=== PATIENT | male | born 1940 | race Caucasian/White ===

== ENCOUNTER 2022-11-12 12:44 | Outpatient (OUT) | payer MEDICARE, OTHER, SELFPAY ==
[2022-11-12 13:37] LABS: Bilirubin Urine NEGATIVE (NEGATIVE); Blood Urine NEGATIVE (NEGATIVE); Clarity Urine CLEAR (CLEAR); Color Urine LT. YELLOW (YELLOW); Glucose Urine UA NEGATIVE (NEGATIVE); Ketones Urine NEGATIVE (NEGATIVE); Leukocyte Esterase Urine NEGATIVE (NEGATIVE); Nitrite Urine NEGATIVE (NEGATIVE); Protein Urine NEGATIVE (NEG/TRACE); Urobilinogen Urine 0.2 EU/dL (0.2-1.0)
[2022-11-12 13:51] LABS: Bacteria Urine NONE SEEN #/HPF (NONE SEEN); Cast Seen? NONE SEEN #/LPF (NONE SEEN); Crystals Seen? None Seen #/HPF (None Seen); Mucus Urine NONE SEEN (NONE SEEN); RBC Urine NONE SEEN #/HPF (0-2); Squamous Epithelial Cell Urine RARE #/LPF (NONE/RARE); WBC Urine NONE SEEN #/HPF (NONE SEEN)
== END 2022-11-12 12:45 ==
LOC: LAB 12:51
PROVIDERS: PCP Nurse Practitioner Family; Visit Provider Nurse Practitioner Family
DX: N39.0 Urinary tract infection, site not specified (principal)
CPT/HCPCS: 81001; 87086; 87150; 87186

== ENCOUNTER 2022-11-12 12:53 | Outpatient (OUT) | payer MEDICARE, SELFPAY ==
[2022-11-13 04:08] LABS: PSA, Free 1.23 ng/mL; Prostate Specific Ag 4.9 ng/mL (0.0-4.0)
== END 2022-11-12 12:54 ==
PROVIDERS: PCP Nurse Practitioner Family; Visit Provider Urology
DX: R97.20 Elevated prostate specific antigen [PSA] (principal); N39.0 Urinary tract infection, site not specified
CPT/HCPCS: 36415; 81001; 84153; 84154; 87086; 87150; 87186

== ENCOUNTER 2022-12-05 09:26 | Outpatient (OUT) | payer MEDICARE, SELFPAY ==
[2022-12-05 12:10] LABS: Bilirubin Urine NEGATIVE (NEGATIVE); Blood Urine NEGATIVE (NEGATIVE); Clarity Urine CLEAR (CLEAR); Color Urine LT. YELLOW (YELLOW); Glucose Urine UA NEGATIVE (NEGATIVE); Ketones Urine NEGATIVE (NEGATIVE); Leukocyte Esterase Urine NEGATIVE (NEGATIVE); Nitrite Urine NEGATIVE (NEGATIVE); Protein Urine NEGATIVE (NEG/TRACE); Specific Gravity Urine 1.015 (1.005-1.025); Urobilinogen Urine 0.2 EU/dL (0.2-1.0)
== END 2022-12-05 09:27 | disposition home or self-care (01) ==
LOC: LAB 09:27
PROVIDERS: PCP Nurse Practitioner Family; Visit Provider Nurse Practitioner Family
DX: N39.0 Urinary tract infection, site not specified (principal)
CPT/HCPCS: 81003; 87086

== ENCOUNTER 2023-01-31 09:54 | Outpatient (OUT) | payer MEDICARE, SELFPAY ==
[2023-01-31 12:20] LABS: Alanine Aminotransferase 19 U/L (16-63); Aspartate Amino Transferase 20 U/L (15-37); Chol HDL Ratio 3.2; Cholesterol 116 mg/dL (<=200); HDL Cholesterol 36 mg/dL (40-60); Triglycerides 123 mg/dL (<=150); VLDL CHOLESTEROL 24.6 mg/dL
== END 2023-01-31 09:55 | disposition home or self-care (01) ==
PROVIDERS: PCP Nurse Practitioner Family; Visit Provider Internal Medicine Cardiovascular Disease
DX: E78.5 Hyperlipidemia, unspecified (principal)
CPT/HCPCS: 36415; 80061; 84450; 84460

== ENCOUNTER 2024-05-08 11:14 | Outpatient (OUT) | payer MEDICARE, SELFPAY ==
[2024-05-08 11:50] LABS: Basophils Percent Auto 0.8 % (0.2-2.0); Eosinophils Absolute Auto 0.1 10^3/uL (0.0-0.7); Eosinophils Percent Auto 3.6 % (0.9-7.0); Hematocrit 42.3 % (42.0-54.0); Hemoglobin 14.1 g/dL (14.0-18.0); Immature Granulocytes Abs Auto 0.03 10^3/uL (0.00-0.03); Immature Granulocytes Pct Auto 0.8 % (0.0-0.5); Lymphocytes Absolute Auto 1.3 10^3/uL (1.2-3.8); Lymphocytes Percent Auto 32.4 % (20.5-60.0); Mean Corpuscular HGB Conc 33.3 g/dL (29.9-35.2); Mean Corpuscular Hemoglobin 31.8 pg (25.9-34.0); Mean Corpuscular Volume 95.3 fL (80.0-94.0); Mean Platelet Volume 9.6 fL (9.5-13.5); Monocytes Absolute Auto 0.4 10^3/uL (0.3-0.8); Monocytes Percent Auto 10.6 % (1.7-12.0); Neutrophils Percent Auto 51.8 % (43.0-75.0); Platelet Count 125 10^3/uL (150-450); Red Blood Count 4.44 10^6/uL (4.70-6.10); White Blood Count 3.9 10^3/uL (4.0-11.0)
[2024-05-08 11:56] LABS: INR 0.98; Prothrombin Time 10.4 sec (9.0-11.6)
[2024-05-08 12:10] LABS: Anion Gap 10.7; BUN Creatinine Ratio 8.3; Carbon Dioxide 27.7 mmol/L (21.0-32.0); Chloride 109 mmol/L (98-107); Estimated GFR (African America 52 (>=60 mL/min/1.73m^2); Estimated GFR (Non-African Ame 43 (>=60 mL/min/1.73m^2); Glucose 97 mg/dL (74-106); Potassium 4.4 mmol/L (3.5-5.1); Sodium 143 mmol/L (136-145)
== END 2024-05-08 11:15 | disposition home or self-care (01) ==
LOC: LAB 11:18
PROVIDERS: PCP Nurse Practitioner Family
DX: I35.0 Nonrheumatic aortic (valve) stenosis (principal)
CPT/HCPCS: 36415; 80048; 85025; 85610

== ENCOUNTER 2024-08-22 09:51 | Emergency (ER) | payer MEDICARE, SELFPAY ==
[2024-08-22] VITALS (8 sets, daily range): BP systolic 137–162; BP diastolic 57–84; PULSE 60–82; TEMP 36.3; O2SAT 95–100; BMI 23.4
--- NOTE | 2024-08-22 09:58 | ECG_ITS ---
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 Measurements Intervals [place] Rate: 60 P: 90 WV: 198 QRS: 199 QRSD: 138 T: 77 QT: 458 QTc: 458 Interpretive Statements 1100 Sinus rhythm 2330 Nonspecific intraventricular conduction block 3534 Lateral myocardial infarction, age undetermined 5120 Possible right ventricular hypertrophy 9150 abnormal ECG Compared to ECG 10/04/2022 16:02:18 Myocardial infarct finding now present First degree AV block no longer present Incomplete right bundle-branch block no longer present Electronically Signed On 08-22-2024 17:21:16 EDT by MARIAELENA TORRES M.D.
[2024-08-22] MEDS: ONDANSETRON PF 4 MG/2 ML VIAL IV (10:14)
[2024-08-22] MEDS: FAMOTIDINE/PF 20 MG/2 ML VIAL IV (10:14)
[2024-08-22 10:31] LABS: Basophils Percent Auto 0.5 % (0.2-2.0); Eosinophils Absolute Auto 0.1 10^3/uL (0.0-0.7); Eosinophils Percent Auto 2.6 % (0.9-7.0); Hematocrit 40.5 % (42.0-54.0); Hemoglobin 13.4 g/dL (14.0-18.0); Immature Granulocytes Abs Auto 0.03 10^3/uL (0.00-0.03); Immature Granulocytes Pct Auto 0.7 % (0.0-0.5); Lymphocytes Absolute Auto 1.2 10^3/uL (1.2-3.8); Lymphocytes Percent Auto 29.5 % (20.5-60.0); Mean Corpuscular HGB Conc 33.1 g/dL (29.9-35.2); Mean Corpuscular Hemoglobin 31.2 pg (25.9-34.0); Mean Corpuscular Volume 94.4 fL (80.0-94.0); Mean Platelet Volume 9.5 fL (9.5-13.5); Monocytes Absolute Auto 0.3 10^3/uL (0.3-0.8); Monocytes Percent Auto 8.1 % (1.7-12.0); Neutrophils Absolute Auto 2.5 10^3/uL (1.4-6.5); Neutrophils Percent Auto 58.6 % (43.0-75.0); Platelet Count 120 10^3/uL (150-450); Red Blood Count 4.29 10^6/uL (4.70-6.10); White Blood Count 4.2 10^3/uL (4.0-11.0)
--- NOTE | 2024-08-22 10:43 | ED_ITS ---
HPI - Dizziness General Chief Complaint: Dizziness Stated Complaint: WEAKNESS, DIZZINESS Time Seen by Provider: 08/22/24 09:58 Source: patient Mode of arrival: ambulance Limitations: no limitations History of Present Illness HPI Narrative: The patient is coming to the ER after he had an episode where he had the room spinning sensation in addition to nausea and vomiting 1 time before arrival, patient mentioned that he was just standing outside his work when the doctor's he went off and apparently he denies any other complaints before that, when this happened the patient vomited once he is feeling better after that he still having some nausea, he mentioned that something similar to that happen almost 4 weeks ago when he was driving and he started having the room sensation feeling with nausea and vomiting and once he vomited he was feeling better The patient denies any chest pain or any other concerns Related Data Home Medications ?Medication ?Instructions ?Recorded ?Confirmed atorvastatin 80 mg tablet 80 mg PO DAILY 08/22/24 08/22/24 losartan 50 mg tablet 50 mg PO DAILY 08/22/24 08/22/24 tamsulosin 0.4 mg capsule 0.4 mg PO DAILY 08/22/24 08/22/24 Previous Rx's ?Medication ?Instructions ?Recorded fluticasone propionate 50 1 spray intranasal BID #16 grams 08/22/24 mcg/actuation nasal spray,suspension (Flonase Allergy Relief) meclizine 12.5 mg tablet 12.5 mg PO BID PRN motion sickness 08/22/24 #10 tabs Allergies Allergy/AdvReac Type Severity Reaction Status Date / Time No Known Drug Allergies Allergy Verified 08/22/24 09:57 Review of Systems ROS Status of ROS 10 or more systems reviewed and unremark able except as noted in history and below [facility] Medical History (Updated 08/22/24 @ 12:33 by Sarah Brush MD) History of hypertension ?Z86.79 - Personal history of other diseases of the circulatory system (ICD- 10) Social History Little interest or pleasure in doing things: not at all Feeling down, depressed, or hopeless: not at all Exam Narrative Exam Narrative: Nurses notes and vital signs reviewed and patient is not hypoxic. General: Well-appearing and in no apparent distress. Skin: Warm, dry, no pallor noted. No rash. Head: Normocephalic, atraumatic. Neck: Supple, non-tender. Eye: Pupils are equal, round and EOMI. No scleral icterus. Ears, Nose, Mouth, and Throat: TM are clear, bilateral nasal congestion ,oral mucosa is moist, no posterior oropharynx erythema, uvula is mid-line Cardiovascular: Regular Rate and Rhythm without murmur, gallop or rub. Respiratory: No accessory muscle use or respiratory distress. Lungs are clear to auscultation, no wheezing, rales or rhonchi Chest Wall: no tenderness Back: No midline thoracic or lumbar vertebral tenderness. No CVA tenderness Musculoskeletal: normal ROM, no calf or popliteal tenderness, no lower extremity edema/swelling GI: Abdomen is soft, non-distended. Normal bowel sounds. No masses appreciated. No tenderness to palpation. No rebound, guarding, or rigidity noted. Neurological: A&O x4. No cranial nerve dysfunction observed. No truncal ataxia. Moves all extremities. Sensation intact. Psychiatric: Cooperative and interactive. Normal mood and affect. Constitutional Vital Signs, click to edit/add: Last Vital Signs Temp 97.4 F L 08/22/24 09:53 Pulse 82 08/22/24 11:30 Resp 15 08/22/24 10:00 BP 159/67 H 08/22/24 11:30 Pulse Ox 98 08/22/24 11:30 O2 Del Method Room Air 08/22/24 09:59 Course Vital Signs Vital signs: Vital Signs Temperature 97.4 F L 08/22/24 09:53 Pulse Rate 60 08/22/24 09:53 Respiratory Rate 16 08/22/24 09:53 Blood Pressure 162/69 H 08/22/24 09:53 Pulse Oximetry 97 08/22/24 09:53 Oxygen Delivery Method Room Air 08/22/24 09:53 Temperature 97.4 F L 08/22/24 09:53 Pulse Rate 82 08/22/24 11:30 Respiratory Rate 15 08/22/24 10:00 Blood Pressure 159/67 H 08/22/24 11:30 Pulse Oximetry 98 08/22/24 11:30 Oxygen Delivery Method Room Air 08/22/24 09:59 MDM - Dizziness MDM Narrative Medical decision making narrative: The patient EKG showing sinus rhythm with nonspecific EKG changes and paced rhythm no ST elevation noted CT head showed no acute pathology CBC and chemistry showed no acute pathology Troponin twice repeated was negative The patient was feeling much better after he vomited 1 time in the ER He was able to ambulate with no difficulty I did notice that the patient have bilateral nasal congestion he was provided with Flonase spray for that Patient also provided with meclizine for supportive care at home although he was instructed about monitoring his symptoms Patient presentation today could be secondary to vertigo The patient is to follow up with primary care physician in next 2-3 days or to return to the emergency department should any of the signs or symptoms worsen or new symptoms develop. The patient agrees with the following Diagnosis and Treatment plan and the patient will be discharged home. Lab Data Labs: Lab Results 08/22/24 08/22/24 Range/Units 10:21 11:48 WBC 4.2 (4.0-11.0) 10^3/uL RBC 4.29 L (4.70-6.10) 10^6/uL Hgb 13.4 L (14.0-18.0) g/dL Hct 40.5 L (42.0-54.0) % MCV 94.4 H (80.0-94.0) fL MCH 31.2 (25.9-34.0) pg MCHC 33.1 (29.9-35.2) g/dL RDW 13.0 (11.0-15.0) % Plt Count 120 L (150-450) 10^3/uL MPV 9.5 (9.5-13.5) fL Neut % (Auto) 58.6 (43.0-75.0) % Lymph % (Auto) 29.5 (20.5-60.0) % [place] % (Auto) 8.1 (1.7-12.0) % Eos % (Auto) 2.6 (0.9-7.0) % Baso % (Auto) 0.5 (0.2-2.0) % Neut # (Auto) 2.5 (1.4-6.5) 10^3/uL Lymph # (Auto) 1.2 (1.2-3.8) 10^3/uL [place] # (Auto) 0.3 (0.3-0.8) 10^3/uL Eos # (Auto) 0.1 (0.0-0.7) 10^3/uL Baso # (Auto) 0.0 (0.0-0.1) 10^3/uL Abs Immat Gran (auto) 0.03 (0.00-0.03) 10^3/uL Imm/Tot Granulo (auto) 0.7 H (0.0-0.5) % PT 10.4 (9.0-11.6) sec INR 0.98 Sodium 142 (136-145) mmol/L Potassium 4.4 (3.5-5.1) mmol/L Chloride 105 (98-107) mmol/L Carbon Dioxide 26.8 (21.0-32.0) mmol/L Anion Gap 14.6 BUN 18.0 (7.0-18.0) mg/dL Creatinine 1.56 H (0.70-1.30) mg/dL Est GFR ( Amer) 52 L (>=60 mL/min/1.73m^2) Est GFR (Non-Af Amer) 43 L (>=60 mL/min/1.73m^2) BUN/Creatinine Ratio 11.5 Glucose 124 H (74-106) mg/dL Calcium 9.7 (8.5-10.1) mg/dL Magnesium 1.9 (1.8-2.4) mg/dL Total Bilirubin 0.9 (0.2-1.0) mg/dL AST 27 (15-37) U/L ALT 24 (16-63) U/L Alkaline Phosphatase 115 (46-116) U/L Troponin I High Sens 13.9 17.3 (4.0-76.1) pg/mL Total Protein 6.4 (6.4-8.2) g/dL Albumin 3.3 L (3.4-5.0) g/dL Globulin 3.1 g/dL Albumin/Globulin Ratio 1.1 Discharge Plan Discharge Chief Complaint: Dizziness Clinical Impression: Vertigo Patient Disposition: Home, Self-Care Time of Disposition Decision: 12:32 Condition: Good Prescriptions / Home Meds: New fluticasone propionate [Flonase Allergy Relief] 50 mcg/actuation spray,suspension 1 spray intranasal BID Qty: 16 0RF Rx Instructions: administer into each nostril meclizine 12.5 mg tablet 12.5 mg PO BID PRN (Reason: motion sickness) Qty: 10 0RF No Action atorvastatin 80 mg tablet 80 mg PO DAILY losartan 50 mg tablet 50 mg PO DAILY tamsulosin 0.4 mg capsule 0.4 mg PO DAILY Print Language: Czech Instructions: Vertigo (DC) Referrals: MARIAH GONG [Primary Care Provider] - 1 week Discharge Date/Time: 08/22/24 12:44
[2024-08-22 10:45] LABS: Magnesium 1.9 mg/dL (1.8-2.4)
[2024-08-22 10:46] LABS: INR 0.98; Prothrombin Time 10.4 sec (9.0-11.6)
[2024-08-22 10:52] LABS: Alanine Aminotransferase 24 U/L (16-63); Albumin Globulin Ratio 1.1; Albumin Level 3.3 g/dL (3.4-5.0); Alkaline Phosphatase 115 U/L (46-116); Anion Gap 14.6; Aspartate Amino Transferase 27 U/L (15-37); BUN Creatinine Ratio 11.5; Bilirubin Total 0.9 mg/dL (0.2-1.0); Calcium 9.7 mg/dL (8.5-10.1); Carbon Dioxide 26.8 mmol/L (21.0-32.0); Chloride 105 mmol/L (98-107); Estimated GFR (African America 52 (>=60 mL/min/1.73m^2); Estimated GFR (Non-African Ame 43 (>=60 mL/min/1.73m^2); Globulin 3.1 g/dL; Glucose 124 mg/dL (74-106); Potassium 4.4 mmol/L (3.5-5.1); Sodium 142 mmol/L (136-145); Total Protein 6.4 g/dL (6.4-8.2)
[2024-08-22 10:54] LABS: Troponin I High Sensitivity 13.9 pg/mL (4.0-76.1)
--- OUTSIDE RECORDS SUMMARY | 2024-08-22 11:12 | XMS_ITS | CCD ---
Author Organization [facility] ion [facility] Care Team Providers Care Electron Beam Operator Name Role Phone Isak Sorto Unavailable Unavailable Unavailable None, No PCP Unavailable Unavailable Minesh Carlin Unavailable Unknown, Referring Provider Unavailable Unav ailable Dr. Jignesh Bhatt Attending Unavailable DEVAUGHN BARROW JAYA Primary Care Unavailable FAFRANDY, COATES H Attending Unavailable RENATO, COATES H Admitting Unavailable DELORES Garcia, DR LOGAN Consulting Unavailable JUHI VILLALOBOS Consulting Unavailable DONAVAN CHOWDARY Consulting Unavailable OKSANA COLON Consulting Unavailable FAWWAD, COATES H Consulting Unavailable JENNIFER HURTADO Consulting Unavailab BRIE Carvalho Consulting Unavailable DEVEN, ADAM Consulting Unavailable VIVEK WINSTON Consulting Unavailable AGUSTO COOK Consulting Unavailable ARMAAN GONZALEZ Consulting Unavailable AICHPATSY, DEVAUGHN JAYA Primary Care Unavailable FAWWAD, COATES H Attending Unavailable FAWWAD, COATES H Consulting Unavailable RENATO, COATES H Admitting Unavailable DEVAUGHN BARROW JAYA Primary Care Unavailable DR JIGNESH BHATT Admitting UnavailDR JIGNESH Duffy Attending UnavailDR JIGNESH Duffy Consulting UnavailFABIOLA Kaur Primary Care Physician [phone] МАРИНА LOCK Attending Unavailable Unavailable Primary Care Provider UnavailDO Scott Duffy Attending Provider MD Anthony Moran Primary Care Provider Farideh FERRARO-Fabiola CANTOR Primary Care Provider KERMIT CLEMENTS Attending Unavailab JOMAR Clark Attending Unavailable JIGNESH BHATT Referring Unavailable CAROLE HOUSTON Referring Unavailable FARIDEH, FABIOLA S Primary Care Unavailable PETER ZHENG Admitting Unavailable PETER ZHENG Attending Unavailable KERMIT CLEMENTS Referring Unavailab cherelle SHAHMER, FABIOLA S Primary Care Unavailable LUIS BATES Referring Unavailable FARIDEH, FABIOLA S Primary Care Unavailable Scott Bhatt Attending Unavailable Scott Bhatt Admitting Unavailable Anthony Moran Primary Care Unavailable Virgil Carrero Attending Unavailable Virgil Carrero Admitting Unavailable Anthony Moran Primary Care Unavailable Scott Bhatt Attending Unavailable Scott Bhatt Admitting Unavailable Anthony Moran M Primary Care Unavailable JIGNESH BHATT Attending Unavailable JIGNESH BHATT Attending Unavailable FARIDEH, FABIOLA S Primary Care Unavailable VIRGIL CARRERO Attending Unavailable FARIDEH, FABIOLA S Primary Care Unavailable Farideh STAFF [employer], Fabiola S Primary Care Provider JGINESH BHATT Referring Unavailable VIRGIL CARRERO Referring Unavailable FARIDEH, FABIOLA S Primary Care Unavailable Allergies Allergy Classification Reported Allergen(s) Allergy Type Date of Onset Reaction(s) Facility (1 source) No Known Medication Allergies; Translations: [No Known Medication Allergies] Propensity to adverse reactions (disorder) [facility] Repository Medications Current Medications Medication Drug Class(es) Dates Sig (Normalized) Sig (Original) Acetaminophen (1 source) Start: 05-19-2024 take 1 tablet by mouth every six hours as needed acetaminophen (Tylenol) tablet 650 mg aspirin 81 mg delayed release oral tablet (20 sources) Platelet Aggregation Inhibitor, Nonsteroidal Anti-inflammatory Drug Start: 04-27-2021 Aspirin 81 Apr, Active Start: 02-09-2020 take 1 tablet by suyapa th once daily aspirin 81 mg oral tablet 81 mg = 1 tab(s), Oral, Daily, # 30 tab(s), Refills(s) 0 Start Date: 02/09/20 Status: Ordered Start: 11-02-2018 take 1 tablet by suyapa th once daily Aspirin 81 mg Tablet,Delayed Release (Dr/Ec) Active 81 MG PO Daily November 01, 2018 11:00pm atorvastatin 80 mg oral tablet (20 sources) HMG-CoA Reductase Inhibitor Start: 10-31-2018 End: 03-30-2025 take 1 tablet by mouth once daily at bedtime atorvastatin (Lipitor) 80 mg tablet Indications: Hyperlipidemia, unspecified hyperlipidemia type , History of [place] (myocardial infarction) Take 1 tablet (80 mg) by mouth once daily at bedtime. 90 tablet 3 03/30/2024 03/30/2025 Active benzocaine 15 mg / menthol 3.6 mg oral lozenge (1 source) Standardized Chemical Allergen Start: 05-19-2024 1 lozenge, Mouth/Throat, Every 2 hour PRN, sore throat, Starting on Sat05/19/24 at 1350 cefadroxil 500 mg oral capsule (2 sources) Cephalosporin Antibacterial Start: 05-21-2024 End: 05-28-2024 take 1 capsule by mouth twice daily cefadroxil (Duricef) 500 mg capsule Indications: S/P placement of cardiac pacemaker Take 1 capsule (500 mg) by mouth 2 times a day for 7 days. 14 capsule 05/21/2024 05/28/2024 Active Start: 05-20-2024 End: 05-27-2024 take 500 mg by mouth every twelve hours 500 mg, oral, Every 12 hours scheduled, First dose on Sat05/20/24 at 2100, For 7 days, Suspected Indication (Select all that apply): Surgical Prophylaxis, Indications: Surgical Prophylaxis clopidogrel 75 mg oral tablet (15 sources) P2Y12 Platelet Inhibitor Start: 01-22-2023 clopidogrel 75 mg Ta b 75 mg = 1 tab(s) Start Date: 01/22/23 Status: Ordered Start: 02-28-2022 take 1 tablet by suyapa once daily Clopidogrel Bisulfate 75 MG Oral Tablet Take 1 tablet daily Quantity: 30 Refills: 0 Ordered: 28-Feb-2022 Jignesh Bhatt DO Start : 28-Feb-2022 Active DDM B12 1000 Mcg Tablet (2 sources) Start: 02-09-2020 DDM B12 1000 Mcg Tablet DDM B12 1000 Mcg Tablet Start Date: 02/09/20 Status: Ordered docusate sodium 100 mg oral capsule (1 source) Start: 05-19-2024 take 100 mg by mouth twice daily for constipation 100 mg, oral, 2 times daily, First dose on Sat05/19/24 at 1415, Bowel Regimen - for prevention of constipation Hold for loose stools EPINEPHrine 0.01 mg/ml / lidocaine hydrochloride 20 mg/ml injectable solution (1 source) Antiarrhythmic, alpha-Adrenergic Agonist, beta-Adrenergic Agonist, Catecholamine, Amide Local Anesthetic Start: 05-19-2024 5 mL, subcutaneous, Once as needed, Access site bleeding, Starting on Sat05/19/24 at 1350, For 1 dose, Inject at site of bleed folic acid 0.4 mg / vitamin b12 1 mg sublingual tablet (3 sources) Vitamin B12 Start: 03-31-2024 Vitamin [id number] Acid 1,000-400 mcg lozenge Active LOZENGE SUBLINGUAL Every morning March 30, 2024 11:00pm gabapentin 600 mg oral tablet (4 sources) Anti-epileptic Agent Start: 02-09-2020 gabapentin 300 mg Cap Refills(s) 0 Start Date: 02/09/20 Status: Ordered Start: 02-09-2020 gabapentin 600 mg Tab Refills(s) 0 Start Date: 02/09/20 Status: Ordered Iodine (2 sources) Start: 03-10-2020 iodine Daily S tart Date: 03/10/20 Status: Ordered loratadine 10 mg oral capsule (2 sources) Start: 02-09-2020 take 1 capsule by mouth once daily loratadine 10 mg oral capsule 10 mg = 1 cap(s), Oral, Daily, # 10 cap(s), Refills(s) 0 Start Date: 02/09/20 Status: Ordered losartan potassium 50 mg oral tablet (17 sources) Angiotensin 2 Receptor Renetta Start: 08-13-2024 End: 08-13-2025 take 1 tablet by mouth once daily losartan (Cozaar) 50 mg tablet Indications: Primary hypertension Take 1 tablet (50 mg) by mouth once daily. 90 tablet 3 08/13/2024 08/13/2025 Active Start: 05-21-2024 take 0.5 tablet by m outh once daily losartan (Cozaar) 100 mg tablet Indications: Primary hypertension Take 0.5 tablets (50 mg) by mouth once daily. 05/21/2024 Active Start: 03-16-2024 End: 03-16-2025 take 1 tablet by mouth once daily in the morning Losartan 100 mg tablet Active 100 MG PO Every morning March 30, 2024 11:00pm Start: 02-19-2023 take 1 tablet by suyapa th once daily Losartan Potassium 100 MG Oral Tablet TAKE 1 TABLET DAILY. Quantity: 3 Refills: 3 Ordered: 19-Feb-2023 Jignesh Bhatt DO Start : 19-Feb-2023 Active increased dose Start: 01-23-2023 take 1 tablet by suyapa th once daily Losartan Potassium 50 MG Oral Tablet Take 1 tablet daily Quantity: 90 Refills: 3 Ordered: 23-Jan-2023 Miller AMBROSE Jignesh Start : 23-Jan-2023 Active 24 hr metoprolol succinate 25 mg extended release oral tablet (20 sources) beta-Adrenergic Renetta Start: 02-09-2020 take 1 tablet by mouth once daily metoprolol succinate XL (Toprol-XL) 25 mg 24 hr tablet Indications: Primary hypertension , History of [place] (myocardial infarction) Take 1 tablet (25 mg) by mouth once daily. 90 tablet 3 07/09/2023 Active Start: 10-31-2018 End: 03-31-2024 take 1 tablet by mouth twice daily Metoprolol Tartrate 25 mg Tablet Discontinued 25 MG PO Twice daily 60 30 October 30, 2018 11:00pm March 31, 2024 10:05am nitroglycerin 0.4 mg sublingual tablet (20 sources) Nitrate Vasodilator Start: 10-31-2018 nitroglycerin (Nitrostat) 0.[address] 1 tablet (0.4 mg) under the tongue every 5 minutes if needed. 11/09/2021 Active Ondansetron (1 source) Serotonin-3 Receptor Antagonist Start: 05-19-2024 take 1 tablet by mouth every eight hours as needed ondansetron (Zofran) tablet 4 mg oxygen (O2) therapy (1 source) Start: 05-19-2024 inhalation, Continuous PRN - O2/gases, other, Starting on Sat05/19/24 at 1350, Wean oxygen therapy as tolerated., Device: Nasal Cannula, Rate in liters per minute: 2 LPM, Keep O2 Sat Above: 92% pantoprazole (1 source) Proton Pump Inhibitor Start: 05-20-2024 pantoprazole (ProtoNix) EC tablet 40 mg perflutren lipid microspheres (Definity) injection 0.5-10 mL of dilution (1 source) Start: 05-20-2024 0.5-10 mL of dilution, intravenous, Once in imaging, Starting on Sat05/20/24 at 0748, For 1 dose, Contrast - for use by imaging provider only. Prior to administration, Definity product must be activated. First, bring vial to room temperature. Then, shake vial for 45 seconds. Do not use if the 45 second activation cycle has not been completed. Following activation, the product will appear as a milky white suspension and may be used immediately. If not used within 5 minutes of activation, re-suspend by inverting and shaking the vial for 10 seconds. Discard unused product. Administration: Dilute 1.3 mL of activated DEFINITY with 8.7 mL of normal saline in a 10 mL syringe. Inject 0.5 mL of diluted DEFINITY when notified the images/film are unclear to enhance view of Left Ventricular borders. Repeat 0.5 mL of DEFINITY until clear images are obtained, not to exceed 10 mLs. Once images are obtained or limit of medication is reached, flush line with 10 mL of Normal Saline. tamsulosin hydrochloride 0.4 mg oral capsule (10 sources) alpha-Adrenergic Renetta Start: 03-31-2024 take 1 capsule by mouth once daily at mealtime 0.4 mg, oral, Daily, First dose on Sat05/19/24 at 1415, Give 30 minutes after the same mealtime each day. Capsules should be swallowed whole; do not crush, chew, or open. Start: 02-04-2024 take 1 capsule by mo [facility] once daily tamsulosin 0.4 mg Cap 0.4 mg = 1 cap(s), Oral, Daily, # 30 cap(s), Refills(s) 0 Start Date: 02/04/24 Status: Ordered Start: 11-14-2022 End: 11-09-2023 take 1 capsule by mouth once daily at bedtime Flomax 0.4 mg Cap 0.4 mg = 1 cap(s), Oral, Daily, Take 1 tab daily at bedtime. Do not take at the same time as blood pressure meds., X 30 day(s), # 30 cap(s), Refills(s) 11, Pharmacy: [id number], 175, cm, 11/14/22 9:11:00 EDT, Height/Length Dosing, 73.1... Start Date: 11/14/22 Stop Date: 11/09/23 Status: Ordered vitamin b12 0.25 mg oral tablet (11 sources) Vitamin B12 take 1 tablet by mouth once daily cyanocobalamin (Vitamin B-12) 250 mcg tablet Take 1 tablet (250 mcg) by mouth once daily. Active Completed/Discontinued Medications Medication Drug Class(es) Dates Sig (Normalized) Sig (Original) gadoterate meglumine (Dotarem) 0.5 mmol/mL contrast injection 30 mL (1 source) Start: 05-19-2024 End: 05-19-2024 inject 30 mL intravenously once 30 mL, intravenous, Once in imaging, Starting on Sat05/19/24 at 1055, For 1 dose, Administer undiluted as rapid I.V. bolus injection iohexol (OMNIPaque) 350 mg iodine/mL solution 80 mL (1 source) Start: 04-15-2024 End: 04-15-2024 80 mL, intravenous, Once in imaging, Starting on Sat04/15/24 at 1227, For 1 dose lisinopril 5 mg oral tablet (19 sources) Angiotensin Converting Enzyme Inhibitor Start: 02-09-2020 lisinopril 5 mg Tab Refills(s) 0 Start Date: 02/09/20 Status: Ordered Start: 10-31-2018 End: 03-31-2024 take 1 tablet by mouth once daily in the morning Lisinopril 5 mg Tablet Discontinued 5 MG PO Every morning March 30, 2024 11:00pm March 31, 2024 10:04am microencapsulated potassium chloride 20 meq extended release oral tablet (1 source) Start: 05-20-2024 End: 05-20-2024 20 mEq, oral, Once, On Sat05/20/24 at 0130, For 1 dose, Best given with food and plenty of water to minimize gastric irritation. Do not crush or chew. pregabalin 150 mg oral capsule (11 sources) take 1 capsule by mouth twice daily Pregabalin 150 MG Oral Capsule TAKE 1 CAPSULE TWICE DAILY. Quantity: 0 Refills: 0 Ordered: 17-May-2021 DO Active 1000 ml sodium chloride 9 mg/ml injection (2 sources) Start: 05-20-2024 End: 05-21-2024 250 mL, intravenous, at 250 mL/hr, Administer over 1 Hours, Once, On [place] 05/21/24 at 1000, For 1 dose ticagrelor 90 mg oral tablet (6 sources) Start: 10-31-2018 End: 03-31-2024 take 1 tablet by mouth twice daily Ticagrelor (Brilinta) 90 mg Tablet Discontinued 90 MG PO Twice daily 180 October 30, 2018 11:00pm March 31, 2024 10:05am Problems Active Problems Problem Classification Problem Date Documented Date Episodic/Chronic Acute and unspecified renal failure (1 source) Acute kidney failure, unspecified; Translations: [ACUTE KIDNEY FAILURE UNSPECIFIED] Onset: 10-11-2022 Episodic Acute myocardial infarction (8 sources) Myocardial infarction; Translations: [ST elevation (STEMI) myocardial infarction involving other coronary artery of inferior wall] Onset: 10-08-2018 02-09-2020 Chronic Comment on above: Problem List clean-u p per request of Phys. EHR Cmte Bacterial infection; unspecified site (4 sources) Other bacterial infections of unspecified site; Translations: [OTH BACTERIAL INFECTIONS UNS SITE] Onset: 10-11-2022 Episodic Cancer of colon (2 sources) Malignant tumor of colon Onset: 06-10-2014 02-09-2020 Chronic Conduction disorders (20 sources) H/O: cardiac pacemaker in situ; Translations: [Presence of cardiac pacemaker] Onset: 05-19-2024 05-21-2024 Chronic Coronary atherosclerosis and other heart disease (20 sources) Coronary atherosclerosis; Translations: [Coronary atherosclerosis of [place] coronary artery] Onset: 10-11-2022 02-09-2020 Chronic Disorders of lipid metabolism (20 sources) Hyperlipidemia; Translations: [Other and unspecified hyperlipidemia] Onset: 01-24-2022 Chronic Essential hypertension (20 sources) Hypertensive disorder; Translations: [Unspecified essential hypertension] Onset: 10-11-2022 02-09-2020 Chronic Heart valve disorders (20 sources) Aortic valve stenosis; Translations: [Nonrheumatic aortic (valve) stenosis] Onset: 03-23-2024 Resolved: 05-21-2024 03-23-2024 Chronic Hyperplasia of prostate (5 sources) Benign prostatic hyperplasia with lower urinary tract symptoms; Translations: [Benign prostatic hypertrophy without outflow obstruction] Onset: 10-11-2022 Chronic Nephritis; nephrosis; renal sclerosis (2 sources) Atrophy of kidney; 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)] Onset: 11-14-2022 Chronic Non-Hodgkin`s lymphoma (2 sources) Malignant lymphoma Onset: 06-10-2014 02-09-2020 Chronic Nutritional deficiencies (2 sources) Cobalamin deficiency 02-09-2020 Episodic Other aftercare (1 source) Other buttermaker continuous churn (current) drug therapy; Translations: [OTH FDC CURRENT DRUG THERAPY] Onset: 10-11-2022 Episodic Other circulatory disease (13 sources) Cardiac function test normal; Translations: [Normal cardiac ejection fraction] Episodic Other circulatory disease (1 source) Other specified symptoms and signs involving the circulatory and respiratory systems; Translations: [Oth symptoms and signs involving the circ and resp systems] Onset: 02-28-2022 Episodic Other diseases of kidney and ureters (1 source) Other obstructive and reflux uropathy; Translations: [OTHER OBSTRUCTIVE AND REFLUX UROPATHY] Onset: 10-11-2022 Episodic Other liver diseases (1 source) Abnormal levels of other serum enzymes; Translations: [ABNORMAL LEVELS OTHER SERUM ENZYMES] Onset: 10-11-2022 Episodic Other male genital disorders (2 sources) H/O: male genital disorder; Translations: [Personal history of other diseases of male genital organs] Onset: 11-14-2022 Episodic Other male genital disorders (2 sources) History of prostatitis 11-14-2022 Episodic Other nervous system disorders (1 source) Metabolic encephalopathy; Translations: [METABOLIC ENCEPHALOPATHY] Onset: 10-11-2022 Chronic Other nervous system disorders (4 sources) Neuropathy Onset: 06-10-2014 02-09-2020 Chronic Other screening for suspected conditions (not mental disorders or infectious disease) (4 sources) Raised prostate specific antigen; Translations: [Elevated prostate specific antigen [PSA]] Onset: 11-13-2022 Episodic Loretta-; endo-; and myocarditis; cardiomyopathy (except that caused by tuberculosis or sexually transmitted disease) (3 sources) Heart valve disorder; Translations: [Endocarditis, valve unspecified] Onset: 04-15-2024 04-09-2024 Chronic Residual codes; unclassified (6 sources) Body mass index 20-24 - normal; Translations: [Body Mass Index between 19-24, adult] Episodic Residual codes; unclassified (1 source) Acquired absence of other specified parts of digestive tract; Translations: [ACQ ABSENCE OTH PART DIGESTV TRACT] Onset: 10-11-2022 Episodic Septicemia (except in labor) (1 source) Sepsis due to other specified staphylococcus; Translations: [SEPSIS D/T OTH SPEC STAPHYLOCOCCUS] Onset: 10-11-2022 Episodic Unclassified (1 source) CONTACT W/AND (SUSP) EXPOS COVID-19; Translations: [CONTACT W/AND (SUSP) EXPOS COVID-19] Onset: 10-11-2022 Unclassified (2 sources) Atrophy of left kidney 11-14-2022 Unclassified (1 source) Patient encounter status 05-19-2024 Unclassified (2 sources) New Patient Visit; Translations: [New Patient Visit] Onset: 04-15-2024 Urinary tract infections (3 sources) Urinary tract infection, site not specified; Translations: [UTI SITE NOT SPECIFIED] Onset: 10-05-2022 Episodic Past or Other Problems Problem Classification Problem Date Documented Date Episodic/Chronic Cancer of colon (20 sources) History of malignant neoplasm of colon; Translations: [Personal history of malignant neoplasm of large intestine] Onset: 10-11-2022 03-29-2023 Episodic Complications of surgical procedures or medical care (8 sources) Postoperative atrioventricular block; Translations: [Other postprocedural complications and disorders of the circulatory system, not elsewhere classified] Onset: 05-19-2024 Resolved: 05-21-2024 05-20-2024 Episodic Coronary atherosclerosis and other heart disease (5 sources) Presence of coronary angioplasty implant and graft; Translations: [Coronary angioplasty status] Onset: 10-11-2022 Episodic Non-Hodgkin`s lymphoma (20 sources) History of malignant lymphoma; Translations: [Personal history of other lymphatic and hematopoietic neoplasms] Onset: 10-11-2022 03-29-2023 Episodic Other circulatory disease (20 sources) Carotid bruit; Translations: [Other symptoms involving cardiovascular system] Onset: 03-29-2023 03-29-2023 Episodic Other non-traumatic joint disorders (1 source) Pain in right knee Onset: 04-27-2021 Resolved: 04-27-2021 Episodic Other nutritional; endocrine; and metabolic disorders (20 sources) Overweight in adulthood with body mass index of 25 or more but less than 30; Translations: [Overweight] Onset: 04-01-2023 03-23-2024 Episodic Other nutritional; endocrine; and metabolic disorders (2 sources) Body mass index (BMI) 25.0-25.9, adult; Translations: [Body mass index (BMI) 25.0-25.9, adult] Onset: 04-01-2023 Episodic Residual codes; unclassified (10 sources) Never smoked tobacco; Translations: [Other specified health status] Onset: 03-23-2024 03-23-2024 Episodic Residual codes; unclassified (2 sources) Other specified health status; Translations: [Other specified health status] Onset: 03-23-2024 Episodic Unclassified (12 sources) Never smoked tobacco; Translations: [Never a smoker] Unclassified (11 sources) Onset: 03-23-2024 Resolved: 06-30-2024 03-23-2024 Results Test Name Value Interpretation Reference Range Facility TRANSTHORACIC ECHO (TTE) COM PLETEon 08-17-2024 TRANSTHORACIC ECHO (TTE) COMPLETE [address], [address] [place] [address] TRANSTHORACIC ECHOCARDIOGRAM REPORT Patient Name: JAYDEN YOLANDARITA Mays Physician: [id number] Amy Adorno MD, [facility] Study Date: 08/17/2024 Ordering Provider: [id number] VIRGIL CARRERO MRN/PID: [id number] Fellow: Nurse: Date of /Age: 11 1940 Bladder Tier: edwin Chadwick RDMS, RDCS, RVT Gender Assigned at M Additional Staff: : Height: 172.72 cm Admit Date: Weight: 75.30 kg Admission Status: Outpatient BSA / BMI: 1.89 m2 / 25.24 Department Location: [facility] kg/[address] Blood Pressure: 132 /60 mmHg Study Type: TRANSTHORACIC ECHO (TTE) COMPLETE Diagnosis/ICD: 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 PHYSICIAN INTERPRETATION: Left Ventricle: Left ventricular ejection fraction is normal, by visual estimate at 65%. There are no regional wall motion abnormalities. The left ventricular cavity size is normal. There is mild increased septal and mildly increased posterior left ventricular wall thickness. There is left ventricular concentric remodeling. Spectral Doppler shows a Grade I (impaired relaxation pattern) of left ventricular diastolic filling with normal left atrial filling pressure. Left Atrium: The left atrial size is mildly dilated. Right Ventricle: The right ventricle is normal in size. There is normal right ventricular global systolic function. A pacemaker wire is seen in the right ventricle. Right Atrium: The right atrial size is normal. Aortic Valve: The aortic valve appears abnormal. The aortic valve dimensionless index is 0.46. There is trace aortic valve regurgitation. The peak instantaneous gradient of the aortic valve is 26 mmHg. The mean gradient of the aortic valve is 14 mmHg. A TAVR is noted with normal valve position and a trivial perivalvular medial leak. Mitral Valve: The mitral valve is mildly thickened. There is moderate to severe mitral annular calcification. The peak instantaneous gradient of the mitral valve is 11 mmHg. There is trace mitral valve regurgitation. Tricuspid Valve: The tricuspid valve is structurally normal. There is trace tricuspid regurgitation. Pulmonic Valve: The pulmonic valve is structurally normal. There is trace pulmonic valve regurgitation. Pericardium: No pericardial effusion noted. Aorta: The aortic root is normal. Systemic Veins: The inferior vena cava appears normal in size. In comparison to the previous echocardiogram(s): When compared to study from 05/20/2024, no significant interval changes are noted, septal motion though appears to be normal not paced. CONCLUSIONS: 1. Left ventricular ejection fraction is normal, by visual estimate at 65%. 2. Spectral Doppler shows a Grade I (impaired relaxation pattern) of left ventricular diastolic filling with normal left atrial filling pressure. 3. There is normal right ventricular global systolic function. 4. A pacemaker wire is seen in the right ventricle. 5. There is moderate to severe mitral annular calcification. 6. A TAVR is noted with normal valve position and a trivial perivalvular medial leak. 7. When compared to study from 05/20/2024, no significant interval changes are noted, septal motion though appears to be normal not paced. QUANTITATIVE DATA SUMMARY: 2D MEASUREMENTS: Normal Ranges: Ao Root d: 2.90 cm (2.0-3.7cm) LAs: 3.69 cm (2.7-4.0cm) RVIDd: 2.92 cm (0.9-3.6cm) IVSd: 1.14 cm (0.6-1.1cm) LVPWd: 1.29 cm (0.6-1.1cm) LVIDd: 4.26 cm (3.9-5.9cm) LVIDs: 3.25 cm LV Mass Index: 98.0 g/m2 LVEDV Index: 41.69 ml/m2 LV % FS 23.7 % LEFT ATRIUM: Normal Ranges: LA Vol A4C: 91.4 ml (22+/-6mL/m2) LA Vol A2C: 72.9 ml LA Vol BP: 83.7 ml LA Vol Index A4C: 48.4ml/m2 LA Vol Index A2C: 38.6 ml/m2 LA Vol Index BP: 44.3 ml/m2 LA Vol A4C: 87.5 ml LA Vol A2C: 67.4 ml LA Vol Index BSA: 41.0 ml/m2 LV SYSTOLIC FUNCTION: Normal Ranges: EF-A4C View: 62 % (>=55%) EF-A2C View: 52 % EF-Biplane: 54 % EF-Visual: 65 % LV EF Reported: 65 % LV DIASTOLIC FUNCTION: Normal Ranges: MV Peak E: 1.22 m/s (0.7-1.2 m/s) MV Peak A: 1.36 m/s (0.42-0.7 m/s) E/A Ratio: 0.90 (1.0-2.2) MV e' 0.029 m/s (>8.0) MV lateral e' 0.03 m/s MV medial e' 0.03 m/s E/e' Ratio: 42.49 (<8.0) PulmV Sys Olinda: 50.28 cm/s PulmV Aiken Olinda: 48.74 cm/s PulmV S/D Olinda: 1.03 PulmV A Revs Olinda: 29.82 cm/s PulmV A Revs Dur: 144.62 msec MITRAL VALVE: Normal Ranges: MV Vmax: 1.65 m/s (<=1.3m/s) MV peak P.0 mmHg (<5mmHg) MV mean P.7 mmHg (<48mmHg) MV VTI: 66.46 cm (10-13cm) MV DT: 248 msec (150-240msec) MV PHT: 72 msec (30-60msec) MVA by PHT: 3.06 cm2 (4-6cm2) MITRAL INSUFFICIENCY: Normal Ranges: MR VTI: 203.95 cm (more content not included)... Normal [facility] US Heart TransthoracicOrdere d By: Amy Adorno on 08-17-2024 Aortic Valve Area by Continuity of Peak Velocity 1.32 cm2 [facility] Work Phone: Aortic Valve Area by Continuity of VTI 1.4 cm2 [facility] Work Phone: AV mn grad 14 mmHg [facility] Work Phone: [phone] AV pk grad 26 mmHg [facility] Work Phone: [phone] AV pk olinda 2.53 m/s [facility] Work Phone: LA vol index A/L 44.3 ml/m2 [facility] Work Phone: LV A4C EF 62.3 [facility] Work Phone: LV Biplane EF 54 % [facility] Work Phone: [phone] LV EF 65 % [facility] Work Phone: LVIDd 4.26 cm [facility] Work Phone: LVOT diam 1.97 cm [facility] Work Phone: [phone] MV avg E/e' ratio 42.49 [facility] Work Phone: MV E/A ratio 0.9 [facility] Work Phone: [phone] RV free wall pk S' 12.6 cm/s [facility] Work Phone: RVSP 27.2 mmHg [facility] Work Phone: Tricuspid annular plane systolic excursion 1.6 cm [facility] Work Phone: [facility] Work Phone: Heart Transthoracicon [address], [address] [place] [address] TRANSTHORACIC ECHOCARDIOGRAM REPORT Patient Name: JAYDEN CARTER Reading Physician: [id number] Amy Adorno MD, [facility] Study Date: 08/17/2024 Ordering Provider: [id number] VIRGIL CARRERO MRN/PID: [id number] Fellow: Nurse: Date of /Age: 11 1940 Bladder Tier: Karen Brown RDMS, years RDCS, RVT Gender Assigned at Additional Staff: : Height: 172.72 cm Admit Date: Weight: 75.30 kg Admission Status: Outpatient BSA / BMI: 1.89 m2 / 25.24 Department Location: [facility] Heart kg/m2 [place] Blood Pressure: 132 /60 mmHg Study Type: TRANSTHORACIC ECHO (TTE) COMPLETE Diagnosis/ICD: 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 PHYSICIAN INTERPRETATION: Left Ventricle: Left ventricular ejection fraction is normal, by visual estimate at 65%. There are no regional wall motion abnormalities. The left ventricular cavity size is normal. There is mild increased septal and mildly increased posterior left ventricular wall thickness. There is left ventricular concentric remodeling. Spectral Doppler shows a Grade I (impaired relaxation pattern) of left ventricular diastolic filling with normal left atrial filling pressure. Left Atrium: The left atrial size is mildly dilated. Right Ventricle: The right ventricle is normal in size. There is normal right ventricular global systolic function. A pacemaker wire is seen in the right ventricle. Right Atrium: The right atrial size is normal. Aortic Valve: The aortic valve appears abnormal. The aortic valve dimensionless index is 0.46. There is trace aortic valve regurgitation. The peak instantaneous gradient of the aortic valve is 26 mmHg. The mean gradient of the aortic valve is 14 mmHg. A TAVR is noted with normal valve position and a trivial perivalvular medial leak. Mitral Valve: The mitral valve is mildly thickened. There is moderate to severe mitral annular calcification. The peak instantaneous gradient of the mitral valve is 11 mmHg. There is trace mitral valve regurgitation. Tricuspid Valve: The tricuspid valve is structurally normal. There is trace tricuspid regurgitation. Pulmonic Valve: The pulmonic valve is structurally normal. There is trace pulmonic valve regurgitation. Pericardium: No pericardial effusion noted. Aorta: The aortic root is normal. Systemic Veins: The inferior vena cava appears normal in size. In comparison to the previous echocardiogram(s): When compared to study from 05/20/2024, no significant interval changes are noted, septal motion though appears to be normal not paced. CONCLUSIONS: 1. Left ventricular ejection fraction is normal, by visual estimate at 65%. 2. Spectral Doppler shows a Grade I (impaired relaxation pattern) of left ventricular diastolic filling with normal left atrial filling pressure. 3. There is normal right ventricular global systolic function. 4. A pacemaker wire is seen in the right ventricle. 5. There is moderate to severe mitral annular calcification. 6. A TAVR is noted with normal valve position and a trivial perivalvular medial leak. 7. When compared to study from 05/20/2024, no significant interval changes are noted, septal motion though appears to be normal not paced. QUANTITATIVE DATA SUMMARY: 2D MEASUREMENTS: Normal Ranges: Ao Root d: 2.90 cm (2.0-3.7cm) LAs: 3.69 cm (2.7-4.0cm) RVIDd: 2.92 cm (0.9-3.6cm) IVSd: 1.14 cm (0.6-1.1cm) LVPWd: 1.29 cm (0.6-1.1cm) LVIDd: 4.26 cm (3.9-5.9cm) LVIDs: 3.25 cm LV Mass Index: 98.0 g/m2 LVEDV Index: 41.69 ml/m2 LV % FS 23.7 % LEFT ATRIUM: Normal Ranges: LA Vol A4C: 91.4 ml (22+/-6mL/m2) LA Vol A2C: 72.9 ml LA Vol BP: 83.7 ml LA Vol Index A4C: 48.4ml/m2 LA Vol Index A2C: 38.6 ml/m2 LA Vol Index BP: 44.3 ml/m2 LA Vol A4C: 87.5 ml LA Vol A2C: 67.4 ml LA Vol Index BSA: 41.0 ml/m2 LV SYSTOLIC FUNCTION: Normal Ranges: EF-A4C View: 62 % (>=55%) EF-A2C View: 52 % EF-Biplane: 54 % EF-Visual: 65 % LV EF Reported: 65 % LV DIASTOLIC FUNCTION: (more content not included)... Amy Argueta M D - 08/17/2024 [facility] [address], [address], [place] [address] TRANSTHORACIC ECHOCARDIOGRAM REPORT Patient Name: JAYDEN CARTER Reading Physician: [id number] Amy Adorno MD, [facility] Study Date: 08/17/2024 Ordering Provider: [id number] VIRGIL CARRERO MRN/PID: [id number] Fellow: Nurse: Date of /Age: 11 1940 Bladder Tier: Karen Brown RDMS, years RDCS, RVT Gender Assigned at Additional Staff: : Height: 172.72 cm Admit Date: Weight: 75.30 kg Admission Status: Outpatient BSA / BMI: 1.89 m2 / 25.24 Department Location: [facility] kg/m2 [place] Blood Pressure: 132 /60 mmHg Study Type: TRANSTHORACIC ECHO (TTE) COMPLETE Diagnosis/ICD: 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 PHYSICIAN INTERPRETATION: Left Ventricle: Left ventricular ejection fraction is normal, by visual estimate at 65%. There are no regional wall motion abnormalities. The left ventricular cavity size is normal. There is mild increased septal and mildly increased posterior left ventricular wall thickness. There is left ventricular concentric remodeling. Spectral Doppler shows a Grade I (impaired relaxation pattern) of left ventricular diastolic filling with normal left atrial filling pressure. Left Atrium: The left atrial size is mildly dilated. Right Ventricle: The right ventricle is normal in size. There is normal right ventricular global systolic function. A pacemaker wire is seen in the right ventricle. Right Atrium: The right atrial size is normal. Aortic Valve: The aortic valve appears abnormal. The aortic valve dimensionless index is 0.46. There is trace aortic valve regurgitation. The peak instantaneous gradient of the aortic valve is 26 mmHg. The mean gradient of the aortic valve is 14 mmHg. A TAVR is noted with normal valve position and a trivial perivalvular medial leak. Mitral Valve: The mitral valve is mildly thickened. There is moderate to severe mitral annular calcification. The peak instantaneous gradient of the mitral valve is 11 mmHg. There is trace mitral valve regurgitation. Tricuspid Valve: The tricuspid valve is structurally normal. There is trace tricuspid regurgitation. Pulmonic Valve: The pulmonic valve is structurally normal. There is trace pulmonic valve regurgitation. Pericardium: No pericardial effusion noted. Aorta: The aortic root is normal. Systemic Veins: The inferior vena cava appears normal in size. In comparison to the previous echocardiogram(s): When compared to study from 05/20/2024, no significant interval changes are noted, septal motion though appears to be normal not paced. CONCLUSIONS: 1. Left ventricular ejection fraction is normal, by visual estimate at 65%. 2. Spectral Doppler shows a Grade I (impaired relaxation pattern) of left ventricular diastolic filling with normal left atrial filling pressure. 3. There is normal right ventricular global systolic function. 4. A pacemaker wire is seen in the right ventricle. 5. There is moderate to severe mitral annular calcification. 6. A TAVR is noted with normal valve position and a trivial perivalvular medial leak. 7. When compared to study from 05/20/2024, no significant interval changes are noted, septal motion though appears to be normal not paced. QUANTITATIVE DATA SUMMARY: 2D MEASUREMENTS: Normal Ranges: Ao Root d: 2.90 cm (2.0-3.7cm) LAs: 3.69 cm (2.7-4.0cm) RVIDd: 2.92 cm (0.9-3.6cm) IVSd: 1.14 cm (0.6-1.1cm) LVPWd: 1.29 cm (0.6-1.1cm) LVIDd: 4.26 cm (3.9-5.9cm) LVIDs: 3.25 cm LV Mass Index: 98.0 g/m2 LVEDV Index: 41.69 ml/m2 LV % FS 23.7 % LEFT ATRIUM: Normal Ranges: LA Vol A4C: 91.4 ml (22+/-6mL/m2) LA Vol A2C: 72.9 ml LA Vol BP: 83.7 ml LA Vol Index A4C: 48.4ml/m2 LA Vol Index A2C: 38.6 ml/m2 LA Vol Index BP: 44.3 ml/m2 LA Vol A4C: 87.5 ml LA Vol A2C: 67.4 ml LA Vol Index BSA: 41.0 ml/m2 LV SYSTOLIC FUNCTION: Normal Ranges: EF-A4C View: 62 % (>=55%) EF-A2C View: 52 % EF-Biplane: 54 % EF-Visual: 65 % LV EF Reported: 65 % LV DIASTOLIC FUNCTION: Normal Ranges: MV Peak E: 1.22 m/s (0.7-1.2 m/s) MV Peak A: 1.36 m/s (0.42-0.7 m/s) E/A Ratio: 0.90 (1.0-2.2) MV e' 0.029 m/s (>8.0) MV lateral e' 0.03 m/s MV medial e' 0.03 m/s E/e' Ratio: 42.49 (<8.0) PulmV Sys Olinda: 50.28 cm/s PulmV Aiken Olinda: 48.74 cm/s PulmV S/D Olinda: 1.03 PulmV A Revs Olinda: 29.82 cm/s PulmV A Revs Dur: 144.62 msec MITRAL VALVE: Normal Ranges: MV Vmax: 1.65 m/s (<=1.3m/s) MV peak P.0 mmHg (<5mmHg) MV mean P.7 mmHg (<48mmHg) MV VTI: 66.46 cm (10-13cm) MV DT: 248 msec (150-240msec) MV PHT: 72 m (more content not included)... [facility] Work Phone: Basic metabolic 2000 panelon 05-21-2024 Anion gap [Moles/Vol] 12 mmol/L 10 - 2 0 mmol/L [facility] Calcium [Mass/Vol] 8.2 mg/dL Low 8.6 - 10. 6 mg/dL [facility] Chloride [Moles/Vol] 105 mmol/L 98 - 10 7 mmol/L [facility] CO2 [Moles/Vol] 25 mmol/L 21 - 32 mmol/L [facility] Creatinine [Mass/Vol] 1.26 mg/dL 0.50 - 1.30 mg/dL [facility] GFR/1.73 sq M.predicted among non-blacks MDRD (S/P/Bld) [Vol rate/Area] 57 mL/min/{1.73_m2} Low - PINF [facility] Comment on above: Calculations of tee mated GFR are performed using the 2020 CKD-EPI Study Refit equation without the race variable for the IDMS-Traceable creatinine methods. https://jasn.asnjournals.org/content//ASN.58326 21565 Glucose [Mass/Vol] 108 mg/dL High 74 - 99 mg/dL [facility] Interpretation and review of laboratory results Abnormal [facility] Potassium [Moles/Vol] 3.9 mmol/L 3.5 - 5.3 mmol/L [facility] Sodium [Moles/Vol] 138 mmol/L 136 - 145 mmol/L [facility] Urea nitrogen [Mass/Vol] 16 mg/dL 6 - 23 mg/dL [facility] Anion gap [Moles/Vol] 12 mmol/L Normal 10-20 [facility] Comment on above: Performed By: #### 3 4532-2 #### MILAGRO Colón ([id number]) [facility] ([facility]) [address] [place] [address] Calcium [Mass/Vol] 8.2 mg/dL Low 8.6-10.6 [facility] Comment on above: Performed By: #### 3 4532-2 #### MILAGRO Colón ([id number]) [facility] ([facility]) [address] [place] [address] Chloride [Moles/Vol] 105 mmol/L Normal 98-107 [facility] Comment on above: Performed By: #### 3 4532-2 #### MILAGRO Colón ([id number]) [facility] ([facility]) [address] [place] [address] CO2 [Moles/Vol] 25 mmol/L Normal 21-32 [facility] Comment on above: Performed By: #### 3 4532-2 #### MILAGRO Colón ([id number]) [facility] ([facility]) [address] [place] [address] Creatinine [Mass/Vol] 1.26 mg/dL Normal 0.50-1.30 [facility] Comment on above: Performed By: #### 3 4532-2 #### MILAGRO Colón ([id number]) [facility] ([facility]) [address] [place] [address] Glomerular filtration rate/1.73 sq M.predicted 57 mL/min/1.73m*2 Low >60 [facility] Comment on above: Result Comment: Calc ulations of estimated GFR are performed using the 2020 CKD-EPI Study Refit equation without the race variable for the IDMS-Traceable creatinine methods. https://jasn.asnjournals.org/content/early//ASN.42295 69095 Performed By: #### 3 4532-2 #### MILAGRO Colón ([id number]) [facility] ([facility]) [address] [place] [address] Glucose [Mass/Vol] 108 mg/dL High 74-99 [facility] Comment on above: Performed By: #### 3 4532-2 #### MILAGRO Colón ([id number]) [facility] ([facility]) [address] [place] [address] Potassium [Moles/Vol] 3.9 mmol/L Normal 3.5-5.3 [facility] Comment on above: Performed By: #### 3 4532-2 #### MILAGRO Colón ([id number]) [facility] ([facility]) [address] [place] [address] Sodium [Moles/Vol] 138 mmol/L Normal 136-145 [facility] Comment on above: Performed By: #### 3 4532-2 #### MILAGRO Colón ([id number]) [facility] ([facility]) [address] [place] [address] Urea nitrogen [Mass/Vol] 16 mg/dL Normal 6-23 [facility] Comment on above: Performed By: #### 3 4532-2 #### MILAGRO Colón ([id number]) [facility] ([facility]) [address] [place] [address] CBC W Auto Differential pane l (Bld)on 05-21-2024 Basophils (Bld) [#/Vol] 0.03 10*3/uL [facility] Basophils/100 WBC (Bld) 0.4 % 0.0 - 2.0 % [facility] Eosinophils (Bld) [#/Vol] 0.13 10*3/uL [facility] Eosinophils/100 WBC (Bld) 1.8 % 0.0 - 6.0 % [facility] Erythrocyte distribution width (RBC) [Ratio] 12.9 % 11.5 - 14.5 % [facility] Hematocrit (Bld) [Volume fraction] 38.6 % Low 41.0 - 52.0 % [facility] Hemoglobin (Bld) [Mass/Vol] 13.4 g/dL Low 13.5 - 17.5 g/dL [facility] Immature granulocytes (Bld) [#/Vol] 0.02 10*3/uL [facility] Immature granulocytes/100 WBC (Bld) 0.3 % 0.0 - 0.9 % [facility] Comment on above: Immature Granulocyte Count (IG) includes promyelocytes, myelocytes and metamyelocytes but does not include bands. Percent differential counts (%) should be interpreted in the context of the absolute cell counts (cells/UL). Interpretation and review of laboratory results Abnormal [facility] Lymphocytes (Bld) [#/Vol] 1.05 10*3/uL [facility] Lymphocytes/100 WBC (Bld) 14.9 % 13.0 - 44.0 % [facility] MCH (RBC) [Entitic mass] 30.8 pg 26.0 - 34.0 pg [facility] [Mass/Vol] 34.7 g/dL 32.0 - 36.0 g/dL [facility] MCV (RBC) [Entitic vol] 89 fL 80 - 100 fL [facility] Monocytes (Bld) [#/Vol] 0.7 10*3/uL [facility] Monocytes/100 WBC (Bld) 9.9 % 2.0 - 10.0 % [facility] Neutrophils (Bld) [#/Vol] 5.14 10*3/uL [facility] Comment on above: Percent differential counts (%) should be interpreted in the context of the absolute cell counts (cells/uL). Neutrophils/100 WBC (Bld) 72.7 % 40.0 - 80.0 % [facility] Nucleated RBC/100 WBC (Bld) [Ratio] 0 % [facility] Platelets (Bld) [#/Vol] 113 10*3/uL Low [facility] RBC (Bld) [#/Vol] 4.35 10*6/uL [facility] WBC (Bld) [#/Vol] 7.1 10*3/uL [facility] Basophils (Bld) [#/Vol] 0.03 x10*3/uL Normal 0.00-0.10 [facility] Comment on above: Performed By: #### 3 4532-2 #### MILAGRO Colón ([id number]) [facility] ([facility]) [address] [place] [address] Basophils/100 WBC (Bld) 0.4 % Normal 0.0-2.0 [facility] Comment on above: Performed By: #### 3 4532-2 #### MILAGRO Colón ([id number]) [facility] ([facility]) [address] [place] [address] Eosinophils (Bld) [#/Vol] 0.13 x10*3/uL Normal 0.00-0.40 [facility] Comment on above: Performed By: #### 3 4532-2 #### MILAGRO Colón ([id number]) [facility] ([facility]) [address] [place] [address] Eosinophils/100 WBC (Bld) 1.8 % Normal 0.0-6.0 [facility] Comment on above: Performed By: #### 3 453-2 #### MILAGRO Colón ([id number]) [facility] ([facility]) [address] [place] [address] Erythrocyte distribution width (RBC) [Ratio] 12.9 % Normal 11.5-14.5 [facility] Comment on above: Performed By: #### 3 4531-2 #### MILAGRO Colón ([id number]) [facility] ([facility]) [address] [place] [address] Hematocrit (Bld) [Volume fraction] 38.6 % Low 41.0-52.0 [facility] Comment on above: Performed By: #### 3 4531-2 #### MILAGRO Colón ([id number]) [facility] ([facility]) [address] [place] [address] Hemoglobin (Bld) [Mass/Vol] 13.4 g/dL Low 13.5-17.5 [facility] Comment on above: Performed By: #### 3 4531-2 #### MILAGRO Colón ([id number]) [facility] ([facility]) [address] [place] [address] Immature granulocytes (Bld) [#/Vol] 0.02 x10*3/uL Normal 0.00-0.50 [facility] Comment on above: Performed By: #### 3 4531-2 #### MILAGRO Colón ([id number]) [facility] ([facility]) [address] [place] [address] Immature granulocytes/100 WBC (Bld) 0.3 % Normal 0.0-0.9 [facility] Comment on above: Result Comment: Naina ture Granulocyte Count (IG) includes promyelocytes, myelocytes and metamyelocytes but does not include bands. Percent differential counts (%) should be interpreted in the context of the absolute cell counts (cells/UL). Performed By: #### 3 453-2 #### MILAGRO Colón ([id number]) [facility] ([facility]) [address] [place] [address] Lymphocytes (Bld) [#/Vol] 1.05 x10*3/uL Normal 0.80-3.00 [facility] Comment on above: Performed By: #### 3 4531-2 #### MILAGRO Colón ([id number]) [facility] ([facility]) [address] [place] [address] Lymphocytes/100 WBC (Bld) 14.9 % Normal 13.0-44.0 [facility] Comment on above: Performed By: #### 3 4531-2 #### MILAGRO Colón ([id number]) [facility] ([facility]) [address] [place] [address] MCH (RBC) [Entitic mass] 30.8 pg Normal 26.0-34.0 [facility] Comment on above: Performed By: #### 3 4531-2 #### MILAGRO Colón ([id number]) [facility] ([facility]) [address] [place] [address] MCHC (RBC) [Mass/Vol] 34.7 g/dL Normal 32.0-36.0 [facility] Comment on above: Performed By: #### 3 4531-2 #### MILAGRO Colón ([id number]) [facility] ([facility]) [address] [place] [address] MCV (RBC) [Entitic vol] 89 fL Normal 80-100 [facility] Comment on above: Performed By: #### 3 453-2 #### MILAGRO Colón ([id number]) [facility] ([facility]) [address] [place] [address] Monocytes (Bld) [#/Vol] 0.70 x10*3/uL Normal 0.05-0.80 [facility] Comment on above: Performed By: #### 3 4531-2 #### MILAGRO Colón ([id number]) [facility] ([facility]) [address] [place] [address] Monocytes/100 WBC (Bld) 9.9 % Normal 2.0-10.0 [facility] Comment on above: Performed By: #### 3 4532-2 #### MILAGRO Colón ([id number]) [facility] ([facility]) [address] [place] [address] Neutrophils (Bld) [#/Vol] 5.14 x10*3/uL Normal 1.60-5.50 [facility] Comment on above: Result Comment: Perc ent differential counts (%) should be interpreted in the context of the absolute cell counts (cells/uL). Performed By: #### 3 4532-2 #### MILAGRO Colón ([id number]) [facility] ([facility]) [address] [place] [address] Neutrophils/100 WBC (Bld) 72.7 % Normal 40.0-80.0 [facility] Comment on above: Performed By: #### 3 4531-2 #### MILAGRO Colón ([id number]) [facility] ([facility]) [address] [place] [address] Nucleated RBC/100 WBC (Bld) [Ratio] 0.0 /100 WBCs Normal 0.0-0.0 [facility] Comment on above: Performed By: #### 3 2-2 #### MILAGRO Colón ([id number]) [facility] ([facility]) [address] [place] [address] Platelets (Bld) [#/Vol] 113 x10*3/uL Low 150-450 [facility] Comment on above: Performed By: #### 3 2-2 #### MILAGRO Colón ([id number]) [facility] ([facility]) [address] [place] [address] RBC (Bld) [#/Vol] 4.35 x10*6/uL Low 4.50-5.90 [facility] Comment on above: Performed By: #### 3 4532-2 #### MILAGRO Colón ([id number]) [facility] ([facility]) [address] [place] [address] WBC (Bld) [#/Vol] 7.1 x10*3/uL Normal 4.4-11.3 [facility] Comment on above: Performed By: #### 3 4532-2 #### MILAGRO Colón ([id number]) [facility] ([facility]) [id number] [place] [address] Coagulation tissue factor in ducedon 05-21-2024 PT Coag (PPP) [Time] 11.7 s Normal 9.8-12.8 [facility] Comment on above: Performed By: #### 5 902-2 ####MILAGRO Colnó ([id number])[facility] ([facility])[id number] [place] [address] ECG 12 lead dailyon 05-21-20 24 Atrial Rate 70 BPM [facility] Work Phone: [phone] P Meally 55 degrees [facility] Work Phone: [phone] P Offset 162 [facility] Work Phone: [phone] P Onset 105 [facility] Work Phone: [phone] [place] Interval 170 [facility] Work Phone: [phone] Q Onset 190 ms [facility] Work Phone: [phone] QRS Count 12 beats [facility] Work Phone: [phone] QRS Duration 170 ms [facility] Work Phone: [phone] QT Interval 472 [facility] Work Phone: [phone] QTC Calculation(Bazett) 509 [facility] Work Phone: [phone] QTC Fredericia 497 [facility] Work Phone: [phone] R Meally -34 degrees [facility] Work Phone: T Meally 135 degrees [facility] Work Phone: [phone] T Offset 426 ms [facility] Work Phone: [phone] Ventricular Rate 70 BPM [facility] Work Phone: Atrial-sensed ventricular-paced rhythm Abnormal ECG When compared with ECG of 20-MAY-2024 18:07, Vent. rate has decreased BY 11 BPM Confirmed by Melo Gonsales ([id number]) on 05/21/2024 9:15:58 AM MUSE Melo Gonsales MD - 05/21/2024 Atrial-sensed ventricular-paced rhythm Abnormal ECG When compared with ECG of 20-MAY-2024 18:07, Vent. rate has decreased BY 11 BPM Confirmed by Melo Gonsales ([id number]) on 05/21/2024 9:15:58 AM [facility] Work Phone: [phone] [facility] Work Phone: [phone] Atrial-sensed ventricular-paced rhythm Abnormal ECG When compared with ECG of 20-MAY-2024 10:18, Sinus rhythm is no longer with 2nd degree AV block Vent. rate has increased BY 40 BPM Confirmed by Melo Gonsales ([id number]) on 05/21/2024 9:15:46 AM MUSE Melo Gonsales MD - 05/21/2024 Atrial-sensed ventricular-paced rhythm Abnormal ECG When compared with ECG of 20-MAY-2024 10:18, Sinus rhythm is no longer with 2nd degree AV block Vent. rate has increased BY 40 BPM Confirmed by Melo Gonsales ([id number]) on 05/21/2024 9:15:46 AM [facility] Work Phone: ECG 12 lead dailyOrdered By: Melo Gonsales on 05-21-2024 Atrial Rate 81 BPM [facility] Work Phone: [phone] P Meally 69 degrees [facility] Work Phone: [phone] P Offset 142 ms [facility] Work Phone: P Onset 99 ms [facility] Work Phone: [phone] [place] Interval 174 ms [facility] Work Phone: [phone] Q Onset 186 ms [facility] Work Phone: [phone] QRS Count 14 beats [facility] Work Phone: [phone] QRS Duration 154 ms [facility] Work Phone: [phone] QT Interval 436 ms [facility] Work Phone: [phone] QTC Calculation(Bazett) 506 ms [facility] Work Phone: [phone] QTC Fredericia 481 ms [facility] Work Phone: [phone] R Meally -35 degrees [facility] Work Phone: [phone] T Meally 130 degrees [facility] Work Phone: [phone] T Offset 404 ms [facility] Work Phone: [phone] Ventricular Rate 81 BPM [facility] Work Phone: [phone] [facility] Work Phone: ECG 12-LEADon 05-21-2024 ECG 12-LEAD Ventricular Rate 70 Atrial Rate 70 P-R Interval 170 QRS Duration 170 Q-T Interval 472 QTC Calculation(Bazett) 509 P Meally 55 R Meally -34 T Meally 135 QRS Count 12 Q Onset 190 P Onset 105 P Offset 162 T Offset 426 QTC Fredericia 497 Diagnosis Atrial-sensed ventricular-paced rhythm Abnormal ECG When compared with ECG of 20-MAY-2024 18:07, Vent. rate has decreased BY 11 BPM Confirmed by Melo Gonsales ([id number]) on 05/21/2024 9:15:58 AM Normal [facility] Magnesiumon 05-21-2024 Magnesium [Mass/Vol] 1.84 mg/dL 1.60 - 2.40 mg/dL [facility] Magnesium [Mass/Vol] 1.84 mg/dL Normal 1.60-2.40 [facility] Comment on above: Performed By: #### 1 9123-9 ####MILAGRO Colón ([id number])[facility] ([facility])[address] [place] [address] Magnesium [Mass/Vol]on 05-21 Interpretation and review of laboratory results Normal [facility] No Panel Informationon 05-21 [facility] PT Coag (PPP) [Time]on 05-21 INR Coag (PPP) [Relative time] 1 {INR} 0.9 - 1.1 [facility] Interpretation and review of laboratory results Normal [facility] INR Coag (PPP) [Relative time] 1.0 Normal 0.9-1.1 [facility] Comment on above: Performed By: #### 5 902-2 ####MILAGRO Colón ([id number])[facility] ([facility])[address] [place] [address] Protime-INRon 05-21-2024 PT Coag (PPP) [Time] 11.[address] [facility] XR CHEST 2 VIEWSon 4 XR CHEST 2 VIEWS Interpreted By: Abril Ray, STUDY: XR CHEST 2 VIEWS; 05/21/2024 9:35 am INDICATION: Signs/Symptoms:Confirm pacemaker placement. COMPARISON: 05/20/2024 ACCESSION NUMBER(S): [id number] ORDERING CLINICIAN: PETER ZHENG FINDINGS: PA and lateral radiographs of the chest were provided. Additional PA dual energy images were also provided. Patient is status post TAVR. Left chest wall implantable pacemaker/defibrillator with leads projecting over the expected location of the right atrial appendage and right ventricle. CARDIOMEDIASTINAL SILHOUETTE: Cardiomediastinal silhouette is normal in size and configuration. LUNGS: There is no new focal consolidation, pleural effusion, or pneumothorax. ABDOMEN: No remarkable upper abdominal findings. BONES: No acute osseous changes. IMPRESSION: 1. No evidence of acute cardiopulmonary process. 2. Medical devices as above. MACRO: None Signed by: Abril Ramos 05/21/2024 9:42 AM Dictation workstation: [id number] [facility] XR Chest 2 Viewson 4 1. No evidence of ac peoria cardiopulmonary process. 2. Medical devices as above. MACRO: None Signed by: Abril Ramos 05/21/2024 9:42 AM Dictation workstation: [id number] MMODAL Interpreted By: Abril Ray, STUDY: XR CHEST 2 VIEWS; 05/21/2024 9:35 am INDICATION: Signs/Symptoms:Confirm pacemaker placement. COMPARISON: 05/20/2024 ACCESSION NUMBER(S): [id number] ORDERING CLINICIAN: PETER ZHENG FINDINGS: PA and lateral radiographs of the chest were provided. Additional PA dual energy images were also provided. Patient is status post TAVR. Left chest wall implantable pacemaker/defibrillator with leads projecting over the expected location of the right atrial appendage and right ventricle. CARDIOMEDIASTINAL SILHOUETTE: Cardiomediastinal silhouette is normal in size and configuration. LUNGS: There is no new focal consolidation, pleural effusion, or pneumothorax. ABDOMEN: No remarkable upper abdominal findings. BONES: No acute osseous changes. MMODAL Abril Ramos M D - 05/21/2024 Interpreted By: Abril Ramos, STUDY: XR CHEST 2 VIEWS; 05/21/2024 9:35 am INDICATION: Signs/Symptoms:Confirm pacemaker placement. COMPARISON: 05/20/2024 ACCESSION NUMBER(S): [id number] ORDERING CLINICIAN: PETER ZHENG FINDINGS: PA and lateral radiographs of the chest were provided. Additional PA dual energy images were also provided. Patient is status post TAVR. Left chest wall implantable pacemaker/defibrillator with leads projecting over the expected location of the right atrial appendage and right ventricle. CARDIOMEDIASTINAL SILHOUETTE: Cardiomediastinal silhouette is normal in size and configuration. LUNGS: There is no new focal consolidation, pleural effusion, or pneumothorax. ABDOMEN: No remarkable upper abdominal findings. BONES: No acute osseous changes. IMPRESSION: 1. No evidence of acute cardiopulmonary process. 2. Medical devices as above. MACRO: None Signed by: Abril Ramos 05/21/2024 9:42 AM Dictation workstation: [id number] [facility] Work Phone: Radiology Study observation (narrative) [facility] Work Phone: XR Chest 2 ViewsOrdered By: Abril Ramos on 05-21-2024 [facility] Work Phone: Basic metabolic 2000 panelon 05-20-2024 Anion gap [Moles/Vol] 13 mmol/L 10 - 2 0 mmol/L [facility] Calcium [Mass/Vol] 8.3 mg/dL Low 8.6 - 10. 6 mg/dL [facility] Chloride [Moles/Vol] 106 mmol/L 98 - 10 7 mmol/L [facility] CO2 [Moles/Vol] 25 mmol/L 21 - 32 mmol/L [facility] Creatinine [Mass/Vol] 1.33 mg/dL High 0.50 - 1.30 mg/dL [facility] GFR/1.73 sq M.predicted among non-blacks MDRD (S/P/Bld) [Vol rate/Area] 53 mL/min/{1.73_m2} Low - PINF [facility] Comment on above: Calculations of tee mated GFR are performed using the 2020 CKD-EPI Study Refit equation without the race variable for the IDMS-Traceable creatinine methods. https://jasn.asnjournals.org/content//ASN.80358 63296 Glucose [Mass/Vol] 90 mg/dL 74 - 99 mg/dL [facility] Interpretation and review of laboratory results Abnormal [facility] Potassium [Moles/Vol] 4 mmol/L 3.5 - 5.3 mmol/L [facility] Sodium [Moles/Vol] 140 mmol/L 136 - 145 mmol/L [facility] Urea nitrogen [Mass/Vol] 15 mg/dL 6 - 23 mg/dL [facility] Anion gap [Moles/Vol] 13 mmol/L Normal 10-20 [facility] Comment on above: Performed By: #### 2 4321-2 ####MILAGRO Colón ([id number])[facility] ([facility])[id number] [place] [address] Calcium [Mass/Vol] 8.3 mg/dL Low 8.6-10.6 [facility] Comment on above: Performed By: #### 2 4321-2 ####MILAGRO Colón ([id number])[facility] ([facility])[address] [place] [address] Chloride [Moles/Vol] 106 mmol/L Normal 98-107 [facility] Comment on above: Performed By: #### 2 4321-2 ####MILAGRO ASHLEY L ([id number])[facility] ([facility])[address] [place] [address] CO2 [Moles/Vol] 25 mmol/L Normal 21-32 [facility] Comment on above: Performed By: #### 2 4321-2 ####MILAGRO Colón ([id number])[facility] ([facility])[address] [place] [address] Creatinine [Mass/Vol] 1.33 mg/dL High 0.50-1.30 [facility] Comment on above: Performed By: #### 2 4321-2 ####MILAGRO Colón ([id number])[facility] ([facility])[address] [place] [address] Glomerular filtration rate/1.73 sq M.predicted 53 mL/min/1.73m*2 Low >60 [facility] Comment on above: Result Comment: Calc ulations of estimated GFR are performed using the 2020 CKD-EPI Study Refit equation without the race variable for the IDMS-Traceable creatinine methods. https://jasn.asnjournals.org/content/early//ASN.72730 52112 Performed By: #### 2 4321-2 ####MILAGRO Colón ([id number])[facility] ([facility])[address] [place] [address] Glucose [Mass/Vol] 90 mg/dL Normal 74-99 [facility] Comment on above: Performed By: #### 2 4321-2 ####MILAGRO ASHLEY L ([id number])[facility] ([facility])[address] [place] [address] Potassium [Moles/Vol] 4.0 mmol/L Normal 3.5-5.3 [facility] Comment on above: Performed By: #### 2 4321-2 ####MILAGRO ASHLEY L ([id number])[facility] ([facility])[address] [place] [address] Sodium [Moles/Vol] 140 mmol/L Normal 136-145 [facility] Comment on above: Performed By: #### 2 4321-2 ####MILAGRO GOLDTZER L ([id number])[facility] ([facility])[address] [place] [address] Urea nitrogen [Mass/Vol] 15 mg/dL Normal 6-23 [facility] Comment on above: Performed By: #### 2 4321-2 ####MILAGRO ASHLEY L ([id number])[facility] ([facility])[address] [place] [address] CBC W Auto Differential pane l (Bld)on 05-20-2024 Basophils (Bld) [#/Vol] 0.03 10*3/uL [facility] Basophils/100 WBC (Bld) 0.5 % 0.0 - 2.0 % [facility] Eosinophils (Bld) [#/Vol] 0.07 10*3/uL [facility] Eosinophils/100 WBC (Bld) 1.1 % 0.0 - 6.0 % [facility] Erythrocyte distribution width (RBC) [Ratio] 12.9 % 11.5 - 14.5 % [facility] Hematocrit (Bld) [Volume fraction] 40.9 % Low 41.0 - 52.0 % [facility] Hemoglobin (Bld) [Mass/Vol] 13.7 g/dL 13.5 - 17.5 g/dL [facility] Immature granulocytes (Bld) [#/Vol] 0.05 10*3/uL [facility] Immature granulocytes/100 WBC (Bld) 0.8 % 0.0 - 0.9 % [facility] Comment on above: Immature Granulocyte Count (IG) includes promyelocytes, myelocytes and metamyelocytes but does not include bands. Percent differential counts (%) should be interpreted in the context of the absolute cell counts (cells/UL). Interpretation and review of laboratory results Abnormal [facility] Lymphocytes (Bld) [#/Vol] 0.91 10*3/uL [facility] Lymphocytes/100 WBC (Bld) 13.8 % 13.0 - 44.0 % [facility] MCH (RBC) [Entitic mass] 31.7 pg 26.0 - 34.0 pg [facility] MCHC (RBC) [Mass/Vol] 33.5 g/dL 32.0 - 36.0 g/dL [facility] MCV (RBC) [Entitic vol] 95 fL 80 - 100 fL [facility] Monocytes (Bld) [#/Vol] 0.67 10*3/uL [facility] Monocytes/100 WBC (Bld) 10.1 % 2.0 - 10.0 % [facility] Neutrophils (Bld) [#/Vol] 4.88 10*3/uL [facility] Comment on above: Percent differential counts (%) should be interpreted in the context of the absolute cell counts (cells/uL). Neutrophils/100 WBC (Bld) 73.7 % 40.0 - 80.0 % [facility] Nucleated RBC/100 WBC (Bld) [Ratio] 0 % [facility] Platelets (Bld) [#/Vol] 131 10*3/uL Low [facility] RBC (Bld) [#/Vol] 4.32 10*6/uL [facility] WBC (Bld) [#/Vol] 6.6 10*3/uL [facility] Basophils (Bld) [#/Vol] 0.03 x10*3/uL Normal 0.00-0.10 [facility] Comment on above: Performed By: #### 5 7021-8 ####MILAGRO Colón ([id number])[facility] ([facility])[address] [place] [address] Basophils/100 WBC (Bld) 0.5 % Normal 0.0-2.0 [facility] Comment on above: Performed By: #### 5 7021-8 ####MILAGRO Colón ([id number])[facility] ([facility])[address] [place] [address] Eosinophils (Bld) [#/Vol] 0.07 x10*3/uL Normal 0.00-0.40 [facility] Comment on above: Performed By: #### 5 7021-8 ####MILAGRO Colón ([id number])[facility] ([facility])[address] [place] [address] Eosinophils/100 WBC (Bld) 1.1 % Normal 0.0-6.0 [facility] Comment on above: Performed By: #### 5 7021-8 ####MILAGRO Colón ([id number])[facility] ([facility])[address] [place] [address] Erythrocyte distribution width (RBC) [Ratio] 12.9 % Normal 11.5-14.5 [facility] Comment on above: Performed By: #### 5 7021-8 ####MILAGRO Colón ([id number])[facility] ([facility])[address] [place] [address] Hematocrit (Bld) [Volume fraction] 40.9 % Low 41.0-52.0 [facility] Comment on above: Performed By: #### 5 7021-8 ####MILAGRO Colón ([id number])[facility] ([facility])[address] [place] [address] Hemoglobin (Bld) [Mass/Vol] 13.7 g/dL Normal 13.5-17.5 [facility] Comment on above: Performed By: #### 5 7021-8 ####MILAGRO Colón ([id number])[facility] ([facility])[address] [place] [address] Immature granulocytes (Bld) [#/Vol] 0.05 x10*3/uL Normal 0.00-0.50 [facility] Comment on above: Performed By: #### 5 7021-8 ####MILAGRO Colón ([id number])[facility] ([facility])[address] [place] [address] Immature granulocytes/100 WBC (Bld) 0.8 % Normal 0.0-0.9 [facility] Comment on above: Result Comment: Naina ture Granulocyte Count (IG) includes promyelocytes, myelocytes and metamyelocytes but does not include bands. Percent differential counts (%) should be interpreted in the context of the absolute cell counts (cells/UL). Performed By: #### 5 7021-8 ####MILAGRO Colón ([id number])[facility] ([facility])[address] [place] [address] Lymphocytes (Bld) [#/Vol] 0.91 x10*3/uL Normal 0.80-3.00 [facility] Comment on above: Performed By: #### 5 7021-8 ####MILAGRO Colón ([id number])[facility] ([facility])[address] [place] [address] Lymphocytes/100 WBC (Bld) 13.8 % Normal 13.0-44.0 [facility] Comment on above: Performed By: #### 5 7021-8 ####MILAGRO Colón ([id number])[facility] ([facility])[address] [place] [address] MCH (RBC) [Entitic mass] 31.7 pg Normal 26.0-34.0 [facility] Comment on above: Performed By: #### 5 7021-8 ####MILAGRO Colón ([id number])[facility] ([facility])[address] [place] [address] MCHC (RBC) [Mass/Vol] 33.5 g/dL Normal 32.0-36.0 [facility] Comment on above: Performed By: #### 5 7021-8 ####MILAGRO TAVAREZMOTZABDULAZIZ L ([id number])[facility] ([facility])[address] [place] [address] MCV (RBC) [Entitic vol] 95 fL Normal 80-100 [facility] Comment on above: Performed By: #### 5 7021-8 ####MILAGRO ASHLEY L ([id number])[facility] ([facility])[address] [place] [address] Monocytes (Bld) [#/Vol] 0.67 x10*3/uL Normal 0.05-0.80 [facility] Comment on above: Performed By: #### 5 7021-8 ####MILAGRO TAVAREZMOTZER L ([id number])[facility] ([facility])[address] [place] [address] Monocytes/100 WBC (Bld) 10.1 % Normal 2.0-10.0 [facility] Comment on above: Performed By: #### 5 7021-8 ####MILAGRO ASHLEY L ([id number])[facility] ([facility])[address] [place] [address] Neutrophils (Bld) [#/Vol] 4.88 x10*3/uL Normal 1.60-5.50 [facility] Comment on above: Result Comment: Perc ent differential counts (%) should be interpreted in the context of the absolute cell counts (cells/uL). Performed By: #### 5 7021-8 ####MILAGRO ASHLEY L ([id number])[facility] ([facility])[address] [place] [address] Neutrophils/100 WBC (Bld) 73.7 % Normal 40.0-80.0 [facility] Comment on above: Performed By: #### 5 7021-8 ####MILAGRO TAVAREZMORAVINDER L ([id number])[facility] ([facility])[address] [place] [address] Nucleated RBC/100 WBC (Bld) [Ratio] 0.0 /100 WBCs Normal 0.0-0.0 [facility] Comment on above: Performed By: #### 5 7021-8 ####MILAGRO TAVAREZMOTZER L ([id number])[facility] ([facility])[address] [place] [address] Platelets (Bld) [#/Vol] 131 x10*3/uL Low 150-450 [facility] Comment on above: Performed By: #### 5 7021-8 ####MILAGRO Colón ([id number])[facility] ([facility])[address] [place] [address] RBC (Bld) [#/Vol] 4.32 x10*6/uL Low 4.50-5.90 [facility] Comment on above: Performed By: #### 5 7021-8 ####MILAGRO Colón ([id number])[facility] ([facility])[address] [place] [address] WBC (Bld) [#/Vol] 6.6 x10*3/uL Normal 4.4-11.3 [facility] Comment on above: Performed By: #### 5 7021-8 ####MILAGRO Colón ([id number])[facility] ([facility])[address] [place] [address] [facility] PT Coag (PPP) [Time] 10.8 s Normal 9.8-12.8 [facility] Comment on above: Performed By: #### 5 902-2 ####MILAGRO Colón ([id number])[facility] ([facility])[address] [place] [address] ECG 12-LEADon 05-20-2024 ECG 12-LEAD Ventricular Rate 81 Atrial Rate 81 P-R Interval 174 QRS Duration 154 Q-T Interval 436 QTC Calculation(Bazett) 506 P Meally 69 R Meally -35 T Meally 130 QRS Count 14 Q Onset 186 P Onset 99 P Offset 142 T Offset 404 QTC Fredericia 481 Diagnosis Atrial-sensed ventricular-paced rhythm Abnormal ECG When compared with ECG of 20-MAY-2024 10:18, Sinus rhythm is no longer with 2nd degree AV block Vent. rate has increased BY 40 BPM Confirmed by Melo Gonsales ([id number]) on 05/21/2024 9:15:46 AM Normal [facility] ECG 12-LEAD Ventricular Rate 41 Atrial Rate 81 P-R Interval 280 QRS Duration 132 Q-T Interval 458 QTC Calculation(Bazett) 377 P Meally 80 R Meally -24 T Meally 148 QRS Count 7 Q Onset 218 P Onset 78 P Offset 130 T Offset 447 QTC Fredericia 403 Diagnosis Sinus rhythm with 2nd degree AV block with 2:1 AV conduction with occasional ventricular-paced complexes Left bundle branch block Abnormal ECG When compared with ECG of 20-MAY-2024 08:52, Sinus rhythm is no longer with complete heart block Vent. rate has decreased BY 19 BPM Confirmed by Ty Gonsaleso ([id number]) on 05/22/2024 9:20:10 AM Normal [facility] ECG 12-LEAD Ventricular Rate 60 Atrial Rate 84 QRS Duration 144 Q-T Interval 462 QTC Calculation(Bazett) 462 R Meally -31 T Meally 49 QRS Count 10 Q Onset 208 T Offset 439 QTC Fredericia 462 Diagnosis Sinus rhythm with complete heart block and Ventricular-paced rhythm Abnormal ECG When compared with ECG of 19-MAY-2024 18:33, Vent. rate has decreased BY 10 BPM Confirmed by Ty Gonsaleso ([id number]) on 05/22/2024 9:19:24 AM Normal [facility] Glucose Test strip manual (B ld) [Mass/Vol]on 05-20-2024 Glucose [Mass/Vol] 80 mg/dL 74 - 99 mg/dL [facility] Interpretation and review of laboratory results Normal [facility] Glucose [Mass/Vol] 80 mg/dL Normal 74-99 [facility] Comment on above: Performed By: #### 2 341-6 ####MILAGRO Colón ([id number])[facility] ([facility])[address] [place], [place] [address] Magnesiumon 05-20-2024 Magnesium [Mass/Vol] 1.96 mg/dL 1.60 - 2.40 mg/dL [facility] Magnesium [Mass/Vol] 1.96 mg/dL Normal 1.60-2.40 [facility] Comment on above: Performed By: #### 1 9123-9 ####MILAGRO Colón ([id number])[facility] ([facility])[address] [place], [place] [address] Magnesium [Mass/Vol]on 05-20 Interpretation and review of laboratory results Normal [facility] No Panel Informationon 05-20 [facility] PT Coag (PPP) [Time]on 05-20 INR Coag (PPP) [Relative time] 1 {INR} 0.9 - 1.1 [facility] Interpretation and review of laboratory results Normal [facility] INR Coag (PPP) [Relative time] 1.0 Normal 0.9-1.1 [facility] Comment on above: Performed By: #### 5 902-2 ####MILAGRO Colón ([id number])[facility] ([facility])[address] [place] [address] Protime-INRon 05-20-2024 PT Coag (PPP) [Time] 10.[address] [facility] TRANSTHORACIC ECHO (TTE) SANDRA ITEDon 05-20-2024 TRANSTHORACIC ECHO (TTE) [facility], [address] [place] [address] and TRANSTHORACIC ECHOCARDIOGRAM REPORT Patient Name: JAYDEN Mays Physician: [id number] Bonifacio Hobbs MD Study Date: 05/20/2024 Ordering Provider: [id number] PONCE MRN/PID: [id number] Fellow: [id number] Shaheed Medrano MD Nurse: Date of /Age: 11 1940 Bladder Tier: Saira De La Rosa RDCS years Gender assigned at Additional Staff: : Height: 172.72 cm Admit Date: 05/19/2024 Weight: 75.75 kg Admission Status: Inpatient - Routine BSA / BMI: 1.89 m2 / 25.39 kg/m2 Blood Pressure: 114/58 mmHg Department Location: [facility] Study Type: TRANSTHORACIC ECHO (TTE) LIMITED Diagnosis/ICD: 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 H/O [place], H/O colon cancer, s/p #29 Evolut FX+ TAVR (05/19/2024). Study Detail: The following Echo studies were performed: 2D, M-Mode, Doppler and color flow. Technically challenging study due to patient lying in supine position and prominent lung artifact. PHYSICIAN INTERPRETATION: Left Ventricle: The left ventricular systolic function is normal, with a Singh's biplane calculated ejection fraction of 61%. The left ventricular cavity size is normal. There is normal septal and normal posterior left ventricular wall thickness. Abnormal (paradoxical) septal motion, consistent with RV pacemaker. Spectral Doppler shows a Grade I (impaired relaxation pattern) of left ventricular diastolic filling with normal left atrial filling pressure. Left Atrium: The left atrium is normal in size. Right Ventricle: The right ventricle is normal in size. There is normal right ventricular global systolic function. Right Atrium: The right atrium is normal in size. Aortic Valve: There is a prosthetic aortic valve present. The aortic valve dimensionless index is 0.36. There is a [employer]tr[employer] EVOLUT FX aortic valve bioprosthesis with a 29 mm reported size. There is mild periprosthetic aortic valve regurgitation. Echo findings are consistent with normal aortic valve prosthesis structure and function. The peak instantaneous gradient of the aortic valve is 18 mmHg. The mean gradient of the aortic valve is 11 mmHg. Mitral Valve: The mitral valve is normal in structure. There is mild to moderate mitral annular calcification. There is trace to mild mitral valve regurgitation. Tricuspid Valve: The tricuspid valve is structurally normal. There is trace to mild tricuspid regurgitation. Pulmonic Valve: The pulmonic valve is not well visualized. Pulmonic valve regurgitation was not assessed. Pericardium: Trivial pericardial effusion. Aorta: The aortic root was not well visualized. The Ao Sinus is 3.20 cm. The Asc Ao is 3.40 cm. There is upper limits of normal dilatation of the ascending aorta. There is no dilatation of the aortic root. Pulmonary Artery: The tricuspid regurgitant velocity is 2.29 m/s, and with an estimated right atrial pressure of 3 mmHg, the estimated pulmonary artery pressure is normal with the RVSP at 24.0 mmHg. CONCLUSIONS: 1. The left ventricular systolic function is normal, with a Singh's biplane calculated ejection fraction of 61%. 2. Abnormal septal motion consistent with RV pacemaker. 3. There is normal right ventricular global systolic function. 4. There is a Medtronic EVOLUT FX aortic valve bioprosthesis with a 29 mm reported size. 5. Echo findings are consistent with normal aortic valve prosthesis structure and function. RECOMMENDATIONS: Utilizing an FDA cleared automated machine learning algorithm (EchoGo Heart Failure by ReviewZAP), the analysis of the apical 4-chamber echocardiogram suggests the presence of heart failure with preserved ejection fraction (HFpEF)*. Clinical correlation looking for additional heart failure signs and symptoms is recommended, as a definite diagnosis of heart failure cannot be made by imaging alone. *Per ACC/AHA/HFSA universal diagnosis of heart failure, HFpEF is defined as 1) signs and symptoms leading to clinical diagnosis of heart failure, 2) an ejection fraction of at least 50%, and 3) evidence of elevated intra-cardiac filling pressures by echocardiography, BNP elevation, or catheterization. QUANTITATIVE DATA SUMMARY: 2D MEASUREMENTS: Normal Ranges: IVSd: 0.60 cm (0.6-1.1cm) LVPWd: 0.90 cm (0.6-1.1cm) LVIDd: 5.50 cm (3.9-5.9cm) LVIDs: 3.30 cm LV Mass Index: 78 g/m2 LVEDV Index: 48 ml/m2 LV % FS 40.0 % LA VOLUME: Normal Ranges: LA Vol A4C: 45.8 ml (22+/-6mL/m2) LA Vol A2C: 56.5 ml LA Vol BP: 50.9 ml LA Vol Index A4C: 24.2ml/m2 LA Vol Index A2C: 29.8 ml/m2 LA Vol Index BP: 26.9 ml/m2 LA Area A4C: 17.7 cm2 LA Area A2C: 19.7 cm2 LA Major Meally A4C: 5.8 cm LA Major Meally A2C: 5.8 cm AORTA MEASUREMENTS: Norm (more content not included)... Normal [facility] US Heart TransthoracicOrdere d By: Bonifacio Hobbs on 05-20-2024 Aortic Valve Area by Continuity of Peak Velocity 1.09 cm2 [facility] Work Phone: Aortic Valve Area by Continuity of VTI 1.13 cm2 [facility] Work Phone: AV mn grad 11 mmHg [facility] Work Phone: AV pk grad 18 mmHg [facility] Work Phone: AV pk olinda 2.14 m/s [facility] Work Phone: LA vol index A/L 26.9 ml/m2 [facility] Work Phone: LV A4C EF 59.4 [facility] Work Phone: LV EF 61 % [facility] Work Phone: LVIDd 5.5 cm [facility] Work Phone: LVOT diam 2 cm [facility] Work Phone: RV free wall pk S' 11.7 cm/s [facility] Work Phone: RVSP 24 mmHg [facility] Work Phone: Tricuspid annular plane systolic excursion 2.4 cm [facility] Work Phone: [facility] Work Phone: US Heart Transthoracicon [facility] ([facility]3], [address] [place] [address] and TRANSTHORACIC ECHOCARDIOGRAM REPORT Patient Name: JAYDEN Mays Physician: [id number] Bonifacio Hobbs MD Study Date: 05/20/2024 Ordering Provider: [id number] JANICE PONCE MRN/PID: [id number] Fellow: [id number] Shaheed Medrano MD Nurse: Date of /Age: 11 1940 Bladder Tier: Saira De La Rosa RDCS years Gender assigned at M Additional Staff: : Height: 172.72 cm Admit Date: 05/19/2024 Weight: 75.75 kg Admission Status: Inpatient - Routine BSA / BMI: 1.89 m2 / 25.39 kg/m2 Blood Pressure: 114/58 mmHg Department Location: [facility] Study Type: TRANSTHORACIC ECHO (TTE) LIMITED Diagnosis/ICD: 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 H/O [place], H/O colon cancer, s/p #29 Evolut FX+ TAVR (05/19/2024). Study Detail: The following Echo studies were performed: 2D, M-Mode, Doppler and color flow. Technically challenging study due to patient lying in supine position and prominent lung artifact. PHYSICIAN INTERPRETATION: Left Ventricle: The left ventricular systolic function is normal, with a Singh's biplane calculated ejection fraction of 61%. The left ventricular cavity size is normal. There is normal septal and normal posterior left ventricular wall thickness. Abnormal (paradoxical) septal motion, consistent with RV pacemaker. Spectral Doppler shows a Grade I (impaired relaxation pattern) of left ventricular diastolic filling with normal left atrial filling pressure. Left Atrium: The left atrium is normal in size. Right Ventricle: The right ventricle is normal in size. There is normal right ventricular global systolic function. Right Atrium: The right atrium is normal in size. Aortic Valve: There is a prosthetic aortic valve present. The aortic valve dimensionless index is 0.36. There is a Medtronic EVOLUT FX aortic valve bioprosthesis with a 29 mm reported size. There is mild periprosthetic aortic valve regurgitation. Echo findings are consistent with normal aortic valve prosthesis structure and function. The peak instantaneous gradient of the aortic valve is 18 mmHg. The mean gradient of the aortic valve is 11 mmHg. Mitral Valve: The mitral valve is normal in structure. There is mild to moderate mitral annular calcification. There is trace to mild mitral valve regurgitation. Tricuspid Valve: The tricuspid valve is structurally normal. There is trace to mild tricuspid regurgitation. Pulmonic Valve: The pulmonic valve is not well visualized. Pulmonic valve regurgitation was not assessed. Pericardium: Trivial pericardial effusion. Aorta: The aortic root was not well visualized. The Ao Sinus is 3.20 cm. The Asc Ao is 3.40 cm. There is upper limits of normal dilatation of the ascending aorta. There is no dilatation of the aortic root. Pulmonary Artery: The tricuspid regurgitant velocity is 2.29 m/s, and with an estimated right atrial pressure of 3 mmHg, the estimated pulmonary artery pressure is normal with the RVSP at 24.0 mmHg. CONCLUSIONS: 1. The left ventricular systolic function is normal, with a Singh's biplane calculated ejection fraction of 61%. 2. Abnormal septal motion consistent with RV pacemaker. 3. There is normal right ventricular global systolic function. 4. There is a Medtronic EVOLUT FX aortic valve bioprosthesis with a 29 mm reported size. 5. Echo findings are consistent with normal aortic valve prosthesis structure and function. RECOMMENDATIONS: Utilizing an FDA cleared automated machine learning algorithm (EchoGo Heart Failure by Review[employer]), the analysis of the apical 4-chamber echocardiogram suggests the presence of heart failure with preserved ejection fraction (HFpEF)*. Clinical correlation looking for additional heart failure signs and symptoms is recommended, as a definite diagnosis of heart failure cannot be made by imaging alone. *Per ACC/AHA/HFSA universal diagnosis of heart failure, HFpEF is defined as 1) signs and symptoms leading to clinical diagnosis of heart failure, 2) an ejection fraction of at least 50%, and 3) evidence of elevated intra-cardiac filling pressures by echocardiography, BNP elevation, or (more content not included)... Bonifacio Angeles MD - 05/20/2024 [facility] (Former[facility])[3], [address] [place] [address] and TRANSTHORACIC ECHOCARDIOGRAM REPORT Patient Name: JAYDEN CARTER Tabatha Physician: [id number] Bonifacio Hobbs MD Study Date: 05/20/2024 Ordering Provider: [id number] JANICE PONCE MRN/PID: [id number] Fellow: [id number] Shaheed Medrano MD Nurse: Date of /Age: 11 1940 Bladder Tier: Saira De La Rosa RDCS years Gender assigned at M Additional Staff: : Height: 172.72 cm Admit Date: 05/19/2024 Weight: 75.75 kg Admission Status: Inpatient - Routine BSA / BMI: 1.89 m2 / 25.39 kg/m2 Blood Pressure: 114/58 mmHg Department Location: [facility] Study Type: TRANSTHORACIC ECHO (TTE) LIMITED Diagnosis/ICD: 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 H/O [place], H/O colon cancer, s/p #29 Evolut FX+ TAVR (05/19/2024). Study Detail: The following Echo studies were performed: 2D, M-Mode, Doppler and color flow. Technically challenging study due to patient lying in supine position and prominent lung artifact. PHYSICIAN INTERPRETATION: Left Ventricle: The left ventricular systolic function is normal, with a Singh's biplane calculated ejection fraction of 61%. The left ventricular cavity size is normal. There is normal septal and normal posterior left ventricular wall thickness. Abnormal (paradoxical) septal motion, consistent with RV pacemaker. Spectral Doppler shows a Grade I (impaired relaxation pattern) of left ventricular diastolic filling with normal left atrial filling pressure. Left Atrium: The left atrium is normal in size. Right Ventricle: The right ventricle is normal in size. There is normal right ventricular global systolic function. Right Atrium: The right atrium is normal in size. Aortic Valve: There is a prosthetic aortic valve present. The aortic valve dimensionless index is 0.36. There is a Medtronic EVOLUT FX aortic valve bioprosthesis with a 29 mm reported size. There is mild periprosthetic aortic valve regurgitation. Echo findings are consistent with normal aortic valve prosthesis structure and function. The peak instantaneous gradient of the aortic valve is 18 mmHg. The mean gradient of the aortic valve is 11 mmHg. Mitral Valve: The mitral valve is normal in structure. There is mild to moderate mitral annular calcification. There is trace to mild mitral valve regurgitation. Tricuspid Valve: The tricuspid valve is structurally normal. There is trace to mild tricuspid regurgitation. Pulmonic Valve: The pulmonic valve is not well visualized. Pulmonic valve regurgitation was not assessed. Pericardium: Trivial pericardial effusion. Aorta: The aortic root was not well visualized. The Ao Sinus is 3.20 cm. The Asc Ao is 3.40 cm. There is upper limits of normal dilatation of the ascending aorta. There is no dilatation of the aortic root. Pulmonary Artery: The tricuspid regurgitant velocity is 2.29 m/s, and with an estimated right atrial pressure of 3 mmHg, the estimated pulmonary artery pressure is normal with the RVSP at 24.0 mmHg. CONCLUSIONS: 1. The left ventricular systolic function is normal, with a Singh's biplane calculated ejection fraction of 61%. 2. Abnormal septal motion consistent with RV pacemaker. 3. There is normal right ventricular global systolic function. 4. There is a Medtronic EVOLUT FX aortic valve bioprosthesis with a 29 mm reported size. 5. Echo findings are consistent with normal aortic valve prosthesis structure and function. RECOMMENDATIONS: Utilizing an FDA cleared automated machine learning algorithm (EchoGo Heart Failure by ReviewZ[employer]), the analysis of the apical 4-chamber echocardiogram suggests the presence of heart failure with preserved ejection fraction (HFpEF)*. Clinical correlation looking for additional heart failure signs and symptoms is recommended, as a definite diagnosis of heart failure cannot be made by imaging alone. *Per ACC/AHA/HFSA universal diagnosis of heart failure, HFpEF is defined as 1) signs and symptoms leading to clinical diagnosis of heart failure, 2) an ejection fraction of at least 50%, and 3) evidence of elevated intra-cardiac filling pressures by echocardiography, BNP elevation, or catheterization. QUANTITATIVE DATA SUMMARY: 2D MEASUREMENTS: Normal Ranges: IVSd: 0.60 cm (0.6-1.1cm) LVPWd: 0.90 cm (0.6-1.1cm) LVIDd: 5.50 cm (3.9-5.9cm) LVIDs: 3.30 cm LV Mass Index: 78 g/m2 LVEDV Index: 48 ml/m2 LV % FS 40.0 % LA VOLUME: Normal Ranges: LA Vol A4C: 45.8 ml (22+/-6mL/m2) LA Vol A2C: 56.5 ml LA Vol BP: 50.9 ml LA Vol Index A4C: 24.2ml/m2 LA Vol Index A2C: 29.8 ml/m2 LA Vol Index BP: 26.9 ml/m2 LA Area A4C: 17.7 cm2 (more content not included)... [facility] Work Phone: [facility])[3], [address] [place] [address] and TRANSTHORACIC ECHOCARDIOGRAM REPORT Patient Name: JAYDEN CARTER Tabatha Physician: [id number] Cari Muñoz MD Study Date: 05/19/2024 Ordering Provider: [id number] BLAIRE MACKEY MRN/PID: [id number] Fellow: Nurse: Date of /Age: 11 1940 Bladder Tier: Kira Pineda RDCS years Gender assigned at M Additional Staff: : Height: 170.18 cm Admit Date: Weight: 73.94 kg Admission Status: Inpatient - Routine BSA / BMI: 1.85 m2 / 25.53 kg/m2 Blood Pressure: 164/70 mmHg Department Location: [facility] [employer] Study Type: TRANSTHORACIC ECHO (TTE) LIMITED Diagnosis/ICD: Nonrheumatic aortic (valve) stenosis-I35.0 Indication: TAVR Periprocedure CPT Code: Echo Limited-51205; Doppler Limited-51619; Color Doppler-93760 Patient History: Pertinent History: CAD, HL, HTN, . Study Detail: The following Echo studies were performed: 2D, Doppler and color flow. Technically challenging study due to body habitus. PHYSICIAN INTERPRETATION: Left Ventricle: Left ventricular ejection fraction is normal, calculated by Singh's biplane at 63%. There are no regional left ventricular wall motion abnormalities. The left ventricular cavity size is normal. Left ventricular diastolic filling was not assessed. Left Atrium: The left atrium was not assessed. Right Ventricle: The right ventricle is normal in size. There is normal right ventricular global systolic function. Right Atrium: The right atrium is normal in size. Aortic Valve: The aortic valve is trileaflet. There is moderate to severe aortic valve cusp calcification. The aortic valve dimensionless index is 0.25. There is trace aortic valve regurgitation. The peak instantaneous gradient of the aortic valve is 57 mmHg. The mean gradient of the aortic valve is 33 mmHg. Baseline- severe calcific with gradients of 57/33mmHg and DI of 0.25 and trace AI. Proceeded to TAVR. Mitral Valve: The mitral valve is normal in structure. There is moderate mitral annular calcification. There is mild mitral valve regurgitation. Tricuspid Valve: The tricuspid valve is structurally normal. There is trace tricuspid regurgitation. The Doppler estimated RVSP is within normal limits at 22.4 mmHg. Pulmonic Valve: The pulmonic valve is not well visualized. The pulmonic valve regurgitation was not well visualized. Pericardium: There is no pericardial effusion noted. Aorta: The aortic root was not well visualized. Systemic Veins: The inferior vena cava appears normal in size, with IVC inspiratory collapse greater than 50%. In comparison to the previous echocardiogram(s): Compared with the prior exam from 03/09/2024 ( [facility]) the prior AV gradients were 66/35mmHg and the DI was 0.16 wtih tradce AI. The LV systolic function was normal at that time. Post Transcatheter Aortic Valve Placement (TAVR): The peak instantaneous gradient of the aortic valve is 13.2 mmHg. The mean gradient of the aortic valve is 6.0 mmHg. There is a Medtronic Evolut Fx + transcatheter aortic valve replacement, with a 29 mm reported size. The left ventricular systolic function is normal. There is mild loretta-prosthetic aortic valve regurgitation. CONCLUSIONS: 1. Left ventricular ejection fraction is normal, calculated by Singh's biplane at 63%. 2. There is normal right ventricular global systolic function. 3. There is moderate mitral annular calcification. 4. Right ventricular systolic pressure is within normal limits. 5. Baseline- severe calcific with gradients of 57/33mmHg and DI of 0.25 and trace AI. Proceeded to TAVR. 6. S/p 29mm Medtronic Evolut FX+ TAVR with gradients of 13/6mmHg and mild perivalvular AI. 7. Compared with the prior exam from 03/09/2024 ( [facility]) the prior AV gradients were 66/35mmHg and the DI was 0.16 wtih tradce AI. The LV systolic function was normal at that time. RECOMMENDATIONS: Utilizing an FDA cleared automated machine learning algorithm (EchoGo Heart Failure by ReviewZ[employer]), the analysis of the apical 4-chamber echocardiogram suggests the presence of heart failure with preserved ejection fraction (HFpEF)*. Clinical correlation looking for additional heart failure signs and symptoms is recommended, as a definite diagnosis of heart failure cannot be made by imaging alone. *Per ACC/AHA/HFSA universal (more content not included)... Cari Marquez MD - 05/20/2024 [facility] ([facility])[3], [address] [place] [address] and TRANSTHORACIC ECHOCARDIOGRAM REPORT Patient Name: JAYDEN CARTER Reading Physician: [id number] Cari Muñoz MD Study Date: 05/19/2024 Ordering Provider: [id number] BLAIRE MACKEY MRN/PID: [id number] Fellow: Nurse: Date of /Age: 11 1940 Bladder Tier: Kira Pineda RDCS years Gender assigned at M Additional Staff: : Height: 170.18 cm Admit Date: Weight: 73.94 kg Admission Status: Inpatient - Routine BSA / BMI: 1.85 m2 / 25.53 kg/m2 Blood Pressure: 164/70 mmHg Department Location: [facility] [employer] Study Type: TRANSTHORACIC ECHO (TTE) LIMITED Diagnosis/ICD: Nonrheumatic aortic (valve) stenosis-I35.0 Indication: TAVR Periprocedure CPT Code: Echo Limited-68082; Doppler Limited-54615; Color Doppler-77584 Patient History: Pertinent History: CAD, HL, HTN, . Study Detail: The following Echo studies were performed: 2D, Doppler and color flow. Technically challenging study due to body habitus. PHYSICIAN INTERPRETATION: Left Ventricle: Left ventricular ejection fraction is normal, calculated by Singh's biplane at 63%. There are no regional left ventricular wall motion abnormalities. The left ventricular cavity size is normal. Left ventricular diastolic filling was not assessed. Left Atrium: The left atrium was not assessed. Right Ventricle: The right ventricle is normal in size. There is normal right ventricular global systolic function. Right Atrium: The right atrium is normal in size. Aortic Valve: The aortic valve is trileaflet. There is moderate to severe aortic valve cusp calcification. The aortic valve dimensionless index is 0.25. There is trace aortic valve regurgitation. The peak instantaneous gradient of the aortic valve is 57 mmHg. The mean gradient of the aortic valve is 33 mmHg. Baseline- severe calcific with gradients of 57/33mmHg and DI of 0.25 and trace AI. Proceeded to TAVR. Mitral Valve: The mitral valve is normal in structure. There is moderate mitral annular calcification. There is mild mitral valve regurgitation. Tricuspid Valve: The tricuspid valve is structurally normal. There is trace tricuspid regurgitation. The Doppler estimated RVSP is within normal limits at 22.4 mmHg. Pulmonic Valve: The pulmonic valve is not well visualized. The pulmonic valve regurgitation was not well visualized. Pericardium: There is no pericardial effusion noted. Aorta: The aortic root was not well visualized. Systemic Veins: The inferior vena cava appears normal in size, with IVC inspiratory collapse greater than 50%. In comparison to the previous echocardiogram(s): Compared with the prior exam from 03/09/2024 ( [facility]) the prior AV gradients were 66/35mmHg and the DI was 0.16 wtih tradce AI. The LV systolic function was normal at that time. Post Transcatheter Aortic Valve Placement (TAVR): The peak instantaneous gradient of the aortic valve is 13.2 mmHg. The mean gradient of the aortic valve is 6.0 mmHg. There is a Medtronic Evolut Fx + transcatheter aortic valve replacement, with a 29 mm reported size. The left ventricular systolic function is normal. There is mild loretta-prosthetic aortic valve regurgitation. CONCLUSIONS: 1. Left ventricular ejection fraction is normal, calculated by Singh's biplane at 63%. 2. There is normal right ventricular global systolic function. 3. There is moderate mitral annular calcification. 4. Right ventricular systolic pressure is within normal limits. 5. Baseline- severe calcific with gradients of 57/33mmHg and DI of 0.25 and trace AI. Proceeded to TAVR. 6. S/p 29mm Medtronic Evolut FX+ TAVR with gradients of 13/6mmHg and mild perivalvular AI. 7. Compared with the prior exam from 03/09/2024 ( [facility]) the prior AV gradients were 66/35mmHg and the DI was 0.16 wtih tradce AI. The LV systolic function was normal at that time. RECOMMENDATIONS: Utilizing an FDA cleared automated machine learning algorithm (EchoGo Heart Failure by Review[employer]), the analysis of the apical 4-chamber echocardiogram suggests the presence of heart failure with preserved ejection fraction (HFpEF)*. Clinical correlation looking for additional heart failure signs and symptoms is recommended, as a definite diagnosis of heart failure cannot be made by imaging alone. *Per ACC/AHA/HFSA universal diagnosis of heart failure, HFpEF is defined as 1) signs and symptoms leading to clinical diagnosis of heart failure, 2) an ejection fraction of at least 50%, and 3) evidence of elevated intra-cardiac filling pressures by echocardiography, BNP elevation, or catheterization. QUANTITATIVE DATA SUMMARY: 2D MEASUREMENTS: Normal Ranges: LVEDV Index: 43 ml/m2 LV SYSTOLIC FUNCTION BY 2D PLANIMETRY (MOD): Normal R (more content not included)... [facility] Work Phone: US Heart TransthoracicOrdere d By: Cari Muñoz on 05-20-2024 Aortic Valve Area by Continuity of Peak Velocity 0.97 cm2 [facility] Work Phone: [phone] Aortic Valve Area by Continuity of VTI 1.01 cm2 [facility] Work Phone: [phone] AV mn grad 33 mmHg [facility] Work Phone: [phone] AV pk grad 57 mmHg [facility] Work Phone: [phone] AV pk olinda 3.77 m/s [facility] Work Phone: [phone] Body surface area Derived from formula 1.9 m2 [facility] Work Phone: [phone] LV A4C EF 66.2 [facility] Work Phone: [phone] LV EF 63 % [facility] Work Phone: [phone] LVOT diam 2.27 cm [facility] Work Phone: [phone] RVSP 22.4 mmHg [facility] Work Phone: [phone] [facility] Work Phone: [phone] XR Chest Single viewon 05-20 1. No evidence of ac peoria cardiopulmonary process. I personally reviewed the images/study and I agree with the findings as stated by Resident Carolyn Temple. This study was interpreted at [place], [place]. MACRO: None Signed by: Daryl Pressley 05/20/2024 11:00 AM Dictation workstation: [id number] MMODAL Interpreted By: Daryl Pressley and Awan Komal STUDY: XR CHEST 1 VIEW; 05/19/2024 9:25 pm INDICATION: Signs/Symptoms:s/p valve procedure. COMPARISON: None. ACCESSION NUMBER(S): [id number] ORDERING CLINICIAN: JANICE PONCE FINDINGS: AP radiograph of the chest was provided. Patient is status post TAVR. CARDIOMEDIASTINAL SILHOUETTE: Cardiomediastinal silhouette is normal in size and configuration. LUNGS: There is no definite evidence of pneumothorax, focal consolidation and pleural effusion. ABDOMEN: No remarkable upper abdominal findings. BONES: No acute osseous changes. MMODAL Daryl Pressley MD PhD - 05/20/2024 Interpreted By: Daryl Pressley and Awan Komal STUDY: XR CHEST 1 VIEW; 05/19/2024 9:25 pm INDICATION: Signs/Symptoms:s/p valve procedure. COMPARISON: None. ACCESSION NUMBER(S): [id number] ORDERING CLINICIAN: JANICE PONCE FINDINGS: AP radiograph of the chest was provided. Patient is status post TAVR. CARDIOMEDIASTINAL SILHOUETTE: Cardiomediastinal silhouette is normal in size and configuration. LUNGS: There is no definite evidence of pneumothorax, focal consolidation and pleural effusion. ABDOMEN: No remarkable upper abdominal findings. BONES: No acute osseous changes. IMPRESSION: 1. No evidence of acute cardiopulmonary process. I personally reviewed the images/study and I agree with the findings as stated by Resident Carolyn Temple. This study was interpreted at [place], [place]. MACRO: None Signed by: Daryl Pressley 05/20/2024 11:00 AM Dictation workstation: [id number] [facility] Work Phone: XR Chest Single viewOrdered By: Daryl Pressley on 05-20-2024 [facility] Work Phone: ACT Coag (Bld)on 05-19-2024 Interpretation and review of laboratory results Abnormal [facility] ACTIVATED CLOTTING TIME LOWo n 05-19-2024 ACT Coag (Bld) 305 s [facility] Comment on above: Target ACT range franklin l vary based on the patient population, clinical status, and surgical intervention occurring. Activated clotting timeon ACT Coag (Bld) 305 s [facility] 83-199 [facility] Comment on above: Result Comment: Targ et ACT range will vary based on the patient population, clinical status, and surgical intervention occurring. Performed By: #### 3 184-9 #### MILAGRO Colón ([id number]) [facility] ([facility]) [address] [place], [place] [id number] Basic metabolic 2000 panelon 05-19-2024 Anion gap [Moles/Vol] 10 mmol/L 10 - 2 0 mmol/L [facility] Calcium [Mass/Vol] 7.2 mg/dL Low 8.6 - 10. 6 mg/dL [facility] Chloride [Moles/Vol] 109 mmol/L High 98 - 10 7 mmol/L [facility] CO2 [Moles/Vol] 24 mmol/L 21 - 32 mmol/L [facility] Creatinine [Mass/Vol] 1.25 mg/dL 0.50 - 1.30 mg/dL [facility] GFR/1.73 sq M.predicted among non-blacks MDRD (S/P/Bld) [Vol rate/Area] 57 mL/min/{1.73_m2} Low - PINF [facility] Comment on above: Calculations of tee mated GFR are performed using the 2020 CKD-EPI Study Refit equation without the race variable for the IDMS-Traceable creatinine methods. https://jasn.asnjournals.org/content/early//ASN.10147 81247 Glucose [Mass/Vol] 80 mg/dL 74 - 99 mg/dL [facility] Interpretation and review of laboratory results Abnormal [facility] Potassium [Moles/Vol] 3.7 mmol/L 3.5 - 5.3 mmol/L [facility] Sodium [Moles/Vol] 139 mmol/L 136 - 145 mmol/L [facility] Urea nitrogen [Mass/Vol] 15 mg/dL 6 - 23 mg/dL [facility] Anion gap [Moles/Vol] 10 mmol/L Normal 10-20 [facility] Comment on above: Performed By: #### 2 4321-2 #### MILAGRO Colón ([id number]) [facility] ([facility]) [address] [place] [address] Calcium [Mass/Vol] 7.2 mg/dL Low 8.6-10.6 [facility] Comment on above: Performed By: #### 2 4321-2 #### MILAGRO Colón ([id number]) [facility] ([facility]) [address] [place] [address] Chloride [Moles/Vol] 109 mmol/L High 98-107 [facility] Comment on above: Performed By: #### 2 4321-2 #### MILAGRO ASHLEY L ([id number]) [facility] ([facility]) [address] [place] [address] CO2 [Moles/Vol] 24 mmol/L Normal 21-32 [facility] Comment on above: Performed By: #### 2 4321-2 #### MILAGRO ASHLEY L ([id number]) [facility] ([facility]) [address] [place] [address] Creatinine [Mass/Vol] 1.25 mg/dL Normal 0.50-1.30 [facility] Comment on above: Performed By: #### 2 4321-2 #### MILAGRO Colón ([id number]) [facility] ([facility]) [address] [place] [address]3581 Glomerular filtration rate/1.73 sq M.predicted 57 mL/min/1.73m*2 Low >60 [facility] Comment on above: Result Comment: Calc ulations of estimated GFR are performed using the 2020 CKD-EPI Study Refit equation without the race variable for the IDMS-Traceable creatinine methods. https://jasn.asnjournals.org/content//ASN.31662 95997 Performed By: #### 2 4321-2 #### MILAGRO Colón ([id number]) [facility] ([facility]) [address] [place] [address] Glucose [Mass/Vol] 80 mg/dL Normal 74-99 [facility] Comment on above: Performed By: #### 2 4321-2 #### MILAGRO ASHLEY L ([id number]) [facility] ([facility]) [address] [place] [address] Potassium [Moles/Vol] 3.7 mmol/L Normal 3.5-5.3 [facility] Comment on above: Performed By: #### 2 4321-2 #### MILAGRO Colón ([id number]) [facility] ([facility]) [address] [place] [address] 52367 Sodium [Moles/Vol] 139 mmol/L Normal 136-145 [facility] Comment on above: Performed By: #### 2 4321-2 #### MILAGRO Colón ([id number]) [facility] ([facility]) [address] [place] [address] 13522 Urea nitrogen [Mass/Vol] 15 mg/dL Normal 6-23 [facility] Comment on above: Performed By: #### 2 4321-2 #### MILAGRO Colón ([id number]) [facility] ([facility]) [address] [place] [address] 77816 Blood type and Indirect anti body screen panel (Bld)on 05-19-2024 ABO group Nom (Bld) A Normal [facility] Comment on above: Performed By: #### 3 4532-2 #### MILAGRO Colón ([id number]) [facility] ([facility]) [address] [place] [address] 51290 Blood group antibody screen Ql Negative [facility] Comment on above: Performed By: #### 3 4532-2 #### MILAGRO Colón ([id number]) [facility] ([facility]) [address] [place] [address] 90666 D Ag Ql (Bld) Positive [facility] Comment on above: 2nd ABO test require d. Order and Collect VERAB Result Comment: 2nd ABO test required. Order and Collect VERAB Performed By: #### 3 4532-2 #### MILAGRO Colón ([id number]) [facility] ([facility]) [address] [place] [address]1241 CARDIAC CATHETERIZATION PROC EDUREon 05-19-2024 CARDIAC CATHETERIZATION PROCEDURE [facility] ([facility])[3], Thermal Intelligence Analyst, [address] [place] [address] Cardiovascular Catheterization Report Patient Name: JAYDEN CARTER Performing Physician: [id number] Kermit Clements MD Study Date: 05/19/2024 Verifying Physician: [id number] Kermit Clements MD MRN/PID: [id number] Senior Clinical Research Scientist/Co-Scrub: Ordering Provider: [id number] KERMIT CLEMENTS Date of /Age: 11 1940 / 84 years Senior Clinical Research Scientist: Gender: M Fellow: Guilherme Hernandez MD Surgeon: Jomar Rolon MD Study: RIAZ - Transcatheter Aortic Valve Implantation Indications: TAVR in a high surgical risk patient with chronic diastolic and systolic heart failure. Severe aortic stenosis. Transcatheter Aortic Valve Replacement (TAVR): The right femoral artery was accessed using the transfemoral method. A 14F sentrant sheath was inserted after the deployment of 2 Proglides . The left femoral artery was accessed percutaneously and a 6 Togolese contralateral sheath was placed. A 7 Togolese temporary pacemaker was inserted through the left femoral vein and advanced to the right ventricular apex. Adequate pacing thresholds were obtained. After crossing the stenotic aortic valve, balloon aortic valvuloplasty was performed with 20mm Truedilation balloon. Evolut Fx+ 29 mm valve was successfully deployed under rapid ventricular pacing at 140 BPM. Transthoracic echo performed post valve deployment revealed no central aortic insufficiency and no paravalvular aortic insufficiency. No device related events. No bleeding events occurred during the procedure. No vascular access complications were revealed. Access site was closed using 2 ProGlide devices. Hemostasis was achieved in the left femoral artery using a ProGlide device. Temporary pacing wire was sutured in place. Hemo Personnel: + +- --------+ Name Duty + +- --------+ Kermit Clements MD, MD 1 + +- --------+ Hemodynamic Pressures: +----+ +---- ------+ +----- ---------+-------+-------- -+ Site Date Time Phase Name Systolic mmHg Diastolic mmHg ED mmHg Mean mmHg +----+ +---- ------+ +----- ---------+-------+-------- -+ LFA 05/19/2024 Rest 173 59 100 5:03:30 PM +----+ +---- ------+ +----- ---------+-------+-------- -+ AO 05/19/2024 Rest 148 55 91 5:33:49 PM +----+ +---- ------+ +----- ---------+-------+-------- -+ LV 05/19/2024 Rest 200 2 9 5:33:49 PM +----+ +---- ------+ +----- ---------+-------+-------- -+ AO 05/19/2024 Rest 150 54 91 5:33:58 PM +----+ +---- ------+ +----- ---------+-------+-------- -+ LV 05/19/2024 Rest 202 1 8 5:33:58 PM +----+ +---- ------+ +----- ---------+-------+-------- -+ LV 05/19/2024 Rest 114 0 11 5:59:36 PM +----+ +---- ------+ +----- ---------+-------+-------- -+ AO 05/19/2024 Rest 131 47 79 5:59:36 PM +----+ +---- ------+ +----- ---------+-------+-------- -+ LV 05/19/2024 Rest 113 0 10 5:59:45 PM +----+ +---- ------+ +----- ---------+-------+-------- -+ AO 05/19/2024 Rest 130 47 77 5:59:45 PM +----+ +---- ------+ +----- ---------+-------+-------- -+ Complications: No vascular access complications were revealed. No bleeding events occurred during the procedure. No device related events. Cardiac Cath Post Procedure Notes: Post Procedure Diagnosis: Successful TAVR procedure. Blood Loss: Estimated blood loss during the procedure was 50 mls. Specimens Removed: Number of specimen(s) removed: none. CONCLUSIONS: 1. Transcatheter aortic valve replacement with successful implantation of Evolut Fx+ 29 mm valve. 2. Patient was enrolled in a research study and data was included in the TVT Registry. ICD 10 Codes: Nonrheumatic aortic (valve) stenosis-I35.0 CPT Codes: RIAZ Perc,femoral-81348.62 48060 Kermit Clements MD Performing Physician Final Normal [facility] CBC W Auto Differential pane l (Bld)on 05-19-2024 Basophils (Bld) [#/Vol] 0.02 10*3/uL [facility] Basophils/100 WBC (Bld) 0.5 % 0.0 - 2.0 % [facility] Eosinophils (Bld) [#/Vol] 0.09 10*3/uL [facility] Eosinophils/100 WBC (Bld) 2.3 % 0.0 - 6.0 % [facility] Erythrocyte distribution width (RBC) [Ratio] 12.6 % 11.5 - 14.5 % [facility] Hematocrit (Bld) [Volume fraction] 34.3 % Low 41.0 - 52.0 % [facility] Hemoglobin (Bld) [Mass/Vol] 11.4 g/dL Low 13.5 - 17.5 g/dL [facility] Immature granulocytes (Bld) [#/Vol] 0.03 10*3/uL [facility] Immature granulocytes/100 WBC (Bld) 0.8 % 0.0 - 0.9 % [facility] Comment on above: Immature Granulocyte Count (IG) includes promyelocytes, myelocytes and metamyelocytes but does not include bands. Percent differential counts (%) should be interpreted in the context of the absolute cell counts (cells/UL). Interpretation and review of laboratory results Abnormal [facility] Lymphocytes (Bld) [#/Vol] 1.08 10*3/uL [facility] Lymphocytes/100 WBC (Bld) 27.6 % 13.0 - 44.0 % [facility] MCH (RBC) [Entitic mass] 31.7 pg 26.0 - 34.0 pg [facility] MCHC (RBC) [Mass/Vol] 33.2 g/dL 32.0 - 36.0 g/dL [facility] MCV (RBC) [Entitic vol] 95 fL 80 - 100 fL [facility] Monocytes (Bld) [#/Vol] 0.34 10*3/uL [facility] Monocytes/100 WBC (Bld) 8.7 % 2.0 - 10.0 % [facility] Neutrophils (Bld) [#/Vol] 2.36 10*3/uL [facility] Comment on above: Percent differential counts (%) should be interpreted in the context of the absolute cell counts (cells/uL). Neutrophils/100 WBC (Bld) 60.1 % 40.0 - 80.0 % [facility] Nucleated RBC/100 WBC (Bld) [Ratio] 0 % [facility] Platelets (Bld) [#/Vol] 103 10*3/uL Low [facility] RBC (Bld) [#/Vol] 3.6 10*6/uL [facility] WBC (Bld) [#/Vol] 3.9 10*3/uL [facility] Basophils (Bld) [#/Vol] 0.02 x10*3/uL Normal 0.00-0.10 [facility] Comment on above: Performed By: #### 5 7021-8 #### MILAGRO Colón ([id number]) [facility] ([facility]) [id number] [place] [address] 23085 Basophils/100 WBC (Bld) 0.5 % Normal 0.0-2.0 [facility] Comment on above: Performed By: #### 5 7021-8 #### MILAGRO Colón ([id number]) [facility] ([facility]) [address] [place] [address] 04936 Eosinophils (Bld) [#/Vol] 0.09 x10*3/uL Normal 0.00-0.40 [facility] Comment on above: Performed By: #### 5 7021-8 #### MILAGRO Colón ([id number]) [facility] ([facility]) [address] [place] [address] 72964 Eosinophils/100 WBC (Bld) 2.3 % Normal 0.0-6.0 [facility] Comment on above: Performed By: #### 5 7021-8 #### MILAGRO Colón ([id number]) [facility] ([facility]) [address] [place] [address] 00954 Erythrocyte distribution width (RBC) [Ratio] 12.6 % Normal 11.5-14.5 [facility] Comment on above: Performed By: #### 5 7021-8 #### MILAGRO Colón ([id number]) [facility] ([facility]) [address] [place] [address] 65611 Hematocrit (Bld) [Volume fraction] 34.3 % Low 41.0-52.0 [facility] Comment on above: Performed By: #### 5 7021-8 #### MILAGRO Colón ([id number]) [facility] ([facility]) [address] [place] [address] 59206 Hemoglobin (Bld) [Mass/Vol] 11.4 g/dL Low 13.5-17.5 [facility] Comment on above: Performed By: #### 5 7021-8 #### MILAGRO Colón ([id number]) [facility] ([facility]) [address] [place] [address] 58430 Immature granulocytes (Bld) [#/Vol] 0.03 x10*3/uL Normal 0.00-0.50 [facility] Comment on above: Performed By: #### 5 7021-8 #### MILAGRO Colón ([id number]) [facility] ([facility]) [address] [place] [address] 89976 Immature granulocytes/100 WBC (Bld) 0.8 % Normal 0.0-0.9 [facility] Comment on above: Result Comment: Naina ture Granulocyte Count (IG) includes promyelocytes, myelocytes and metamyelocytes but does not include bands. Percent differential counts (%) should be interpreted in the context of the absolute cell counts (cells/UL). Performed By: #### 5 7021-8 #### MILAGRO Colón ([id number]) [facility] ([facility]) [address] [place] [address] 32767 Lymphocytes (Bld) [#/Vol] 1.08 x10*3/uL Normal 0.80-3.00 [facility] Comment on above: Performed By: #### 5 7021-8 #### MILAGRO Colón ([id number]) [facility] ([facility]) [address] [place] [address] 46790 Lymphocytes/100 WBC (Bld) 27.6 % Normal 13.0-44.0 [facility] Comment on above: Performed By: #### 5 7021-8 #### MILAGRO Colón ([id number]) [facility] ([facility]) [address] [place] [address] 28782 MCH (RBC) [Entitic mass] 31.7 pg Normal 26.0-34.0 [facility] Comment on above: Performed By: #### 5 7021-8 #### MILAGRO Colón ([id number]) [facility] ([facility]) [address] [place] [address] 65696 MCHC (RBC) [Mass/Vol] 33.2 g/dL Normal 32.0-36.0 [facility] Comment on above: Performed By: #### 5 7021-8 #### MILAGRO Colón ([id number]) [facility] ([facility]) [address] [place] [address] MCV (RBC) [Entitic vol] 95 fL Normal 80-100 [facility] Comment on above: Performed By: #### 5 7021-8 #### MILAGRO Colón ([id number]) [facility] ([facility]) [address] [place] [address] 53141 Monocytes (Bld) [#/Vol] 0.34 x10*3/uL Normal 0.05-0.80 [facility] Comment on above: Performed By: #### 5 7021-8 #### MILAGRO Colón ([id number]) [facility] ([facility]) [address] [place] [address] 70438 Monocytes/100 WBC (Bld) 8.7 % Normal 2.0-10.0 [facility] Comment on above: Performed By: #### 5 7021-8 #### MILAGRO Colón ([id number]) [facility] ([facility]) [address] [place] [address] 02383 Neutrophils (Bld) [#/Vol] 2.36 x10*3/uL Normal 1.60-5.50 [facility] Comment on above: Result Comment: Perc ent differential counts (%) should be interpreted in the context of the absolute cell counts (cells/uL). Performed By: #### 5 7021-8 #### MILAGRO Colón ([id number]) [facility] ([facility]) [id number] [place] [address] 74279 Neutrophils/100 WBC (Bld) 60.1 % Normal 40.0-80.0 [facility] Comment on above: Performed By: #### 5 7021-8 #### MILAGRO Colón ([id number]) [facility] ([facility]) [address] [place] [address] 39293 Nucleated RBC/100 WBC (Bld) [Ratio] 0.0 /100 WBCs Normal 0.0-0.0 [facility] Comment on above: Performed By: #### 5 7021-8 #### MILAGRO ASHLEY L ([id number]) [facility] ([facility]) [address] [place] [address] 98600 Platelets (Bld) [#/Vol] 103 x10*3/uL Low 150-450 [facility] Comment on above: Performed By: #### 5 7021-8 #### MILAGRO TAVAREZMOTZER L ([id number]) [facility] ([facility]) [address] [place] [address] 44802 RBC (Bld) [#/Vol] 3.60 x10*6/uL Low 4.50-5.90 [facility] Comment on above: Performed By: #### 5 7021-8 #### MILAGRO ASHLEY L ([id number]) [facility] ([facility]) [address] [place] [address] 77817 WBC (Bld) [#/Vol] 3.9 x10*3/uL Low 4.4-11.3 [facility] Comment on above: Performed By: #### 5 7021-8 #### MILAGRO ASHLEY L ([id number]) [facility] ([facility]) [address] [place] [address] 29892 Cardiac catheterization [facility] 05-19-2024 [facility])[3], Thermal Intelligence Analyst, [address] [place] [address]168 Cardiovascular Catheterization Report Patient Name: JAYDEN CARTER Performing Physician: Gordon Clements MD Study Date: 05/19/2024 Verifying Physician: Gordon Clements MD MRN/PID: [id number] Senior Clinical Research Scientist/Co-Scrub: Ordering Provider: Gordon CLEMENTS Date of /Age: 11 1940 / 84 years Senior Clinical Research Scientist: Gender: M Fellow: Guilherme Hernandez MD Surgeon: Jomar Rolon MD Study: RIAZ - Transcatheter Aortic Valve Implantation Indications: TAVR in a high surgical risk patient with chronic diastolic and systolic heart failure. Severe aortic stenosis. Transcatheter Aortic Valve Replacement (TAVR): The right femoral artery was accessed using the transfemoral method. A 14F sentrant sheath was inserted after the deployment of 2 Proglides . The left femoral artery was accessed percutaneously and a 6 Togolese contralateral sheath was placed. A 7 Togolese temporary pacemaker was inserted through the left femoral vein and advanced to the right ventricular apex. Adequate pacing thresholds were obtained. After crossing the stenotic aortic valve, balloon aortic valvuloplasty was performed with 20mm Truedilation balloon. Evolut Fx+ 29 mm valve was successfully deployed under rapid ventricular pacing at 140 BPM. Transthoracic echo performed post valve deployment revealed no central aortic insufficiency and no paravalvular aortic insufficiency. No device related events. No bleeding events occurred during the procedure. No vascular access complications were revealed. Access site was closed using 2 ProGlide devices. Hemostasis was achieved in the left femoral artery using a ProGlide device. Temporary pacing wire was sutured in place. Hemo Personnel: + +- --------+ Name Duty + +- --------+ Kermit Clements MD, MD 1 + +- --------+ Hemodynamic Pressures: +----+ +---- ------+ +----- ---------+-------+-------- -+ Site Date Time Phase Name Systolic mmHg Diastolic mmHg ED mmHg Mean mmHg +----+ +---- ------+ +----- ---------+-------+-------- -+ LFA 05/19/2024 Rest 173 59 100 5:03:30 PM +----+ +---- ------+ +----- ---------+-------+-------- -+ AO 05/19/2024 Rest 148 55 91 5:33:49 PM +----+ +---- ------+ +----- ---------+-------+-------- -+ LV 05/19/2024 Rest 200 2 9 5:33:49 PM +----+ +---- ------+ +----- ---------+-------+-------- -+ AO 05/19/2024 Rest 150 54 91 5:33:58 PM +----+ +---- ------+ +----- ---------+-------+-------- -+ LV 05/19/2024 Rest 202 1 8 5:33:58 PM +----+ +---- ------+ +----- ---------+-------+-------- -+ LV 05/19/2024 Rest 114 0 11 5:59:36 PM +----+ +---- ------+ +----- ---------+-------+-------- -+ AO 05/19/2024 Rest 131 47 79 5:59:36 PM +----+ +---- ------+ +----- ---------+-------+-------- -+ LV 05/19/2024 Rest 113 0 10 5:59:45 PM +----+ +---- ------+ +----- ---------+-------+-------- -+ AO 05/19/2024 Rest 130 47 77 5:59:45 PM +----+ +---- ------+-------- (more content not included)... PRIMO Clemens, [employer] Machine AssemblerMD / Kermit Clements MD - 05/21/2024 [facility])[3], Thermal Intelligence Analyst, [address] [place] [address] Cardiovascular Catheterization Report Patient Name: JAYDEN CARTER Performing Physician: Gordon Clements MD Study Date: 05/19/2024 Verifying Physician: Gordon Clements MD MRN/PID: [id number] Senior Clinical Research Scientist/Co-Scrub: Ordering Provider: Gordon CLEMENTS Date of /Age: 11 1940 / 84 years Senior Clinical Research Scientist: Gender: M Fellow: Guilherme Hernandez MD Surgeon: Jomar Rolon MD Study: RIAZ - Transcatheter Aortic Valve Implantation Indications: TAVR in a high surgical risk patient with chronic diastolic and systolic heart failure. Severe aortic stenosis. Transcatheter Aortic Valve Replacement (TAVR): The right femoral artery was accessed using the transfemoral method. A 14F sentrant sheath was inserted after the deployment of 2 Proglides . The left femoral artery was accessed percutaneously and a 6 Togolese contralateral sheath was placed. A 7 Togolese temporary pacemaker was inserted through the left femoral vein and advanced to the right ventricular apex. Adequate pacing thresholds were obtained. After crossing the stenotic aortic valve, balloon aortic valvuloplasty was performed with 20mm Truedilation balloon. Evolut Fx+ 29 mm valve was successfully deployed under rapid ventricular pacing at 140 BPM. Transthoracic echo performed post valve deployment revealed no central aortic insufficiency and no paravalvular aortic insufficiency. No device related events. No bleeding events occurred during the procedure. No vascular access complications were revealed. Access site was closed using 2 ProGlide devices. Hemostasis was achieved in the left femoral artery using a ProGlide device. Temporary pacing wire was sutured in place. Hemo Personnel: + +- --------+ Name Duty + +- --------+ Kermit Clements MD, MD 1 + +- --------+ Hemodynamic Pressures: +----+ +---- ------+ +----- ---------+-------+----- ----+ Site Date Time Phase Name Systolic mmHg Diastolic mmHg ED mmHg Mean mmHg +----+ +---- ------+ +----- ---------+-------+----- ----+ LFA 05/19/2024 Rest 173 59 100 5:03:30 PM +----+ +---- ------+ +----- ---------+-------+----- ----+ AO 05/19/2024 Rest 148 55 91 5:33:49 PM +----+ +---- ------+ +----- ---------+-------+----- ----+ LV 05/19/2024 Rest 200 2 9 5:33:49 PM +----+ +---- ------+ +----- ---------+-------+----- ----+ AO 05/19/2024 Rest 150 54 91 5:33:58 PM +----+ +---- ------+ +----- ---------+-------+----- ----+ LV 05/19/2024 Rest 202 1 8 5:33:58 PM +----+ +---- ------+ +----- ---------+-------+----- ----+ LV 05/19/2024 Rest 114 0 11 5:59:36 PM +----+ +---- ------+ +----- ---------+-------+----- ----+ AO 05/19/2024 Rest 131 47 79 5:59:36 PM +----+ +---- ------+ +----- ---------+-------+----- ----+ LV 05/19/2024 Rest 113 0 10 5:59:45 PM +----+ +---- ------+ +----- ---------+-------+----- ----+ AO 05/19/2024 Rest 130 47 77 5:59:45 PM +----+ +---- ------+ +----- ---------+-------+----- ----+ Complications: No vascular access complications were revealed. No bleeding events occurred during the procedure. No device related events. Cardiac Cath Post Procedure Notes: Post Procedure Diagnosis: Successful TAVR procedure. Blood Loss: Estimated blood loss during the procedure was 50 mls. Specimens Removed: Number of specimen(s) removed: none. CONCLUSIONS: 1. Transcatheter aortic valve replacement with successful implantation of Evolut Fx+ 29 mm valve. 2. Patient was enrolled in a research study and data was included in the TVT Registry. ICD 10 Codes: Nonrheumatic aortic (valve) stenosis-I35.0 CPT Codes: RIAZ Perc,femoral-40445.62 [id number] Kermit Clements MD Performing Physician Final [facility] Work Phone: Cardiac catheterization stud yOrdered By: Kermit Clements on 05-19-2024 [facility] Work Phone: Coagulation tissue factor in ducedon 05-19-2024 PT Coag (PPP) [Time] 13.8 s High 9.8-12.8 [facility] Comment on above: Performed By: #### 5 902-2 #### MILAGRO Colón ([id number]) [facility] ([facility]) [address] [place] [address] ECG 12-LEADon 05-19-2024 ECG 12-LEAD Ventricular Rate 70 Atrial Rate 80 QRS Duration 156 Q-T Interval 466 QTC Calculation(Bazett) 503 R Meally -38 T Meally 22 QRS Count 12 Q Onset 200 T Offset 433 QTC Fredericia 490 Diagnosis Ventricular pacing Abnormal ECG Confirmed by Bonifacio Hobbs ([id number]) on 06/11/2024 3:38:53 PM Normal [facility] ECG 12-LEAD Ventricular Rate 57 Atrial Rate 57 P-R Interval 280 QRS Duration 120 Q-T Interval 466 QTC Calculation(Bazett) 453 P Meally 74 R Meally -14 T Meally 28 QRS Count 9 Q Onset 220 T Offset 453 QTC Fredericia 458 Diagnosis Poor data quality, interpretation may be adversely affected Sinus bradycardia with 1st degree AV block Right bundle branch block Abnormal ECG No previous ECGs available Confirmed by Bonifacio Hobbs ([id number]) on 06/11/2024 3:37:22 PM Normal [facility] MR CARDIAC MORPHOLOGY AND FU NCTION W AND WO IV CONTRASTon 05-19-2024 MR CARDIAC MORPHOLOGY AND FUNCTION W AND WO IV CONTRAST Interpreted By: Cuauhtemoc Nicholas, STUDY: MR CARDIAC MORPHOLOGY AND FUNCTION W AND WO IV CONTRAST; 05/19/2024 11:51 am INDICATION: Signs/Symptoms:Research. This study is performed to assess myocardial viability and damage, and to quantitate left ventricular and valvular function. ,Z00.6 Encounter for examination for normal comparison and control in clinical research program COMPARISON: None. ACCESSION NUMBER(S): [id number] ORDERING CLINICIAN: KERMIT CLEMENTS TECHNIQUE: Siemens 1.5 [place] MRI scanner. Turbo spin echo and balanced steady state free precession (bSSFP) imaging for anatomic definition. Flow quantification sequences for hemodynamics. Delayed gadolinium enhancement analysis after injection of 30 ML Dotarem. HT-172 cm; WT-74 kg; FINDINGS: CARDIAC CHAMBERS Normal atrioventricular and ventriculoarterial concordance LEFT ATRIUM Normal size RIGHT ATRIUM Normal size INTERATRIAL SEPTUM Intact. LEFT VENTRICLE The left ventricle is normal in size and shape, and has normal global systolic function. LVEF 59.1%. There are no segmental wall motion abnormalities. Quantitative left ventricular functional values are as follows: EDV = 101.3 cc; EDVi = 53.8 cc/m2 ESV = 41.4 cc; ESVi = 22.0 cc/m2 Stroke volume = 59.8 cc; SVi = 31.8 cc/m2 LVEF = 59.1 % Absolute Cardiac Output = 3.15 l/min.; COi = 1.67 l/min/m2 LV mass = 102.3 gm; LVMi = 54.4 gm/m2 *Matthew MADSEN et al. Normalized left ventricular systolic and diastolic function by steady state free precession cardiovascular magnetic resonance. J Cardiovasc Magn Reson 2006; 8:417-26. There is nonspecific delayed enhancement the RV insertion site in the interventricular septum keeping with areas of scarring and correlate which can be due to component of right heart pressure or volume overload. There is a small area of subendocardial delayed enhancement in the mid inferior wall which may be sequela of small area of prior infarction. RIGHT VENTRICLE The right ventricle appears normal in size, shape, and has normal systolic function. RVEF 59.5% no segmental wall motion abnormalities. No abnormal delayed enhancement in the myocardium. INTERVENTRICULAR SEPTUM Intact. AORTIC VALVE Aortic valve stenosis. KE 0.99 cm2. There is bpah-rt-xltjmauq aortic regurgitation. Flow quantification through the ascending aorta: Forward volume =46.6 cc/beat Reverse volume = 10.96 cc/beat Net forward volume = 35.6 cc/beat Aortic regurgitant fraction = 23.5 % MITRAL VALVE There is no mitral regurgitation. TRICUSPID VALVE There is qualitative no tricuspid regurgitation. THORACIC AORTA The thoracic aorta appears normal in course, caliber, and contour. There is no evidence for acute aortic pathology. The arch vessel branching pattern is normal. PULMONARY ARTERIES The central pulmonary arteries appear normal SYSTEMIC AND PULMONARY VEINS Normal systemic venous and pulmonary venous return. The SVC and IVC are of normal caliber. Normal pulmonary venous anatomy. CHEST The chest wall is normal. No significant lymphadenopathy or mass is seen in limited images of the mediastinum. Limited imaging through the lungs reveals no gross abnormalities. No pleural effusion. UPPER ABDOMEN Limited imaging through the upper abdomen reveals no abnormalities of the visualized organs. IMPRESSION: 1. The left ventricle is normal in size, shape, and has normal global systolic function. LVEF 59.1%. There are no segmental wall motion abnormalities. Quantitative values are as noted above. 2. There is nonspecific delayed enhancement at the RV insertion site in the interventricular septum in keeping with areas of scarring which can be due to right heart pressure or volume overload. 3. There is a small area of nearly transmural delayed enhancement in the mid inferior wall which may be sequela of small area of prior infarction. 4. Aortic valve stenosis. KE 0.99 cm2. Mild to moderate aortic regurgitation. Aortic regurgitant fraction 23.5%. MACRO: None Signed by: Cuauhtemoc Zaidi 05/19/2024 2:55 PM Dictation workstation: [id number] [facility] MR Heart WO and W contrast I Von 05-19-2024 1. The left ventricl e is normal in size, shape, and has normal global systolic function. LVEF 59.1%. There are no segmental wall motion abnormalities. Quantitative values are as noted above. 2. There is nonspecific delayed enhancement at the RV insertion site in the interventricular septum in keeping with areas of scarring which can be due to right heart pressure or volume overload. 3. There is a small area of nearly transmural delayed enhancement in the mid inferior wall which may be sequela of small area of prior infarction. 4. Aortic valve stenosis. KE 0.99 cm2. Mild to moderate aortic regurgitation. Aortic regurgitant fraction 23.5%. MACRO: None Signed by: Cuauhtemoc Zaidi 05/19/2024 2:55 PM Dictation workstation: [id number] [facility] Interpreted By: Cuauhtemoc Rodriguez, STUDY: MR CARDIAC MORPHOLOGY AND FUNCTION W AND WO IV CONTRAST; 05/19/2024 11:51 am INDICATION: Signs/Symptoms:Research. This study is performed to assess myocardial viability and damage, and to quantitate left ventricular and valvular function. ,Z00.6 Encounter for examination for normal comparison and control in clinical research program COMPARISON: None. ACCESSION NUMBER(S): [id number] ORDERING CLINICIAN: KERMIT CLEMENTS TECHNIQUE: Siemens 1.5 [employer] MRI scanner. Turbo spin echo and balanced steady state free precession (bSSFP) imaging for anatomic definition. Flow quantification sequences for hemodynamics. Delayed gadolinium enhancement analysis after injection of 30 ML Dotarem. HT-172 cm; WT-74 kg; FINDINGS: CARDIAC CHAMBERS Normal atrioventricular and ventriculoarterial concordance LEFT ATRIUM Normal size RIGHT ATRIUM Normal size INTERATRIAL SEPTUM Intact. LEFT VENTRICLE The left ventricle is normal in size and shape, and has normal global systolic function. LVEF 59.1%. There are no segmental wall motion abnormalities. Quantitative left ventricular functional values are as follows: EDV = 101.3 cc; EDVi = 53.8 cc/m2 ESV = 41.4 cc; ESVi = 22.0 cc/m2 Stroke volume = 59.8 cc; SVi = 31.8 cc/m2 LVEF = 59.1 % Absolute Cardiac Output = 3.15 l/min.; COi = 1.67 l/min/m2 LV mass = 102.3 gm; LVMi = 54.4 gm/m2 *Matthew MADSEN et al. Normalized left ventricular systolic and diastolic function by steady state free precession cardiovascular magnetic resonance. J Cardiovasc Magn Reson 2006; 8:417-26. There is nonspecific delayed enhancement the RV insertion site in the interventricular septum keeping with areas of scarring and correlate which can be due to component of right heart pressure or volume overload. There is a small area of subendocardial delayed enhancement in the mid inferior wall which may be sequela of small area of prior infarction. RIGHT VENTRICLE The right ventricle appears normal in size, shape, and has normal systolic function. RVEF 59.5% no segmental wall motion abnormalities. No abnormal delayed enhancement in the myocardium. INTERVENTRICULAR SEPTUM Intact. AORTIC VALVE Aortic valve stenosis. KE 0.99 cm2. There is ovqx-ja-qzdichek aortic regurgitation. Flow quantification through the ascending aorta: Forward volume =46.6 cc/beat Reverse volume = 10.96 cc/beat Net forward volume = 35.6 cc/beat Aortic regurgitant fraction = 23.5 % MITRAL VALVE There is no mitral regurgitation. TRICUSPID VALVE There is qualitative no tricuspid regurgitation. THORACIC AORTA The thoracic aorta appears normal in course, caliber, and contour. There is no evidence for acute aortic pathology. The arch vessel branching pattern is normal. PULMONARY ARTERIES The central pulmonary arteries appear normal SYSTEMIC AND PULMONARY VEINS Normal systemic venous and pulmonary venous return. The SVC and IVC are of normal caliber. Normal pulmonary venous anatomy. CHEST The chest wall is normal. No significant lymphadenopathy or mass is seen in limited images of the mediastinum. Limited imaging through the lungs reveals no gross abnormalities. No pleural effusion. UPPER ABDOMEN Limited imaging through the upper abdomen reveals no abnormalities of the visualized organs. [facility] Cy Nicholas MD - 05/19/2024 Interpreted By: Cuauhtemoc Nicholas, STUDY: MR CARDIAC MORPHOLOGY AND FUNCTION W AND WO IV CONTRAST; 05/19/2024 11:51 am INDICATION: Signs/Symptoms:Research. This study is performed to assess myocardial viability and damage, and to quantitate left ventricular and valvular function. ,Z00.6 Encounter for examination for normal comparison and control in clinical research program COMPARISON: None. ACCESSION NUMBER(S): [id number] ORDERING CLINICIAN: KERMIT CLEMENTS TECHNIQUE: Siemens 1.5 [employer]oreto MRI scanner. Turbo spin echo and balanced steady state free precession (bSSFP) imaging for anatomic definition. Flow quantification sequences for hemodynamics. Delayed gadolinium enhancement analysis after injection of 30 ML Dotarem. HT-172 cm; WT-74 kg; FINDINGS: CARDIAC CHAMBERS Normal atrioventricular and ventriculoarterial concordance LEFT ATRIUM Normal size RIGHT ATRIUM Normal size INTERATRIAL SEPTUM Intact. LEFT VENTRICLE The left ventricle is normal in size and shape, and has normal global systolic function. LVEF 59.1%. There are no segmental wall motion abnormalities. Quantitative left ventricular functional values are as follows: EDV = 101.3 cc; EDVi = 53.8 cc/m2 ESV = 41.4 cc; ESVi = 22.0 cc/m2 Stroke volume = 59.8 cc; SVi = 31.8 cc/m2 LVEF = 59.1 % Absolute Cardiac Output = 3.15 l/min.; COi = 1.67 l/min/m2 LV mass = 102.3 gm; LVMi = 54.4 gm/m2 *Matthew MADSEN et al. Normalized left ventricular systolic and diastolic function by steady state free precession cardiovascular magnetic resonance. J Cardiovasc Magn Reson 2006; 8:417-26. There is nonspecific delayed enhancement the RV insertion site in the interventricular septum keeping with areas of scarring and correlate which can be due to component of right heart pressure or volume overload. There is a small area of subendocardial delayed enhancement in the mid inferior wall which may be sequela of small area of prior infarction. RIGHT VENTRICLE The right ventricle appears normal in size, shape, and has normal systolic function. RVEF 59.5% no segmental wall motion abnormalities. No abnormal delayed enhancement in the myocardium. INTERVENTRICULAR SEPTUM Intact. AORTIC VALVE Aortic valve stenosis. KE 0.99 cm2. There is plel-ik-rpzoewbi aortic regurgitation. Flow quantification through the ascending aorta: Forward volume =46.6 cc/beat Reverse volume = 10.96 cc/beat Net forward volume = 35.6 cc/beat Aortic regurgitant fraction = 23.5 % MITRAL VALVE There is no mitral regurgitation. TRICUSPID VALVE There is qualitative no tricuspid regurgitation. THORACIC AORTA The thoracic aorta appears normal in course, caliber, and contour. There is no evidence for acute aortic pathology. The arch vessel branching pattern is normal. PULMONARY ARTERIES The central pulmonary arteries appear normal SYSTEMIC AND PULMONARY VEINS Normal systemic venous and pulmonary venous return. The SVC and IVC are of normal caliber. Normal pulmonary venous anatomy. CHEST The chest wall is normal. No significant lymphadenopathy or mass is seen in limited images of the mediastinum. Limited imaging through the lungs reveals no gross abnormalities. No pleural effusion. UPPER ABDOMEN Limited imaging through the upper abdomen reveals no abnormalities of the visualized organs. IMPRESSION: 1. The left ventricle is normal in size, shape, and has normal global systolic function. LVEF 59.1%. There are no segmental wall motion abnormalities. Quantitative values are as noted above. 2. There is nonspecific delayed enhancement at the RV insertion site in the interventricular septum in keeping with areas of scarring which can be due to right heart pressure or volume overload. 3. There is a small area of nearly transmural delayed enhancement in the mid inferior wall which may be sequela of small area of prior infarction. 4. Aortic valve stenosis. KE 0.99 cm2. Mild to moderate aortic regurgitation. Aortic regurgitant fraction 23.5%. MACRO: None Signed by: Cuauhtemoc Zaidi 05/19/2024 2:55 PM Dictation workstation: [id number] [facility] Work Phone: Radiology Study observation (narrative) [facility] Work Phone: MR Heart WO and W contrast I VOrdered By: Cuauhtemoc Zaidi on 05-19-2024 [facility] Work Phone: Magnesiumon 05-19-2024 Magnesium [Mass/Vol] 1.95 mg/dL 1.60 - 2.40 mg/dL [facility] Magnesium [Mass/Vol] 1.95 mg/dL Normal 1.60-2.40 [facility] Comment on above: Performed By: #### 1 9123-9 #### MILAGRO Colón ([id number]) [facility] ([facility]) [address] [place] [address]272 Magnesium [Mass/Vol] 1.61 mg/dL 1.60 - 2.40 mg/dL [facility] Magnesium [Mass/Vol] 1.61 mg/dL Normal 1.60-2.40 [facility] Comment on above: Performed By: #### 1 9123-9 #### MILAGRO Colón ([id number]) [facility] ([facility]) [address] [place] [address] 61308 Magnesium [Mass/Vol]on 05-19 Interpretation and review of laboratory results Normal [facility] Interpretation and review of laboratory results Normal [facility] No Panel Informationon 05-19 [facility] PT Coag (PPP) [Time]on 05-19 INR Coag (PPP) [Relative time] 1.2 {INR} High 0.9 - 1.1 [facility] Interpretation and review of laboratory results Abnormal [facility] INR Coag (PPP) [Relative time] 1.2 High 0.9-1.1 [facility] Comment on above: Performed By: #### 5 902-2 #### MILAGRO Colón ([id number]) [facility] ([facility]) [address] [place] [address] Protime-INRon 05-19-2024 PT Coag (PPP) [Time] 13.[address] [facility] Renal function 2000 panelon 05-19-2024 Albumin BCP dye [Mass/Vol] 3.3 g/dL Low 3.4 - 5.0 g/dL [facility] Anion gap [Moles/Vol] 14 mmol/L 10 - 2 0 mmol/L [facility] Calcium [Mass/Vol] 8.3 mg/dL Low 8.6 - 10. 6 mg/dL [facility] Chloride [Moles/Vol] 106 mmol/L 98 - 10 7 mmol/L [facility] CO2 [Moles/Vol] 25 mmol/L 21 - 32 mmol/L [facility] Creatinine [Mass/Vol] 1.33 mg/dL High 0.50 - 1.30 mg/dL [facility] GFR/1.73 sq M.predicted among non-blacks MDRD (S/P/Bld) [Vol rate/Area] 53 mL/min/{1.73_m2} Low - PINF [facility] Comment on above: Calculations of tee mated GFR are performed using the 2020 CKD-EPI Study Refit equation without the race variable for the IDMS-Traceable creatinine methods. https://jasn.asnjournals.org/content//ASN.56982 83846 Glucose [Mass/Vol] 139 mg/dL High 74 - 99 mg/dL [facility] Interpretation and review of laboratory results Abnormal [facility] Phosphate [Mass/Vol] 2.8 mg/dL 2.5 - 4 .9 mg/dL [facility] Comment on above: The performance olman acteristics of phosphorus testing in heparinized plasma have been validated by the individual laboratory site where testing is performed. Testing on heparinized plasma is not approved by the FDA; however, such approval is not necessary. Potassium [Moles/Vol] 3.8 mmol/L 3.5 - 5.3 mmol/L [facility] Sodium [Moles/Vol] 141 mmol/L 136 - 145 mmol/L [facility] Urea nitrogen [Mass/Vol] 15 mg/dL 6 - 23 mg/dL [facility] Albumin BCP dye [Mass/Vol] 3.3 g/dL Low 3.4-5.0 [facility] Comment on above: Performed By: #### 2 4362-6 #### MILAGRO Colón ([id number]) [facility] ([facility]) [id number] [place] [address] 99620 Anion gap [Moles/Vol] 14 mmol/L Normal 10-20 [facility] Comment on above: Performed By: #### 2 4362-6 #### MILAGRO Colón ([id number]) [facility] ([facility]) [id number] [place] [address] 95379 Calcium [Mass/Vol] 8.3 mg/dL Low 8.6-10.6 [facility] Comment on above: Performed By: #### 2 4362-6 #### MILAGRO GOLDTZABDULAZIZ L ([id number]) [facility] ([facility]) [address] [place] [address] 73629 Chloride [Moles/Vol] 106 mmol/L Normal 98-107 [facility] Comment on above: Performed By: #### 2 4362-6 #### MILAGRO Colón ([id number]) [facility] ([facility]) [address] [place] [address] 30065 CO2 [Moles/Vol] 25 mmol/L Normal 21-32 [facility] Comment on above: Performed By: #### 2 4362-6 #### MILAGRO Colón ([id number]) [facility] ([facility]) [address] [place] [address] 97033 Creatinine [Mass/Vol] 1.33 mg/dL High 0.50-1.30 [facility] Comment on above: Performed By: #### 2 4362-6 #### MILAGRO Colón ([id number]) [facility] ([facility]) [address] [place] [address] 64403 Glomerular filtration rate/1.73 sq M.predicted 53 mL/min/1.73m*2 Low >60 [facility] Comment on above: Result Comment: Calc ulations of estimated GFR are performed using the 2020 CKD-EPI Study Refit equation without the race variable for the IDMS-Traceable creatinine methods. https://jasn.asnjournals.org/content/early//ASN.67606 41991 Performed By: #### 2 4362-6 #### MILAGRO Colón ([id number]) [facility] ([facility]) [address] [place] [address] 01852 Glucose [Mass/Vol] 139 mg/dL High 74-99 [facility] Comment on above: Performed By: #### 2 4362-6 #### MILAGRO Colón ([id number]) [facility] ([facility]) [address] [place] [address] 17966 Phosphate [Mass/Vol] 2.8 mg/dL Normal 2.5-4.9 [facility] Comment on above: Result Comment: The performance characteristics of phosphorus testing in heparinized plasma have been validated by the individual laboratory site where testing is performed. Testing on heparinized plasma is not approved by the FDA; however, such approval is not necessary. Performed By: #### 2 4362-6 #### MILAGRO Colón ([id number]) [facility] ([facility]) [address] [place] [address] 29046 Potassium [Moles/Vol] 3.8 mmol/L Normal 3.5-5.3 [facility] Comment on above: Performed By: #### 2 4362-6 #### MILAGRO Colón ([id number]) [facility] ([facility]) [id number] [place] [address] 85234 Sodium [Moles/Vol] 141 mmol/L Normal 136-145 [facility] Comment on above: Performed By: #### 2 4362-6 #### MILAGRO Colón ([id number]) [facility] ([facility]) [id number] [place] [address] 56506 Urea nitrogen [Mass/Vol] 15 mg/dL Normal 6-23 [facility] Comment on above: Performed By: #### 2 4362-6 #### MILAGRO Colón ([id number]) [facility] ([facility]) [address] [place] [address] 56367 TRANSTHORACIC ECHO (TTE) [facility] 05-19-2024 TRANSTHORACIC ECHO (TTE) [facility], [address] [place] [address] and TRANSTHORACIC ECHOCARDIOGRAM REPORT Patient Name: JAYDEN Mays Physician: [id number] Cari Muñoz MD Study Date: 05/19/2024 Ordering Provider: [id number] BLAIRE MACKEY MRN/PID: [id number] Fellow: Nurse: Date of /Age: 11 1940 Bladder Tier: Kira Pineda RDCS years Gender assigned at M Additional Staff: : Height: 170.18 cm Admit Date: Weight: 73.94 kg Admission Status: Inpatient - Routine BSA / BMI: 1.85 m2 / 25.53 kg/m2 Blood Pressure: 164/70 mmHg Department Location: [facility] [employer] Analyst Study Type: TRANSTHORACIC ECHO (TTE) LIMITED Diagnosis/ICD: Nonrheumatic aortic (valve) stenosis-I35.0 Indication: TAVR Periprocedure CPT Code: Echo Limited-95643; Doppler Limited-37672; Color Doppler-34584 Patient History: Pertinent History: CAD, HL, HTN, . Study Detail: The following Echo studies were performed: 2D, Doppler and color flow. Technically challenging study due to body habitus. PHYSICIAN INTERPRETATION: Left Ventricle: Left ventricular ejection fraction is normal, calculated by Singh's biplane at 63%. There are no regional left ventricular wall motion abnormalities. The left ventricular cavity size is normal. Left ventricular diastolic filling was not assessed. Left Atrium: The left atrium was not assessed. Right Ventricle: The right ventricle is normal in size. There is normal right ventricular global systolic function. Right Atrium: The right atrium is normal in size. Aortic Valve: The aortic valve is trileaflet. There is moderate to severe aortic valve cusp calcification. The aortic valve dimensionless index is 0.25. There is trace aortic valve regurgitation. The peak instantaneous gradient of the aortic valve is 57 mmHg. The mean gradient of the aortic valve is 33 mmHg. Baseline- severe calcific with gradients of 57/33mmHg and DI of 0.25 and trace AI. Proceeded to TAVR. Mitral Valve: The mitral valve is normal in structure. There is moderate mitral annular calcification. There is mild mitral valve regurgitation. Tricuspid Valve: The tricuspid valve is structurally normal. There is trace tricuspid regurgitation. The Doppler estimated RVSP is within normal limits at 22.4 mmHg. Pulmonic Valve: The pulmonic valve is not well visualized. The pulmonic valve regurgitation was not well visualized. Pericardium: There is no pericardial effusion noted. Aorta: The aortic root was not well visualized. Systemic Veins: The inferior vena cava appears normal in size, with IVC inspiratory collapse greater than 50%. In comparison to the previous echocardiogram(s): Compared with the prior exam from 03/09/2024 ( [facility]) the prior AV gradients were 66/35mmHg and the DI was 0.16 wtih tradce AI. The LV systolic function was normal at that time. Post Transcatheter Aortic Valve Placement (TAVR): The peak instantaneous gradient of the aortic valve is 13.2 mmHg. The mean gradient of the aortic valve is 6.0 mmHg. There is a Medtronic Evolut Fx + transcatheter aortic valve replacement, with a 29 mm reported size. The left ventricular systolic function is normal. There is mild loretta-prosthetic aortic valve regurgitation. CONCLUSIONS: 1. Left ventricular ejection fraction is normal, calculated by Singh's biplane at 63%. 2. There is normal right ventricular global systolic function. 3. There is moderate mitral annular calcification. 4. Right ventricular systolic pressure is within normal limits. 5. Baseline- severe calcific with gradients of 57/33mmHg and DI of 0.25 and trace AI. Proceeded to TAVR. 6. S/p 29mm Medtronic Evolut FX+ TAVR with gradients of 13/6mmHg and mild perivalvular AI. 7. Compared with the prior exam from 03/09/2024 ( [facility]) the prior AV gradients were 66/35mmHg and the DI was 0.16 wtih tradce AI. The LV systolic function was normal at that time. RECOMMENDATIONS: Utilizing an FDA cleared automated machine learning algorithm (BrightFunnel Heart Failure by [employer]), the analysis of the apical 4-chamber echocardiogram suggests the presence of heart failure with preserved ejection fraction (HFpEF)*. Clinical correlation looking for additional heart failure signs and symptoms is recommended, as a definite diagnosis of heart failure cannot be made by imaging alone. *Per ACC/AHA/HFSA universal diagnosis of heart failure, HFpEF is defined as 1) signs and symptoms leading to clinical diagnosis of heart failure, 2) an ejection fraction of at least 50%, and 3) evidence of elevated intra-cardiac filling pressures by echocardiography, BNP elevation, or catheterization. QUANTITATIVE DATA SUMMARY: 2D MEASUREMENTS: Normal Ranges: LVEDV Index: 43 ml/m2 LV SYSTOLIC FUNCTION BY 2D PLANIMETRY (MOD): Normal Ranges: EF-A4C View: 66 % (>=55%) EF-A2C View: 57 % EF-Biplane: 63 % LV EF Reported: 63 % AORTIC (more content not included)... Normal [facility] XR CHEST 1 VIEWon 05-19-2024 XR CHEST 1 VIEW Interpreted By: Daryl Pressley and Awan Komal STUDY: XR CHEST 1 VIEW; 05/19/2024 9:25 pm INDICATION: Signs/Symptoms:s/p valve procedure. COMPARISON: None. ACCESSION NUMBER(S): [id number] ORDERING CLINICIAN: JANICE PONCE FINDINGS: AP radiograph of the chest was provided. Patient is status post TAVR. CARDIOMEDIASTINAL SILHOUETTE: Cardiomediastinal silhouette is normal in size and configuration. LUNGS: There is no definite evidence of pneumothorax, focal consolidation and pleural effusion. ABDOMEN: No remarkable upper abdominal findings. BONES: No acute osseous changes. IMPRESSION: 1. No evidence of acute cardiopulmonary process. I personally reviewed the images/study and I agree with the findings as stated by Resident Carolyn Temple. This study was interpreted at [place], [place]. MACRO: None Signed by: Daryl Pressley 05/20/2024 11:00 AM Dictation workstation: [id number] [facility] Comment on above: Order Comment: POD 1 CXR XR Chest Single viewon 05-19 Radiology Study observation (narrative) [facility] Work Phone: CT Neck+Chest+Abdomen+Pelvis W contrast Rickey 04-15-2024 1. Extensive atherosclerotic changes involving the thoracoabdominal aorta and its branches. The access vessels are patent. 2. Severe calcifications of the aortic valve correlating with history of aortic stenosis. 3. Severe coronary artery calcifications are seen. Please note, the study is not optimized for evaluation of coronary arteries. 4. Two moderately sized ventral hernias containing multiple small bowel loops which demonstrate no abnormal wall thickening or distention. 5. Calculus layering dependently within the left aspect of the bladder near the ureterovesical junction which measures 0.7 cm. No renal calculi identified. 6. Markedly enlarged prostate, measuring up 6.3 cm in the transverse dimension. Correlation with PSA levels recommended. 7. Severe atrophy of the left kidney. 8. Additional chronic findings as above. I personally reviewed the images/study and I agree with the findings as stated by Dr. Ryan Ray M.D. This study was interpreted at [place], [place]. MACRO: None Signed by: Ismael Molina 04/15/2024 3:37 PM Dictation workstation: [id number] [facility] Interpreted By: Ismael Pendleton, Sundar Davis STUDY: CT TAVR FULL CONTRAST CHEST ABDOMEN PELVIS; 04/15/2024 12:30 pm INDICATION: Signs/Symptoms:aortic stenosis pre TAVR workup. ,I35.0 Nonrheumatic aortic (valve) stenosis COMPARISON: None. ACCESSION NUMBER(S): [id number] ORDERING CLINICIAN: CAROLE HOUSTON TECHNIQUE: Multi-detector CT technology was employed. Initial limited axial imaging of chest with prospective gating is performed. Following this,helical multi-detector acquisition of the chest with retrospective gating and minimal slice thickness was performed following the intravenous administration of 80 ML Omnipaque 350. Subsequently, contrast enhanced non-gated CT examination of the abdomen and pelvis was obtained. For optimization of anatomic evaluation, multiplanar reconstruction, maximum intensity projections, and advanced 3-D off-line postprocessing were performed on a dedicated stand-alone workstation under the direct supervision of the interpreting physician. FINDINGS: Potential study limitations: None. THORACIC AORTA AND HEART: The thoracic aorta normal in course and caliber.There are mild scattered atherosclerosis present, including calcified and noncalcified plaques. There is no evidence for acute aortic pathology, such as dissection, intramural hematoma, or contained rupture. The sinotubular junction is preserved. The arch vessel branching pattern is conventional. All of the arch branch vessels appear widely patent in their proximal portions. Normal atrioventricular and ventriculoarterial concordance. The cardiac chambers are not enlarged. There are significant calcifications of aortic valve, in keeping with patients history of aortic stenosis.There are also moderate mitral annular calcifications seen. Normal coronary artery origins.Severe coronary artery calcifications are seen. Please note,the study is not optimized for evaluation of coronary arteries. There is no pericardial effusion seen. PULMONARY ARTERIES Main pulmonary artery and its branches are normal in caliber (MPA-2.4 cm). Although the study is not tailored for evaluation of pulmonary arteries, there are no discrete filling defects within the pulmonary arteries or its opacified branches to suggest pulmonary embolism. SYSTEMIC AND PULMONARY VEINS Normal systemic venous and pulmonary venous return. The SVC and IVC are of normal caliber. Normal pulmonary venous anatomy. CHEST: The visualized thyroid gland is within normal limits. No evidence of thoracic lymphadenopathy by CT criteria. There is a smallsized hiatal hernia. Otherwise, the esophagus is within normal limits. The trachea and central airways are patent. No endobronchial lesion is seen. The bilateral lungs are clear without evidence of focal consolidation, pleural effusion, or pneumothorax. Minimal bibasilar atelectasis. There are few sub 6 mm bilateral noncalcified pulmonary nodules seen. For example, there is a 0.3 cm nodule in the left lower lobe on series 11, image 113. ABDOMINAL AORTA: The abdominal aorta and its branches demonstrate moderate to severe scattered calcified and non calcified atherosclerotic plaques. The celiac, SMA, NANCY and right renal artery are normal in caliber. Note is made of non enhancement of the near entirety of the left renal artery. ABDOMEN AND PELVIS: HEPATOBILIARY SYSTEM: The liver is normal in size. There is no evidence of focal liver lesion GALLBLADDER: The gallbladder is surgically absent. Prominence of the common bile duct, likely secondary postcholecystectomy status. No intrahepatic biliary ductal dilatation. PANCREAS: The pancreas is within normal limits. No suspicious focal lesions identified. SPLEEN: The spleen is normal in size.No suspicious focal lesions are seen. ADRENAL GLANDS: The bilateral adrenal glands are unremarkable in appearance. KIDNEYS AND URETERS: Severe atrophy and hypoenhancement of the left kidney. The right kidney appears normal in size. No focal renal lesion is identified. There is no evidence of hydroureteronephrosis or nephroureterolithiasis. GI TRACT: The stomach is unremarkable. The small bowel is normal in caliber without evidence of focal wall thickening or obstruction. 2 ventral hernias which contain multiple bowel loops without wall thickening or distention. Postsurgical changes of right hemicolectomy noted. There is no evidence of focal wall thickening or dilatation of the large bowel. Multiple colonic diverticula are present without evidence of diverticulitis. PERITONEUM/RETROPERITONEUM /LYMPH NODES: No abdominopelvic lymphadenopathy is present. There is no focal fluid collection, free intraperitoneal air, or ascites. GENITOURINARY SYSTEM: There is a 0.7 cm calculus layering dependently within the left (more content not included)... [facility] Ismael Molina MD - 04/15/2024 Interpreted By: Ismael Molina and Baker Zachary STUDY: CT TAVR FULL CONTRAST CHEST ABDOMEN PELVIS; 04/15/2024 12:30 pm INDICATION: Signs/Symptoms:aortic stenosis pre TAVR workup. ,I35.0 Nonrheumatic aortic (valve) stenosis COMPARISON: None. ACCESSION NUMBER(S): [id number] ORDERING CLINICIAN: CAROLE HOUSTON TECHNIQUE: Multi-detector CT technology was employed. Initial limited axial imaging of chest with prospective gating is performed. Following this,helical multi-detector acquisition of the chest with retrospective gating and minimal slice thickness was performed following the intravenous administration of 80 ML Omnipaque 350. Subsequently, contrast enhanced non-gated CT examination of the abdomen and pelvis was obtained. For optimization of anatomic evaluation, multiplanar reconstruction, maximum intensity projections, and advanced 3-D off-line postprocessing were performed on a dedicated stand-alone workstation under the direct supervision of the interpreting physician. FINDINGS: Potential study limitations: None. THORACIC AORTA AND HEART: The thoracic aorta normal in course and caliber.There are mild scattered atherosclerosis present, including calcified and noncalcified plaques. There is no evidence for acute aortic pathology, such as dissection, intramural hematoma, or contained rupture. The sinotubular junction is preserved. The arch vessel branching pattern is conventional. All of the arch branch vessels appear widely patent in their proximal portions. Normal atrioventricular and ventriculoarterial concordance. The cardiac chambers are not enlarged. There are significant calcifications of aortic valve, in keeping with patients history of aortic stenosis.There are also moderate mitral annular calcifications seen. Normal coronary artery origins.Severe coronary artery calcifications are seen. Please note,the study is not optimized for evaluation of coronary arteries. There is no pericardial effusion seen. PULMONARY ARTERIES Main pulmonary artery and its branches are normal in caliber (MPA-2.4 cm). Although the study is not tailored for evaluation of pulmonary arteries, there are no discrete filling defects within the pulmonary arteries or its opacified branches to suggest pulmonary embolism. SYSTEMIC AND PULMONARY VEINS Normal systemic venous and pulmonary venous return. The SVC and IVC are of normal caliber. Normal pulmonary venous anatomy. CHEST: The visualized thyroid gland is within normal limits. No evidence of thoracic lymphadenopathy by CT criteria. There is a smallsized hiatal hernia. Otherwise, the esophagus is within normal limits. The trachea and central airways are patent. No endobronchial lesion is seen. The bilateral lungs are clear without evidence of focal consolidation, pleural effusion, or pneumothorax. Minimal bibasilar atelectasis. There are few sub 6 mm bilateral noncalcified pulmonary nodules seen. For example, there is a 0.3 cm nodule in the left lower lobe on series 11, image 113. ABDOMINAL AORTA: The abdominal aorta and its branches demonstrate moderate to severe scattered calcified and non calcified atherosclerotic plaques. The celiac, SMA, NANCY and right renal artery are normal in caliber. Note is made of non enhancement of the near entirety of the left renal artery. ABDOMEN AND PELVIS: HEPATOBILIARY SYSTEM: The liver is normal in size. There is no evidence of focal liver lesion GALLBLADDER: The gallbladder is surgically absent. Prominence of the common bile duct, likely secondary postcholecystectomy status. No intrahepatic biliary ductal dilatation. PANCREAS: The pancreas is within normal limits. No suspicious focal lesions identified. SPLEEN: The spleen is normal in size.No suspicious focal lesions are seen. ADRENAL GLANDS: The bilateral adrenal glands are unremarkable in appearance. KIDNEYS AND URETERS: Severe atrophy and hypoenhancement of the left kidney. The right kidney appears normal in size. No focal renal lesion is identified. There is no evidence of hydroureteronephrosis or nephroureterolithiasis. GI TRACT: The stomach is unremarkable. The small bowel is normal in caliber without evidence of focal wall thickening or obstruction. 2 ventral hernias which contain multiple bowel loops without wall thickening or distention. Postsurgical changes of right hemicolectomy noted. There is no evidence of focal wall thickening or dilatation of the large bowel. Multiple colonic diverticula are present without evidence of diverticulitis. PERITONEUM/RETROPERITONEUM /LYMPH NODES: No abdominopelvic lymphadenopathy is present. There is no focal fluid collection, free intraperitoneal air, or ascites. GENITOURINARY SYSTEM: There is a 0.7 cm calcu (more content not included)... [facility] Work Phone: Radiology Study observation (narrative) [facility] Work Phone: CT Neck+Chest+Abdomen+Pelvis W contrast IVOrdered By: Ismael Molina on 04-15-2024 [facility] Work Phone: CT TAVR FULL CONTRAST CHEST ABDOMEN PELVISon 04-15-2024 CT TAVR FULL CONTRAST CHEST ABDOMEN PELVIS Interpreted By: Ismael Molina and Baker Zachary STUDY: CT TAVR FULL CONTRAST CHEST ABDOMEN PELVIS; 04/15/2024 12:30 pm INDICATION: Signs/Symptoms:aortic stenosis pre TAVR workup. ,I35.0 Nonrheumatic aortic (valve) stenosis COMPARISON: None. ACCESSION NUMBER(S): [id number] ORDERING CLINICIAN: CAROLE HOUSTON TECHNIQUE: Multi-detector CT technology was employed. Initial limited axial imaging of chest with prospective gating is performed. Following this,helical multi-detector acquisition of the chest with retrospective gating and minimal slice thickness was performed following the intravenous administration of 80 ML Omnipaque 350. Subsequently, contrast enhanced non-gated CT examination of the abdomen and pelvis was obtained. For optimization of anatomic evaluation, multiplanar reconstruction, maximum intensity projections, and advanced 3-D off-line postprocessing were performed on a dedicated stand-alone workstation under the direct supervision of the interpreting physician. FINDINGS: Potential study limitations: None. THORACIC AORTA AND HEART: The thoracic aorta normal in course and caliber.There are mild scattered atherosclerosis present, including calcified and noncalcified plaques. There is no evidence for acute aortic pathology, such as dissection, intramural hematoma, or contained rupture. The sinotubular junction is preserved. The arch vessel branching pattern is conventional. All of the arch branch vessels appear widely patent in their proximal portions. Normal atrioventricular and ventriculoarterial concordance. The cardiac chambers are not enlarged. There are significant calcifications of aortic valve, in keeping with patients history of aortic stenosis.There are also moderate mitral annular calcifications seen. Normal coronary artery origins.Severe coronary artery calcifications are seen. Please note,the study is not optimized for evaluation of coronary arteries. There is no pericardial effusion seen. PULMONARY ARTERIES Main pulmonary artery and its branches are normal in caliber (MPA-2.4 cm). Although the study is not tailored for evaluation of pulmonary arteries, there are no discrete filling defects within the pulmonary arteries or its opacified branches to suggest pulmonary embolism. SYSTEMIC AND PULMONARY VEINS Normal systemic venous and pulmonary venous return. The SVC and IVC are of normal caliber. Normal pulmonary venous anatomy. CHEST: The visualized thyroid gland is within normal limits. No evidence of thoracic lymphadenopathy by CT criteria. There is a smallsized hiatal hernia. Otherwise, the esophagus is within normal limits. The trachea and central airways are patent. No endobronchial lesion is seen. The bilateral lungs are clear without evidence of focal consolidation, pleural effusion, or pneumothorax. Minimal bibasilar atelectasis. There are few sub 6 mm bilateral noncalcified pulmonary nodules seen. For example, there is a 0.3 cm nodule in the left lower lobe on series 11, image 113. ABDOMINAL AORTA: The abdominal aorta and its branches demonstrate moderate to severe scattered calcified and non calcified atherosclerotic plaques. The celiac, SMA, NANCY and right renal artery are normal in caliber. Note is made of non enhancement of the near entirety of the left renal artery. ABDOMEN AND PELVIS: HEPATOBILIARY SYSTEM: The liver is normal in size. There is no evidence of focal liver lesion GALLBLADDER: The gallbladder is surgically absent. Prominence of the common bile duct, likely secondary postcholecystectomy status. No intrahepatic biliary ductal dilatation. PANCREAS: The pancreas is within normal limits. No suspicious focal lesions identified. SPLEEN: The spleen is normal in size.No suspicious focal lesions are seen. ADRENAL GLANDS: The bilateral adrenal glands are unremarkable in appearance. KIDNEYS AND URETERS: Severe atrophy and hypoenhancement of the left kidney. The right kidney appears normal in size. No focal renal lesion is identified. There is no evidence of hydroureteronephrosis or nephroureterolithiasis. GI TRACT: The stomach is unremarkable. The small bowel is normal in caliber without evidence of focal wall thickening or obstruction. 2 ventral hernias which contain multiple bowel loops without wall thickening or distention. Postsurgical changes of right hemicolectomy noted. There is no evidence of focal wall thickening or dilatation of the large bowel. Multiple colonic diverticula are present without evidence of diverticulitis. PERITONEUM/RETROPERITONEUM /LYMPH NODES: No abdominopelvic lymphadenopathy is present. There is no focal fluid collection, free intraperitoneal air, or ascites. GENITOURINARY SYSTEM: There is a 0.7 cm calculus layering dependently within the left aspect of the bladder, near the left ureterovesical ju (more content not included)... Normal [facility] Activated partial thrombopla stin time (aPTT) in platelet poor plasma by coagulation aOrdered By: Scott Bhatt on 03-31-2024 aPTT Coag (PPP) [Time] 29.8 s 25.1-36.5 [facility] Comment on above: A hematocrit value g reater than 55% may lead to inaccurate results in coagulation testing. Patients having hematocrit values >55% require a special collection tube for coagulation studies. Please contact the laboratory at [phone] for redraw instructions. Automated basophil %Ordered By: Scott Bhatt on 03-31-2024 Basophils/100 WBC (Bld) 1.0 % Normal . [facility] Comment on above: Performed By: #### C BC, PP, LYTES, BUN, CREAT, LIPID #### [address] Automated basophil countOrde red By: Scott Bhatt on 03-31-2024 Basophils (Bld) [#/Vol] 0.0 10*3/uL Normal 0.0-0.2 [facility] Comment on above: Result Comment: PERF ORMED BY: [place] [address] PATHOLOGIST CASKET INSPECTOR JALEN BURTON M.D. Performed By: #### C BC, PP, LYTES, BUN, CREAT, LIPID #### [address] Automated blood monocyte cou ntOrdered By: Scott Bhatt on 03-31-2024 Monocytes (Bld) [#/Vol] 0.3 10*3/uL Normal 0.0-0.8 [facility] Comment on above: Performed By: #### C BC, PP, LYTES, BUN, CREAT, LIPID #### [address] Automated eosinophil %Ordere d By: Scott Bhatt on 03-31-2024 Eosinophils/100 WBC (Bld) 1.9 % Normal . [facility] Comment on above: Performed By: #### C BC, PP, LYTES, BUN, CREAT, LIPID #### [address] Automated eosinophil countOr dered By: Scott Bhatt on 03-31-2024 Eosinophils (Bld) [#/Vol] 0.1 10*3/uL Normal 0.0-0.45 [facility] Comment on above: Performed By: #### C BC, PP, LYTES, BUN, CREAT, LIPID #### [address] Automated monocyte %Ordered By: Scott Bhatt on 03-31-2024 Monocytes/100 WBC (Bld) 9.2 % Normal . [facility] Comment on above: Performed By: #### C BC, PP, LYTES, BUN, CREAT, LIPID #### [address] Automated neutrophil %Ordere d By: Scott Bhatt on 03-31-2024 Neutrophils/100 WBC (Bld) 59.5 % Normal . [facility] Comment on above: Performed By: #### C BC, PP, LYTES, BUN, CREAT, LIPID #### [facility] [address] [place] [address] [place] Carbon dioxide, total [Moles /volume] in Serum or PlasmaOrdered By: Scott Bhatt on 03-31-2024 CO2 [Moles/Vol] 31.1 mmol/L High 21.0-31.0 [facility] Comment on above: Performed By: #### C BC, PP, LYTES, BUN, CREAT, LIPID #### [facility] [address] [place] [address] [place] Chloride [Moles/volume] in S riana or PlasmaOrdered By: Scott Bhatt on 03-31-2024 Chloride [Moles/Vol] 104 mmol/L Normal 98-107 [facility] Comment on above: Performed By: #### C BC, PP, LYTES, BUN, CREAT, LIPID #### [facility] [address] [place] [address] [place] Cholesterol [Mass/volume] in Serum or PlasmaOrdered By: Scott Bhatt on 03-31-2024 Cholesterol [Mass/Vol] 118 mg/dL Low 140-200 [facility] Comment on above: Chol less than 200 m g/dl low riskChol 201-239 mg/dl borderline riskChol 240 mg/dl and greater high risk Result Comment: Chol less than 200 mg/dl low risk Chol 201-239 mg/dl borderline risk Chol 240 mg/dl and greater high risk Performed By: #### C BC, PP, LYTES, BUN, CREAT, LIPID #### [facility] [address] [place] [address] [place] Cholesterol in LDL Calc [Mas s/Vol]Ordered By: Scott Bhatt on 03-31-2024 Cholesterol in LDL [Mass/Vol] 44 mg/dL 0-100 [facility] Comment on above: LDL ATP III CLASSIFI CATIONLDL less than 100 mg/dL OptimalLDL 100-129 mg/dL Near or above optimalLDL 130-159 mg/dL Borderline highLDL 160-189 mg/dL HighLDL greater than 189 mg/dL Very high Cholesterol in VLDL Calc [Ma ss/Vol]Ordered By: Scott Bhatt on 03-31-2024 Cholesterol in VLDL [Mass/Vol] 43 mg/dL [facility] Coagulation Profileon 2023 aPTT Coag (Bld) [Time] 29.8 s Normal 25.1-36.5 [facility] Comment on above: Result Comment: A he matocrit value greater than 55% may lead to inaccurate results in coagulation testing. Patients having hematocrit values >55% require a special collection tube for coagulation studies. Please contact the laboratory at [phone] for redraw instructions. PERFORMED BY: [place] [address] PATHOLOGIST CASKET INSPECTOR JAELN BURTON M.D. Performed By: #### C BC, PP, LYTES, BUN, CREAT, LIPID #### [address] Complete Blood Count Auto Di ffon 03-31-2024 Mean Corpuscular HGB Conc 33.6 g/dL Normal 32.5-35.6 [facility] Comment on above: Performed By: #### C BC, PP, LYTES, BUN, CREAT, LIPID #### [address] NRBC% 0.1 /100{WBC} Normal 0-0.5 [facility] Comment on above: Performed By: #### C BC, PP, LYTES, BUN, CREAT, LIPID #### [address] Creatinineon 03-31-2024 GFR/1.73 sq M.predicted MDRD (S/P/Bld) [Vol rate/Area] 46.856 mL/min/{1.73_m2} Normal [facility] Comment on above: Performed By: #### C BC, PP, LYTES, BUN, CREAT, LIPID #### [address] Creatinine [Mass/volume] in Serum or PlasmaOrdered By: Scott Bhatt on 03-31-2024 Creatinine [Mass/Vol] 1.49 mg/dL High 0.70-1.30 [facility] Comment on above: Performed By: #### C BC, PP, LYTES, BUN, CREAT, LIPID #### [facility] [address] ECG 12 lead ECGon 03-31-2024 ECG 12 lead ECG [facility] Main [place] [address] [place] [address] Electrocardiograph Report Signed Patient: Jayden Carter MR#: [id number] 00 : 1940 Acct:[id number] Age/Sex: 83 / M ADM Date: 03/31/24 Loc: Room: Type: [facility] Attending Dr: Scott Bhatt DO Ordering Provider: Scott Bhatt DO Date of Service: 03/31/24 ECG/ECG 12 lead ECG: [facility] Copies to: Test Reason : Blood Pressure : */* mmHG Vent. Rate : 59 BPM Atrial Rate : 59 BPM P-R Int : 248 ms QRS Dur : 94 ms QT Int : 408 ms P-R-T Axes : 90 -13 64 degrees QTcB Int : 403 ms Sinus bradycardia with 1st degree AV block Possible Septal infarct , age undetermined Abnormal ECG When compared with ECG of 02-Nov-2018 06:44, Questionable change in QRS axis Confirmed by KYREE MARLEY [facility], AMY ([id number]) on 03/31/2024 2:40:34 PM Referred By: Electronically Signed By: AMY ADORNO MD [facility] Transcribed By: MUS Signed By Amy Adorno MD, FACC 03/31/24 1440 Normal [facility] Erythrocyte distribution wid th [Ratio] by Automated countOrdered By: Scott Bhatt on 03-31-2024 Erythrocyte distribution width (RBC) [Ratio] 13.6 % Normal 12.0-14.8 [facility] Comment on above: Performed By: #### C BC, PP, LYTES, BUN, CREAT, LIPID #### [facility] [address] Erythrocytes [#/volume] in B lood by Automated countOrdered By: Scott Bhatt on 03-31-2024 RBC (Bld) [#/Vol] 4.71 10*6/uL Normal 3.90-5.60 [facility] Comment on above: Performed By: #### C BC, PP, LYTES, BUN, CREAT, LIPID #### [facility] [address] Hematocrit [Volume Fraction] of Blood by Automated countOrdered By: Scott Bhatt on 03-31-2024 Hematocrit (Bld) [Volume fraction] 44.4 % Normal 38.8-50.0 [facility] Comment on above: Performed By: #### C BC, PP, LYTES, BUN, CREAT, LIPID #### [facility] [address] Hemoglobin [Mass/volume] in BloodOrdered By: Scott Bhatt on 03-31-2024 Hemoglobin (Bld) [Mass/Vol] 14.9 g/dL Normal 13.0-17.0 [facility] Comment on above: Performed By: #### C BC, PP, LYTES, BUN, CREAT, LIPID #### [facility] [address] INR in Platelet poor plasma by Coagulation assayOrdered By: Scott Bhatt on 03-31-2024 INR Coag (PPP) [Relative time] 0.9 {INR} Normal [facility] Comment on above: INR Therapeutic Rang e A) Pre- and Peroperative OAT started two weeks before surgery. NOT HIP SURGERY: 1.5 - 2.5 HIP SURGERY: 2 - 3B) Primary and secondary prevention of venous THROMBOSIS: 2 - 3C) Active venous thrombosis, pulmonary embolismand prevention of recurrent venous thrombosis: 2 - 3D) Prevention of arterial thromboembolismincluding patients with mechanical heart valves: 3 - 4.5 Result Comment: INR Therapeutic Range A) Pre- and Peroperative OAT started two weeks before surgery. NOT HIP SURGERY: 1.5 - 2.5 HIP SURGERY: 2 - 3 B) Primary and secondary prevention of venous THROMBOSIS: 2 - 3 C) Active venous thrombosis, pulmonary embolism and prevention of recurrent venous thrombosis: 2 - 3 D) Prevention of arterial thromboembolism including patients with mechanical heart valves: 3 - 4.5 Performed By: #### C BC, PP, LYTES, BUN, CREAT, LIPID #### [facility] [address] Leukocytes [#/volume] correc fabian for nucleated erythrocytes in Blood by Automated counOrdered By: Scott Bhatt on 03-31-2024 WBC corrected for nucl RBC Auto (Bld) [#/Vol] 3.4 10*3/uL Low 4.1-10.5 [facility] Leukocytes [#/volume] in Blo od by Automated countOrdered By: Scott Bhatt on 03-31-2024 WBC (Bld) [#/Vol] 3.4 10*3/uL Low 4.1-10.5 [facility] Comment on above: Performed By: #### C BC, PP, LYTES, BUN, CREAT, LIPID #### [address] Lipid Panelon 03-31-2024 LDL Cholesterol,Calculated 44 mg/dL Normal 0-100 [facility] Comment on above: Result Comment: LDL ATP III CLASSIFICATION LDL less than 100 mg/dL Optimal LDL 100-129 mg/dL Near or above optimal LDL 130-159 mg/dL Borderline high LDL 160-189 mg/dL High LDL greater than 189 mg/dL Very high Performed By: #### C BC, PP, LYTES, BUN, CREAT, LIPID #### [address] Triglyceride w/Reflex 218 mg/dL High 0-149 [facility] Comment on above: Result Comment: TRIG ATP III CLASSIFICATION TRIG less than 150 mg/dL Normal TRIG 150-199 mg/dL Borderline high TRIG 200-500 mg/dL High TRIG greater than 500 mg/dL Very high Standard traceable to the Center for Disease Conrtrol and Prevention (CDC) test method. Performed By: #### C BC, PP, LYTES, BUN, CREAT, LIPID #### [address] VLDL CHOLESTEROL 43 mg/dL Normal [facility] Comment on above: Performed By: #### C BC, PP, LYTES, BUN, CREAT, LIPID #### [address] Lymphocytes [#/volume] in Bl ood by Automated countOrdered By: Scott Bhatt on 03-31-2024 Lymphocytes (Bld) [#/Vol] 1.0 10*3/uL Normal 1.00-4.8 [facility] Comment on above: Performed By: #### C BC, PP, LYTES, BUN, CREAT, LIPID #### [address] Lymphocytes/100 leukocytes i n Blood by Automated countOrdered By: Scott Bhatt on 03-31-2024 Lymphocytes/100 WBC (Bld) 28.4 % Normal . [facility] Comment on above: Performed By: #### C BC, PP, LYTES, BUN, CREAT, LIPID #### [address] MCH [Entitic mass] by Automa fabian countOrdered By: Scott Bhatt on 03-31-2024 MCH (RBC) [Entitic mass] 31.6 pg Normal 27.5-35.2 [facility] Comment on above: Performed By: #### C BC, PP, LYTES, BUN, CREAT, LIPID #### [address] MCHC Auto (RBC) [Mass/Vol]Or dered By: Scott Bhatt on 03-31-2024 MCHC (RBC) [Mass/Vol] 33.6 g/dL 32.5-35.6 [facility] MCV [Entitic volume] by Auto mated countOrdered By: Scott Bhatt on 03-31-2024 MCV (RBC) [Entitic vol] 94.2 fL Normal 83.5-101 [facility] Comment on above: Performed By: #### C BC, PP, LYTES, BUN, CREAT, LIPID #### [address] Neutrophils [#/volume] in Bl ood by Automated countOrdered By: Scott Bhatt on 03-31-2024 Neutrophils (Bld) [#/Vol] 2.0 10*3/uL Normal 1.8-7.7 [facility] Comment on above: Performed By: #### C BC, PP, LYTES, BUN, CREAT, LIPID #### [facility] [address] [place] [address] No Panel InformationOrdered By: Scott Bhatt on 03-31-2024 Estimated GFR (CKD-EPI) 46.856 mL/Min [facility] Creatinine Clearance (Chem N/A [facility] Nucleated erythrocytes [Pres ence] in Blood by Automated countOrdered By: Scott Bhatt on 03-31-2024 Nucleated RBC Auto Ql (Bld) 0.1 /100{WBC} 0-0.5 [facility] Platelet mean volume [Entiti c volume] in Blood by Automated countOrdered By: Scott Bhatt on 03-31-2024 Platelet mean volume (Bld) [Entitic vol] 7.6 fL Normal 6.6-10.1 [facility] Comment on above: Performed By: #### C BC, PP, LYTES, BUN, CREAT, LIPID #### [facility] [address] [place] [address] Platelets [#/volume] in Bloo d by Automated countOrdered By: Scott Bhatt on 03-31-2024 Platelets (Bld) [#/Vol] 134 10*3/uL Low 150-450 [facility] Comment on above: Performed By: #### C BC, PP, LYTES, BUN, CREAT, LIPID #### [facility] [address] [place] [address] Potassium [Moles/volume] in Serum or PlasmaOrdered By: Scott Bhatt on 03-31-2024 Potassium [Moles/Vol] 5.0 mmol/L Normal 3.5-5.1 [facility] Comment on above: Performed By: #### C BC, PP, LYTES, BUN, CREAT, LIPID #### [facility] [address] [place] [address] Prothrombin time (PT)Ordered By: Scott Bhatt on 03-31-2024 PT Coag (PPP) [Time] 10.8 s Normal 9.0-12.9 [facility] Comment on above: A hematocrit value g reater than 55% may lead to inaccurate results in coagulation testing. Patients having hematocrit values >55% require a special collection tube for coagulation studies. Please contact the laboratory at [phone] for redraw instructions. Result Comment: A he matocrit value greater than 55% may lead to inaccurate results in coagulation testing. Patients having hematocrit values >55% require a special collection tube for coagulation studies. Please contact the laboratory at [phone] for redraw instructions. Performed By: #### C BC, PP, LYTES, BUN, CREAT, LIPID #### [facility] [address] Serum or plasma anion gap de terminationOrdered By: Scott Bhatt on 03-31-2024 Anion gap [Moles/Vol] 8.9 mmol/L Normal 6.0-15.0 [facility] Comment on above: Performed By: #### C BC, PP, LYTES, BUN, CREAT, LIPID #### [facility] [address] [place] [id number] [facility] Serum or plasma high density lipoprotein (HDL) cholesterol measurementOrdered By: Scott Bhatt on 03-31-2024 Cholesterol in HDL [Mass/Vol] 30 mg/dL Normal 23-92 [facility] Comment on above: HDL CHOL ATP-III CLA SSIFICATION Cardiovascular RiskHDL > or equal to 60 mg/dL LOWHDL < 40 mg/dL HIGH Result Comment: HDL CHOL ATP-III CLASSIFICATION Cardiovascular Risk HDL > or equal to 60 mg/dL LOW HDL < 40 mg/dL HIGH Performed By: #### C BC, PP, LYTES, BUN, CREAT, LIPID #### [facility] [address] [place] [address] Serum or plasma total choles terol/high density lipoprotein (HDL) cholesterol mass ratOrdered By: Scott Bhatt on 03-31-2024 Cholesterol.total/Chol esterol in HDL [Mass ratio] 3.9 {ratio} Normal <5.0 [facility] Comment on above: Result Comment: PERF ORMED BY: [place] [address] PATHOLOGIST CASKET INSPECTOR JALEN BURTON M.D. Performed By: #### C BC, PP, LYTES, BUN, CREAT, LIPID #### [facility] [address] Sodium [Moles/volume] in Ser um or PlasmaOrdered By: Scott Bhatt on 03-31-2024 Sodium [Moles/Vol] 139 mmol/L Normal 136-145 [facility] Comment on above: Performed By: #### C BC, PP, LYTES, BUN, CREAT, LIPID #### [facility] [address] Triglyceride [Mass/volume] i n Serum or PlasmaOrdered By: Scott Bhatt on 03-31-2024 Triglyceride [Mass/Vol] 218 mg/dL High 0-149 [facility] Comment on above: TRIG ATP III CLASSIF ICATIONTRIG less than 150 mg/dL NormalTRIG 150-199 mg/dL Borderline highTRIG 200-500 mg/dL High TRIG greater than 500 mg/dL Very highStandard traceable to the Center for Disease Conrtrol and Prevention (CDC) test method. Urea nitrogen [Mass/volume] in Serum or PlasmaOrdered By: Scott Bhatt on 03-31-2024 Urea nitrogen [Mass/Vol] 14 mg/dL Normal 7-25 [facility] Comment on above: Performed By: #### C BC, PP, LYTES, BUN, CREAT, LIPID #### [facility] [address] TRANSTHORACIC ECHO (TTE) COM PLETEon 03-09-2024 TRANSTHORACIC ECHO (TTE) COMPLETE [address], [address] [address] TRANSTHORACIC ECHOCARDIOGRAM REPORT Patient Name: JAYEDN Mays Physician: [id number] Neisha Longoria MD Study Date: 03/09/2024 Ordering Provider: [id number] JIGNESH BHATT MRN/PID: [id number] Fellow: Nurse: Date of /Age: 11 1940 / 83 years Bladder Tier: Kimberly Simms RDCS, RVT Gender: M Additional Staff: Height: 172.72 cm Admit Date: Weight: 75.75 kg Admission Status: BSA / BMI: 1.89 m2 / 25.39 kg/m2 Department Location: [facility] Blood Pressure: 152 /80 mmHg Study Type: TRANSTHORACIC ECHO (TTE) COMPLETE Diagnosis/ICD: Atherosclerotic heart disease of [place] coronary artery without angina pectoris-I25.10; 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 PHYSICIAN INTERPRETATION: Left Ventricle: The left ventricular systolic function is normal, with a visually estimated ejection fraction of 60%. There are no regional wall motion abnormalities. The left ventricular cavity size is normal. Spectral Doppler shows a normal pattern of left ventricular diastolic filling. Mild LVH. Left Atrium: The left atrium is mildly dilated. Mildly dilated left atrium. Right Ventricle: The right ventricle is normal in size. There is normal right ventricular global systolic function. Right Atrium: The right atrium is normal in size. Aortic Valve: The aortic valve appears abnormal. There is moderate aortic valve cusp calcification. The aortic valve dimensionless index is 0.16. There is trace aortic valve regurgitation. The peak instantaneous gradient of the aortic valve is 66.3 mmHg. The mean gradient of the aortic valve is 35.0 mmHg. The aortic valve is calcified with appearance of aortic stenosis. Peak gradient measured at 66 mmHg. Mean gradient 35 mmHg. Calculated aortic valve area is 0.7 cm??? consistent with severe aortic stenosis. Mitral Valve: The mitral valve is mild to moderately thickened. There is mild to moderate mitral annular calcification. There is mild to moderate mitral valve regurgitation. Tricuspid Valve: The tricuspid valve is structurally normal. No evidence of tricuspid regurgitation. Pulmonic Valve: The pulmonic valve is structurally normal. There is no indication of pulmonic valve regurgitation. Pericardium: No pericardial effusion noted. Aorta: The aortic root is normal. Pulmonary Artery: The Doppler estimated pulmonary artery diastolic pressure is 15.4 mmHg. CONCLUSIONS: 1. The left ventricular systolic function is normal, with a visually estimated ejection fraction of 60%. 2. Mild LVH. 3. There is normal right ventricular global systolic function. 4. Mildly dilated left atrium. 5. Mild to moderate mitral valve regurgitation. 6. The aortic valve is calcified with appearance of aortic stenosis. Peak gradient measured at 66 mmHg. Mean gradient 35 mmHg. Calculated aortic valve area is 0.7 cm??? consistent with severe aortic stenosis. 7. There is moderate aortic valve cusp calcification. 8. No previous study available for comparison. QUANTITATIVE DATA SUMMARY: 2D MEASUREMENTS: Normal Ranges: Ao Root d: 3.20 cm (2.0-3.7cm) LAs: 4.20 cm (2.7-4.0cm) RVIDd: 2.61 cm (0.9-3.6cm) IVSd: 1.75 cm (0.6-1.1cm) LVPWd: 0.92 cm (0.6-1.1cm) LVIDd: 3.45 cm (3.9-5.9cm) LVIDs: 2.84 cm LV Mass Index: 82.8 g/m2 LV % FS 17.7 % LV SYSTOLIC FUNCTION BY 2D PLANIMETRY (MOD): Normal Ranges: EF-A4C View: 69 % (>=55%) EF-A2C View: 70 % EF-Biplane: 67 % EF-Visual: 60 % LV EF Reported: 60 % LV DIASTOLIC FUNCTION: Normal Ranges: MV Peak E: 1.29 m/s (0.7-1.2 m/s) MV Peak A: 1.19 m/s (0.42-0.7 m/s) E/A Ratio: 1.08 (1.0-2.2) MV e' 0.055 m/s (>8.0) MV lateral e' 0.05 m/s MV medial e' 0.06 m/s E/e' Ratio: 23.65 (<8.0) MITRAL VALVE: Normal Ranges: MV Vmax: 1.51 m/s (<=1.3m/s) MV peak P.1 mmHg (<5mmHg) MV mean P.0 mmHg (<48mmHg) MITRAL INSUFFICIENCY: Normal Ranges: MR Vmax: 373.00 cm/s AORTIC VALVE: Normal Ranges: AoV Vmax: 4.07 m/s (<=1.7m/s) AoV Peak P.3 mmHg (<20mmHg) AoV Mean P.0 mmHg (1.7-11.5mmHg) LVOT Max [place]: 0.68 m/s (<=1.1m/s) AoV VTI: 106.00 cm (18-25cm) LVOT VTI: 17.00 cm LVOT Diameter: 2.30 cm (1.8-2.4cm) AoV Area, VTI: 0.67 cm2 (2.5-5.5cm2) AoV Area,Vmax: 0.70 cm2 (2.5-4.5cm2) AoV Dimensionless Index: 0.16 AORTIC INSUFFICIENCY: AI Vmax: 3.52 m/s AI Half-time: 313 msec AI Decel Rate: 275.00 cm/s2 TRICUSPID VALVE/RVSP: Normal Ranges: Peak TR Velocity: 2.56 m/s RV Syst Pressure: 29 mmHg (< 30mmHg) PULMONIC VALVE: Normal Ranges: PV Max Olinda: 1.0 m/s (0.6-0.9 (more content not included)... Normal [facility] US Heart TransthoracicOrdere d By: Neisha Longoria on 03-09-2024 Aortic Valve Area by Continuity of Peak Velocity 0.70 cm2 [facility] Work Phone: Aortic Valve Area by Continuity of VTI 0.67 cm2 [facility] Work Phone: [phone] AV mn grad 35.0 mmHg [facility] Work Phone: [phone] AV pk grad 66.3 mmHg [facility] Work Phone: [phone] AV pk olinda 4.07 m/s [facility] Work Phone: [phone] LV A4C EF 68.8 [facility] Work Phone: LV Biplane EF 67 % [facility] Work Phone: LV EF 60 % [facility] Work Phone: [phone] LVIDd 3.45 cm [facility] Work Phone: LVOT diam 2.30 cm [facility] Work Phone: MV avg E/e' ratio 24.50 [facility] Work Phone: MV E/A ratio 1.08 [facility] Work Phone: RVSP 29.2 mmHg [facility] Work Phone: [facility] Work Phone: Heart Transthoracicon [address], [address] [place] [address] TRANSTHORACIC ECHOCARDIOGRAM REPORT Patient Name: JAYDEN Mays Physician: [id number] Neisha Longoria MD Study Date: 03/09/2024 Ordering Provider: [id number] JIGNESH BHATT MRN/PID: [id number] Fellow: Nurse: Date of /Age: 11 1940 / 83 years Bladder Tier: Kimberly Simms RDCS, RVT Gender: M Additional Staff: Height: 172.72 cm Admit Date: Weight: 75.75 kg Admission Status: BSA / BMI: 1.89 m2 / 25.39 kg/m2 Department Location: [facility] Blood Pressure: 152 /80 mmHg Study Type: TRANSTHORACIC ECHO (TTE) COMPLETE Diagnosis/ICD: Atherosclerotic heart disease of [place] coronary artery without angina pectoris-I25.10; 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 PHYSICIAN INTERPRETATION: Left Ventricle: The left ventricular systolic function is normal, with a visually estimated ejection fraction of 60%. There are no regional wall motion abnormalities. The left ventricular cavity size is normal. Spectral Doppler shows a normal pattern of left ventricular diastolic filling. Mild LVH. Left Atrium: The left atrium is mildly dilated. Mildly dilated left atrium. Right Ventricle: The right ventricle is normal in size. There is normal right ventricular global systolic function. Right Atrium: The right atrium is normal in size. Aortic Valve: The aortic valve appears abnormal. There is moderate aortic valve cusp calcification. The aortic valve dimensionless index is 0.16. There is trace aortic valve regurgitation. The peak instantaneous gradient of the aortic valve is 66.3 mmHg. The mean gradient of the aortic valve is 35.0 mmHg. The aortic valve is calcified with appearance of aortic stenosis. Peak gradient measured at 66 mmHg. Mean gradient 35 mmHg. Calculated aortic valve area is 0.7 cm consistent with severe aortic stenosis. Mitral Valve: The mitral valve is mild to moderately thickened. There is mild to moderate mitral annular calcification. There is mild to moderate mitral valve regurgitation. Tricuspid Valve: The tricuspid valve is structurally normal. No evidence of tricuspid regurgitation. Pulmonic Valve: The pulmonic valve is structurally normal. There is no indication of pulmonic valve regurgitation. Pericardium: No pericardial effusion noted. Aorta: The aortic root is normal. Pulmonary Artery: The Doppler estimated pulmonary artery diastolic pressure is 15.4 mmHg. CONCLUSIONS: 1. The left ventricular systolic function is normal, with a visually estimated ejection fraction of 60%. 2. Mild LVH. 3. There is normal right ventricular global systolic function. 4. Mildly dilated left atrium. 5. Mild to moderate mitral valve regurgitation. 6. The aortic valve is calcified with appearance of aortic stenosis. Peak gradient measured at 66 mmHg. Mean gradient 35 mmHg. Calculated aortic valve area is 0.7 cm consistent with severe aortic stenosis. 7. There is moderate aortic valve cusp calcification. 8. No previous study available for comparison. QUANTITATIVE DATA SUMMARY: 2D MEASUREMENTS: Normal Ranges: Ao Root d: 3.20 cm (2.0-3.7cm) LAs: 4.20 cm (2.7-4.0cm) RVIDd: 2.61 cm (0.9-3.6cm) IVSd: 1.75 cm (0.6-1.1cm) LVPWd: 0.92 cm (0.6-1.1cm) LVIDd: 3.45 cm (3.9-5.9cm) LVIDs: 2.84 cm LV Mass Index: 82.8 g/m2 LV % FS 17.7 % LV SYSTOLIC FUNCTION BY 2D PLANIMETRY (MOD): Normal Ranges: EF-A4C View: 69 % (>=55%) EF-A2C View: 70 % EF-Biplane: 67 % EF-Visual: 60 % LV EF Reported: 60 % LV DIASTOLIC FUNCTION: Normal Ranges: MV Peak E: 1.29 m/s (0.7-1.2 m/s) MV Peak A: 1.19 m/s (0.42-0.7 m/s) E/A Ratio: 1.08 (1.0-2.2) MV e' 0.055 m/s (>8.0) MV lateral e' 0.05 m/s MV medial e' 0.06 m/s E/e' Ratio: 23.65 (<8.0) MITRAL VALVE: Normal Ranges: MV Vmax: 1.51 m/s (more content not included)... Neisha Suarez MD - 03/09/[address], [address] [place] [address] TRANSTHORACIC ECHOCARDIOGRAM REPORT Patient Name: JAYDEN CARTER Tabatha Physician: [id number] Neisha Longoria MD Study Date: 03/09/2024 Ordering Provider: [id number] JIGNESH BHATT MRN/PID: [id number] Fellow: Nurse: Date of /Age: 11 1940 / 83 years Bladder Tier: Kimberly Simms RDCS Lis[place] Gender: M Additional Staff: Height: 172.72 cm Admit Date: Weight: 75.75 kg Admission Status: BSA / BMI: 1.89 m2 / 25.39 kg/m2 Department Location: [facility] Blood Pressure: 152 /80 mmHg Study Type: TRANSTHORACIC ECHO (TTE) COMPLETE Diagnosis/ICD: Atherosclerotic heart disease of [place] coronary artery without angina pectoris-I25.10; 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 PHYSICIAN INTERPRETATION: Left Ventricle: The left ventricular systolic function is normal, with a visually estimated ejection fraction of 60%. There are no regional wall motion abnormalities. The left ventricular cavity size is normal. Spectral Doppler shows a normal pattern of left ventricular diastolic filling. Mild LVH. Left Atrium: The left atrium is mildly dilated. Mildly dilated left atrium. Right Ventricle: The right ventricle is normal in size. There is normal right ventricular global systolic function. Right Atrium: The right atrium is normal in size. Aortic Valve: The aortic valve appears abnormal. There is moderate aortic valve cusp calcification. The aortic valve dimensionless index is 0.16. There is trace aortic valve regurgitation. The peak instantaneous gradient of the aortic valve is 66.3 mmHg. The mean gradient of the aortic valve is 35.0 mmHg. The aortic valve is calcified with appearance of aortic stenosis. Peak gradient measured at 66 mmHg. Mean gradient 35 mmHg. Calculated aortic valve area is 0.7 cm consistent with severe aortic stenosis. Mitral Valve: The mitral valve is mild to moderately thickened. There is mild to moderate mitral annular calcification. There is mild to moderate mitral valve regurgitation. Tricuspid Valve: The tricuspid valve is structurally normal. No evidence of tricuspid regurgitation. Pulmonic Valve: The pulmonic valve is structurally normal. There is no indication of pulmonic valve regurgitation. Pericardium: No pericardial effusion noted. Aorta: The aortic root is normal. Pulmonary Artery: The Doppler estimated pulmonary artery diastolic pressure is 15.4 mmHg. CONCLUSIONS: 1. The left ventricular systolic function is normal, with a visually estimated ejection fraction of 60%. 2. Mild LVH. 3. There is normal right ventricular global systolic function. 4. Mildly dilated left atrium. 5. Mild to moderate mitral valve regurgitation. 6. The aortic valve is calcified with appearance of aortic stenosis. Peak gradient measured at 66 mmHg. Mean gradient 35 mmHg. Calculated aortic valve area is 0.7 cm consistent with severe aortic stenosis. 7. There is moderate aortic valve cusp calcification. 8. No previous study available for comparison. QUANTITATIVE DATA SUMMARY: 2D MEASUREMENTS: Normal Ranges: Ao Root d: 3.20 cm (2.0-3.7cm) LAs: 4.20 cm (2.7-4.0cm) RVIDd: 2.61 cm (0.9-3.6cm) IVSd: 1.75 cm (0.6-1.1cm) LVPWd: 0.92 cm (0.6-1.1cm) LVIDd: 3.45 cm (3.9-5.9cm) LVIDs: 2.84 cm LV Mass Index: 82.8 g/m2 LV % FS 17.7 % LV SYSTOLIC FUNCTION BY 2D PLANIMETRY (MOD): Normal Ranges: EF-A4C View: 69 % (>=55%) EF-A2C View: 70 % EF-Biplane: 67 % EF-Visual: 60 % LV EF Reported: 60 % LV DIASTOLIC FUNCTION: Normal Ranges: MV Peak E: 1.29 m/s (0.7-1.2 m/s) MV Peak A: 1.19 m/s (0.42-0.7 m/s) E/A Ratio: 1.08 (1.0-2.2) MV e' 0.055 m/s (>8.0) MV lateral e' 0.05 m/s MV medial e' 0.06 m/s E/e' Ratio: 23.65 (<8.0) MITRAL VALVE: Normal Ranges: MV Vmax: 1.51 m/s (<=1.3m/s) MV peak P.1 mmHg (<5mmHg) MV mean P.0 mmHg (<48mmHg) MITRAL INSUFFICIENCY: Normal Ranges: MR Vmax: 373.00 cm/s AORTIC VALVE: Normal Ranges: AoV Vmax: 4.07 m/s (<=1.7m/s) AoV Peak P.3 mmHg (<20mmHg) AoV Mean P.0 mmHg (1.7-11.5mmHg) LVOT Max [place]: 0.68 m/s (<=1.1m/s) AoV VTI: 106.00 cm (18-25cm) LVOT VTI: 17.00 cm LVOT Diameter: 2.30 cm (1.8-2.4cm) AoV Area, VTI: 0.67 cm2 (2.5-5.5cm2) AoV Area,Vmax: 0.70 cm2 (2.5-4.5cm2) AoV Dimensionless Index: 0.16 AORTIC INSUFFICIENCY: AI Vmax: 3.52 m/s AI Half-time: 313 msec AI Decel Rate: 275.00 cm/s2 TRICUSPID VALVE/RVSP: Normal Ranges: Peak TR Velocity: 2 (more content not included)... [facility] Work Phone: Ambulatory Visit Summaryon 0 02-04-2024 Ambulatory Visit Summary Ambulatory Visit Summary JAYDEN CARTER :1940 Visit Date:02/04/2024 Ambulatory Visit Instructions Your Diagnosis Benign prostatic hyperplasia without urinary obstruction Elevated PSA History of prostatitis Renal atrophy, left Your Care Team Attending Physician - МАРИНА LOCK PA-C Primary Care Physician - FABIOLA GONG CNP This Is Your Medications List tamsulosin (tamsulosin 0.4 mg Cap) Contact prescribing physician if questions or concerns Misc Prescription (DDM B12 1000 Mcg Tablet) aspirin (aspirin 81 mg oral tablet) atorvastatin (atorvastatin 80 mg Tab) clopidogrel (clopidogrel 75 mg Tab) gabapentin (gabapentin 300 mg Cap) gabapentin (gabapentin 600 mg Tab) iodine lisinopril (lisinopril 5 mg Tab) loratadine (loratadine 10 mg oral capsule) metoprolol (Toprol XL 25 mg Tab-ER) ticagrelor (Brilinta (ticagrelor) 90 mg oral tablet) Procedures Performed Transrectal biopsy of prostate using ultrasound (US) guidance (02/22/2020), Bone marrow biopsy (09/27/2014), Colonic polyp (08/16/2014), Cholecystocecostomy (06/10/2009), Placement of stent in cardiac conduit. Discharge Vitals Heart Rate (Peripheral) 62 Blood Pressure 140/76 Height 175 cm Height 69 in Weight 73 kg Weight 160.6 lb BMI 23.84 What to do next You Need to Schedule the Following Appointments Follow Up with МАРИНА LOCK PA-C, URL When: Comments: PRN Where: [address] [place] [address] Medications What How Much When Instructions Unchanged tamsulosin (tamsulosin 0.4 mg Cap) 1 Capsules By Mouth Every day Unchanged aspirin (aspirin 81 mg oral tablet) 1 Tablets By Mouth Every day Contact prescribing physician if questions or concerns Unchanged atorvastatin (atorvastatin 80 mg Tab) Contact prescribing physician if questions or concerns Unchanged clopidogrel (clopidogrel 75 mg Tab) 1 Tablets Contact prescribing physician if questions or concerns Unchanged gabapentin (gabapentin 300 mg Cap) Contact prescribing physician if questions or concerns Unchanged gabapentin (gabapentin 600 mg Tab) Contact prescribing physician if questions or concerns Unchanged iodine Every day Contact prescribing physician if questions or concerns Unchanged lisinopril (lisinopril 5 mg Tab) Contact prescribing physician if questions or concerns Unchanged loratadine (loratadine 10 mg oral capsule) 1 Capsules By Mouth Every day Contact prescribing physician if questions or concerns Unchanged metoprolol (Toprol XL 25 mg Tab-ER) By Mouth Every day Contact prescribing physician if questions or concerns Unchanged Misc Prescription (DDM B12 1000 Mcg Tablet) 0 Contact prescribing physician if questions or concerns Unchanged ticagrelor (Brilinta (ticagrelor) 90 mg oral tablet) Contact prescribing physician if questions or concerns Allergies No Known Medication Allergies Problems Ongoing - Any problem that you are currently receiving treatment for. Benign prostatic hyperplasia without urinary obstruction Colon cancer Coronary artery disease Elevated PSA History of prostatitis Hyperlipidemia Hypertension Lymphoma Myocardial infarction Neuropathy Renal atrophy, left Vitamin B12 deficiency disease Historical - Any problem that you are no longer receiving treatment for. Neuropathy Patient Survey You may receive a survey via text or e-mail asking about your office visit. Please share your experience with us by completing your survey. We appreciate your feedback and thank you for choosing us for your care. Education Materials Benign Prostatic Hyperplasia Benign prostatic hyperplasia (BPH) is an enlarged prostate gland that is caused by the normal aging process. The prostate may get bigger as a man gets older. The condition is not caused by cancer. The prostate is a walnut-sized gland that is involved in the production of semen. It is located in front of the rectum and below the bladder. The bladder stores urine. The urethra carries stored urine out of the body. An enlarged prostate can press on the urethra. This can make it harder to pass urine. The buildup of urine in the bladder can cause infection. Back pressure and infection may progress to bladder damage and kidney (renal) failure. What are the causes? This condition is part of the normal aging process. However, not all men develop problems from this condition. If the prostate enlarges away from the urethra, urine flow will not be blocked. If it enlarges toward the urethra and compresses it, there will be problems passing urine. What increases the risk? This condition is more likely to develop in men older than 50 years. What are the signs or symptoms? Symptoms of this condition include: ? Getting up often during the night to urinate. ? Needing to urinate frequently during the day. ? Difficulty starting urine flow. ? Decrease in size an (more content not included)... [facility] Provider Letteron 02-04-2024 Provider Letter Provider Letter FABIOLA GONG, [address] [facility] [place] [address] Re: JAYDEN CARTER Date of : 1940 Dear BRAND AMBASSADOR, JAYDEN STEIN was evaluated at [facility] 02/04/2024 13:12:43 As this patient has been stable and doing well on current regimen, they will be released back to your care. We provided 1 year of refills on the patient?s current urologic medications: Flomax 0.4mg daily. We would request that moving forward you provide additional refills. We have agreed to no longer check yearly PSA due to advanced age. Should the patient develop new symptoms or worsening condition in the future, do not hesitate to refer them back. Thanks! Provider Signature: Марина Lock PA-C Physician Clay Caster [facility] [address] [place] [address] [facility]rology Office/Clinic Noteon 02-04-2024 Urology Office/Clinic Note Urology Office/Clinic Note Chief Complaint 1 yr f/u HPI Staff 83 year old male patient presents today for a 1 year follow up . Previous Dx: BPH without urinary obstruction, elevated PSA, hx of prostatitis, renal atrophy, left. S/P TRUS/bx 02/22/2020. *flomax 0.4 mg qd. pt states he is having no urinary issues Dysuria: no Incomplete bladder emptying: no Hematuria: no Frequency: q1-2hrs Urgency: at times Nocturia: 1-2x Stream: normal Leaking: not often Post void dripping: no Wearing pads/ Depends: no Urge incontinence: no Stress incontinence: no Incontinence without Sensory Awareness: no Abdominal pain: no Flank pain: no Sexual complaints: no History of Present Illness Tests reviewed: reviewed UA I have reviewed the previous health record information and history for this patient from NITHIN Giordano & Dr. Chahal. I have reviewed and verified the staff HPI to be accurate for this encounter. Review of Systems PHQ Score Initial Depression Screen Score: 0 SCORE No fever, chills, malaise, myalgia. No rash/lesions. No chest pain, palpitations, or SOB. No abdominal pain, nausea, vomiting. No unilateral calf swelling, redness, pain Physical Exam Vitals & Measurements HR: 62(Peripheral) BP: 140/76 HT: 69 in HT: 175 cm WT: 73 kg WT: 160.6 lb BMI: 23.84 General: nontoxic, NAD Mouth: moist mucosa Lungs: normal respiratory effort Cardio: regular rate, good distal perfusion Abdomen: nondistended, no suprapubic distention or tenderness, no CVA tenderness Neurologic: Grossly normal Skin: No rashes or suspicious lesions Assessment/Plan 1. Benign prostatic hyperplasia without urinary obstruction (N40.0: Benign prostatic hyperplasia without lower urinary tract symptoms) CT AP w con 10/04/22 [facility] - Marked enlargement of the prostate. -Calculated prostate volume 67.4 PVR (cc): 01/22/23 - 53 IPSS 11 (3). UA today is negative for blood or infections. Pt is currently taking Flomax 0.4mg QHS. Working well with No urinary complaints. No bothersome side effects. Discussed options - increased Flomax to BID, add 5-BRITTNEY. Pt does not feel this is necessary at this time. Pt denies gross hematuria or dysuria. -Cont Flomax 0.4mg qhs, refills sent to [facility] -Limit bladder irritants. -Timed voiding 2. Elevated PSA (R97.20: Elevated prostate specific antigen [PSA]) TRUS/bx 02/22/20 Both parents passed at 82 Hx of colon cancer and lymphoma 2014, had chemo. Multiple cardiac comorbidities PSA: 10/17/20 - 4.6 & 25% 06/13/21 - 4.7 & 32% 11/12/22 - 4.9 & 25% -The patient elected to Never check PSA again. Decided at prior OV on 11/14/22. 3. History of prostatitis (Z87.438: Personal history of other diseases of male genital organs) UCx 10/05/22 - >100,000 S. epidermidis, resistant to Benzylpenicillin, Cipro, Bactrim. Treated with Amoxicillin BID x 10 days. Was also given script for Flomax. no recurrence since that time 4. Renal atrophy, left (N26.1: Atrophy of kidney (terminal)) CT AP w con 10/04/22 [facility] - Severe atrophy of the L kidney. No hydro. Renal Function 10/07/22 - BUN 12. Cre 1.18. eGFR 59. no recent renal function available Offered continued scheduled follow up with our clinic vs following up PRN. Pt prefers the latter. We will ensure PCP continues to order refills as needed. Letter sent. Follow-up With When Contact Information GERALD SHARMA, МАРИНА Sethi, URL [address] [place] [address] Additional Instructions: PRN Patient Education Benign Prostatic Hyperplasia Documentation recorded by the scribsylvie Arevalo accurately reflects the services(s) I performed and decisions made by me. Authenticated by Марина Lock PA-C on 02/04/2024 13:59:00. I, Sneha Arevalo, personally scribed for Марина Lock PA-C on 02/04/2024 13:56:01. . Problem List/Past Medical History Ongoing Benign prostatic hyperplasia without urinary obstruction Colon cancer Coronary artery disease Elevated PSA History of prostatitis Hyperlipidemia Hypertension Lymphoma Myocardial infarction Neuropathy Renal atrophy, left Vitamin B12 deficiency disease Historical Neuropathy Procedure/Surgical History Transrectal biopsy of prostate using ultrasound (US) guidance (02/22/2020), Bone marrow biopsy (09/27/2014), Colonic polyp (08/16/2014), Cholecystocecostomy (06/10/2009), Placement of stent in cardiac conduit. Medications aspirin 81 mg oral tablet, 81 mg= 1 tab(s), Oral, Daily atorvastatin 80 mg Tab Brilinta (ticagrelor) 90 mg oral tablet clopidogrel 75 mg Tab, 75 mg= 1 tab(s) DDM B12 1000 Mcg Tablet, 0 gabapentin 300 mg Cap gabapentin 600 mg Tab iodine, Daily lisinopril 5 mg Tab loratadine 10 mg oral capsule, 10 mg= 1 cap(s), Oral, Daily tamsulosin 0.4 mg Cap, 0.4 mg= 1 cap(s), Oral, Daily Toprol XL 25 mg Tab-ER, Oral, Daily Allergies No Known Medication Allergie (more content not included)... [facility] Comment on above: Result Comment: Elec tronically Signed By: МАРИНА LOCK PA-C\.br\Date and Time Signed: 02/04/24 13:59 EDT\.br\Electronically Co-Signed By: Sneha Arevalo\.br\Date and Time Co-Signed: 02/04/24 13:56 EDT Office Visit (Cardiology)on 01-23-2023 Follow-up visit Diagnoses/Problems Assessed Atherosclerosis of [place] coronary artery of [place] heart without angina pectoris (414.01) (I25.10) History of [place] (myocardial infarction) (412) (I25.2) History of PTCA (V45.82) (Z98.61) Never a smoker Overweight with body mass index (BMI) of 25 to 25.9 in adult (278.02,V85.21) (E66.3,Z68.25) Hyperlipidemia (272.4) (E78.5) Hypertension (401.9) (I10) Orders Hyperlipidemia ALT - Alanine Aminotransferase, Serum; Status:Active - Retrospective Authorization; Requested for:[id number]; AST; Status:Active - Retrospective Authorization; Requested for:[id number]; Lipid Panel; Status:Active - Retrospective Authorization; Requested for:[id number]; Hypertension Start: Losartan Potassium 50 MG Oral Tablet; Take 1 tablet daily Overweight with body mass index (BMI) of 25 to 25.9 in adult Healthy Weight Tips; Status:Complete - Retrospective Authorization; Done: [id number] Some eating tips that can help you lose weight.; Status:Complete - Retrospective Authorization; Done: [id number] SocHx: Never a smoker Tobacco Use Screening; Status:Complete; Done: [id number] Patient Instructions Please bring all medicines, vitamins, and herbal supplements with you when you come to the office. Prescriptions will not be filled unless you are compliant with your follow up appointments or have a follow up appointment scheduled as per instruction of your physician. Refills should be requested at the time of your visit. Follow up in 1 year B/P Check in 1month Stop Plavix and Lisinopril Start Losartan 50mg QD Chief Complaint JAYDEN CARTER is being seen for an annual follow-up of. 82-year-old gentleman returns for follow-up and doing very well. He denies any cardiovascular complaints, angina, nitrate usage or repeat hospitalizations. 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 Unfortunately he lost his earlier this year in her sleep. He has underlying hypertension, hyperlipidemia, slightly accelerated blood pressure on today's exam, 160/70. 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 Atorvastatin Calcium 80 MG Oral TabletTAKE 1 TABLET Bedtime Clopidogrel Bisulfate 75 MG Oral TabletTAKE 1 TABLET DAILY. Lisinopril 5 MG Oral TabletTake 1 tablet twice daily Metoprolol Succinate ER 25 MG Oral Tablet Extended Release 24 HourTAKE 1 TABLET BY MOUTH DAILY Nitroglycerin 0.4 MG Sublingual Tablet SublingualDISSOLVE 1 TABLET UNDER THE TONGUE NEEDED FOR CHEST PAIN- MAY REPEAT EVERY 5 MINUTES IF NEEDED ( MAX 3 DOSES.- IF NO RELIEF CALL 911) Patient did not bring medication list or bottles. Updated verbally with patient Allergies Medication No Known Drug Allergies Recorded By: Chloé Aparicio; 04/13/2021 1:51:28 PM Social History Problems Daily caffeine consumption 1 cup of coffee daily. a pop on occasion Never a smoker No alcohol use No illicit drug use Review of Systems Constitutional: not feeling tired. Cardiovascular: no intermittent leg claudication and as noted in HPI. Respiratory: no cough and no shortness of breath. Gastrointestinal: no change in bowel habits and no blood in stools. Integumentary: no skin rashes. Neurological: no seizures and no frequent falls. All other systems have been reviewed and are negative for complaint. Vitals Vital Signs Recorded: [id number] 09:27AMRecorded: [id number] 09:06AM [id number], RUE, [id number], LUE, Sitting Keoulgxyt61, RUE, Ieyjqxi20, LUE, Sitting Heart Rate60, R Radial Height5 ft 8 in Ykzvlw995 lb BMI Nkyitixmne64.39 kg/m2 BSA Calculated1.89 Tobacco Useb) No PHQ-2 #1. Over the last 2 weeks have you felt down, depressed or hopeless? (If yes, answer PHQ-9 below)No PHQ-2 #2. Over the last 2 weeks have you felt little interest or pleasure in doing things? (If yes, answer PHQ-9 below)No Falls Screening (Age 18+)a) No falls within the last year Physical Exam Constitutional: alert and in no acute distress. Neck: neck is supple, symmetric, trachea midline, no masses and no thyromegaly . Pulmonary: no increased work of breathing or signs of respiratory distress and lungs clear to auscultation. Cardiovascular: carotid pulses 2+ bilaterally with no bruit , JVP was normal, no thrills , regular rhythm, normal S1 and S2, no murmurs , pedal pulses 2+ bilaterally and no edema . Abdomen: abdomen non-tender, no ma (more content not included)... 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 Normal [facility] Comment on above: Performed By: #### B LDCX2 #### [facility] [address] [address] [address] Ketan Vallejo Performed By: #### T SH, BNP, CMP #### [facility] [address] [place], [place] [address] Dr. Ketan Vallejo ALKP ISOENZYMESon 10-08-2022 ALP [Catalytic activity/Vol] 106 U/L Normal 44-121 [facility] Comment on above: Performed By: #### C MADM #### [facility] [address] [address] [address] Ketan Vallejo Bone Fraction: 21 % Normal 12-68 [facility] Comment on above: Performed By: #### C MADM #### [facility] [address] [address] [address] Ketan Vallejo Intestinal Frac.: 0 % Normal 0-18 [facility] Comment on above: Performed By: #### C MADM #### [facility] [address] [address] [address] Ketan Vallejo Liver Fraction: 79 % Normal 13-88 [facility] Comment on above: Performed By: #### C MADM #### [facility] [address] [address] [address] Ketan Vallejo CULTURE BLOODon 10-08-2022 Microscopic examination of blood, culture Culture Observations: positive aerobic and anerobic bottles 10/05/22 Culture Observations: bcid= staph. epi called to jaime enriquez rn @9699 by DM Culture Observations: METHICILLIN RESISTANT STAPH EPIDERMIDIS ISOLATED. PLEASE FOLLOW APPROPRIATE ISOLATION PROCEDURES. Isolate 1 Staphylococcus epidermidis Growth of ORGANISM 1 Staphylococcus epidermidis ANTIBIOTIC M.I.C RX STATUS Beta-Lactamase Pos POS F Cefoxitin Screen Pos POS F Benzylpenicillin >=0.5 R F Oxacillin <=0.25 R F Ciprofloxacin >=8 R F Levofloxacin 4 I F Inducible Clindamycin Resistance Pos POS F Erythromycin <=0.25 S F Clindamycin <=0.25 R F Quinupristin/Dalfopristin <=0.25 S F Linezolid 1 S F Vancomycin 1 S F Tetracycline <=1 S F Rifampicin <=0.5 S F Trimethoprim/Sulfamethoxaz ole >=320 R F Normal [facility] Comment on above: Performed By: #### T SH, BNP, CMP #### [facility] [address] [place] [address] Dr. Ketan Vallejo CBC AUTO DIFFon 10-07-2022 BASO # 0.0 103/ul Normal 0.0-0.1 [facility] Comment on above: Performed By: #### T SH, BNP, CMP #### [facility] [address] [place] [address] Dr. Ketan Vallejo Basophils/100 WBC (Bld) 0.3 % Normal 0.2-2.0 [facility] Comment on above: Performed By: #### T SH, BNP, CMP #### [facility] [address] [place] [address] Dr. Ketan Vallejo EO # 0.0 103/ul Normal 0.0-0.7 [facility] Comment on above: Performed By: #### T SH, BNP, CMP #### [facility] [address] [place] [address] Dr. Ketan Vallejo Eosinophils/100 WBC (Bld) 1.1 % Normal 0.9-7.0 [facility] Comment on above: Performed By: #### T SH, BNP, CMP #### [facility] [address] [place] [address] Dr. Ketan Vallejo Erythrocyte distribution width (RBC) [Ratio] 12.9 % Normal 11.0-15.0 [facility] Comment on above: Performed By: #### T SH, BNP, CMP #### [facility] [address] [place] [address] Dr. Ketan Vallejo Hematocrit (Bld) [Volume fraction] 36.7 % Critically low 42.0-54.0 [facility] Comment on above: Performed By: #### T SH, BNP, CMP #### [facility] [address] [place] [address] Dr. Ketan Vallejo Hemoglobin (Bld) [Mass/Vol] 12.5 g/dL Critically low 14.0-18.0 [facility] Comment on above: Performed By: #### T SH, BNP, CMP #### [facility] [address] [place] [address] Dr. Ketan Vallejo IG # 0.01 10e3/ul Normal 0.00-0.03 [facility] Comment on above: Performed By: #### T SH, BNP, CMP #### [facility] [address] [place] [address] Dr. Ketan Vallejo IG % 0.3 % Normal 0.0-0.5 [facility] Comment on above: Performed By: #### T SH, BNP, CMP #### [facility] [address] [place] [address] Dr. Ketan Vallejo LYMPH # 1.0 103/ul Critically low 1.2-3.8 [facility] Comment on above: Performed By: #### T SH, BNP, CMP #### [facility] [address] [place] [address] Dr. Ketan Vallejo Lymphocytes/100 WBC (Bld) 29.9 % Normal 20.5-60.0 [facility] Comment on above: Performed By: #### T SH, BNP, CMP #### [facility] [address] [place] [address] Dr. Ketan Vallejo MANUAL DIFF REQ NO Normal [facility] Comment on above: Performed By: #### T SH, BNP, CMP #### [facility] [address] [place] [address] Dr. Ketan Vallejo MCH (RBC) [Entitic mass] 32.0 pg Normal 25.9-34.0 [facility] Comment on above: Performed By: #### T SH, BNP, CMP #### [facility] [address] [place] [address] Dr. Ketan Vallejo MCHC (RBC) [Mass/Vol] 34.1 g/dL Normal 29.9-35.2 [facility] Comment on above: Performed By: #### T SH, BNP, CMP #### [facility] [address] [place] [address] Dr. Ketan Vallejo MCV (RBC) [Entitic vol] 93.9 fL Normal 80.0-94.0 [facility] Comment on above: Performed By: #### T SH, BNP, CMP #### [facility] [facility] [address] [place] [address] Dr. Ketan Vallejo MONO # 0.4 103/ul Normal 0.3-0.8 [facility] Comment on above: Performed By: #### T SH, BNP, CMP #### [facility] [address] [place] [address] Dr. Ketan Vallejo Monocytes/100 WBC (Bld) 10.9 % Normal 1.7-12.0 [facility] Comment on above: Performed By: #### T SH, BNP, CMP #### [facility] [address] [place] [address] Dr. Ketan Vallejo NEUT # 2.0 103/ul Normal 1.4-6.5 [facility] Comment on above: Performed By: #### T SH, BNP, CMP #### [facility] [address] [place] [address] Dr. Ketan Vallejo Neutrophils/100 WBC (Bld) 57.5 % Normal 43.0-75.0 [facility] Comment on above: Performed By: #### T SH, BNP, CMP #### [facility] [address] [place] [address] Dr. Ketan Vallejo Platelet mean volume (Bld) [Entitic vol] 9.9 fL Normal 9.5-13.5 [facility] Comment on above: Performed By: #### T SH, BNP, CMP #### [facility] [address] [place] [address] Dr. Ketan Vallejo PLT 112 103/ul Critically low 150-450 [facility] Comment on above: Performed By: #### T SH, BNP, CMP #### [facility] [address] [place] [address] Dr. Ketan Vallejo RBC 3.91 106/ul Critically low 4.70-6.10 [facility] Comment on above: Performed By: #### T SH, BNP, CMP #### [facility] [address] [place] [address] Dr. Ketan Vallejo WBC 3.5 103/ul Critically low 4.0-11.0 [facility] Comment on above: Performed By: #### T SH, BNP, CMP #### [facility] [address] [place] [address] Dr. Ketan Vallejo CULTURE URINEon 10-07-2022 CULTURE URINE Isolate 1 Staphylococcus epidermidis >100,000 cfu/mL of ORGANISM 1 Staphylococcus epidermidis ANTIBIOTIC M.I.C RX STATUS Beta-Lactamase Neg NEG F Cefoxitin Screen Neg NEG F Benzylpenicillin >=0.5 R F Oxacillin <=0.25 S F Gentamicin <=0.5 S F Ciprofloxacin >=8 R F Levofloxacin 4 I F Inducible Clindamycin Resistance Neg NEG F Quinupristin/Dalfopristin 0.5 S F Linezolid 2 S F Vancomycin 1 S F Tetracycline 4 S F Nitrofurantoin <=16 S F Rifampicin <=0.5 S F Trimethoprim/Sulfamethoxaz ole >=320 R F Normal [facility] Comment on above: Performed By: #### T SH, BNP, CMP #### [facility] [address] [place] [address] Dr. Ketan Vallejo MAGNESIUMon 10-07-2022 Magnesium [Mass/Vol] 1.6 mg/dL Critically low 1.8-2.4 [facility] Comment on above: Performed By: #### C MADM #### [facility] [address] [place] [address] Dr. Ketan Vallejo PROF CHEM 8 (BAS METB)on Anion gap [Moles/Vol] 10.8 mmol/L Normal [facility] Comment on above: Performed By: #### C MADM #### [facility] [address] [place] [address] Dr. Ketan Vallejo Calcium [Mass/Vol] 8.0 mg/dL Critically low 8.5-10.1 [facility] Comment on above: Performed By: #### C MADM #### [facility] [address] [place] [address] Dr. Ketan Vallejo Chloride [Moles/Vol] 104 mmol/L Normal 98-107 [facility] Comment on above: Performed By: #### C MADM #### [facility] [address] [place] [address] Dr. Ketan Vallejo CO2 [Moles/Vol] 26.6 mmol/L Normal 21.0-32.0 [facility] Comment on above: Performed By: #### C MADM #### [facility] [address] [address] [address] Ketan Vallejo Creatinine [Mass/Vol] 1.18 mg/dL Normal 0.70-1.30 [facility] Comment on above: Performed By: #### C MADM #### [facility] [address] [place] [address] Dr. Ketan Vallejo EGFR-AF [place] >60 Normal >=60 [facility] Comment on above: Performed By: #### C MADM #### [facility] [address] [address] [address] Ketan Vallejo EGFR-NON AF [place] 59 mL/min/1.73m2 Critically low >=60 [facility] Comment on above: Performed By: #### C MADM #### [facility] [address] [place] [address] Dr. Ketan Vallejo Glucose [Mass/Vol] 133 mg/dL Critically high 74-106 T [facility] Comment on above: Performed By: #### C MADM #### [facility] [address] [place] [address] Dr. Ketan Vallejo Potassium [Moles/Vol] 3.4 mmol/L Critically low 3.5-5.1 [facility] Comment on above: Performed By: #### C MADM #### [facility] [address] [place] [address] Dr. Ketan Vallejo Sodium [Moles/Vol] 138 mmol/L Normal 136-145 [facility] Comment on above: Performed By: #### C MADM #### [facility] [address] [place] [address] Dr. Ketan Vallejo Urea nitrogen [Mass/Vol] 12.0 mg/dL Normal 7.0-18.0 [facility] Comment on above: Performed By: #### C MADM #### [facility] [address] [place] [address] Dr. Ketan Vallejo Urea nitrogen/Creatinine [Mass ratio] 10.2 mg/mg Normal [facility] Comment on above: Performed By: #### C MADM #### [facility] [address] [place] [address] Dr. Ketan Vallejo CBC AUTO DIFFon 10-06-2022 BASO # 0.0 103/ul Normal 0.0-0.1 [facility] Comment on above: Performed By: #### T SH, BNP, CMP #### [facility] [address] [place] [address] Dr. Ketan Vallejo Basophils/100 WBC (Bld) 0.5 % Normal 0.2-2.0 [facility] Comment on above: Performed By: #### T SH, BNP, CMP #### [facility] [address] [place] [address] Dr. Ketan Vallejo EO # 0.1 103/ul Normal 0.0-0.7 [facility] Comment on above: Performed By: #### T SH, BNP, CMP #### [facility] [address] [place] [address] Dr. Ketan Vallejo Eosinophils/100 WBC (Bld) 2.1 % Normal 0.9-7.0 [facility] Comment on above: Performed By: #### T SH, BNP, CMP #### [facility] [address] [place] [address] Dr. Ketan Vallejo Erythrocyte distribution width (RBC) [Ratio] 13.0 % Normal 11.0-15.0 [facility] Comment on above: Performed By: #### T SH, BNP, CMP #### [facility] [address] [place] [address] Dr. Ketan Vallejo Hematocrit (Bld) [Volume fraction] 36.5 % Critically low 42.0-54.0 [facility] Comment on above: Performed By: #### T SH, BNP, CMP #### [facility] [address] [place] [address] Dr. Ketan Vallejo Hemoglobin (Bld) [Mass/Vol] 12.0 g/dL Critically low 14.0-18.0 [facility] Comment on above: Performed By: #### T SH, BNP, CMP #### [facility] [address] [place] [address] Dr. Ketan Vallejo IG # 0.02 10e3/ul Normal 0.00-0.03 [facility] Comment on above: Performed By: #### T SH, BNP, CMP #### [facility] [address] [place] [address] Dr. Ketan Vallejo IG % 0.5 % Normal 0.0-0.5 [facility] Comment on above: Performed By: #### T SH, BNP, CMP #### [facility] [address] [place] [address] Dr. Ketan Vallejo LYMPH # 0.9 103/ul Critically low 1.2-3.8 [facility] Comment on above: Performed By: #### T SH, BNP, CMP #### [facility] [address] [place] [address] Dr. Ketan Vallejo Lymphocytes/100 WBC (Bld) 23.7 % Normal 20.5-60.0 [facility] Comment on above: Performed By: #### T SH, BNP, CMP #### [facility] [address] [place] [address] Dr. Ketan Vallejo MANUAL DIFF REQ NO Normal [facility] Comment on above: Performed By: #### T SH, BNP, CMP #### [facility] [address] [place] [address] Dr. Ketan Vallejo MCH (RBC) [Entitic mass] 31.4 pg Normal 25.9-34.0 [facility] Comment on above: Performed By: #### T SH, BNP, CMP #### [facility] [address] [place] [address] Dr. Ketan Vallejo MCHC (RBC) [Mass/Vol] 32.9 g/dL Normal 29.9-35.2 [facility] Comment on above: Performed By: #### T SH, BNP, CMP #### [facility] [address] [place] [address] Dr. Ketan Vallejo MCV (RBC) [Entitic vol] 95.5 fL Critically high 80.0-94.0 [facility] Comment on above: Performed By: #### T SH, BNP, CMP #### [facility] [address] [place] [address] Dr. Ketan Vallejo MONO # 0.5 103/ul Normal 0.3-0.8 [facility] Comment on above: Performed By: #### T SH, BNP, CMP #### [facility] [address] [place] [address] Dr. Ketan Vallejo Monocytes/100 WBC (Bld) 12.6 % Critically high 1.7-12.0 [facility] Comment on above: Performed By: #### T SH, BNP, CMP #### [facility] [address] [place] [address] Dr. Ketan Vallejo NEUT # 2.3 103/ul Normal 1.4-6.5 [facility] Comment on above: Performed By: #### T SH, BNP, CMP #### [facility] [address] [place] [address] Dr. Ketan Vallejo Neutrophils/100 WBC (Bld) 60.6 % Normal 43.0-75.0 [facility] Comment on above: Performed By: #### T SH, BNP, CMP #### [facility] [address] [place] [address] Dr. Ketan Vallejo Platelet mean volume (Bld) [Entitic vol] 9.7 fL Normal 9.5-13.5 [facility] Comment on above: Performed By: #### T SH, BNP, CMP #### [facility] [address] [place] [address] Dr. Ketan Vallejo PLT 106 103/ul Critically low 150-450 [facility] Comment on above: Performed By: #### T SH, BNP, CMP #### [facility] [address] [place] [address] Dr. Ketan Vallejo RBC 3.82 106/ul Critically low 4.70-6.10 [facility] Comment on above: Performed By: #### T SH, BNP, CMP #### [facility] [address] [place] [address] Dr. Ketan Vallejo WBC 3.8 103/ul Critically low 4.0-11.0 [facility] Comment on above: Performed By: #### T SH, BNP, CMP #### [facility] [address] [address] [address] Ketan Vallejo MAGNESIUMon 10-06-2022 Magnesium [Mass/Vol] 1.5 mg/dL Critically low 1.8-2.4 [facility] Comment on above: Performed By: #### C MADM #### [facility] [address] [address] [address] Ketan Vallejo PROF CHEM 8 (BAS METB)on Anion gap [Moles/Vol] 8.2 mmol/L Normal [facility] Comment on above: Performed By: #### C MADM #### [facility] [address] [address] [address] Ketan Vallejo Calcium [Mass/Vol] 7.7 mg/dL Critically low 8.5-10.1 [facility] Comment on above: Performed By: #### C MADM #### [facility] [address] [place] [address] Dr. Ketan Vallejo Chloride [Moles/Vol] 105 mmol/L Normal 98-107 [facility] Comment on above: Performed By: #### C MADM #### [facility] [address] [address] [address] Ketan Vallejo CO2 [Moles/Vol] 28.8 mmol/L Normal 21.0-32.0 [facility] Comment on above: Performed By: #### C MADM #### [facility] [address] [address] [address] Ketan Vallejo Creatinine [Mass/Vol] 1.18 mg/dL Normal 0.70-1.30 [facility] Comment on above: Performed By: #### C MADM #### [facility] [address] [address] [address] Ketan Vallejo EGFR-AF [place] >60 Normal >=60 [facility] Comment on above: Performed By: #### C MADM #### [facility] [address] [address] [address] Ketan Vallejo EGFR-NON AF [place] 59 mL/min/1.73m2 Critically low >=60 [facility] Comment on above: Performed By: #### C MADM #### [facility] [address] [address] [address] Ketan Vallejo Glucose [Mass/Vol] 93 mg/dL Normal 74-106 [facility] Comment on above: Performed By: #### C MADM #### [facility] [address] [address] [address] Ketan Vallejo Potassium [Moles/Vol] 4.0 mmol/L Normal 3.5-5.1 [facility] Comment on above: Performed By: #### C MADM #### [facility] [address] [address] [address] Ketan Vallejo Sodium [Moles/Vol] 138 mmol/L Normal 136-145 [facility] Comment on above: Performed By: #### C MADM #### [facility] [address] [place] [address] Dr. Ketan Vallejo Urea nitrogen [Mass/Vol] 13.0 mg/dL Normal 7.0-18.0 [facility] Comment on above: Performed By: #### C MADM #### [facility] [address] [place] [address] Dr. Ketan Vallejo Urea nitrogen/Creatinine [Mass ratio] 11.0 mg/mg Normal [facility] Comment on above: Performed By: #### C MADM #### [facility] [address] [address] [address] Ketan Vallejo CARDIAC INEZ 3-6on 3 CK [Catalytic activity/Vol] 57 U/L Normal 39-308 [facility] Comment on above: Performed By: #### L ACT #### [facility] [address] [place] [address] Dr. Ketan Vallejo CK.MB [Mass/Vol] 0.99 ng/mL Normal <=3.60 [facility] Comment on above: Performed By: #### L ACT #### [facility] [address] [place] [address] Dr. Ketan Vallejo HSTROP 22.9 pg/mL Normal 4.0-76.1 [facility] Comment on above: Result Comment: CUT- OFF POINTS HAVE BEEN ESTABLISHED BASED ON THE FOURTH UNIVERSAL DEFINITIONS OF MYOCARDIAL INFARCTION. THE UPPER REFERENCE LIMIT (URL) OF TROPONIN, DEFINED THE 99TH PERCENTILE OF cTnI DISTRIBUTION IN A REFERENCE POPULATION, HAS BEEN CONFIRMED THE DECISION THRESHOLD FOR WA DIAGNOSIS. Performed By: #### L ACT #### [facility] [address] [place] [address] Dr. Ketan Vallejo CBC AUTO DIFFon 10-05-2022 BASO # 0.0 103/ul Normal 0.0-0.1 [facility] Comment on above: Performed By: #### C MADM #### [facility] [address] [place] [address] Dr. Ketan Vallejo Basophils/100 WBC (Bld) 0.2 % Normal 0.2-2.0 [facility] Comment on above: Performed By: #### C MADM #### [facility] [address] [place] [address] Dr. Ketan Vallejo EO # 0.1 103/ul Normal 0.0-0.7 [facility] Comment on above: Performed By: #### C MADM #### [facility] [address] [place] [address] Dr. Ketan Vallejo Eosinophils/100 WBC (Bld) 1.7 % Normal 0.9-7.0 [facility] Comment on above: Performed By: #### C MADM #### [facility] [address] [place] [address] Dr. Ketan Vallejo Erythrocyte distribution width (RBC) [Ratio] 13.2 % Normal 11.0-15.0 [facility] Comment on above: Performed By: #### C MADM #### [facility] [address] [place] [address] Dr. Ketan Vallejo Hematocrit (Bld) [Volume fraction] 40.8 % Critically low 42.0-54.0 [facility] Comment on above: Performed By: #### C MADM #### [facility] [address] [place] [address] Dr. Ketan Vallejo Hemoglobin (Bld) [Mass/Vol] 13.3 g/dL Critically low 14.0-18.0 [facility] Comment on above: Performed By: #### C MADM #### [facility] [address] [address] [address] Ketan Vallejo IG # 0.01 10e3/ul Normal 0.00-0.03 [facility] Comment on above: Performed By: #### C MADM #### [facility] [address] [address] [address] Ketan Vallejo IG % 0.2 % Normal 0.0-0.5 [facility] Comment on above: Performed By: #### C MADM #### [facility] [address] [address] [address] Ketan Vallejo LYMPH # 0.7 103/ul Critically low 1.2-3.8 [facility] Comment on above: Performed By: #### C MADM #### [facility] [address] [place] [address] Dr. Ketan Vallejo Lymphocytes/100 WBC (Bld) 17.4 % Critically low 20.5-60.0 [facility] Comment on above: Performed By: #### C MADM #### [facility] [address] [address] [address] Ketan Vallejo MANUAL DIFF REQ NO Normal [facility] Comment on above: Performed By: #### C MADM #### [facility] [address] [place] [address] Dr. Ketan Vallejo MCH (RBC) [Entitic mass] 31.3 pg Normal 25.9-34.0 [facility] Comment on above: Performed By: #### C MADM #### [facility] [address] [address] [address] Ketan Vallejo MCHC (RBC) [Mass/Vol] 32.6 g/dL Normal 29.9-35.2 [facility] Comment on above: Performed By: #### C MADM #### [facility] [address] [place] [address] Dr. Ketan Vallejo MCV (RBC) [Entitic vol] 96.0 fL Critically high 80.0-94.0 [facility] Comment on above: Performed By: #### C MADM #### [facility] [address] [address] [address] Ketan Vallejo MONO # 0.4 103/ul Normal 0.3-0.8 [facility] Comment on above: Performed By: #### C MADM #### [facility] [address] [address] [address] Ketan Vallejo Monocytes/100 WBC (Bld) 10.8 % Normal 1.7-12.0 [facility] Comment on above: Performed By: #### C MADM #### [facility] [address] [address] [address] Ketan Vallejo NEUT # 2.8 103/ul Normal 1.4-6.5 [facility] Comment on above: Performed By: #### C MADM #### [facility] [address] [place] [address] Dr. Ketan Vallejo Neutrophils/100 WBC (Bld) 69.7 % Normal 43.0-75.0 [facility] Comment on above: Performed By: #### C MADM #### [facility] [address] [address] [address] Ketan Vallejo Platelet mean volume (Bld) [Entitic vol] 9.6 fL Normal 9.5-13.5 [facility] Comment on above: Performed By: #### C MADM #### [facility] [address] [address] [address] Ketan Vallejo PLT 113 103/ul Critically low 150-450 [facility] Comment on above: Performed By: #### C MADM #### [facility] [address] [address] [address] Ketan Vallejo RBC 4.25 106/ul Critically low 4.70-6.10 [facility] Comment on above: Performed By: #### C MADM #### [facility] [address] [address] [address] Ketan Vallejo WBC 4.1 103/ul Normal 4.0-11.0 [facility] Comment on above: Performed By: #### C MADM #### [facility] [address] [place] [address] Dr. Ketan Vallejo MAGNESIUMon 10-05-2022 Magnesium [Mass/Vol] 1.6 mg/dL Critically low 1.8-2.4 [facility] Comment on above: Performed By: #### T SH, BNP, CMP #### [facility] [address] [place] [address] Dr. Ketan Vallejo PROF CHEM 8 (BAS METB)on Anion gap [Moles/Vol] 11.9 mmol/L Normal [facility] Comment on above: Performed By: #### T SH, BNP, CMP #### [facility] [address] [place] [address] Dr. Ketan Vallejo Calcium [Mass/Vol] 8.2 mg/dL Critically low 8.5-10.1 [facility] Comment on above: Performed By: #### T SH, BNP, CMP #### [facility] [address] [place] [address] Dr. Ketan Vallejo Chloride [Moles/Vol] 107 mmol/L Normal 98-107 [facility] Comment on above: Performed By: #### T SH, BNP, CMP #### [facility] [address] [place] [address] Dr. Ketan Vallejo CO2 [Moles/Vol] 27.0 mmol/L Normal 21.0-32.0 [facility] Comment on above: Performed By: #### T SH, BNP, CMP #### [facility] [address] [place] [address] Dr. Ketan Vallejo Creatinine [Mass/Vol] 1.37 mg/dL Critically high 0.70-1.30 [facility] Comment on above: Performed By: #### T SH, BNP, CMP #### [facility] [address] [place] [address] Dr. Ketan Vallejo EGFR-AF [place] >60 Normal >=60 [facility] [facility] Comment on above: Performed By: #### T SH, BNP, CMP #### [facility] [address] [place] [address] Dr. Ketan Vallejo EGFR-NON AF [place] 50 mL/min/1.73m2 Critically low >=60 [facility] Comment on above: Performed By: #### T SH BNP, CMP #### [facility] [address] [place] [address] Dr. Ketan Vallejo Glucose [Mass/Vol] 85 mg/dL Normal 74-106 [facility] Comment on above: Performed By: #### T SH BNP, CMP #### [facility] [address] [place] [address] Dr. Ketan Vallejo Potassium [Moles/Vol] 3.9 mmol/L Normal 3.5-5.1 [facility] Comment on above: Performed By: #### T MAGALI BNP, CMP #### [facility] [address] [place] [address] Dr. Ketan Vallejo Sodium [Moles/Vol] 142 mmol/L Normal 136-145 [facility] Comment on above: Performed By: #### T MAGALI BNP, CMP #### [facility] [address] [place] [address] Dr. Ketan Vallejo Urea nitrogen [Mass/Vol] 17.0 mg/dL Normal 7.0-18.0 [facility] Comment on above: Performed By: #### T MAGALI BNP, CMP #### [facility] [address] [place] [address] Dr. Ketan Vallejo Urea nitrogen/Creatinine [Mass ratio] 12.4 mg/mg Normal [facility] Comment on above: Performed By: #### T MAGALI BNP, CMP #### [facility] [address] [place] [address] Dr. Ketan Vallejo TSH W/ REFLEX TO FT4on 10-05 TSH 1.626 uIU/mL Normal 0.358-3.74 0 [facility] Comment on above: Performed By: #### T SH BNP, CMP #### [facility] [address] [place] [address] Dr. Ketan Vallejo VIT B12 AND FOLATEon 023 Cobalamin (Vitamin B12) [Mass/Vol] 922.0 pg/mL Normal 193.0-986. 0 [facility] Comment on above: Performed By: #### B 12FOL #### [facility] [address] [place] [address] Dr. Ketan Vallejo FOLATE 5.70 ng/mL Critically low 8.60-58.90 [facility] Comment on above: Performed By: #### B 12FOL #### [facility] [address] [place] [address] Dr. Ketan Vallejo AMMONIAon 10-04-2022 Ammonia (P) [Moles/Vol] 17 umol/L Normal 11-32 [facility] Comment on above: Performed By: #### L ACT #### [facility] [address] [place] [address] Dr. Ketan Vallejo BLOOD CULTURE ID PANELon A. baumannii Not detected Normal NOT DETECTED [facility] Comment on above: Performed By: #### C MADM #### [facility] [address] [place] [address] Dr. Ketan Vallejo Bacteriodes fragilis Not detected Normal NOT DETECTED [facility] Comment on above: Performed By: #### C MADM #### [facility] [address] [place] [address] Dr. Ketan Vallejo BCITereza CONTROLS PASSED Normal [facility] Comment on above: Performed By: #### C MADM #### [facility] [address] [place] [address] Dr. Ketan Vallejo BCIDBTHD BLOOD CULTURE BOTTLE INFORMATION Normal [facility] Comment on above: Performed By: #### C MADM #### [facility] [address] [place] [address] Dr. Ketan Vallejo BCIDHD1 ANTIMICROBIAL RESIST ANCE GENES Normal [facility] Comment on above: Performed By: #### C MADM #### [facility] [address] [place] [address] Dr. Ketan Vallejo BCIDHD2 SEE BELOW Normal [facility] Comment on above: Result Comment: Note : Antimicrobial resitance can occur via multiple mechanisms. A Not Detected result for the [employer] antomicrobial resistance gene assays does not indicate antimicrobial susceptibility. Subculturing is required for species identification and susceptibility testing of isolates. Performed By: #### C MADM #### [facility] [address] [place] [address] Dr. Ketan Vallejo BCIDHD3 Positive Normal [facility] Comment on above: Performed By: #### C MADM #### [facility] [address] [place] [address] Dr. Ketan Vallejo BCIDHD4 Negative Normal [facility] Comment on above: Performed By: #### C MADM #### [facility] [address] [address] [address] Ketan Vallejo BCIDHD5 YEAST Normal [facility] Comment on above: Performed By: #### C MADM #### [facility] [address] [place] [address] Dr. Ketan Vallejo Bottle Set: Set 1 Normal [facility] Comment on above: Performed By: #### C MADM #### [facility] [address] [place] [address] Dr. Ketan Vallejo Bottle: Anaerobic Normal [facility] Comment on above: Performed By: #### C MADM #### [facility] [address] [place] [address] Dr. Ketan Vallejo C. neoformans/gattii Not detected Normal NOT DETECTED [facility] Comment on above: Performed By: #### C MADM #### [facility] [address] [place] [address] Dr. Ketan Vallejo Pauline albicans Not detected Normal NOT DETECTED [facility] Comment on above: Performed By: #### C MADM #### [facility] [address] [place] [address] Dr. Ketan Vallejo Pauline auris Not detected Normal NOT DETECTED [facility] Comment on above: Performed By: #### C MADM #### [facility] [address] [place] [address] Dr. Ketan Vallejo Pauline glabrata Not detected Normal NOT DETECTED [facility] Comment on above: Performed By: #### C MADM #### [facility] [address] [place], [place] [id number] Dr. Ketan Vallejo Pauline Krusei Not detected Normal NOT DETECTED [facility] Comment on above: Performed By: #### C MADM #### [facility] [address] [place] [address] Dr. Ketan Vallejo Pauline Parapsilosis Not detected Normal NOT DETECTED [facility] Comment on above: Performed By: #### C MADM #### [facility] [address] [place] [address] Dr. Ketan Vallejo Pauline Tropicalis Not detected Normal NOT DETECTED [facility] Comment on above: Performed By: #### C MADM #### [facility] [address] [place] [address] Dr. Ketan Vallejo CTX-M Resistant Gene Not Applicable Normal NOT DETECTED [facility] Comment on above: Performed By: #### C MADM #### [facility] [address] [place] [address] Dr. Ketan Vallejo E. Cloacae complex Not detected Normal NOT DETECTED [facility] Comment on above: Performed By: #### C MADM #### [facility] [address] [place] [address] Dr. Ketan Vallejo E. faecalis Not detected Normal NOT DETECTED [facility] Comment on above: Performed By: #### C MADM #### [facility] [address] [place] [address] Dr. Ketan Vallejo E. faecium Not detected Normal NOT DETECTED [facility] Comment on above: Performed By: #### C MADM #### [facility] [address] [place] [address] Dr. Ketan Vallejo Enterobacteriaceae Not detected Normal NOT DETECTED [facility] Comment on above: Performed By: #### C MADM #### [facility] [address] [place] [address] Dr. Ketan Vallejo Escherichia coli Not detected Normal NOT DETECTED [facility] Comment on above: Performed By: #### C MADM #### [facility] [address] [place] [address] Dr. Ketan Vallejo H. influenzae Not detected Normal NOT DETECTED [facility] Comment on above: Performed By: #### C MADM #### [facility] [address] [place] [address] Dr. Ketan Vallejo IMP Resistant Gene Not Applicable Normal NOT DETECTED [facility] Comment on above: Performed By: #### C MADM #### [facility] [address] [address] [address] Ketan Vallejo K. oxytoca Not detected Normal NOT DETECTED [facility] Comment on above: Performed By: #### C MADM #### [facility] [address] [place] [address] Dr. Ketan Vallejo K. pneumoniae Not detected Normal NOT DETECTED [facility] Comment on above: Performed By: #### C MADM #### [facility] [address] [place] [address] Dr. Ketan Vallejo Klebsiella aerogenes Not detected Normal NOT DETECTED [facility] Comment on above: Performed By: #### C MADM #### [facility] [address] [place] [address] Dr. Ketan Vallejo KPC Resistant Gene Not Applicable Normal NOT DETECTED [facility] Comment on above: Performed By: #### C MADM #### [facility] [address] [place] [address] Dr. Ketan Vallejo List. monocytogenes Not detected Normal NOT DETECTED [facility] Comment on above: Performed By: #### C MADM #### [facility] [address] [place] [address] Dr. Ketan Vallejo Mcr-1 Resistant Gene Not Applicable Normal NOT DETECTED [facility] Comment on above: Performed By: #### C MADM #### [facility] [address] [place] [address] Dr. Ketan Vallejo mecA/C Detected Abnormal NOT DETECTED [facility] Comment on above: Performed By: #### C MADM #### [facility] [address] [place] [address] Dr. Ketan Vallejo mecA/C MREJ Not Applicable Normal NOT DETECTED [facility] Comment on above: Performed By: #### C MADM #### [facility] [address] [place], [place] [id number] Dr. Ketan Vallejo N. meningitidis Not detected Normal NOT DETECTED [facility] Comment on above: Performed By: #### C MADM #### [facility] [address] [place] [address] Dr. Ketan Vallejo NDM Resistant Gene Not Applicable Normal NOT DETECTED [facility] Comment on above: Performed By: #### C MADM #### [facility] [address] [place] [address] Dr. Ketan Vallejo Oxa-48-like Not Applicable Normal NOT DETECTED [facility] Comment on above: Performed By: #### C MADM #### [facility] [address] [place] [address] Dr. Ketan Vallejo Proteus Not detected Normal NOT DETECTED [facility] Comment on above: Performed By: #### C MADM #### [facility] [address] [place] [address] Dr. Ketan Vallejo Pseud. aeruginosa Not detected Normal NOT DETECTED [facility] Comment on above: Performed By: #### C MADM #### [facility] [address] [place] [address] Dr. Ketan Vallejo S. maltophilia Not detected Normal NOT DETECTED [facility] Comment on above: Performed By: #### C MADM #### [facility] [address] [place] [address] Dr. Ketan Vallejo Salmonella Not detected Normal NOT DETECTED [facility] Comment on above: Performed By: #### C MADM #### [facility] [address] [place] [address] Dr. Ketan Vallejo Seratia marcescens Not detected Normal NOT DETECTED [facility] Comment on above: Performed By: #### C MADM #### [facility] [address] [place] [address] Dr. Ketan Vallejo Site: r a/c Normal [facility] Comment on above: Performed By: #### C MADM #### [facility] [address] [place] [address] Dr. Ketan Vallejo Staph. aureus Not detected Normal NOT DETECTED [facility] Comment on above: Performed By: #### C MADM #### [facility] [address] [place] [address] Dr. Ketan Vallejo Staph. epidermidis Detected Critically abnormal NOT DETECTED [facility] Comment on above: Performed By: #### C MADM #### [facility] [address] [place] [address] Dr. Ketan Vallejo Staph. lugdunensis Not detected Normal NOT DETECTED [facility] Comment on above: Performed By: #### C MADM #### [facility] [address] [place] [address] Dr. Ketan Vallejo Staphylococcus Detected Critically abnormal NOT DETECTED [facility] Comment on above: Performed By: #### C MADM #### [facility] [address] [place] [address] Dr. Ketan Vallejo Strep. agalactiae Not detected Normal NOT DETECTED [facility] Comment on above: Performed By: #### C MADM #### [facility] [address] [place] [address] Dr. Ketan Vallejo Strep. pneumoniae Not detected Normal NOT DETECTED [facility] Comment on above: Performed By: #### C MADM #### [facility] [address] [place] [address] Dr. Ketan Vallejo Strep. pyogenes Not detected Normal NOT DETECTED [facility] Comment on above: Performed By: #### C MADM #### [facility] [address] [place] [address] Dr. Ketan Vallejo Streptococcus Not detected Normal NOT DETECTED [facility] Comment on above: Performed By: #### C MADM #### [facility] [address] [place] [address] Dr. Ketan Vallejo Johnny/B Resist. Gene Not Applicable Normal NOT DETECTED [facility] Comment on above: Performed By: #### C MADM #### [facility] [address] [place] [address] Dr. Ketan Vallejo VIM Resistant Gene Not Applicable Normal NOT DETECTED [facility] Comment on above: Performed By: #### C MADM #### [facility] [address] [place] [address] Dr. Ketan Vallejo BNPon 10-04-2022 Natriuretic peptide B (Bld) [Mass/Vol] 862.0 pg/mL Normal <=1,800.0 [facility] Comment on above: Performed By: #### T SH, BNP, CMP #### [facility] [address] [place] [address] Dr. Ketan Vallejo CARDIAC INEZ 3-6on 3 CK [Catalytic activity/Vol] 43 U/L Normal 39-308 [facility] Comment on above: Performed By: #### C MREP #### [facility] [address] [place] [address] Dr. Ketan Vallejo CK.MB [Mass/Vol] 0.73 ng/mL Normal <=3.60 [facility] Comment on above: Performed By: #### C MREP #### [facility] [address] [place] [address] Dr. Ketan Vallejo HSTROP 18.9 pg/mL Normal 4.0-76.1 [facility] Comment on above: Result Comment: CUT- OFF POINTS HAVE BEEN ESTABLISHED BASED ON THE FOURTH UNIVERSAL DEFINITIONS OF MYOCARDIAL INFARCTION. THE UPPER REFERENCE LIMIT (URL) OF TROPONIN, DEFINED THE 99TH PERCENTILE OF cTnI DISTRIBUTION IN A REFERENCE POPULATION, HAS BEEN CONFIRMED THE DECISION THRESHOLD FOR WA DIAGNOSIS. Performed By: #### C MREP #### [facility] [address] [place] [address] Dr. Ketan Vallejo CARDIAC INEZ ADMITon 023 CK [Catalytic activity/Vol] 56 U/L Normal 39-308 [facility] Comment on above: Performed By: #### C MADM #### [facility] [address] [place] [address] Dr. Ketan Vallejo CK.MB [Mass/Vol] 0.84 ng/mL Normal <=3.60 [facility] Comment on above: Performed By: #### C MADM #### [facility] [address] [place] [address] Dr. Ketan Vallejo HSTROP 15.6 pg/mL Normal 4.0-76.1 [facility] Comment on above: Result Comment: CUT- OFF POINTS HAVE BEEN ESTABLISHED BASED ON THE FOURTH UNIVERSAL DEFINITIONS OF MYOCARDIAL INFARCTION. THE UPPER REFERENCE LIMIT (URL) OF TROPONIN, DEFINED THE 99TH PERCENTILE OF cTnI DISTRIBUTION IN A REFERENCE POPULATION, HAS BEEN CONFIRMED THE DECISION THRESHOLD FOR WA DIAGNOSIS. Performed By: #### C MADM #### [facility] [address] [place] [address] Dr. Ketan Vallejo EYAD 74 ng/mL Normal 16-96 [facility] Comment on above: Performed By: #### C MADM #### [facility] [address] [address] [address] Ketan Vallejo CBC AUTO DIFFon 10-04-2022 BASO # 0.0 103/ul Normal 0.0-0.1 [facility] Comment on above: Performed By: #### T SH, BNP, CMP #### [facility] [address] [place] [address] Dr. Ketan Vallejo Basophils/100 WBC (Bld) 0.7 % Normal 0.2-2.0 [facility] Comment on above: Performed By: #### T SH, BNP, CMP #### [facility] [address] [place] [address] Dr. Ketan Vallejo EO # 0.1 103/ul Normal 0.0-0.7 [facility] Comment on above: Performed By: #### T SH, BNP, CMP #### [facility] [address] [place] [address] Dr. Ketan Vallejo Eosinophils/100 WBC (Bld) 1.0 % Normal 0.9-7.0 [facility] Comment on above: Performed By: #### T SH, BNP, CMP #### [facility] [address] [place] [address] Dr. Ketan Vallejo Erythrocyte distribution width (RBC) [Ratio] 13.1 % Normal 11.0-15.0 [facility] Comment on above: Performed By: #### T SH, BNP, CMP #### [facility] [address] [place] [address] Dr. Ketan Vallejo Hematocrit (Bld) [Volume fraction] 44.4 % Normal 42.0-54.0 [facility] Comment on above: Performed By: #### T SH, BNP, CMP #### [facility] [address] [place] [address] Dr. Ketan Vallejo Hemoglobin (Bld) [Mass/Vol] 14.5 g/dL Normal 14.0-18.0 [facility] Comment on above: Performed By: #### T SH, BNP, CMP #### [facility] [address] [place] [address] Dr. Ketan Vallejo IG # 0.02 10e3/ul Normal 0.00-0.03 [facility] Comment on above: Performed By: #### T SH, BNP, CMP #### [facility] [address] [place] [address] Dr. Ketan Vallejo IG % 0.3 % Normal 0.0-0.5 [facility] Comment on above: Performed By: #### T SH, BNP, CMP #### [facility] [address] [place] [address] Dr. Ketan Vallejo LYMPH # 0.9 103/ul Critically low 1.2-3.8 [facility] Comment on above: Performed By: #### T SH, BNP, CMP #### [facility] [address] [place] [address] Dr. Ketan Vallejo Lymphocytes/100 WBC (Bld) 15.7 % Critically low 20.5-60.0 [facility] Comment on above: Performed By: #### T SH, BNP, CMP #### [facility] [address] [place] [address] Dr. Ketan Vlalejo MANUAL DIFF REQ NO Normal [facility] Comment on above: Performed By: #### T SH, BNP, CMP #### [facility] [address] [place] [address] Dr. Ketan Vallejo MCH (RBC) [Entitic mass] 31.0 pg Normal 25.9-34.0 [facility] Comment on above: Performed By: #### T SH, BNP, CMP #### [facility] [address] [place] [address] Dr. Ketan Vallejo MCHC (RBC) [Mass/Vol] 32.7 g/dL Normal 29.9-35.2 [facility] Comment on above: Performed By: #### T SH, BNP, CMP #### [facility] [address] [place] [address] Dr. Ketan Vallejo MCV (RBC) [Entitic vol] 95.1 fL Critically high 80.0-94.0 [facility] Comment on above: Performed By: #### T SH, BNP, CMP #### [facility] [address] [place] [address] Dr. Ketan Vallejo MONO # 0.7 103/ul Normal 0.3-0.8 [facility] Comment on above: Performed By: #### T SH, BNP, CMP #### [facility] [address] [place] [address] Dr. Ketan Vallejo Monocytes/100 WBC (Bld) 12.0 % Normal 1.7-12.0 [facility] Comment on above: Performed By: #### T SH, BNP, CMP #### [facility] [address] [place] [address] Dr. Ketan Vallejo NEUT # 4.1 103/ul Normal 1.4-6.5 [facility] Comment on above: Performed By: #### T SH, BNP, CMP #### [facility] [address] [place] [address] Dr. Ketan Vallejo Neutrophils/100 WBC (Bld) 70.3 % Normal 43.0-75.0 [facility] Comment on above: Performed By: #### T SH, BNP, CMP #### [facility] [address] [place] [address] Dr. Ketan Vallejo Platelet mean volume (Bld) [Entitic vol] 9.6 fL Normal 9.5-13.5 [facility] Comment on above: Performed By: #### T SH, BNP, CMP #### [facility] [address] [place] [address] Dr. Ketan Vallejo PLT 152 103/ul Normal 150-450 [facility] Comment on above: Performed By: #### T SH, BNP, CMP #### [facility] [address] [place], [place] [address] Dr. Ketan Vallejo RBC 4.67 106/ul Critically low 4.70-6.10 [facility] Comment on above: Performed By: #### T SH, BNP, CMP #### [facility] [address] [place], [place] [address] Dr. Ketan Vallejo WBC 5.9 103/ul Normal 4.0-11.0 [facility] Comment on above: Performed By: #### T SH, BNP, CMP #### [facility] [address] [place], [place] [address] ABD/PELV W CONon 10-05-[address] ABD/PELV W CON CT ABDOMEN AND PELVI S WITH CONTRAST: INDICATION: Confusional state (disorder). COMPARISON: 08/03/2014. TECHNIQUE: Helical CT images of the abdomen and pelvis were obtained after the administration of intravenous contrast. Dose reduction techniques were achieved by using automated exposure control and/or adjustment of mA and/or kV according to patient size and/or use of iterative reconstruction technique. FINDINGS: LOWER CHEST: The visualized lung bases are clear. Small hiatal hernia. LIVER: The liver dome is excluded. No focal liver lesions are identified. GALLBLADDER AND BILIARY SYSTEM: Status post cholecystectomy. The common bile duct measures up to 7 mm which appears stable. No significant intrahepatic biliary ductal dilatation. SPLEEN: The spleen is enlarged measuring 13.2 cm in craniocaudal dimension. PANCREAS: Unremarkable. ADRENAL GLANDS: Unremarkable. KIDNEYS AND URETERS: Severe atrophy of the left kidney. There is no hydronephrosis. No focal renal lesions. BLADDER: Unremarkable. GASTROINTESTINAL TRACT: Status post right hemicolectomy. No evidence of bowel obstruction. Previously seen right cecal mass has been resected. VASCULATURE: Atherosclerotic calcification of the abdominal aorta without aneurysmal dilatation. The portal vein, SMV and splenic vein are patent. RETROPERITONEUM AND LYMPH NODES: No lymphadenopathy or mass. PERITONEUM/MESENTERY: No abdominal ascites. No free air. PELVIS: The prostate is markedly enlarged. Small bilateral fat-containing inguinal hernias. No pelvic ascites or lymphadenopathy. BODY WALL: There is a moderate supraumbilical ventral hernia containing fat and nonobstructed loops of small bowel. Additional moderate mid abdominal ventral hernia containing nonobstructed loops of small bowel and fat. Small upper abdominal ventral hernia containing fat. BONES: Multilevel degenerative changes of the lumbar spine. Moderate degenerative changes of the hips bilaterally. IMPRESSION: 1. Ventral hernias as described with 2 of the hernias containing nonobstructed small bowel loops. 2. Splenomegaly. 3. Severe atrophy of the left kidney. 4. Marked enlargement of the prostate. 5. Small hiatal hernia. Electronically authenticated by: ADAM CARVALHO Date: 2022-10-04 21:11 Normal The [facility] CT HEAD WO CONon 10-04-[address]22 CT HEAD WO CON CT head without cont rast CLINICAL: Confusional state (disorder) . TECHNIQUE: Contiguous transaxial images were obtained from skull base to vertex without administration of intravenous contrast. Dose reduction: mA and/or kV are were adjusted by automated exposure control software based upon patients height and weight. FINDINGS: There are no prior exams for comparison There is no focal scalp soft tissue swelling or acute calvarial fracture. The visualized globes and orbits are grossly normal. There is paranasal sinus mucosal thickening without air-fluid levels. There are postsurgical findings of prior partial left mastoidectomy with minimal partial opacification of residual left mastoid air cells and left middle ear cavity. There is also partial opacification of caudal right mastoid air cells. The ventricles and sulci are prominent bilaterally. There is mild periventricular and deep subcortical white matter low-attenuation. There is no intraparenchymal hemorrhage, extraaxial fluid collection, mass lesion, or acute large territory ischemia by noncontrast CT. There is intracranial atherosclerosis. IMPRESSION: 1. No acute intracranial hemorrhage or acute large territory ischemia by noncontrast CT. 2. Mild cerebral atrophy and chronic small vessel ischemic disease. 3. Chronic sinus disease. 4. Status post partial left mastoidectomy with minimal partial opacification of residual left mastoid air cells and left middle ear cavity. There is also partial opacification of caudal right mastoid air cells. If the patient has a focal neurologic deficit or there is clinical suspicion for acute cerebrovascular accident, brain MRI would be recommended for further evaluation. Electronically authenticated by: JUHI VILLALOBOS Date: 2022-10-04 16:32 Normal [facility] CULTURE BLOODon 10-04-2022 Microscopic examination of blood, culture Culture Observations: NO GROWTH AT 5 DAYS. Normal [facility] Comment on above: Performed By: #### T SH, BNP, CMP #### [facility] [address] [place] [address] Dr. Ketan Vallejo Covid-19 PCR ([facility])on 09-09 SARS-CoV-2 (COVID-19) RNA LUIS+probe Ql (Unsp spec) Not detected Normal NOT DETECTED [facility] Comment on above: Result Comment: This test is not yet approved or cleared by the [place] FDA. When there are no FDA-approved or cleared tests available, and other criteria are met, FDA can make tests available under an emergency access mechanism called an Emergency Use Authorization (EUA). The EUA for this test is supported by the [place] of Health and Human Service's (HHS's) declaration that circumstances exist to justify the emergency use of in vitro diagnostics for the detection and/or diagnosis of the virus that causes COVID-19. This EUA will remain in effect (meaning this test can be used) for the duration of the COVID-19 declaration justifying emergency of IVDs, unless it is terminated or revoked by FDA (after which the test may no longer be used). When diagnostic testing is negative, the possibility of a false negative should be considered in the context of a patient's recent exposures and the presence of clinical signs and symptoms consistent with SARS-CoV-2. Performed By: #### T SH, BNP, CMP #### [facility] [address] [place] [address] Dr. Ketan Vallejo DRUG SCREEN RAPID (URINE)on 10-04-2022 AMP Negative Normal NEGATIVE [facility] Comment on above: Performed By: #### T SH, BNP, CMP #### [facility] [address] [place] [address] Dr. Ketan Vallejo BAR Negative Normal NEGATIVE [facility] Comment on above: Performed By: #### T SH, BNP, CMP #### [facility] [address] [place] [address] Dr. Ketan Vallejo BUP Negative Normal NEGATIVE [facility] Comment on above: Performed By: #### T SH, BNP, CMP #### [facility] [address] [place] [address] Dr. Ketan Vallejo BZO Negative Normal NEGATIVE [facility] Comment on above: Performed By: #### T SH, BNP, CMP #### [facility] [address] [place] [address] Dr. Ketan Vallejo FANNY Negative Normal NEGATIVE [facility] Comment on above: Performed By: #### T SH, BNP, CMP #### [facility] [address] [place] [address] Dr. Ketan Vallejo CUT-OFFS SEE BELOW Normal [facility] Comment on above: Result Comment: AMP (Amphetamine): 500ng/mL, BAR (Barbituates): 200 ng/mL, BZO (Benzodiazepines): 150 ng/mL, BUP (Buprenorphine): 10 ng/mL, FANNY (Cocaine): 150 ng/mL, mAMP (Methamphetamine): 500 ng/mL, MTD (Methadone): 200 ng/mL, OPI (Opiates): 100 ng/mL, OXY (Oxycodone): 100 ng/mL, PCP (Phencyclidine): 25 ng/mL, PPX (Propoxyphene): 300 ng/mL, THC (Cannabinoids): 50 ng/mL, TCA (Trycyclic Antidepressants): 300 ng/mL Performed By: #### T SH, BNP, CMP #### [facility] [address] [place] [address] Dr. Ketan Vallejo DRUG CUT HEADER DRUG CLASS TEST SYST EM CUT-OFF CONCENTRATIONS ARE FOLLOWS: Normal [facility] Comment on above: Performed By: #### T SH, BNP, CMP #### [facility] [address] [place] [address] Dr. Ketan Vallejo mAMP Negative Normal NEGATIVE [facility] Comment on above: Performed By: #### T SH, BNP, CMP #### [facility] [address] [place] [address] Dr. Ketan Vallejo MTD Negative Normal NEGATIVE [facility] Comment on above: Performed By: #### T SH, BNP, CMP #### [facility] [address] [place] [address] Dr. Ketan Vallejo OPI Negative Normal NEGATIVE [facility] Comment on above: Performed By: #### T SH, BNP, CMP #### [facility] [address] [place] [address] Dr. Ketan Vallejo OXY Negative Normal NEGATIVE [facility] Comment on above: Performed By: #### T SH, BNP, CMP #### [facility] [address] [place] [address] Dr. Ketan Vallejo PCP Negative Normal NEGATIVE [facility] Comment on above: Performed By: #### T SH, BNP, CMP #### [facility] [address] [place] [address] Dr. Ketan Vallejo PPX Negative Normal NEGATIVE [facility] Comment on above: Performed By: #### T SH, BNP, CMP #### [facility] [address] [place] [address] Dr. Ketan Vallejo TCA Negative Normal NEGATIVE [facility] Comment on above: Performed By: #### T SH, BNP, CMP #### [facility] [address] [place] [address] Dr. Ketan Vallejo THC Negative Normal NEGATIVE [facility] Comment on above: Performed By: #### T SH, BNP, CMP #### [facility] [address] [place] [address] Dr. Ketan Vallejo ER URINE PROFILEon 3 Bilirubin Ql (U) Negative Normal NEGATIVE [facility] Comment on above: Performed By: #### C MADM #### [facility] [address] [place] [address] Dr. Ketan Vallejo Clarity (U) CLEAR Normal CLEAR [facility] Comment on above: Performed By: #### C MADM #### [facility] [address] [place] [address] Dr. Ketan Vallejo Color (U) YELLOW Normal YELLOW [facility] Comment on above: Performed By: #### C MADM #### [facility] [address] [place] [address] Dr. Ketan HOLLIDAY A micrscopic examina tion will be performed if indicated. Normal [facility] Comment on above: Performed By: #### C MADM #### [facility] [address] [place] [address] Dr. Ketan Vallejo Glucose Ql (U) Negative Normal NEGATIVE [facility] Comment on above: Performed By: #### C MADM #### [facility] [address] [place] [address] Dr. Ketan Vallejo Hemoglobin Ql (U) Negative Normal NEGATIVE [facility] Comment on above: Performed By: #### C MADM #### [facility] [address] [place] [address] Dr. Ketan Vallejo Ketones Ql (U) Negative Normal NEGATIVE [facility] Comment on above: Performed By: #### C MADM #### [facility] [address] [place] [address] Dr. Ketan Vallejo LEUKOCYTES Negative Normal NEGATIVE [facility] Comment on above: Performed By: #### C MADM #### [facility] [address] [place] [address] Dr. Ketan Vallejo Nitrite Ql (U) Positive Abnormal NEGATIVE [facility] Comment on above: Performed By: #### C MADM #### [facility] [address] [place] [address] Dr. Ketan Vallejo pH (U) 5.0 [pH] Normal 5-9 [facility] Comment on above: Performed By: #### C MADM #### [facility] [address] [place] [address] Dr. Ketan Vallejo Protein (U) [Mass/Vol] 30 mg/dL Abnormal NEGAT SAVI/ TRACE [facility] Comment on above: Performed By: #### C MADM #### [facility] [address] [place] [address] Dr. Ketan Vallejo SPEC GRAVITY >=1.030 Abnormal 1.005-<=1. 025 [facility] Comment on above: Performed By: #### C MADM #### [facility] [address] [place] [address] Dr. Ketan Vallejo UR MICRO IND INDICATED Normal [facility] Comment on above: Performed By: #### C MADM #### [facility] [address] [place] [address] Dr. Ketan Vallejo Urobilinogen Qn (U) 0.2 {Jose De Jesus'U}/dL Normal 0.2 - 1. 0 [facility] Comment on above: Performed By: #### C MADM #### [facility] [address] [place] [address] Dr. Ketan Vallejo ETHANOL (BLD ALC)on 10-05-19 23 ALC NOTE NOTE: 80 mg/dl is th e legal limit for a blood alcohol level Normal [facility] Comment on above: Performed By: #### C MADM #### [facility] [address] [place] [address] Dr. Ketan Vallejo Ethanol [Mass/Vol] mg/dL Normal [facility] Comment on above: Performed By: #### C MADM #### [facility] [address] [place] [address] Dr. Ketan Vallejo LACTATE/LACTIC ACIDon 2022 Lactate [Moles/Vol] 1.6 mmol/L Normal 0.4-2.0 [facility] Comment on above: Performed By: #### L ACT #### [facility] [address] [place] [address] Dr. Ketan Vallejo Lactate [Moles/Vol] 1.6 mmol/L Normal 0.4-2.0 [facility] Comment on above: Performed By: #### T SH, BNP, CMP #### [facility] [address] [place] [address] Dr. Ketan Vallejo POINT OF CARE GLUCOSEon 09-09 Glucose [Mass/Vol] 111 mg/dL Critically high 74-106 [facility] Comment on above: Performed By: #### T SH, BNP, CMP #### [facility] [address] [place] [address] Dr. Ketan Vallejo PROF 14(COMP METB)on 023 Albumin [Mass/Vol] 3.4 g/dL Normal 3.4-5.0 [facility] Comment on above: Performed By: #### T SH, BNP, CMP #### [facility] [address] [place] [address] Dr. Ketan Vallejo Albumin/Globulin [Mass ratio] 0.9 {ratio} Normal [facility] Comment on above: Performed By: #### T SH, BNP, CMP #### [facility] [address] [place] [address] [address] Ketan Vallejo ALP [Catalytic activity/Vol] 131 U/L Critically high 46-116 [facility] Comment on above: Performed By: #### T SH, BNP, CMP #### [facility] [address] [place] [address] Dr. Ketan Vallejo ALT [Catalytic activity/Vol] 25 U/L Normal 16-63 [facility] Comment on above: Performed By: #### T SH, BNP, CMP #### [facility] [address] [place] [address] Dr. Ketan Vallejo Anion gap [Moles/Vol] 15.7 mmol/L Normal [facility] Comment on above: Performed By: #### T SH, BNP, CMP #### [facility] [address] [place] [address] Dr. Ketan Vallejo AST [Catalytic activity/Vol] 25 U/L Normal 15-37 [facility] Comment on above: Performed By: #### T SH, BNP, CMP #### [facility] [address] [place] [address] Dr. Ketan Vallejo Bilirubin [Mass/Vol] 1.0 mg/dL Normal 0.2-1.0 [facility] Comment on above: Performed By: #### T SH, BNP, CMP #### [facility] [address] [place] [address] Dr. Ketan Vallejo Calcium [Mass/Vol] 9.4 mg/dL Normal 8.5-10.1 [facility] Comment on above: Performed By: #### T SH, BNP, CMP #### [facility] [address] [place] [address] Dr. Ketan Vallejo Chloride [Moles/Vol] 105 mmol/L Normal 98-107 [facility] Comment on above: Performed By: #### T SH, BNP, CMP #### [facility] [address] [place] [address] [address] Ketan Vallejo CO2 [Moles/Vol] 25.4 mmol/L Normal 21.0-32.0 [facility] Comment on above: Performed By: #### T SH, BNP, CMP #### [facility] [address] [place] [address] Dr. Ketan Vallejo Creatinine [Mass/Vol] 1.74 mg/dL Critically high 0.70-1.30 [facility] Comment on above: Performed By: #### T SH, BNP, CMP #### [facility] [address] [place] [address] Dr. Ketan Vallejo EGFR-AF [place] 46 mL/min/1.73m2 Critically low >=60 [facility] Comment on above: Performed By: #### T SH, BNP, CMP #### [facility] [address] [place] [address] Dr. Ketan Vallejo EGFR-NON AF [place] 38 mL/min/1.73m2 Critically low >=60 [facility] Comment on above: Performed By: #### T SH, BNP, CMP #### [facility] [address] [place] [address] Dr. Ketan Vallejo Globulin (S) [Mass/Vol] 3.8 g/dL Normal [facility] Comment on above: Performed By: #### T SH, BNP, CMP #### [facility] [address] [place] [address] Dr. Ketan Vallejo Glucose [Mass/Vol] 114 mg/dL Critically high 74-106 [facility] Comment on above: Performed By: #### T SH, BNP, CMP #### [facility] [address] [place] [address] Dr. Ketan Vallejo Potassium [Moles/Vol] 4.1 mmol/L Normal 3.5-5.1 [facility] Comment on above: Performed By: #### T SH, BNP, CMP #### [facility] [address] [place] [address] Dr. Ketan Vallejo Protein [Mass/Vol] 7.2 g/dL Normal 6.4-8.2 [facility] Comment on above: Performed By: #### T SH, BNP, CMP #### [facility] [address] [place] [address] Dr. Ketan Vallejo Sodium [Moles/Vol] 142 mmol/L Normal 136-145 [facility] Comment on above: Performed By: #### T SH, BNP, CMP #### [facility] [address] [place] [address] Dr. Ketan Vallejo Urea nitrogen [Mass/Vol] 18.0 mg/dL Normal 7.0-18.0 [facility] Comment on above: Performed By: #### T SH, BNP, CMP #### [facility] [address] [place] [address] Dr. Ketan Vallejo Urea nitrogen/Creatinine [Mass ratio] 10.3 mg/mg Normal [facility] Comment on above: Performed By: #### T MAGALI BNP, CMP #### [facility] [address] [place] [address] Dr. Keatn Vallejo PROTIMEon 10-04-2022 INR Coag (PPP) [Relative time] 0.97 {INR} Normal [facility] Comment on above: Performed By: #### T MAGALI BNP, CMP #### [facility] [address] [place] [address] Dr. Ketan Vallejo INR GUIDELINES SEE BELOW Normal [facility] Comment on above: Result Comment: SUSAN RED INR: 2.0 - 3.0 CONDITIONS NOT LISTED BELOW 2.5 - 3.5 FOR PROSTHETIC HEART VALVE REPLACEMENT 2.5 - 3.5 RECURRENT THROMBOSIS Performed By: #### T SH, BNP, CMP #### [facility] [address] [place] [address] Dr. Ketan Vallejo PT Coag (PPP) [Time] 10.3 s Normal 9.0-11.6 [facility] Comment on above: Performed By: #### T SH, BNP, CMP #### [facility] [address] [place] [address] Dr. Ketan Vallejo PTTon 10-04-2022 aPTT Coag (Bld) [Time] 25.0 s Normal 22.3-36.2 [facility] Comment on above: Performed By: #### T SH, BNP, CMP #### [facility] [address] [place] [address] Dr. Ketan Vallejo SYMPTOMATIC COVID-19 ANTIGEN on 10-04-2022 EUA Statement SEE BELOW Normal [facility] Comment on above: Result Comment: This test has not been FDA cleared or approved, but has been authorized by the FDA under an Emergency Use Authorization (EUA) for use by authorized laboratories certified under CLIA that meet the requirements to perform moderate or high complexity testing. This test has been authorized only for the detection of proteins from SARS-CoV-2, not for any other viruses or pathogens. The emergency use of this test is authorized for the duration of the declaration that circumstances exist justifying the authorization of emergency use of in vitro diagnostic tests for detection and/or diagnosis of Covid-19 under section 564(b)(1) of the Act, 21 U.S.C. 360bbb-3(b)(1), unless the declaration is terminated or authorization is revoked sooner. Performed By: #### C VDAGS #### [facility] [address] [place] [address] Dr. Ketan Vallejo SARS-CoV-2 (COVID-19) RNA LUIS+probe Ql (Unsp spec) Negative Normal NEGATIVE [facility] Comment on above: Performed By: #### C VDAGS #### [facility] [address] [place] [address] Dr. Ketan Vallejo TSHon 10-04-2022 TSH 2.454 uIU/mL Normal 0.358-3.74 0 [facility] Comment on above: Performed By: #### T SH, BNP, CMP #### [facility] [address] [place] [address] Dr. Ketan Vallejo URINE MICROSCOPIC ONLYon BACTERIA MODERATE Abnormal NONE SEEN The [facility] Comment on above: Performed By: #### C MADM #### [facility] [address] [place] [address] Dr. Ketan Vallejo Bacteria identified Cx Nom (U) INDICATED Normal The [facility] Comment on above: Performed By: #### C MADM #### [facility] [address] [place] [address] Dr. Ketan Vallejo CAST SEEN Abnormal NONE SEEN The [facility] Comment on above: Performed By: #### C MADM #### [facility] [address] [place] [address] Dr. Ketan Vallejo Crystals LM Nom (Urine sed) NONE SEEN Normal NONE SEEN The [facility] Comment on above: Performed By: #### C MADM #### [facility] [address] [place] [address] Dr. Ketan Vallejo Epithelial cells LM Ql (Urine sed) FEW Abnormal NONE SEEN /RARE The [facility] Comment on above: Performed By: #### C MADM #### [facility] [address] [place] [address] Dr. Ketan Vallejo HYALINE CAST MANY Normal The [facility] Comment on above: Performed By: #### C MADM #### [facility] [address] [place] [address] Dr. Ketan Vallejo MUCOUS TRACE Abnormal NONE SEEN The [facility] Comment on above: Performed By: #### C MADM #### [facility] [address] [place] [address] Dr. Ketan Vallejo RBC 2-5 Abnormal 0-2 The [facility] Comment on above: Performed By: #### C MADM #### [facility] [address] [place] [address] Dr. Ketan Vallejo WBC 2-5 Abnormal NONE SEEN The [facility] Comment on above: Performed By: #### C MADM #### [facility] [address] [place] [address] Dr. Ketan Vallejo XR CHEST 1 Von 10-04-2022 XR CHEST 1 V EXAM: Chest x-ray HISTORY: . Confusional state (disorder) . COMPARISON: None. TECHNIQUE: Single view of the chest FINDINGS: Heart and vascularity are unremarkable. Lungs are free of focal infiltrates. Atherosclerotic changes of the thoracic aorta are noted. IMPRESSION: No acute heart or lung disease identified. Electronically authenticated by: DONAVAN HCOWDARY Date: 2022-10-04 16:50 Normal [facility] Carotid Artery Dupl ex Ultrasounon 02-28-2022 VASC LAB Carotid Artery Duplex Ultrasoun [address], [address], [place] [address] Vascular Lab Report Carotid Artery Duplex Ultrasound Patient Name: JAYDEN CARTER Reading Physician: [id number] Amy Adorno MD, [facility] Study Date: 02/28/2022 Referring JIGNESH BHATT Physician: MRN/PID: [id number] PCP: Accession/Order#: [id number] CC Report to: Date of : 1940 Technologist: Kimberly Simms RDCS, RVT Gender: M Technologist 2: Admission Status: Outpatient Location Performed: [facility] Diagnosis/ICD: R09.89-Other specified symptoms and signs involving the circulatory and respiratory systems Indication: HTN, CAD, [place] and PTCA-2019, Overweight Procedure/CPT: 28351 Cerebrovascular Carotid Duplex scan complete-[id number] CONCLUSIONS: Right Carotid: Findings are consistent with less than 50% stenosis of the right proximal ICA. Laminar flow seen by color Doppler. There are elevated velocities in the right ECA that are suggestive of disease. No evidence of hemodynamically significant stenosis of the right common carotid artery. The right vertebral artery is patent with antegrade flow. No changes since 2019. Left Carotid: Findings are consistent with less than 50% stenosis of the left proximal ICA. Laminar flow seen by color Doppler. Left external carotid artery appears patent with no evidence of stenosis. No evidence of hemodynamically significant stenosis of the left common carotid artery. The left vertebral artery is patent with antegrade flow. No changes since 2019. Imaging AND Doppler Findings: Right Plaque Morph: The proximal right external carotid artery demonstrates irregular and calcified plaque. The distal right common carotid artery demonstrates irregular and heterogenous plaque. Left Plaque Morph: The proximal left internal carotid artery demonstrates homogenous and irregular plaque. The distal left common carotid artery demonstrates irregular and calcified plaque. Right Left PSV EDV PSV EDV 66 cm/s 14 cm/s CCA P 82 cm/s 17 cm/s 94 cm/s 25 cm/s CCA M 95 cm/s 21 cm/s 75 cm/s 15 cm/s CCA D 100 cm/s 17 cm/s 97 cm/s 27 cm/s ICA P 61 cm/s 18 cm/s 112 cm/s 28 cm/s ICA M 76 cm/s 24 cm/s 115 cm/s 34 cm/s ICA D 109 cm/s 27 cm/s 129 cm/s ECA 82 cm/s 52 cm/s Vertebral 43 cm/s Right Left ICA/CCA Ratio 1.3 0.6 [id number] Amy Adorno MD, FACC Final Normal [facility] VASC LAB Carotid Artery Dupl ex Ultrasoundon 02-28-2022 US.doppler Carotid arteries -[facility] [place] 250 DO Work Phone: LIPID PROFILEon 01-24-2022 CHOL-HDL RATIO NORM SEE BELOW Normal [facility] Comment on above: Result Comment: 3.3 - 4.4 LOW RISK 4.4 - 7.1 AVERAGE RISK 7.1 - 11.0 MODERATE RISK >11.0 HIGH RISK Performed By: #### L IPID #### [facility] [address] [place] [address] Dr. Ketan Vallejo Cholesterol [Mass/Vol] 128 mg/dL Normal <=200 Th [facility] Comment on above: Performed By: #### L IPID #### [facility] [address] [place] [address] Dr. Ketan Vallejo Cholesterol in HDL [Mass/Vol] 36 mg/dL Critically low 40-60 [facility] Comment on above: Performed By: #### L IPID #### [facility] [address] [place] [address] [address] Ketan Vallejo Cholesterol in LDL [Mass/Vol] 59.4 mg/dL Normal [facility] Comment on above: Performed By: #### L IPID #### [facility] [address] [place] [address] [address] Ketan Vallejo Cholesterol.total/Chol esterol in HDL [Mass ratio] 3.6 {ratio} Normal [facility] Comment on above: Performed By: #### L IPID #### [facility] [address] [place] [address] Dr. Ketan Vallejo HDL NORMAL > or = 60 mg/dl - LO W CARDIOVASCULAR RISK <40 mg/dl - HIGH CARDIOVASCULAR RISK Normal The [facility] Comment on above: Performed By: #### L IPID #### [facility] [address] [place] [address] [address] Ketan Vallejo LDL CALC NORMAL SEE BELOW Normal [facility] Comment on above: Result Comment: <100 mg/dl OPTIMAL 100 - 129 mg/dl NEAR OR ABOVE OPTIMAL 130 - 159 mg/dl BORDERLINE HIGH 160 - 189 mg/dl HIGH >190 mg/dl VERY HIGH Performed By: #### L IPID #### [facility] [address] [place] [address] [address] Ketan Vallejo Triglyceride [Mass/Vol] 163 mg/dL Critically high <=150 [facility] Comment on above: Performed By: #### L IPID #### [facility] [address] [place] [address] [address] Ketan Vallejo VLDL CALC 32.6 mg/dL Normal The [facility] Comment on above: Performed By: #### L IPID #### [facility] [address] [place] [address] [address] Ketan Vallejo Tobacco Screening.on 022 Adult depression screening assessment No [facility] kevin [address] DO Work Phone: Fall risk assessment a) No falls within the last year [facility] kevin 250 DO Work Phone: Tobacco use status CP b) No [facility] ke[facility] 250 DO Work Phone: Tobacco Screening.on 021 Fall risk assessment a) No falls within the last year [facility] kevin 250 DO Work Phone: Tobacco use status CPHS b) No [facility] kevin 250 DO Work Phone: Vital Signs Date Time Vital Sign Value Performing Clinician Facility 06-30-2024 15:24-0500 Body height 172.7 cm Virgil Carrero STAFF [employer] OFFICER[employer]OR Work Phone: [facility] 06-30-2024 15:24-0500 Body mass index (BMI) [Ratio] 25.24 kg/m2 Virgil Carrero STAFF [employer] OFFICER-[employer] AMBASS[employer]OR Work Phone: [facility] 06-30-2024 15:24-0500 Body weight 75.3 kg Virgil Carrero STAFF [employer] OFFICER-[employer]OR Work Phone: [facility] 06-30-2024 15:24-0500 Diastolic blood pressure 60 mm[Hg] Virgil Carrero STAFF [employer] OFFICER-[employer] AMBASS[employer]OR Work Phone: [facility] 06-30-2024 15:24-0500 Heart rate 60 /min Virgil Carrero STAFF [employer] OFFICER-[employer]OR Work Phone: [facility] 06-30-2024 15:24-0500 Systolic blood pressure 132 mm[Hg] Virgil Carrero STAFF [employer] OFFICER-[employer] AMBASS[employer]OR Work Phone: [facility] 05-21-2024 11:49-0500 Body temperature 97.9 [degF] Kermit Clements MD Work Phone: [facility] 05-21-2024 11:02-0500 Diastolic blood pressure 61 mm[Hg] Kermit Clements MD Work Phone: [facility] 05-21-2024 11:02-0500 Heart rate 99 /min Kermit Clements MD Work Phone: [facility] 05-21-2024 11:02-0500 SaO2% (BldA) [Mass fraction] 99 % Kermit Clements MD Work Phone: [facility] 05-21-2024 11:02-0500 Systolic blood pressure 116 mm[Hg] Kermit Clements MD Work Phone: [facility] 05-21-2024 11:00-0500 Respiratory rate 26 /min Kermit Clements MD Work Phone: [facility] 05-21-2024 06:00-0500 Body mass index (BMI) [Ratio] 25.18 kg/m2 Kermit Clements MD Work Phone: [facility] 05-21-2024 06:00-0500 Body weight 74.5 kg Kermit Clements MD Work Phone: [facility] 05-19-2024 23:09-0500 Body height 172 cm Kermit Clements MD Work Phone: [facility] 05-19-2024 10:55-0500 Body height [address] [facility] 1 [facility] 05-19-2024 10:55-0500 Body mass index (BMI) [Ratio] 25.01 kg/m2 [facility] 1 [facility] 05-19-2024 10:55-0500 Body weight [address] 04-15-2024 10:41-0500 Body height 172.7 cm Kermit Clements MD Work Phone: [facility] 04-15-2024 10:41-0500 Body mass index (BMI) [Ratio] 24.81 kg/m2 Kermit Clements MD Work Phone: [facility] 04-15-2024 10:41-0500 Body weight 74.03 kg Kermit Clements MD Work Phone: [facility] 04-15-2024 10:41-0500 Diastolic blood pressure 67 mm[Hg] Kermit Clements MD Work Phone: [facility] 04-15-2024 10:41-0500 Heart rate 64 /min Kermit Clements MD Work Phone: [facility] 04-15-2024 10:41-0500 SaO2% (BldA) [Mass fraction] 96 % Kermit Clements MD Work Phone: [facility] 04-15-2024 10:41-0500 Systolic blood pressure 115 mm[Hg] Kemrit Clements MD Work Phone: [facility] 04-02-2024 17:47-0400 Diastolic blood pressure 52 mm[Hg] MD Anthony Moran Work Phone: [facility] 04-02-2024 17:47-0400 Heart rate 53 /min MD Anthony Moran Work Phone: [facility] 04-02-2024 17:47-0400 Respiratory rate 16 /min MD Anthony Moran Work Phone: [facility] 04-02-2024 17:47-0400 SaO2% (BldA) [Mass fraction] 97 % MD Anthony Moran Work Phone: [facility] 04-02-2024 17:47-0400 Systolic blood pressure 113 mm[Hg] MD Anthony Moran Work Phone: [facility] 04-02-2024 12:38-0400 Body height 172.72 cm MD Anthony Moran Work Phone: [facility] 04-02-2024 12:38-0400 Body temperature 98 [degF] MD Anthony Moran Work Phone: [facility] 04-02-2024 12:38-0400 Body weight 74 kg MD Anthony Moran Work Phone: [facility] 03-23-2024 15:06-0400 Body height 172.7 cm Jignesh Bhatt DO Work Phone: [facility] 03-23-2024 15:06-0400 Body mass index (BMI) [Ratio] 25.7 kg/m2 Jignesh Bhatt DO Work Phone: [facility] 03-23-2024 15:06-0400 Body weight 76.66 kg Jignesh Bhatt DO Work Phone: [facility] 03-23-2024 15:06-0400 Diastolic blood pressure 68 mm[Hg] Jignesh Bhatt DO Work Phone: [facility] 03-23-2024 15:06-0400 Heart rate 64 /min Jignesh Bhatt DO Work Phone: [facility] 03-23-2024 15:06-0400 Systolic blood pressure 144 mm[Hg] Jigensh Bhatt DO Work Phone: [facility] 03-09-2024 08:50-0400 Body height 172.[address] 03-09-2024 08:50-0400 Body mass index (BMI) [Ratio] 25.39 kg/m2 [address] 03-09-2024 08:50-0400 Body weight 75.[address] 03-09-2024 08:50-0400 Diastolic blood pressure 80 mm[Hg] [address] 03-09-2024 08:50-0400 Systolic blood pressure 152 mm[Hg] [address] 02-04-2024 13:26-0400 Blood Pressure Location МАРИНА LOCK [facility] 02-04-2024 13:26-0400 Diastolic blood pressure 76 mm[Hg] МАРИНА LOCK [facility] 02-04-2024 13:26-0400 Heart rate 62 /min МАРИНА LOCK [facility] 02-04-2024 13:26-0400 Systolic blood pressure 140 mm[Hg] МАРИНА LOCK [facility] 01-29-2024 09:28-0400 Diastolic blood pressure 78 mm[Hg] Jignesh Bhatt DO Work Phone: [facility] 01-29-2024 09:28-0400 Systolic blood pressure 160 mm[Hg] Jignesh Bhatt DO Work Phone: [facility] 01-29-2024 08:42-0400 Body height 172.7 cm Jignesh Bhatt DO Work Phone: [facility] 01-29-2024 08:42-0400 Body mass index (BMI) [Ratio] 25.39 kg/m2 Jignesh Bhatt DO Work Phone: [facility] 01-29-2024 08:42-0400 Body weight 75.75 kg Jignesh Bhatt DO Work Phone: [facility] 01-29-2024 08:42-0400 Heart rate 72 /min Jignesh Bhatt DO Work Phone: [facility] 02-19-2023 09:41-0400 Diastolic blood pressure 72 mm[Hg] Referring Provider Unknown [facility]-Daniel 250 DO Work Phone: 02-19-2023 09:41-0400 Systolic blood pressure 152 mm[Hg] Referring Provider Unknown [facility] 250 DO Work Phone: 02-19-2023 09:40-0400 Body height 172.72 cm Referring Provider Unknown [facility]Daniel 250 DO Work Phone: 02-19-2023 09:40-0400 Body mass index (BMI) [Ratio] 25.54 kg/m2 Referring Provider Unknown [facility] 250 DO Work Phone: 02-19-2023 09:40-0400 Body surface area Derived from formula 1.9 m2 Referring Provider Unknown [facility] 250 DO Work Phone: 02-19-2023 09:40-0400 Body weight 76.2 kg Referring Provider Unknown [facility] 250 DO Work Phone: 02-19-2023 09:40-0400 Diastolic blood pressure 80 mm[Hg] Referring Provider Unknown [facility] 250 DO Work Phone: 02-19-2023 09:40-0400 Heart rate 54 /min Referring Provider Unknown [facility] 250 DO Work Phone: 02-19-2023 09:40-0400 Systolic blood pressure 158 mm[Hg] Referring Provider Unknown [facility] 250 DO Work Phone: 01-23-2023 09:27-0400 Diastolic blood pressure 70 mm[Hg] Referring Provider Unknown [facility] 250 DO Work Phone: 01-23-2023 09:27-0400 Systolic blood pressure 160 mm[Hg] Referring Provider Unknown [facility] 250 DO Work Phone: 01-23-2023 09:06-0400 Body height 172.72 cm Referring Provider Unknown [facility] 250 DO Work Phone: 01-23-2023 09:06-0400 Body mass index (BMI) [Ratio] 25.39 kg/m2 Referring Provider Unknown [facility] 250 DO Work Phone: 01-23-2023 09:06-0400 Body surface area Derived from formula 1.89 m2 Referring Provider Unknown [facility] 250 DO Work Phone: 01-23-2023 09:06-0400 Body weight 75.75 kg Referring Provider Unknown [facility] 250 DO Work Phone: 01-23-2023 09:06-0400 Diastolic blood pressure 60 mm[Hg] Referring Provider Unknown [facility] 250 DO Work Phone: 01-23-2023 09:06-0400 Heart rate 60 /min Referring Provider Unknown [facility] 250 DO Work Phone: 01-23-2023 09:06-0400 Systolic blood pressure 152 mm[Hg] Referring Provider Unknown [facility] 250 DO Work Phone: 11-14-2022 09:07-0400 Blood Pressure Location Benita Chahal [facility] 11-14-2022 09:07-0400 Diastolic blood pressure 74 mm[Hg] Benita Lue [facility] 11-14-2022 09:07-0400 Heart rate 60 /min Benita Lue [facility] 11-14-2022 09:07-0400 Systolic blood pressure 150 mm[Hg] Benita Lue [facility] 01-23-2022 15:38-0400 Body height 172.72 cm Referring Provider Unknown [facility] 250 DO Work Phone: 01-23-2022 15:38-0400 Body mass index (BMI) [Ratio] 25.85 kg/m2 Referring Provider Unknown [facility] 250 DO Work Phone: 01-23-2022 15:38-0400 Body surface area Derived from formula 1.91 m2 Referring Provider Unknown [facility] 250 DO Work Phone: 01-23-2022 15:38-0400 Body weight 77.11 kg Referring Provider Unknown [facility] 250 DO Work Phone: 01-23-2022 15:38-0400 Diastolic blood pressure 78 mm[Hg] Referring Provider Unknown [facility] 250 DO Work Phone: 01-23-2022 15:38-0400 Heart rate 68 /min Referring Provider Unknown [facility] 250 DO Work Phone: 01-23-2022 15:38-0400 Systolic blood pressure 140 mm[Hg] Referring Provider Unknown [facility] 250 DO Work Phone: 05-17-2021 10:11-0500 Body height 172.72 cm No PCP None [facility] 250 DO Work Phone: 05-17-2021 10:11-0500 Body mass index (BMI) [Ratio] 23.87 kg/m2 No PCP None [facility] 250 DO Work Phone: 05-17-2021 10:11-0500 Body surface area Derived from formula 1.84 m2 No PCP None [facility] 250 DO Work Phone: 05-17-2021 10:11-0500 Body weight 71.22 kg No PCP None [facility] 250 DO Work Phone: 05-17-2021 10:11-0500 Diastolic blood pressure 72 mm[Hg] No PCP None [facility] 250 DO Work Phone: 05-17-2021 10:11-0500 Heart rate 72 /min No PCP None [facility] 250 DO Work Phone: 05-17-2021 10:11-0500 Systolic blood pressure 138 mm[Hg] No PCP None [facility] 250 DO Work Phone: 04-27-2021 15:00-0500 Body height 172.72 cm Minesh Carlin Other [employer] Other 04-27-2021 15:00-0500 Body mass index (BMI) [Ratio] 24.14 kg/m2 Minesh Manxa Other [employer] Other 04-27-2021 15:00-0500 Body weight 72.03 kg Minesh Olexa Other [employer] Other Encounters Encounter Date Encounter Type Care Provider Facility Start: 08-17-2024 End: 08-17-2024 Subsequent hospital visit by physician Melissa Nunez Echo/Vasc Room 2 [facility] Comment on above: S/P TAVR (transcathe ter aortic valve replacement) Start: 08-17-2024 End: 08-17-2024 ambulatory [facility] Start: 07-13-2024 End: 07-13-2024 ambulatory [facility] Facility:[facility] Start: 07-13-2024 Non-patient / Non-visit [facility] Start: 06-30-2024 End: 06-30-2024 Office outpatient visit 25 minutes Virgil Carrero STAFF [employer] OFFICER-[employer] AMBASSADOR Work Phone: [facility] Comment on above: S/P TAVR (transcathe ter aortic valve replacement) (Primary Dx); S/P placement of cardiac pacemaker; Atherosclerosis of [place] coronary artery of [place] heart without angina pectoris; Mixed hyperlipidemia; Primary hypertension; BMI 25.0-25.9,adult; Complete heart block Start: 06-30-2024 End: 06-30-2024 ambulatory [facility] Start: 06-02-2024 End: 06-02-2024 ambulatory [facility] Start: 05-28-2024 End: 05-28-2024 Subsequent hospital visit by physician Jessie [facility] Comment on above: Presence of cardiac pacemaker; Atrioventricular block, complete (Multi) Start: 05-28-2024 End: 05-28-2024 ambulatory [facility] Start: 05-19-2024 End: 05-19-2024 Patient encounter status [address] Work Phone: Start: 05-19-2024 End: 05-19-2024 Subsequent hospital visit by physician [facility] Comment on above: Research exam Start: 05-19-2024 End: 05-19-2024 Patient encounter procedure KERMIT CLEMENTS [facility] Start: 05-19-2024 End: 05-21-2024 Evaluation and management of inpatient Kermit Clements MD Work Phone: [facility] Comment on above: S/P TAVR (transcathe ter aortic valve replacement) (Primary Dx); Nonrheumatic aortic valve stenosis; AV block, postoperative; Primary hypertension; S/P placement of cardiac pacemaker Start: 04-15-2024 End: 04-15-2024 ambulatory CAROLE cOtavio HOUSTON [facility] Start: 04-15-2024 End: 04-15-2024 Subsequent hospital visit by physician Martina Last [facility] 1 [facility] Comment on above: Nonrheumatic aortic valve stenosis Start: 04-15-2024 End: 04-15-2024 Office outpatient new 60 minutes Jomar Rolon MD Work Phone: [facility] [address] Comment on above: Valvular heart disea se; Aortic valve stenosis, etiology of cardiac valve disease unspecified Start: 04-15-2024 End: 04-15-2024 Office outpatient new 45 minutes Kermit Clements MD Work Phone: [facility] [address] Comment on above: Nonrheumatic aortic valve stenosis (Primary Dx) Start: 04-15-2024 End: 04-15-2024 ambulatory JOMAR ROLON [facility] Start: 04-02-2024 End: 04-02-2024 Admission to same day surgery center MD Anthony Moran Work Phone: [facility] Work Phone: Start: 04-02-2024 End: 04-02-2024 ambulatory MD Anthony Moran Work Phone: [facility] Work Phone: Start: 03-31-2024 End: 03-31-2024 Patient encounter procedure MD Anthony Moran Work Phone: [facility] Work Phone: Start: 03-31-2024 End: 03-31-2024 ambulatory MD Anthony Moran Work Phone: [facility] Work Phone: Start: 03-31-2024 Encounter for preprocedural laboratory examination Scott Bhatt [facility] Start: 03-23-2024 End: 03-23-2024 ambulatory JIGNESH Whiting MILLER [facility] Ambulatory Start: 03-23-2024 End: 03-23-2024 Office outpatient visit 40 minutes Jignesh Bhatt Work Phone: [facility] Comment on above: Atherosclerosis of n ative coronary artery of [place] heart without angina pectoris; Aortic valve stenosis, etiology of cardiac valve disease unspecified; History of WA (myocardial infarction); History of PTCA; Primary hypertension; Mixed hyperlipidemia; BMI 25.0-25.9,adult; Never smoked tobacco Start: 03-09-2024 End: 03-09-2024 ambulatory [facility] Start: 03-09-2024 End: 03-09-2024 Subsequent hospital visit by physician Melissa Nunez Echo/Vasc Room 2 [facility] Comment on above: Atherosclerosis of n ative coronary artery of [place] heart without angina pectoris; History of WA (myocardial infarction); History of PTCA; Primary hypertension Start: 02-04-2024 End: 02-04-2024 ambulatory МАРИНА LOCK Facility:[facility] Start: 02-04-2024 End: 02-04-2024 Patient encounter procedure МАРИНА LOCK [facility] Start: 01-29-2024 End: 01-29-2024 Office outpatient visit 25 minutes Jignesh Bhatt DO Work Phone: [facility] Comment on above: Atherosclerosis of n ative coronary artery of [place] heart without angina pectoris; History of WA (myocardial infarction); History of PTCA; Primary hypertension; Mixed hyperlipidemia; BMI 25.0-25.9,adult Start: 01-29-2024 End: 01-29-2024 ambulatory [facility] Ambulatory Start: 02-19-2023 Office outpatient vi sit 5 minutes Referring Provider Unknown [facility] 250 DO Work Phone: Start: 01-23-2023 Office outpatient vi sit 25 minutes Referring Provider Unknown [facility] 250 DO Work Phone: Start: 11-14-2022 End: 11-14-2022 Patient encounter procedure Benita M. Lue [facility] Christina Start: 10-11-2022 End: 10-12-2022 ambulatory DEVAUGHN BARROW Facility:[facility]1 Start: 10-05-2022 End: 10-07-2022 Evaluation and management of inpatient DEVAUGHN BARROW Facility:[facility] Start: 06-13-2022 Rx Renewal Referring Prov ider Unknown -[facility] 600 DO Work Phone: Start: 03-02-2022 Chart Update Referring Prov ider Unknown -[facility] 250 DO Work Phone: Start: 02-28-[address] Jignesh Bhatt Fac ility:[id number] Start: 02-27-2022 AUDIT Referring Prov ider Unknown -[facility] 250 DO Work Phone: Start: 01-24-2022 End: 01-25-2022 ambulatory DEVAUGHN BARROW Facility:[facility]1 Start: 01-23-2022 Office outpatient vi sit 15 minutes Referring Provider Unknown -[facility] 250 DO Work Phone: Start: 11-09-2021 Rx Renewal No PCP None -[facility]io [facility]-[place] 250 DO Work Phone: Start: 06-28-2021 Rx Renewal No PCP None -[facility] 250 DO Work Phone: Start: 06-13-2021 Rx Renewal No PCP None -[facility] 250 DO Work Phone: Start: 04-27-2021 End: 04-27-2021 ambulatory Minesh Carlin Other [employer] Other Start: 04-27-2021 Office outpatient ne w 30 minutes Minesh Carlin [facility] [place] [facility] Start: 04-19-2021 FUV, Provider: Virgil Barron, Status: Pen, Time: 10:00 AM Isak Sorto Work Phone: [facility] 250 DO Work Phone: Start: 04-17-2021 AUDIT Isak Sorto Work Phone: [facility] 250 DO Work Phone: Procedures Date Procedure Procedure Detail Performing Clinician Start: 08-17-2024 Echo tthrc r-t 2d w/wom-mode compl spec&colr d Virgil Carrero STAFF [employer] OFFICER-[employer]BASSADOR Work Phone: Start: 05-21-2024 Radiologic exam chest 2 views Tip Matthews MD Work Phone: Start: 05-21-2024 Ecg routine ecg w/least 12 lds trcg only w/o i&r Sallie Boo MD Work Phone: Start: 05-21-2024 CARDIAC DEVICE CHECK CHECK - INPATIENT Luis Bates MD Work Phone: Start: 05-21-2024 Ecg routine ecg w/least 12 lds trcg only w/o i&r Tip Matthews MD Work Phone: Start: 05-21-2024 Basic metabolic panel calcium total Tip Matthews MD Work Phone: Start: 05-20-2024 Electrophysiology study Peter Pierce do, MD Work Phone: Start: 05-20-2024 Glucose quantitative blood xcpt reagent strip Peter Zheng MD Work Phone: Start: 05-20-2024 Ecg routine ecg w/least 12 lds trcg only w/o i&r Sallie Boo MD Work Phone: Start: 05-20-2024 Ecg routine ecg w/least 12 lds trcg only w/o i&r Tip Matthews MD Work Phone: Start: 05-20-2024 Echo transthorc r-t 2d w/wo m-mode rec f-up/lmtd Janicemarcia Ponce STAFF [employer] OFFICER-[employer] AMBASSADOR Work Phone: Start: 05-20-2024 Basic metabolic panel calcium total Tip Matthews MD Work Phone: Start: 05-19-2024 Basic metabolic panel calcium total Yulia Murcia MD Work Phone: Start: 05-19-2024 Radiologic exam chest single view Janice Ponce STAFF [employer] OFFICER-[employer] AMBASSADOR Work Phone: Start: 05-19-2024 PULSE OXIMETRY, CONTINUOUS Yulia Murcia MD Work Phone: Start: 05-19-2024 Ecg routine ecg w/least 12 lds trcg only w/o i&r Janice Ponce STAFF [employer] OFFICER-[employer]ADOR Work Phone: Start: 05-19-2024 Echo transthorc r-t 2d w/wo m-mode rec f-up/lmtd Janice Ponce STAFF [employer] OFFICER[employer] AMBASSADOR Work Phone: Start: 05-19-2024 Cardiac catheterization study Kermit Clements MD Work Phone: Start: 05-19-2024 End: 05-19-2024 Coagulation time activated Interface Unspecifiedprovider Work Phone: Start: 05-19-2024 End: 05-19-2024 TAVR-OR Jomar Rolon MD Work Phone: Start: 05-19-2024 Blood typing serologic rh (d) Blaire A Arturo STAFF [employer] OFFICER-[employer]BASSADOR Work Phone: Start: 05-19-2024 Ecg routine ecg w/least 12 lds trcg only w/o i&r Tip Matthews MD Work Phone: Start: 05-19-2024 Cardiac mri w/wo contrast & further seq Kermit Clements MD Work Phone: Start: 04-15-2024 Ct angiography chest w/contrast/noncontrast Carole Houston STAFF [employer] OFFICER-[employer]AND AMBASSADOR Work Phone: Start: 04-02-2024 CL [facility] COR Angio MD Anthony Moran Work Phone: Start: 03-09-2024 Echo tthrc r-t 2d w/wom-mode compl spec&colr d Jignesh Bhatt DO Work Phone: Start: 03-29-2023 History of percutaneous transluminal coronary angioplasty History of PTCA Jignesh Bhatt DO Work Phone: Start: 02-22-2020 Transrectal biopsy of prostate using ultrasound guidance Benita Chahal Start: 06-23-2019 Lipid 1996 panel - Serum or Plasma Jignesh Bhatt DO Work Phone: Start: 09-27-2014 Bone marrow sampling Benita Chahal Comment on above: No morphologic evidence of lymphoma mild leukopenia and mild thrombocytopenia Start: 08-16-2014 Polyp of colon (disorder) Benita Chahal Comment on above: 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 Start: 06-10-2009 Cholecystocecostomy Benita Chahal Cardiac catheterization Isak Sorto Work Phone: Comment on above: x5; Cholecystectomy Isak Sorto Work Phone: Colonoscopy Isak Sorto Work Phone: Comment on above: 10Mar2020; History of percutane ous transluminal coronary angioplasty History of PTCA Isak Sorto Work Phone: History of percutane ous transluminal coronary angioplasty History of PTCA Jignesh Bhatt DO Work Phone: History of percutane ous transluminal coronary angioplasty History of PTCA Jignesh Whtiing Miller Work Phone: History of percutane ous transluminal coronary angioplasty History of PTCA Melissa 2 Operation on colon Isak alvarado Work Phone: Placement of stent i n cardiac conduit МАРИНА LOCK Comment on above: 5 stents Plan of Treatment Date Care Activity Detail Author Start: 05-19-2025 End: 05-19-2025 Patient encounter procedure 05/19/2025 8:15 AM EST Appointment [facility] [address] [place] [id number] [facility] Start: 02-02-2025 End: 02-02-2025 Patient encounter procedure 02/02/2025 9:00 AM EDT Office Visit [facility] [address] [place] [address] Jignesh Bhatt DO [address] [place] [address] [facility] Start: 08-17-2024 End: 08-17-2024 Patient encounter procedure 08/17/2024 12:30 PM EDT Appointment [facility] [address] [place] [address] [facility] Start: 06-30-2024 End: 06-30-2026 Heart Transthoracic Transthoracic Echo Complete Echocardiography Routine S/P TAVR (transcatheter aortic valve replacement) Expected: 06/30/2024 (Approximate), Expires: 06/30/2026 [facility] Service Area Work Phone: Comment on above: Expected: 06/30/2024 (Approximate), Expi res: 06/30/2026 Start: 06-23-2024 Lipid panel Lipid Panel [facility] Start: 06-19-2024 End: 06-19-2024 Patient encounter procedure 06/19/2024 2:00 PM EST Appointment [facility] [address] [place] [id number] [facility] Start: 06-19-2024 Subsequent hospital visit by physician 06/19/2024 2:00 PM EST Hospital Encounter [facility] [address] [place] [id number] [facility] Start: 06-10-2024 End: 05-18-2025 US Heart Transthoracic Transthoracic Echo (TTE) Complete Echocardiography Routine S/P TAVR (transcatheter aortic valve replacement) Expected: 06/10/2024, Expires: 05/18/2025 [facility] Service Area Work Phone: Comment on above: Expected: 06/10/2024, Expires: Start: 05-25-2024 End: 05-18-2025 Basic metabolic 2000 panel - Serum or Plasma Basic Metabolic Panel Lab Routine S/P TAVR (transcatheter aortic valve replacement) Expected: 05/25/2024 (Approximate), Expires: 05/18/2025 [facility] Work Phone: Comment on above: Expected: 05/25/2024 (Approximate), Expi res: 05/18/2025 Start: 05-25-2024 End: 05-18-2025 CBC panel - Blood by Automated count CBC Lab Routine S/P TAVR (transcatheter aortic valve replacement) Expected: 05/25/2024 (Approximate), Expires: 05/18/2025 [facility] Work Phone: Comment on above: Expected: 05/25/2024 (Approximate), Expi res: 05/18/2025 Start: 05-19-2024 End: 05-19-2024 Admission to same day surgery center 05/19/2024 3:00 PM EST - 05/19/2024 5:30 PM EST Surgery [facility] [address] [facility] [address] [place] [address] [place] [address] [place] [address] TAVR (Transcatheter AV Replacement) [17897 (CPT )] [facility] Lane Comment on above: TAVR (Transcatheter AV Replacement) [333 61 (CPT )] Start: 05-19-2024 Subsequent hospital visit by physician 05/19/2024 3:00 PM EST Hospital Encounter [facility] [address] [place] [address] [place] [address] [place] [address] Nonrheumatic aortic valve stenosis [facility] [address] Comment on above: Nonrheumatic aortic valve stenosis Start: 05-19-2024 End: 05-19-2024 TAVR-OR TAVR-OR Nonrheumatic aortic valve stenosis 05/19/2024 3:00 PM EST [facility] Work Phone: Start: 05-19-2024 End: 05-19-2024 Patient encounter procedure 05/19/2024 10:15 AM EST Appointment [facility] [address] [place] [address] [facility] Start: 04-02-2024 [facility] Start: 03-23-2024 End: 03-23-2026 Cardiac Catheterization - Onbase Scan Cardiac Catheterization - Onbase Scan Cardiac Cath Routine Atherosclerosis of [place] coronary artery of [place] heart without angina pectoris Aortic valve stenosis, etiology of cardiac valve disease unspecified History of WA (myocardial infarction) History of PTCA Expected: 03/23/2024 (Approximate), Expires: 03/23/2026 [facility] Service Area Work Phone: Comment on above: Expected: 03/23/2024 (Approximate), Expi res: 03/23/2026 Start: 02-09-2024 COVID-19 Vaccine ( season) COVID-19 Vaccine () [facility] Start: 02-09-2024 COVID-19 Vaccine () COVID-19 Vaccine ( season) [facility] Start: 02-09-2024 Influenza vaccination Influenza Vaccine (#1) [facility] Start: 01-29-2024 End: 01-28-2026 US Heart Transthoracic Transthoracic Echo Complete Echocardiography Routine Atherosclerosis of [place] coronary artery of [place] heart without angina pectoris History of WA (myocardial infarction) History of PTCA Primary hypertension Expected: 01/29/2024 (Approximate), Expires: 01/28/2026 [facility] Service Area Work Phone: Comment on above: Expected: 01/29/2024 (Approximate), Expi res: 01/28/2026 Start: 01-29-2024 FUV, Provider: Jignesh Bhatt, Status: Pen, Time: 9:00 AM FUV, Provider: Jignesh Bhatt, Status: Pen, Time: 9:00 AM [facility] 250 DO Work Phone: Start: 04-01-2023 FUV, Provider: Virgil Barron, Status: Pen, Time: 11:30 AM FUV, Provider: Virgil Barron, Status: Pen, Time: 11:30 AM -[facility] 250 DO Work Phone: Start: 02-19-2023 BPCHEDEACON, Provider: RACHAEL BARNARD CADD DRAFTER 1,[id number], Status: Pen, Time: 9:15 AM BPCHECK, Provider: RACHAEL BARNARD CADD DRAFTER 1,[id number], Status: Pen, Time: 9:15 AM -[facility] 250 DO Work Phone: Start: 02-08-2023 COVID-19 Vaccine ( season) COVID-19 Vaccine ( season) [facility] Start: 01-23-2023 FUV, Provider: Jignesh Bhatt, Status: Pen, Time: 9:00 AM FUV, Provider: Jignesh Bhatt, Status: Pen, Time: 9:00 AM -[facility] 250 DO Work Phone: Start: 02-28-2022 CAROTID, Provider: DANIEL HHVI ULTRASOUND 01,[id number], Status: Pen, Time: 7:45 AM CAROTID, Provider: DANIEL HHVI ULTRASOUND 01,[id number], Status: Pen, Time: 7:45 AM [facility] 250 DO Work Phone: Start: 02-27-2022 COVID-19 Vaccine (2 - Pfizer risk series) COVID-19 Vaccine (2 - Pfizer risk series) [facility] Start: 01-17-2022 FUV, Provider: Jignesh Bhatt, Status: Pen, Time: 9:40 AM FUV, Provider: Jignesh Bhatt, Status: Pen, Time: 9:40 AM [facility] 250 DO Work Phone: Start: 11-15-2021 FUV, Provider: Jignesh Bhatt, Status: Pen, Time: 9:40 AM FUV, Provider: Jignesh Bhatt, Status: Pen, Time: 9:40 AM [facility] 250 DO Work Phone: Start: 07-05-2021 FUV, Provider: Jignesh Bhatt, Status: Pen, Time: 10:45 AM FUV, Provider: Jignesh Bhatt, Status: Pen, Time: 10:45 AM [facility] 250 DO Work Phone: Start: 2017 RSV High Risk: (Elderly (60+) or Population) (1 - 1-dose 75+ series) RSV High Risk: (Elderly (60+) or Population) (1 - 1-dose 75+ series) [facility] Start: 06-10-2015 Pneumococcal vaccination Pneumococcal Vaccine (2 of 2 - PCV) [facility] Start: 06-10-2015 Pneumococcal Vaccine: 65+ Years (2 of 2 - PCV) Pneumococcal Vaccine: 65+ Years (2 of 2 - PCV) [facility] Start: 2002 RSV patients and/or patients aged 60+ years (1 - 1-dose 60+ series) RSV patients and/or patients aged 60+ years (1 - 1-dose 60+ series) [facility] Start: 1964 DTaP/Tdap/Td Vaccines (1 - Tdap) DTaP/Tdap/Td Vaccines (1 - Tdap) [facility] Start: 1961 Zoster Vaccines (1 of 2) Zoster Vaccines (1 of 2) [facility] Start: 1942 Medicare Annual Wellness Visit Medicare Annual Wellness Visit (AWV) [facility] End: 05-22-2024 Basic metabolic 2000 panel - Serum or Plasma Basic Metabolic Panel Lab Routine Morning draw (Lab) for 3 Occurrences starting 05/20/2024 until 05/22/2024, 2 completed [facility] Work Phone: Comment on above: Morning draw (Lab) for 3 Occurrences sta rting 05/20/2024 until 05/22/2024, 2 completed Cardiac Device Check - Inpatient Cardiac Device Check - Inpatient Implantable Cardiac Device Routine AV block, postoperative 05/21/2024 7:26 AM EST [facility] Work Phone: End: 05-28-2024 Cardiac device check - Remote [facility] Work Phone: Comment on above: Once for 1 Occurrences starting 05/28/20 until 05/28/2024 End: 05-22-2024 CBC W Auto Differential panel - Blood CBC and Auto Differential Lab Routine Morning draw (Lab) for 3 Occurrences starting 05/20/2024 until 05/22/2024, 2 completed [facility] Work Phone: Comment on above: Morning draw (Lab) for 3 Occurrences sta rting 05/20/2024 until 05/22/2024, 2 completed End: 05-19-2024 Determination of physical activity tolerance Cardiac rehab evaluation Card Rehab Routine Once for 1 Occurrences starting 05/19/2024 until 05/19/2024 [facility] Work Phone: Comment on above: Once for 1 Occurrences starting 05/19/20 24 until 05/19/2024 ECG 12 lead ECG 12 lead ECG Routine 05/19/2024 6:35 PM EST [facility] Work Phone: ECG 12 lead daily ECG 12 lead da jonas ECG Routine 05/19/2024 12:55 PM EST [facility] Work Phone: Electrocardiogram, 1 2-lead for ACS symptoms or EKG changes [facility] Work Phone: Comment on above: As needed until discontinued starting , 1 completed Electrocardiogram, 1 2-lead for ACS symptoms or EKG changes Electrocardiogram, 12-lead for ACS symptoms or EKG changes ECG Routine 05/20/2024 10:20 AM EST [facility] Work Phone: Electrophysiology study Electrop hysiology procedure Electrophysiology Routine S/P TAVR (transcatheter aortic valve replacement) 05/20/2024 5:51 PM EST [facility] Work Phone: End: 05-19-2024 Incentive spirometry Instruct Incentive spirometry Instruct Respiratory Care Routine Once for 1 Occurrences starting 05/19/2024 until 05/19/2024 [facility] Service Area Work Phone: Comment on above: Once for 1 Occurrences starting 05/19/20 until 05/19/2024 End: 05-22-2024 Magnesium [Mass/volume] in Serum or Plasma Magnesium Lab Routine Morning draw (Lab) for 3 Occurrences starting 05/20/2024 until 05/22/2024, 2 completed [facility] Work Phone: Comment on above: Morning draw (Lab) for 3 Occurrences sta rting 05/20/2024 until 05/22/2024, 2 completed Patient Education Know your Meds [facility] Work Phone: Patient referral [facility] Work Phone: End: 05-22-2024 Prothrombin time (PT) Protime-INR Lab Routine Morning draw (Lab) for 3 Occurrences starting 05/20/2024 until 05/22/2024, 2 completed [facility] Work Phone: Comment on above: Morning draw (Lab) for 3 Occurrences sta rting 05/20/2024 until 05/22/2024, 2 completed End: 05-19-2024 Pulse oximetry, continuous Pulse oximetry, continuous Respiratory Care Routine Continuous until discontinued starting 05/19/2024 [facility] Work Phone: Comment on above: Continuous until discontinued starting 1 07/20/2023 Immunizations Immunization Date Immunization Notes Care Provider Nevin nuñez 02-06-2022 Comirnaty 30 MCG/0.3 ML Intramuscular Suspension Referring Provider Unknown [facility] 250 DO Work Phone: 05-05-2021 Pfizer-BioNTech COVI D-19 Vacc 30 MCG/0.3ML Intramuscular Suspension No PCP None [facility] 08-08-2020 SARS-CoV-2 (COVID-19 ) mRNA-1273 vaccine Benita Lue [facility] 07-22-2020 Pfizer-BioNTech COVI D-19 Vacc 30 MCG/0.3ML Intramuscular Suspension No PCP None [facility] 07-11-2020 SARS-CoV-2 (COVID-19 ) mRNA-1273 vaccine Benita Lue [facility] 06-30-2020 Pfizer-BioNTech COVI D-19 Vacc 30 MCG/0.3ML Intramuscular Suspension No PCP None [facility] 06-10-2014 influenza virus vacc ine, unspecified formulation Referring Provider Unknown [facility] 250 DO Work Phone: 06-10-2014 pneumococcal polysaccharide vaccine, 23 valent Referring Provider Unknown [facility] 250 DO Work Phone: Payers Date Payer Category Payer Self-pay [id number] 2017 Medicare HUMANA MEDICARE HUMANA GOLD CHOICE [id number] 2017-Present [address] [place] [id number] [id number] 2017 Medicare (Managed Care) HUMANA G OLD CHOICE Member Subscriber Plan / Payer (Effective 2017-Present) Name: Jayden Carter Relation to Subscriber: Self Name: Jayden Carter Payer ID: [id number] (NAIC) Type: Not on file Address: [place] [id number] 1957 Medicare [id number] 1942 Unknown [id number] 2.16.840.1.510167.3.579. 2.1068 1942 Unknown [id number] 2.16.840.1.227559.3.579. 2.593 1942 Unknown [id number] 2.16.840.1.835424.3.579. 2.593 1942 Unknown [id number] 2.16.840.1.336939.3.579. 2.593 1942 Unknown [id number] 2.16.840.1.753511.3.579. 2.727 1942 Unknown [id number] 2.16.840.1.660016.3.579. 2.1245 1942 Unknown [id number] 2.16.840.1.073031.3.579. 2.1245 1942 Unknown [id number] 2.16.840.1.500777.3.579. 2.1245 1942 Unknown [id number] 2.16.840.1.550998.3.579. 2.1245 1942 Unknown [id number] 2.16.840.1.275893.3.579. 2.1245 1942 Unknown [id number] 2.16.840.1.336007.3.579. 2.1245 1942 Unknown [id number] 2.16.840.1.739680.3.579. 2.1244 1942 Unknown [id number] 2.16.840.1.986335.3.579. 2.1244 1942 Unknown [id number] 2.16.840.1.389046.3.579. 2.1244 1942 Unknown [id number] 2.16.840.1.077620.3.579. 2.1244 1942 Unknown [id number] 2.16.840.1.966442.3.579. 2.1246 1942 Unknown [id number] 2.16.840.1.457983.3.579. 2.1246 Medicare Medicare [id number] Unknown Unknown [id number] 2.16.840.1.380095.3.579. 2.531 Unknown [id number] 2.16.840.1.078168.3.579. 2.531 Unknown [id number] 2.16.840.1.144816.3.579. 2.531 Social History Date Type Detail Facility Start: 03-23-2024 End: 05-20-2024 No illicit drug use No illicit drug use [facility] 250 DO Work Phone: Comment on above: 1 cup of coffee susanne y. a pop on occasion; Start: 03-23-2024 End: 05-20-2024 Sex Assigned At [facility] Start: 11-14-2022 End: 04-01-2023 Tobacco smoking status Never smoked tobacco (finding) [facility] Tobacco smoking status Never [facility] Start: 04-01-2023 Tobacco use and exposure Smokeless tobacco non-user [facility] Work Phone: Start: 03-23-2024 End: 06-30-2024 Alcoholic beverage intake Lifetime non-drinker (finding) [facility] Work Phone: Start: 1940 [facility] Work [facility]: Start: 01-19-2024 End: 08-17-2024 Exposure to SARS-CoV-2 (event) Not sure [facility] Start: 1940 Sex Assigned At Male F [facility] Has the [employer], [employer], oil, or water company threatened to shut off services in your home in past 12Mo No [facility] Work Phone: How often to you hav e a drink containing alcohol? Never [facility] Work Phone: Do you feel stress - tense, restless, nervous, or anxious, or unable to sleep at night because your mind is troubled all the time - these days [OSQ] Not at all [facility] Work Phone: (I/We) worried [place] (my/our) food would run out before (I/we) got money to buy more. Never true [facility] Work Phone: How hard is it for y ou to pay for the very basics like food, housing, medical care, and heating Not very hard [facility] Work Phone: Start: 07-14-2024 Sex Male (finding) [facility] Medical Equipment Procedure Code Equipment Code Equipment Origin al Text Equipment Identifier Dates CL CLOSURE DEVIC E EXOSEAL 6F FDA Start: 10-30-2018 CL STENT EMILIO 3.0 X 08 FDA Start: 10-30-2018 CL STENT EMILOI 3.0 X 18 FDA Start: 10-30-2018 CL STENT EMILIO 3.0 X 28 FDA Start: 10-30-2018 CL STENT EMILIO 3.0 X 28 FDA Start: 10-30-2018 CL STENT EMILIO 3.5 X 08 FDA Start: 10-30-2018 CL CLOSURE DEVIC E EXOSEAL 6F FDA Start: 10-30-2018 CL STENT EMILIO 3.0 X 08 FDA Start: 10-30-2018 CL STENT EMILIO 3.0 X 18 FDA Start: 10-30-2018 CL STENT EMILIO 3.0 X 28 FDA Start: 10-30-2018 CL STENT EMILIO 3.0 X 28 FDA Start: 10-30-2018 CL STENT EMILIO 3.5 X 08 FDA Start: 10-30-2018 Valve, Aortic, 2 9mm, Evolut Fx Transcatheter - [id number] - [id number] Start: 05-19-2024 Pacemaker, Gener ator, Dual Assurity Mri - [id number] Start: 05-20-2024 Lead, Pacemaker, Ultipace 52cm - [id number] Start: 05-20-2024 Lead, Pacemaker, Ultipace 65cm - [id number] Start: 05-20-2024 CL CLOSURE DEVIC E EXOSEAL 6F FDA Start: 10-30-2018 CL STENT EMILIO 3.0 X 08 FDA Start: 10-30-2018 CL STENT EMILIO 3.0 X 18 FDA Start: 10-30-2018 CL STENT EMILIO 3.0 X 28 FDA Start: 10-30-2018 CL STENT EMILIO 3.0 X 28 FDA Start: 10-30-2018 CL STENT EMILIO 3.5 X 08 FDA Start: 10-30-2018 Goals Date Patient Goal Desired Activity /State Functional Status Date Assessment Result Facility 02-04-2024 Functional Status N/A [facility] 11-14-2022 Functional Status N/A [facility] Clinical Notes 04-27-2021 to 07-01-2024 Assessment & Plan Note - ERICH Klein - 07/01/2024 1:21 PM ESTAssessment & Plan Note - ERICH Klein - 07/01/2024 1:21 PM ESTPatient InstructionsDischarge Instructions Note Date & Type Note Facility 07-01-2024 Evaluation + Plan note Associated Problem(s): BMI 25.0-25.9,adult Reviewed the merits of healthy lifestyle choices on overall cardiovascular health. [facility] Work Phone: 07-01-2024 Evaluation + Plan note Associated Problem(s): Complete heart block May 19, 2024 TAVR complicated by complete heart block [facility] Work Phone: 07-01-2024 Evaluation + Plan note Associated Problem(s): S/P placement of cardiac pacemaker May 19, 2024 TAVR complicated by complete heart block May 20, 2024 uneventful implant [id number] dual-chamber permanent pacemaker [facility] Work Phone: 07-01-2024 Miscellaneous Notes Associated Problem(s): BMI 25.0-25.9,adult Reviewed the merits of healthy lifestyle choices on overall cardiovascular health. 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, 2024 #29 mm Evolute TAVR Postprocedure TTE normal bioprosthetic function no perivalvular leak Associated Problem(s): Hypertension Optimal in office Associated Problem(s): Hyperlipidemia High intensity statin Associated Problem(s): Atherosclerosis of [place] coronary artery of [place] heart without angina pectoris Remote PCI Most recent ischemic evaluation April 2024 cardiac cath Left main into proximal LAD patent stenting Proximal/mid RCA patent stents Mid circumflex going into OM less than 75% consistent with known history Small Diag1 90% Current daily activity greater than 4 METS without concerning symptoms documented in this encounter [facility] Work Phone: 07-01-2024 Evaluation + Plan note Associated Problem(s): 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, 2024 #29 mm Evolute TAVR Postprocedure TTE normal bioprosthetic function no perivalvular leak [facility] Work Phone: 07-01-2024 Evaluation + Plan note Associated Problem(s): Hypertension Optimal in office [facility] Work Phone: 07-01-2024 Evaluation + Plan note Associated Problem(s): Hyperlipidemia High intensity statin [facility] Work Phone: 07-01-2024 Evaluation + Plan note Associated Problem(s): Atherosclerosis of [place] coronary artery of [place] heart without angina pectoris Remote PCI Most recent ischemic evaluation April 2024 cardiac cath Left main into proximal LAD patent stenting Proximal/mid RCA patent stents Mid circumflex going into OM less than 75% consistent with known history Small Diag1 90% Current daily activity greater than 4 METS without concerning symptoms [facility] Work Phone: 06-30-2024 History of Present illness Narrative Chief Complaint I seem to be doing fine Reason for Visit Patient presents to the office today for outpatient follow-up for hospitalization for cardiovascular procedure-TAVR and pacemaker implant. Last evaluated in clinic by Dr. Bhatt March 2024. Following that visit, he completed cardiac cath and was referred to valvular heart team. May 19, 2024 had TAVR complicated by complete heart block with eventual permanent pacemaker implant. Presents today ambulatory with steady gait. History of Present Illness Patient is an extremely pleasant 84-year-old gentleman who presents to the day where his groin access sites have healed without adverse sequela and permanent pacemaker site is well-approximated without erythema or hematoma. Overall reports that he is doing just fine . 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 He ambulated in from the parking lot without any orthopnea or dyspnea on exertion. Denies any exertional chest pain. Patient reports that overall has no complaint(s) of chest pain, chest pressure/discomfort, claudication, dyspnea, exertional chest pressure/discomfort, fatigue, and irregular heart beat Daily activity: Greater than 4 METS Denies any change in exercise capacity or functional tolerance since last office visit. He will need a 1 month post TAVR echocardiogram. He has not followed up with a valvular heart team as of yet and I will make arrangements to be completed here locally. Will also transfer device interrogations to local device clinic for follow-up. Review of Systems Cardiovascular: Negative for chest pain, dyspnea on exertion, irregular heartbeat, leg swelling, near-syncope, orthopnea, palpitations, paroxysmal nocturnal dyspnea and syncope. Visit Vitals BP 132/60 (BP Location: Right arm, Patient Position: Sitting) Pulse 60 Ht 1.727 m (5' 8 ) Wt 75.3 kg (166 lb) BMI 25.24 kg/m Smoking Status Never BSA 1.9 m Physical Exam Vitals and nursing note reviewed. Constitutional: Appearance: Normal appearance. Cardiovascular: Rate and Rhythm: Normal rate and regular rhythm. Heart sounds: Normal heart sounds. Pulmonary: Effort: Pulmonary effort is normal. Breath sounds: Normal breath sounds. Musculoskeletal: Cervical back: Full passive range of motion without pain. Right lower leg: No edema. Left lower leg: No edema. Skin: General: Skin is cool. Neurological: Mental Status: He is alert and oriented to person, place, and time. Psychiatric: Attention and Perception: Attention normal. Mood and Affect: Mood normal. Behavior: Behavior is cooperative. No Known Allergies Current Outpatient Medications Medication Instructions aspirin 81 mg EC tablet 1 tablet, Daily atorvastatin (LIPITOR) 80 mg, oral, Nightly cyanocobalamin (VITAMIN B-12) 250 mcg, Daily losartan (COZAAR) 50 mg, oral, Daily metoprolol succinate XL (TOPROL-XL) 25 mg, oral, Daily nitroglycerin (NITROSTAT) 0.4 mg, Every 5 min PRN tamsulosin (FLOMAX) 0.4 mg, Daily Assessment: Atherosclerosis of [place] coronary artery of [place] heart without angina pectoris Remote PCI Most recent ischemic evaluation April 2024 cardiac cath Left main into proximal LAD patent stenting Proximal/mid RCA patent stents Mid circumflex going into OM less than 75% consistent with known history Small Diag1 90% Current daily activity greater than 4 METS without concerning symptoms Hyperlipidemia High intensity statin Hypertension Optimal in office 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 Plan: Through informed decision making process incorporating patients unique circumstances, the following treatment plan will be initiated: 1. Prescription drug management of cardiovascular medication for efficacy, adherence to treatment, side effect assessment and polypharmacy. Current treatment clinically warranted and to continue without modifications. 2. Echo (1 month TAVR) 3. Enroll in [facility] device clinic 4. Ok to return to work 5. Return for follow-up; in the interim, contact the office if new symptoms arise. Dr. Bhatt as scheduled Virgil Carrero MSN, STAFF NUCLE[employer]APONS OFFICER-BRAND AMBASSADOR, PMHNP-[facility] [place], [place] Please excuse any errors in grammar or translation related to this dictation. Voice recognition software was utilized to prepare this document. documented in this encounter [facility] Work Phone: 06-30-2024 Instructions ERICH Klein - 06/30/2024 4:00 PM EST Please bring all medicines, vitamins, and herbal supplements with you when you come to the office. Prescriptions will not be filled unless you are compliant with your follow up appointments or have a follow up appointment scheduled as per instruction of your physician. Refills should be requested at the time of your visit. PLAN: Through informed decision making process incorporating patients unique circumstances, the following treatment plan will be initiated: 1. Prescription drug management of cardiovascular medication for efficacy, adherence to treatment, side effect assessment and polypharmacy. Current treatment clinically warranted and to continue without modifications. 2. Echo (1 month TAVR) 3. Enroll in [facility] device clinic 4. Ok to return to work 5. Return for follow-up; in the interim, contact the office if new symptoms arise. Dr. Bhatt as scheduled documented in this encounter [facility] Work Phone: 05-21-2024 History of Present illness Narrative Images from the original note were not included. Physical Therapy Physical Therapy Evaluation Patient Name: Jayden Carter Department: [facility] Room: Today's Date: 05/21/2024 Time Calculation Start Time: 1044 Stop Time: 1102 Time Calculation (min): 18 min Assessment/Plan PT Assessment PT Assessment Results: Decreased strength, Decreased endurance, Impaired balance, Decreased mobility Rehab Prognosis: Excellent Barriers to Discharge Home: No anticipated barriers Evaluation/Treatment Tolerance: Patient tolerated treatment well Medical Staff Made Aware: Yes End of Session Communication: Bedside nurse Assessment Comment: Pt performed bed mobility with SBA, functional transfers with CGA, and ambulated 60' with CGA without use of AD. Pt will continue to benefit from skilled PT to improve functional mobility. End of Session Patient Position: Bed, 3 rail up, Alarm off, not on at start of session IP OR SWING BED PT PLAN Inpatient or Swing Bed: Inpatient PT Plan Treatment/Interventions: Bed mobility, Transfer training, Gait training, Stair training, Balance training, Strengthening, Endurance training, Therapeutic exercise, Therapeutic activity, Home exercise program PT Plan: Ongoing PT PT Frequency: 3 times per week PT Discharge Recommendations: Low intensity level of continued care PT Recommended Transfer Status: Contact guard PT - OK to Discharge: Yes Subjective General Visit Information: General Reason for Referral: TAVR 05/19 c/b CHB s/p femoral TVP placement. Now s/p L UE PPM placement 05/20 Past Medical History Relevant to Rehab: PMH of CAD s/p inferior [place] and PCI to RCA and LM-LAD in 2018, severe aortic stenosis, HTN, HLD, CKDIII, history of lymphoma and colon cancer in 2014 Prior to Session Communication: Bedside nurse Patient Position Received: Up in chair, Alarm off, not on at start of session Preferred Learning Style: auditory, verbal, visual General Comment: Pt awake and willing to participate in PT evaluation. (Lines: tele) Home Living: Home Living Type of Home: Mobile home Lives With: (42 year old step son lives with pt but pt reports he will not be able/willing to assist pt; dtr lives close/able to help) Home Adaptive Equipment: Walker rolling or standard Home Layout: One level Home Access: Ramped entrance Bathroom Shower/Tub: Tub/shower unit Bathroom Equipment: None Prior Level of Function: Prior Function Per Pt/Caregiver Report Level of [place]: Independent with ADLs and functional transfers Receives Help From: Family ADL Assistance: Independent Homemaking Assistance: Independent Ambulatory Assistance: Independent 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 Really values working) Leisure: working, spending time with friends and family Hand Dominance: Left Prior Function Comments: +drives, -falls Precautions: Precautions Hearing/Visual Limitations: Hearing aids Medical Precautions: Cardiac precautions, Fall precautions Precautions Comment: LUE PPM precautions Vital Signs (Past 2hrs) Date/Time Vitals Session Patient Position Pulse Resp SpO2 BP MAP (mmHg) 05/21/24 1044 Pre PT Sitting 98 -- 98 % 119/62 79 05/21/24 1100 -- -- 111 26 96 % -- -- 05/21/24 1102 Post PT Lying 99 -- 99 % 116/61 73 Objective Pain: Pain Assessment Pain Assessment: 0-10 Cognition: Cognition Overall Cognitive Status: Within Functional Limits Orientation Level: Oriented X4 Cognition Comments: Somewhat emotional throughout session General Assessments: Activity Tolerance Endurance: Tolerates 10 - 20 min exercise with multiple rests Early Mobility/Exercise Safety Screen: Proceed with mobilization - No exclusion criteria met Activity Tolerance Comments: Vitals stable throughout session Sensation Light Touch: No apparent deficits Strength Strength Comments: Grossly at least 3/5 based on functional mobility Strength Strength Comments: Grossly at least 3/5 based on functional mobility Perception Inattention/Neglect: Appears intact Initiation: Appears intact Motor Planning: Appears intact Perseveration: Not present Coordination Movements are Fluid and Coordinated: Yes Postural Control Postural Control: Within Functional Limits Static Sitting Balance Static Sitting-Balance Support: Feet supported, No upper extremity supported Static Sitting-Level of Assistance: Close supervision Static Standing Balance Static Standing-Balance Support: No upper extremity supported Static Standing-Level of Assistance: Contact guard Functional Assessments: Bed Mobility Bed Mobility: Yes Bed Mobility 1 Bed Mobility 1: Sitting to supine Level of Assistance 1: Close supervision Bed Mobility Comments 1: SBA for safety Transfers Transfer: Yes Transfer 1 Transfer From 1: Sit to, Stand to Transfer to 1: Stand, Sit Technique 1: Sit to stand, Stand to sit Transfer Level of Assistance 1: Contact guard Trials/Comments 1: x2 during session; CGA for safety and line management Ambulation/Gait Training Ambulation/Gait Training Performed: Yes Ambulation/Gait Training 1 Surface 1: Level tile Device 1: No device Assistance 1: Contact guard Quality of Gait 1: Decreased step length Comments/Distance (ft) 1: x60' without AD; CGA for safety and line management; pt reported feeling of LE weakness as compared to baseline Extremity/Trunk Assessments: Cervical Spine Cervical Spine: Within Functional Limits Lumbar Spine Lumbar Spine : Within Functional Limits RLE RLE : Within Functional Limits LLE LLE : Within Functional Limits Outcome Measures: [facility] Basic Mobility Turning from your back to your side while in a flat bed without using bedrails: None Moving from lying on your back to sitting on the side of a flat bed without using bedrails: None Moving to and from bed to chair (including a wheelchair): A little Standing up from a chair using your arms (e.g. wheelchair or bedside chair): A little To walk in hospital room: A little Climbing 3-5 steps with railing: A little Basic Mobility - Total Score: 20 FSS-ICU Ambulation: Walks >/ or equal to 50 feet with any assistance x1 Rolling: Complete independence Sitting: Complete independence Transfer [id number]: Minimal assistance (performs 75% or more of task) Transfer [id number]-[id number]: Supervision or set-up only Total Score: 25 Early Mobility/Exercise Safety Screen: Proceed with mobilization - No exclusion criteria met ICU Mobility Scale: Walking with assistance of 1 person [8] Encounter Problems Encounter Problems (Active) Balance Pt will demonstrate improved sitting/standing static/dynamic balance activities without LOB via score of 24/28 on the [place] for increase in safety prior to DC. (Progressing) Start: 05/21/24 Expected End: 06/04/24 Mobility Pt will ambulate >200ft independently with appropriate form, LRAD, and no LOB for safe DC. (Progressing) Start: 05/21/24 Expected End: 06/04/24 Pt will tolerate >15 minutes of upright standing activity without seated rest breaks with no changes in vital signs for improved functional mobility. (Progressing) Start: 05/21/24 Expected End: 06/04/24 PT Transfers Pt will perform bed mobility and sit<>stand transfers independently and use of LRAD to safely DC. (Progressing) Start: 05/21/24 Expected End: 06/04/24 Pain - Adult Education Documentation Body Mechanics, taught by Jennifer Dave PT at 05/21/2024 12:33 PM. Learner: Patient Readiness: Acceptance Method: Explanation Response: Verbalizes Understanding Mobility Training, taught by Jennifer Dave PT at 05/21/2024 12:33 PM. Learner: Patient Readiness: Acceptance Method: Explanation Response: Verbalizes Understanding Education Comments No comments found. JENNIFER DAVE PT Occupational Therapy Evaluation and Treatment Patient Name: Jayden Carter Today's Date: 05/21/2024 Room: 04/20 Time Calculation Start Time: 910 Stop Time: 957 Time Calculation (min): 47 min Assessment IP OT Assessment OT Assessment: Pt is an 84 year old male who demonstrates decreased activity tolerance, balance, and memory, which impedes occupational performance. Prognosis: Good Barriers to Discharge Home: No anticipated barriers Evaluation/Treatment Tolerance: Patient tolerated treatment well Medical Staff Made Aware: Yes End of Session Communication: Bedside nurse End of Session Patient Position: Up in chair, Alarm off, not on at start of session Plan: Inpatient Plan Treatment Interventions: ADL retraining, Cognitive reorientation, Endurance training, Patient/family training, Neuromuscular reeducation, Equipment evaluation/education, Compensatory technique education, Functional transfer training OT Frequency: 3 times per week OT Discharge Recommendations: Low intensity level of continued care Equipment Recommended upon Discharge: (None) OT Recommended Transfer Status: Assist of 1 OT - OK to Discharge: Yes OT Assessment OT Assessment Results: Decreased ADL status, Decreased safe judgment during ADL, Decreased endurance, Decreased IADLs Prognosis: Good Evaluation/Treatment Tolerance: Patient tolerated treatment well Medical Staff Made Aware: Yes Subjective Current Problem: 1. S/P TAVR (transcatheter aortic valve replacement) Transthoracic Echo (TTE) Complete Basic Metabolic Panel CBC Transthoracic Echo (TTE) Limited Transthoracic Echo (TTE) Limited Case Request EP Lab: PPM IMPLANT DUAL Case Request EP Lab: [facility] DUAL Electrophysiology procedure Electrophysiology procedure CANCELED: Transthoracic Echo (TTE) Complete CANCELED: Transthoracic Echo (TTE) Complete 2. Nonrheumatic aortic valve stenosis Cardiac Catheterization Procedure Cardiac Catheterization Procedure Transthoracic Echo (TTE) Limited Transthoracic Echo (TTE) Limited 3. AV block, postoperative Cardiac Device Check - Inpatient Cardiac Device Check - Inpatient CANCELED: Cardiac device check - Inpatient CANCELED: Cardiac device check - Inpatient 4. Primary hypertension losartan (Cozaar) 100 mg tablet 5. S/P placement of cardiac pacemaker cefadroxil (Duricef) 500 mg capsule General: Reason for Referral: TAVR 05/19 c/b CHB s/p femoral TVP placement. Now s/p L UE PPM placement 05/20 Past Medical History Relevant to Rehab: PMH of CAD s/p inferior [place] and PCI to RCA and LM-LAD in 2018, severe aortic stenosis, HTN, HLD, CKDIII, history of lymphoma and colon cancer in 2014 Prior to Session Communication: Bedside nurse Patient Position Received: Bed, 3 rail up, Alarm off, not on at start of session (seated EOB) Family/Caregiver Present: No General Comment: Pt supine in bed on arrival, agreeable to participate. Pleasant throughout Precautions: Hearing/Visual Limitations: Hearing aids Medical Precautions: Cardiac precautions, Fall precautions Precautions Comment: LUE PPM precautions Vital Signs: Vital Signs (Past 2hrs) Date/Time Vitals Session Patient Position Pulse Resp SpO2 BP MAP (mmHg) 05/21/24 0911 Pre OT -- 78 -- 98 % 142/60 84 05/21/24 0958 Post OT -- 87 19 100 % 140/59 79 05/21/24 1000 -- -- 88 20 98 % 119/62 79 Pain: Pain Assessment Pain Assessment: (reports mild incisional pain at PPM site, did not quantify) Lines/Tubes/Drains: Telemetry Objective Cognition: Overall Cognitive Status: Within Functional Limits Orientation Level: Oriented X4 Following Commands: Follows all commands and directions without difficulty Memory: (Some difficulty with recall of precautions but did improve with repetitions and application) Confusion Assessment Method (CAM) Acute Onset and Fluctuating Course (1A): No Home Living: Type of Home: Mobile home Lives With: (42 year old step son lives with pt but pt reports he will be able/willing to assist pt) Home Adaptive Equipment: Walker rolling or standard Home Layout: One level Home Access: Ramped entrance Bathroom Shower/Tub: Tub/shower unit Bathroom Equipment: None (likes to use towel rack as a grab bar) Home Living Comments: Daughter lives close by and can provide intermittent assistance Prior Function: Level of [place]: Independent with ADLs and functional transfers ADL Assistance: Independent Homemaking Assistance: Independent Ambulatory Assistance: Independent 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 Really values working) Leisure: working, spending time with friends and family Hand Dominance: Left Prior Function Comments: +drives, -falls ADL: Eating Assistance: Independent Grooming Assistance: Independent Bathing Assistance: Minimal UE Dressing Assistance: Stand by UE Dressing Deficit: Verbal cueing LE Dressing Assistance: Minimal LE Dressing Deficit: (min A to don briefs, CS to don pants with cues for modified technique) Toileting Assistance with Device: Stand by Toileting Deficit: Verbal cueing, Supervison/safety (anticipated for safe bowel hygiene management) Activity Tolerance: Endurance: Tolerates 10 - 20 min exercise with multiple rests Early Mobility/Exercise Safety Screen: Proceed with mobilization - No exclusion criteria met Activity Tolerance Comments: Reports LEs feel weaker than baseline from being in the bed for the past couple days. Balance: Dynamic Sitting Balance Dynamic Sitting-Level of Assistance: Independent Dynamic Standing Balance Dynamic Standing-Level of Assistance: Close supervision Static Sitting Balance Static Sitting-Level of Assistance: Independent Static Standing Balance Static Standing-Level of Assistance: Close supervision Bed Mobility/Transfers: Bed Mobility Bed Mobility: Yes Bed Mobility 1 Bed Mobility 1: Supine to sitting Level of Assistance 1: Minimum assistance Bed Mobility Comments 1: HOB elevated and Transfers Transfer: Yes Transfer 1 Transfer From 1: Sit to Transfer to 1: Stand Transfer Level of Assistance 1: Close supervision Trials/Comments 1: x4 trials Sensation: Light Touch: No apparent deficits Strength: Strength Comments: WFL within precautions Coordination: Movements are Fluid and Coordinated: Yes Extremities: RUE RUE : Within Functional Limits, LUE LUE: Within Functional Limits, Treatment Completed on Evaluation Activities of Daily Living: LE Dressing LE Dressing: Yes LE Dressing Comments: Engaged in LBD seated EOB. Pt required min A to thread RLE into briefs in sitting, CS to thread LEs to pants in sitting and CS to pull tab dealer hips in standing. Cued for compensatory technique for adherence to precautions. Therapy/Activity: Therapeutic Activity Therapeutic Activity Performed: Yes Therapeutic Activity 1: Educated pt on LUE PPM precautions and compensatory ADL, IADL and mobility techniques. Required use of teach back method x3 times for recall of restrictions. Therapeutic Activity 2: Pt performed functional mobility > a maximal household distance with CS for safety. Outcome Measures: [facility] Daily Activity Putting on and taking off regular lower body clothing: A little Bathing (including washing, rinsing, drying): A little Putting on and taking off regular upper body clothing: A little Toileting, which includes using toilet, bedpan or urinal: A little Taking care of personal grooming such as brushing teeth: None Eating Meals: None Daily Activity - Total Score: 20 ICU Mobility Screen Early Mobility/Exercise Safety Screen: Proceed with mobilization - No exclusion criteria met ICU Mobility Scale: Walking with assistance of 1 person, Education Documentation Body Mechanics, taught by Lilia Henriquez OT at 05/21/2024 10:56 AM. Learner: Patient Readiness: Acceptance Method: Explanation, Demonstration Response: Verbalizes Understanding, Demonstrated Understanding Comment: LUE PPM precautions Precautions, taught by Lilia Henriquez OT at 05/21/2024 10:56 AM. Learner: Patient Readiness: Acceptance Method: Explanation, Demonstration Response: Verbalizes Understanding, Demonstrated Understanding Comment: LUE PPM precautions ADL Training, taught by Lilia Henriquez OT at 05/21/2024 10:56 AM. Learner: Patient Readiness: Acceptance Method: Explanation, Demonstration Response: Verbalizes Understanding, Demonstrated Understanding Comment: LUE PPM precautions Education Comments No comments found. Goals: Encounter Problems Encounter Problems (Active) ADLs Patient will perform UB and LB bathing with modified independent level of assistance. Start: 05/21/24 Expected End: 06/04/24 Patient with complete upper body dressing with modified independent level of assistance donning and doffing all UE clothes Start: 05/21/24 Expected End: 06/04/24 Patient with complete lower body dressing with modified independent level of assistance donning and doffing all LE clothes with PRN adaptive equipment Start: 05/21/24 Expected End: 06/04/24 Patient will complete toileting including hygiene clothing management/hygiene with modified independent level of assistance. Start: 05/21/24 Expected End: 06/04/24 Pt will complete simulated homemaking tasks, including laundry, cleaning, medication management, and simple meal prep, including item retrieval/transport tasks mod I without cueing to allow for safe return home to prior living environment Start: 05/21/24 Expected End: 06/04/24 BALANCE Pt will increase dynamic standing tolerance to >8 min with WA using LRAD during functional mobility/ADLs without LOB in order to improve activity tolerance and balance for self-care tasks. Start: 05/21/24 Expected End: 06/04/24 COGNITION/SAFETY Pt will maintain LUE PPM precautions with 100% carryover during functional tasks, ADLs, and mobility without cueing. Start: 05/21/24 Expected End: 06/04/24 MOBILITY Patient will perform Functional mobility max Household distances/Community Distances with modified independent level of assistance and least restrictive device in order to improve safety and functional mobility. Start: 05/21/24 Expected End: 06/04/24 05/21/24 at 10:57 AM Lilia Henriquez OT Rehab Office: [phone] Subjective Data: 84 yo s/p TAVR Overnight Events: None Objective Data: Last Recorded Vitals: Vitals: 05/20/24 0900 05/20/24 1000 05/20/24 1100 05/20/24 1138 BP: 146/70 148/54 132/79 BP Location: Patient Position: Pulse: 60 60 60 Resp: 18 15 21 Temp: 36.7 C (98.1 F) TempSrc: Temporal SpO2: 98% 99% 100% Weight: Height: Last Labs: CBC - 05/20/2024: 4:09 AM 6.6 13.7 131 40.9 CMP - 05/20/2024: 4:09 AM 8.3 _ _ --- _ 2.8 3.3 _ _ PTT - No results in last year. 1.0 10.8 _ VLDL Date/Time Value Ref Range Status 06/23/2019 10:45 AM 15 0 - 40 mg/dL Final Last I/O: I/O last 3 completed shifts: In: - (0 mL/kg) Out: 220 (2.9 mL/kg) [Urine:200 (0.1 mL/kg/hr); Blood:20] Weight: 75.8 kg Past Cardiology Tests (Last 3 Years): EKG: No results found for this or any previous visit from the past 1095 days. Echo: Transthoracic Echo (TTE) Limited 05/20/2024 Transthoracic Echo (TTE) Limited 05/19/2024 Transthoracic Echo Complete 03/09/2024 Ejection Fractions: EF Date/Time Value Ref Range Status 05/20/2024 08:29 AM 61 % 05/19/2024 06:21 PM 63 % 03/09/2024 09:37 AM 60 % Cath: Cardiac Catheterization Procedure 05/19/2024 Stress Test: No results found for this or any previous visit from the past 1095 days. Cardiac Imaging: MR cardiac morphology and function w and wo IV contrast 05/19/2024 Inpatient Medications: Scheduled medications Medication Dose Route Frequency aspirin 81 mg oral Daily atorvastatin 80 mg oral Nightly docusate sodium 100 mg oral BID pantoprazole 40 mg oral Daily before breakfast Or pantoprazole 40 mg intravenous Daily before breakfast perflutren lipid microspheres 0.5-10 mL of dilution intravenous Once in imaging tamsulosin 0.4 mg oral Daily PRN medications Medication acetaminophen Or acetaminophen Or acetaminophen benzocaine-menthol lidocaine-epinephrine ondansetron Or ondansetron oxygen Continuous Medications Medication Dose Last Rate Physical Exam: Constitutional: Well developed, awake/alert/oriented x3, no distress, cooperative Eyes: PERRL, EOMI, clear sclera ENMT: mucous membranes moist, no apparent injury, no lesions seen Head/Neck: Neck supple, no apparent injury, thyroid without mass or tenderness, No JVD, trachea midline, no bruits Respiratory/Thorax: Patent airways, good chest expansion, thorax symmetric, fine bibasilar crackles Cardiovascular: Regular rate and rhythm, no murmurs, normal S 1and S 2 Gastrointestinal: Nondistended, soft, non-tender, no rebound tenderness or guarding, no masses palpable, no organomegaly, +BS, no bruits Extremities: normal extremities, no cyanosis, bilat groins c/d/i with dsd no s/s of hematoma Neurological: alert and oriented x3, intact senses, motor, response and reflexes, normal strength Psychological: Appropriate mood and behavior Skin: Warm and dry, intact Assessment/Plan Patient Vitals for the past 24 hrs: BP Temp Temp src Pulse Resp SpO2 Height Weight 05/20/24 1138 no documentation 36.7 C (98.1 F) Temporal no documentation no documentation no documentation no documentation no documentation 05/20/24 1100 132/79 no documentation no documentation 60 21 100 % no documentation no documentation 05/20/24 1000 148/54 no documentation no documentation 60 15 99 % no documentation no documentation 05/20/24 0900 146/70 no documentation no documentation 60 18 98 % no documentation no documentation 05/20/24 0800 148/51 no documentation Temporal 60 17 98 % no documentation no documentation 05/20/24 0748 no documentation 36.5 C (97.7 F) Temporal no documentation no documentation no documentation no documentation no documentation 05/20/24 0700 140/60 no documentation no documentation 70 22 99 % no documentation no documentation 05/20/24 0500 118/61 no documentation no documentation 70 10 97 % no documentation no documentation 05/20/24 0400 (Abnormal) 132/113 no documentation no documentation 70 (Abnormal) 9 99 % no documentation no documentation 05/20/24 0300 111/72 no documentation no documentation 70 25 99 % no documentation no documentation 05/20/24 0215 116/63 no documentation no documentation 70 18 100 % no documentation no documentation 05/20/24 0200 87/52 no documentation no documentation 70 14 99 % no documentation no documentation 05/20/24 0100 134/60 no documentation no documentation 69 19 99 % no documentation no documentation 05/20/24 0001 no documentation 36.1 C (97 F) no documentation no documentation no documentation no documentation no documentation no documentation 05/20/24 0000 97/60 no documentation no documentation 70 23 98 % no documentation no documentation 05/19/24 2309 no documentation no documentation no documentation no documentation no documentation no documentation 1.72 m (5' 7.72 ) 75.8 kg (167 lb 1.7 oz) 05/19/24 2300 (Abnormal) 137/112 no documentation no documentation 70 16 99 % no documentation no documentation 05/19/24 2245 137/68 no documentation no documentation 72 19 100 % no documentation no documentation 05/19/24 2230 110/63 no documentation no documentation 70 17 98 % no documentation no documentation 05/19/24 2215 127/61 no documentation no documentation 70 22 98 % no documentation no documentation 05/19/24 2200 115/60 no documentation no documentation 70 21 100 % no documentation no documentation 05/19/24 2145 (Abnormal) 144/122 no documentation no documentation 70 18 98 % no documentation no documentation 05/19/24 2130 138/62 no documentation no documentation 72 14 98 % no documentation no documentation 05/19/24 2115 125/67 no documentation no documentation 70 17 100 % no documentation no documentation 05/19/24 2100 (Abnormal) 125/101 35.9 C (96.6 F) Temporal 75 18 100 % no documentation no documentation 05/19/24 1806 126/64 no documentation no documentation 69 18 97 % no documentation no documentation 05/19/24 1631 no documentation no documentation no documentation no documentation no documentation 97 % no documentation no documentation 05/19/24 1630 (Abnormal) 184/79 no documentation no documentation 68 16 98 % no documentation no documentation 05/19/24 1300 164/70 no documentation no documentation 59 12 no documentation no documentation no documentation Results for orders placed or performed during the hospital encounter of 05/19/24 (from the past 96 hours) Type And Screen Result Value Ref Range ABO TYPE A Rh TYPE POS ANTIBODY SCREEN NEG Basic metabolic panel Result Value Ref Range Glucose 80 74 - 99 mg/dL Sodium 139 136 - 145 mmol/L Potassium 3.7 3.5 - 5.3 mmol/L Chloride 109 (H) 98 - 107 mmol/L Bicarbonate 24 21 - 32 mmol/L Anion Gap 10 10 - 20 mmol/L Urea Nitrogen 15 6 - 23 mg/dL Creatinine 1.25 0.50 - 1.30 mg/dL eGFR 57 (L) >60 mL/min/1.73m*2 Calcium 7.2 (L) 8.6 - 10.6 mg/dL Magnesium Result Value Ref Range Magnesium 1.61 1.60 - 2.40 mg/dL CBC and Auto Differential Result Value Ref Range WBC 3.9 (L) 4.4 - 11.3 x10*3/uL nRBC 0.0 0.0 - 0.0 /100 WBCs RBC 3.60 (L) 4.50 - 5.90 x10*6/uL Hemoglobin 11.4 (L) 13.5 - 17.5 g/dL Hematocrit 34.3 (L) 41.0 - 52.0 % MCV 95 80 - 100 fL MCH 31.7 26.0 - 34.0 pg MCHC 33.2 32.0 - 36.0 g/dL RDW 12.6 11.5 - 14.5 % Platelets 103 (L) 150 - 450 x10*3/uL Neutrophils % 60.1 40.0 - 80.0 % Immature Granulocytes %, Automated 0.8 0.0 - 0.9 % Lymphocytes % 27.6 13.0 - 44.0 % Monocytes % 8.7 2.0 - 10.0 % Eosinophils % 2.3 0.0 - 6.0 % Basophils % 0.5 0.0 - 2.0 % Neutrophils Absolute 2.36 1.60 - 5.50 x10*3/uL Immature Granulocytes Absolute, Automated 0.03 0.00 - 0.50 x10*3/uL Lymphocytes Absolute 1.08 0.80 - 3.00 x10*3/uL Monocytes Absolute 0.34 0.05 - 0.80 x10*3/uL Eosinophils Absolute 0.09 0.00 - 0.40 x10*3/uL Basophils Absolute 0.02 0.00 - 0.10 x10*3/uL Protime-INR Result Value Ref Range Protime 13.8 (H) 9.8 - 12.8 seconds INR 1.2 (H) 0.9 - 1.1 Transthoracic Echo (TTE) Limited Result Value Ref Range AV pk olinda 3.77 m/s AV mn grad 33 mmHg LVOT diam 2.27 cm LV EF 63 % RVSP 22.4 mmHg Aortic Valve Area by Continuity of VTI 1.01 cm2 Aortic Valve Area by Continuity of Peak Velocity 0.97 cm2 AV pk grad 57 mmHg LV A4C EF 66.2 Renal function panel Result Value Ref Range Glucose 139 (H) 74 - 99 mg/dL Sodium 141 136 - 145 mmol/L Potassium 3.8 3.5 - 5.3 mmol/L Chloride 106 98 - 107 mmol/L Bicarbonate 25 21 - 32 mmol/L Anion Gap 14 10 - 20 mmol/L Urea Nitrogen 15 6 - 23 mg/dL Creatinine 1.33 (H) 0.50 - 1.30 mg/dL eGFR 53 (L) >60 mL/min/1.73m*2 Calcium 8.3 (L) 8.6 - 10.6 mg/dL Phosphorus 2.8 2.5 - 4.9 mg/dL Albumin 3.3 (L) 3.4 - 5.0 g/dL Magnesium Result Value Ref Range Magnesium 1.95 1.60 - 2.40 mg/dL CBC and Auto Differential Result Value Ref Range WBC 6.6 4.4 - 11.3 x10*3/uL nRBC 0.0 0.0 - 0.0 /100 WBCs RBC 4.32 (L) 4.50 - 5.90 x10*6/uL Hemoglobin 13.7 13.5 - 17.5 g/dL Hematocrit 40.9 (L) 41.0 - 52.0 % MCV 95 80 - 100 fL MCH 31.7 26.0 - 34.0 pg MCHC 33.5 32.0 - 36.0 g/dL RDW 12.9 11.5 - 14.5 % Platelets 131 (L) 150 - 450 x10*3/uL Neutrophils % 73.7 40.0 - 80.0 % Immature Granulocytes %, Automated 0.8 0.0 - 0.9 % Lymphocytes % 13.8 13.0 - 44.0 % Monocytes % 10.1 2.0 - 10.0 % Eosinophils % 1.1 0.0 - 6.0 % Basophils % 0.5 0.0 - 2.0 % Neutrophils Absolute 4.88 1.60 - 5.50 x10*3/uL Immature Granulocytes Absolute, Automated 0.05 0.00 - 0.50 x10*3/uL Lymphocytes Absolute 0.91 0.80 - 3.00 x10*3/uL Monocytes Absolute 0.67 0.05 - 0.80 x10*3/uL Eosinophils Absolute 0.07 0.00 - 0.40 x10*3/uL Basophils Absolute 0.03 0.00 - 0.10 x10*3/uL Basic Metabolic Panel Result Value Ref Range Glucose 90 74 - 99 mg/dL Sodium 140 136 - 145 mmol/L Potassium 4.0 3.5 - 5.3 mmol/L Chloride 106 98 - 107 mmol/L Bicarbonate 25 21 - 32 mmol/L Anion Gap 13 10 - 20 mmol/L Urea Nitrogen 15 6 - 23 mg/dL Creatinine 1.33 (H) 0.50 - 1.30 mg/dL eGFR 53 (L) >60 mL/min/1.73m*2 Calcium 8.3 (L) 8.6 - 10.6 mg/dL Magnesium Result Value Ref Range Magnesium 1.96 1.60 - 2.40 mg/dL Protime-INR Result Value Ref Range Protime 10.8 9.8 - 12.8 seconds INR 1.0 0.9 - 1.1 Transthoracic Echo (TTE) Limited Result Value Ref Range AV pk olinda 2.14 m/s AV mn grad 11 mmHg LVOT diam 2.00 cm LA vol index A/L 26.9 ml/m2 Tricuspid annular plane systolic excursion 2.4 cm LV EF 61 % RV free wall pk S' 11.70 cm/s LVIDd 5.50 cm RVSP 24.0 mmHg Aortic Valve Area by Continuity of VTI 1.13 cm2 Aortic Valve Area by Continuity of Peak Velocity 1.09 cm2 AV pk grad 18 mmHg LV A4C EF 59.4 POCT GLUCOSE Result Value Ref Range POCT Glucose 80 74 - 99 mg/dL Jayden Carter is a 84 y.o. year old male PMH of CAD s/p inferior WA and PCI to RCA and LM-LAD in 2018, CKD, history of lymphoma and colon cancer in 2014 presents for evaluation of severe, symptomatic aortic stenosis. S/p Evolut FX + 29mm via RFP preDil with 20mm TruDil balloon on 05/19 with Malgorzata Clements and Tonja EKG pre shows 1st degree AVB Svetlana 280 EKG post shows prolonged Svetlana and slow ventricular rate Doing well clinically, euvolemic on exam. Bilat groins with DSD no evidence of bleeding, oozing, hematoma or ecchymosis. Patient was paced overnight on telemetry, after further investigation, patient has own intrinsic rate and rhythm low 40s. Appears to be 1st degree. Will get EP on board and keep NPO for possible PPM Plan -Ambulate and reassess groins -Echo per protocol -EP consult -NPO -ASA 81mg as monotherapy -Cont home medications -D/C home -Follow up with PCP in 1-2 weeks -Follow up with Primary cards in 6-10 weeks -Follow up with Structural SOFTWARE QUALITY TEST ENGINEER in virtual clinic at 1 week, 1 month and 1 year with echo at 1 mo and year Post procedure echo requirements per TVT registry -1 month echo to be done 23-75 days post implant -1 year echo to be done 305-425 days post implant - Annually after implant D/w Dr. Clements I personally spent 55 minutes with this patient, of which >50% of time was spent counseling and coordination of care Appreciate excellent CICU care and management Appreciate EP recs Peripheral IV 05/19/24 20 G Right Antecubital (Active) Site Assessment Clean;Dry;Intact 05/20/24 0800 Dressing Type Transparent 05/20/24 08 Line Status Blood return noted;Capped;Flushed;Saline locked 05/20/24 0800 Dressing Status Clean;Dry;Occlusive 05/20/24 08 Number of days: 1 Venous Sheath 05/19/24 1704 7 Fr. Left Femoral (Active) Site Assessment Clean;Dry;Intact 05/20/24 0900 Number of days: 1 Code Status: Full Code I spent 55 minutes in the professional and overall care of this patient. ERICH Torres 05/20/24 1100 Discharge Planning Living Arrangements Children Support Systems Children Assistance Needed n/a Type of Residence Private residence Who is requesting discharge planning? Provider Home or Post Acute Services (TBD) Does the patient need discharge transport arranged? No Social Work Progress Note - ICU TREATMENT PLAN: Patient was admitted to the CICU s/p TAVR c/b CHB on TVP. - Payer: [employer] Medicare -Support System: Children - Planned Disposition: Pending medical outcome and rehab recommendations. - Additional Information: SDOH and Social Work Discharge Planning assessments were completed with the patient. There were no SDOH issues identified. - Barriers to discharge: None at this time. SW will continue to follow. Pharmacy Medication History Review Jayden Carter is a 84 y.o. male admitted for Aortic stenosis. Pharmacy reviewed the patient's [id number] medications and allergies for accuracy. The list below reflects the updated CENTRAL OFFICE WORKER list. Prior to Admission Medications Prescriptions Last Dose Informant aspirin 81 mg EC tablet 05/18/2024 Morning Self Sig: Take 1 tablet (81 mg) by mouth once daily. atorvastatin (Lipitor) 80 mg tablet 05/18/2024 Evening Self Sig: Take 1 tablet (80 mg) by mouth once daily at bedtime. cyanocobalamin (Vitamin B-12) 250 mcg tablet 05/18/2024 Morning Self Sig: Take 1 tablet (250 mcg) by mouth once daily. losartan (Cozaar) 100 mg tablet 05/18/2024 Morning Self Sig: Take 1 tablet (100 mg) by mouth once daily. metoprolol succinate XL (Toprol-XL) 25 mg 24 hr tablet 05/18/2024 Evening Self Sig: Take 1 tablet (25 mg) by mouth once daily. nitroglycerin (Nitrostat) 0.4 mg SL tablet Unknown Self Sig: Place 1 tablet (0.4 mg) under the tongue every 5 minutes if needed. tamsulosin (Flomax) 0.4 mg 24 hr capsule 05/18/2024 Evening Self Sig: Take 1 capsule (0.4 mg) by mouth once daily. Facility-Administered Medications: None The list below reflects the updated allergy list. Please review each documented allergy for additional clarification and justification. Allergies Reviewed by Annmarie Pollard RN on 05/19/2024 No Known Allergies Patient declines M2B at discharge. Pharmacy has been updated to [facility] in [place]. Sources used to complete the med history include: [facility] Pharmacy dispense history Patient interview Good historian Chart Review Care Everywhere Below are additional concerns with the patient's CENTRAL OFFICE WORKER list. NA Medications ADDED: Flomax Medications CHANGED: none Medications REMOVED: none Charles Fine PharmD Transitions of Care Pharmacist [facility] Please reach out via Secure Chat for questions, or if no response call [facility] [employer] or [employer] documented in this encounter [facility] Work Phone: 05-21-2024 Evaluation + Plan note Associated Problem(s): S/P placement of cardiac pacemaker 84 y.o. male with PMH of CAD s/p inferior WA and PCI to RCA and LM-LAD in 2018, severe aortic stenosis, HTN, HLD, CKDIII, history of lymphoma and colon cancer in 2014 presenting to the CICU s/p TAVR c/b CHB on TVP (V paced 70 bpm via L fem) on 05/19. Updates -Discharge home today NEUROLOGIC -ANN CARDIOVASCULAR #Aortic Stenosis #s/p TAVR c/B CHB on 05/19 ::TTE 60% EF, severe aortic stenosis, mild to mod MR, AV gradient 66/35, AV Vmax 4.1, KE 0.7m DI 0.16, mild-moderate MR ::Post procedure TTE: gradient 4 and trace PVL, no effusion ::Cardiac MRI notable for EF 59.1%, aortic valve stenosis, KE 0.99 cm2 and mild to mod AR (23.5%) -Avoid BB agents -s/p PPM placement on 05/20 -Monitor on tele -TTE with EF of 63%, -s/p Evolut valve #CAD #HLD ::s/p inferior WA and PCI to RCA and LM-LAD in 2019 ::[facility] 04/02: patent LM and RCA stents. Moderate CAD of LCX and OM for conservative treatment ::Cardiac MRI notable for no segmental wall motion abnormalities, small area of nearly transmural delayed enhancement in the mid inferior wall which may be sequela of small area of prior infarction. -C/w ASA and statin #HTN ::On losartan 100 mg and metoprolol succ 25 mg daily -Holding post procedure iso CHB PULMONARY -ANN RENAL/ #CKDIII ::baseline Cr ~1.2 -Monitor Cr -avoid nephrotoxic agents -renally dose all medications GASTROINTESTINAL -ANN ENDOCRINE -ANN HEME/ONC -ANN INFECTIOUS DISEASE -ANN MSK/DERM -ANN F: PRN E: K>4, Mg>2 N: NPO A: PIV Oxygen: none Abx: none Gtts: none DVT ppx: lovenox GI ppx: PPI Code Status: Full (confirmed on admission) Nok: Daughter Cari [phone] [facility] Work Phone: 05-21-2024 Miscellaneous Notes Associated Problem(s): S/P placement of cardiac pacemaker 84 y.o. male with PMH of CAD s/p inferior WA and PCI to RCA and LM-LAD in 2019, severe aortic stenosis, HTN, HLD, CKDIII, history of lymphoma and colon cancer in 2014 presenting to the CICU s/p TAVR c/b CHB on TVP (V paced 70 bpm via L fem) on 05/19. Updates -Discharge home today NEUROLOGIC -ANN CARDIOVASCULAR #Aortic Stenosis #s/p TAVR c/B CHB on 05/19 ::TTE 60% EF, severe aortic stenosis, mild to mod MR, AV gradient 66/35, AV Vmax 4.1, KE 0.7m DI 0.16, mild-moderate MR ::Post procedure TTE: gradient 4 and trace PVL, no effusion ::Cardiac MRI notable for EF 59.1%, aortic valve stenosis, KE 0.99 cm2 and mild to mod AR (23.5%) -Avoid BB agents -s/p PPM placement on 05/20 -Monitor on tele -TTE with EF of 63%, -s/p Evolut valve #CAD #HLD ::s/p inferior WA and PCI to RCA and LM-LAD in 2019 ::[facility] 04/02: patent LM and RCA stents. Moderate CAD of LCX and OM for conservative treatment ::Cardiac MRI notable for no segmental wall motion abnormalities, small area of nearly transmural delayed enhancement in the mid inferior wall which may be sequela of small area of prior infarction. -C/w ASA and statin #HTN ::On losartan 100 mg and metoprolol succ 25 mg daily -Holding post procedure iso CHB PULMONARY -ANN RENAL/ #CKDIII ::baseline Cr ~1.2 -Monitor Cr -avoid nephrotoxic agents -renally dose all medications GASTROINTESTINAL -ANN ENDOCRINE -ANN HEME/ONC -ANN INFECTIOUS DISEASE -ANN MSK/DERM -ANN F: PRN E: K>4, Mg>2 N: NPO A: PIV Oxygen: none Abx: none Gtts: none DVT ppx: lovenox GI ppx: PPI Code Status: Full (confirmed on admission) Nok: Daughter Cari [phone] Physician Transition of Care Summary Invasive Cardiovascular Lab Procedure Date: 05/20/2024 Attending: * Luis Bates - Primary Resident/Fellow/Other Clay Caster: Surgeons and Role: * Sallie Boo MD - Fellow Indications: Pre-op Diagnosis * S/P TAVR (transcatheter aortic valve replacement) [Z95.2] Post-procedure diagnosis: Post-op Diagnosis * S/P TAVR (transcatheter aortic valve replacement) [Z95.2] Procedure(s): * PPM IMPLANT DUAL Procedure Findings: Complete heart block Description of the Procedure: Left axillary access x 2 RV lead placed in left bundle area with conduction system capture RA lead placed in RAA Pacemaker pocket closed in 3 layers Dermabond over incision LFV temporary pacemaker removed under fluoroscopy and 6Fr sheath removed as well Complications: none Stents/Implants: Implants Pacemaker Pacemaker, Generator, Dual Assurity Mri - [id number] - Implanted Inventory item: PACEMAKER, GENERATOR, DUAL ASSURITY MRI Model/Cat number: [id number] Serial number: [id number] Clinical Sales Consultant: [employer] Lot number: [id number] Device identifier: [id number] Implant Date: 05/20/2024 GUDID Information Request status Successful Brand name: Assurity MRI Version/Model: [id number] Company name: [employer] MRI safety info as of 05/20/24: MR Conditional Contains dry or latex rubber: No GMDN P.T. name: Dual-chamber implantable pacemaker, rate-responsive As of 05/20/2024 Status: Implanted Lead, Pacemaker, Ultipace 52cm - [id number] - Implanted Inventory item: LEAD, PACEMAKER, ULTIPACE 52CM Model/Cat number: [id number] Serial number: [id number] Clinical Sales Consultant: [employer] Lot number: [id number] Device identifier: [id number] Implant Date: 05/20/2024 GUDID Information Request status Successful Brand name: UltiPace Version/Model: [id number] Company name: [employer] MRI safety info as of 05/20/24: MR Conditional Contains dry or latex rubber: No GMDN P.T. name: Endocardial/interventricular septal pacing lead As of 05/20/2024 Status: Implanted Lead, Pacemaker, Ultipace 65cm - [id number] - Implanted Inventory item: LEAD, PACEMAKER, ULTIPACE 65CM Model/Cat number: [id number] Serial number: [id number] Clinical Sales Consultant: [employer] Lot number: [id number] Device identifier: [id number] Implant Date: 05/20/2024 GUDID Information Request status Successful Brand name: Omaira Version/Model: [id number] Company name: [employer] MRI safety info as of 05/20/24: MR Conditional Contains dry or latex rubber: No GMDN P.T. name: Endocardial/interventricular septal pacing lead As of 05/20/2024 Status: Implanted Anticoagulation/Antiplatelet Plan: No heparin products x 7 days SCDs for DVT prevention Estimated Blood Loss: 15 mL Anesthesia: Moderate Sedation Anesthesia Staff: No anesthesia staff entered. Any Specimen(s) Removed: No specimens collected during this procedure. 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 Recommendations: Tentatively patient can be discharged from EP perspective tomorrow after PA-lateral chest xray and device interrogation are done and provided the recovery parameters are appropriate. A PA-lateral chest X-ray should be performed and telemetry monitoring continued for 24 hours. A 12 lead ECG should be performed prior to discharge from the hospital. Resume rest of home medications Discharge home with PO Abx cefadroxil 500 mg BID for 7 days. Complications: None Stents/Implants: Implants Pacemaker Pacemaker, Generator, Dual Assurity Mri - [id number] - Implanted Inventory item: PACEMAKER, GENERATOR, DUAL ASSURITY MRI Model/Cat number: [id number] Serial number: [id number] Clinical Sales Consultant: [employer] Lot number: [id number] Device identifier: [id number] Implant Date: 05/20/2024 GUDID Information Request status Successful Brand name: Assurity MRI Version/Model: [id number] Company name: [employer] MRI safety info as of 05/20/24: MR Conditional Contains dry or latex rubber: No GMDN P.T. name: Dual-chamber implantable pacemaker, rate-responsive As of 05/20/2024 Status: Implanted Lead, Pacemaker, Ultipace 52cm - [id number] - Implanted Inventory item: LEAD, PACEMAKER, ULTIPACE 52CM Model/Cat number: [id number] Serial number: [id number] Clinical Sales Consultant: [employer] Lot number: [id number] Device identifier: [id number] Implant Date: 05/20/2024 GUDID Information Request status Successful Brand name: UltiPace Version/Model: [id number] Company name: [employer] MRI safety info as of 05/20/24: MR Conditional Contains dry or latex rubber: No GMDN P.T. name: Endocardial/interventricular septal pacing lead As of 05/20/2024 Status: Implanted Lead, Pacemaker, Ultipace 65cm - [id number] - Implanted Inventory item: LEAD, PACEMAKER, ULTIPACE 65CM Model/Cat number: [id number] Serial number: [id number] Clinical Sales Consultant: [employer] Lot number: [id number] Device identifier: [id number] Implant Date: 05/20/2024 GUDID Information Request status Successful Brand name: UltiPace Version/Model: [id number] Company name: [employer] MRI safety info as of 05/20/24: MR Conditional Contains dry or latex rubber: No GMDN P.T. name: Endocardial/interventricular septal pacing lead As of 05/20/2024 Status: Implanted Estimated Blood Loss: 15 mL Anesthesia: Moderate Sedation Anesthesia Staff: No anesthesia staff entered. Any Specimen(s) Removed: No specimens collected during this procedure. Disposition: Back to CICU. Electronically signed by: Sallie Boo MD, 05/20/2024 6:31 PM The patient's goals for the shift include The clinical goals for the shift include Remain HDS and less requirement of TVP Over the shift, the patient did not make progress toward the following goals. Barriers to progression include completely paced. Recommendations to address these barriers include continue with current plan of care. Physician Transition of Care Summary Invasive Cardiovascular Lab Procedure Date: 05/19/2024 Attending: Panel 1: * Kermit Clements - Primary Panel 2: * Jomar Rolon - Primary Resident/Fellow/Other Clay Caster: Surgeons and Role: Panel 1: * Guilherme Hernandez MD - Fellow Indications: Pre-op Diagnosis * Nonrheumatic aortic valve stenosis [I35.0] Post-procedure diagnosis: Post-op Diagnosis * Nonrheumatic aortic valve stenosis [I35.0] Procedure(s): TVP for TAVR TAVR-OR TAVR (Transcatheter AV Replacement) 21412 - [place] REPLACE AORTIC VALVE PERQ FEMORAL ARTRY APPROACH NY REPLACE AORTIC VALVE PERQ FEMORAL ARTRY APPROACH [24154] Description of the Procedure: Indication: Severe Aortic Stenosis Valve used: 29 mm Evolut FX+ Pre dil: True dilation balloon 20 mm Access Primary: right COACH CLEANER s/p 2 proglide Secondary: left COACH CLEANER 6 puerto [place]ican s/p 1 proglide TVP: right IJ vein, 7 [place], kept in place. Pre LVEDP: 8 mmhg Post LVEDP: 10 mmhg Post gradient TTE: 4 trace PVL No effusion Complications: Complete AV block post procedure Stents/Implants: Implants Heart Valve Repair Loading System, Evolut Fx, 23-29mm - [id number] - Used, Not Implanted Inventory item: LOADING SYSTEM, EVOLUT FX, 23-29MM Model/Cat number: [id number] Clinical Sales Consultant: [employer] Lot number: [id number] Device identifier: [id number] GUDID Information Request status Successful Brand name: Evolut FX Version/Model: [id number] Company name: [employer] MRI safety info as of 05/19/24: Labeling does not contain MRI Safety Information Contains dry or latex rubber: No GMDN P.T. name: Aortic transcatheter heart valve bioprosthesis, stent-like framework As of 05/19/2024 Status: Used, Not Implanted Valve, Aortic, 29mm, Evolut Fx Transcatheter - [id number] - [id number] - Implanted Inventory item: VALVE, AORTIC, 29MM, EVOLUT FX TRANSCATHETER Model/Cat number: [id number] Serial number: [id number] Clinical Sales Consultant: [employer] Lot number: [id number] As of 05/19/2024 Status: Implanted Anticoagulation/Antiplatelet Plan: aspirin Estimated Blood Loss: 40 mL Anesthesia: Moderate Sedation Anesthesia Staff: No anesthesia staff entered. Any Specimen(s) Removed: Order Name Source Comment Collection Info Order Time TYPE AND SCREEN Blood, Venous Collected By: Annmarie Pollard RN 05/19/2024 12:49 PM Release result to MyChart Immediate BASIC METABOLIC PANEL Blood, Venous Collected By: Jackelin Rios RN 05/19/2024 1:50 PM Release result to MyChart Immediate MAGNESIUM Blood, Venous Collected By: Jackelin Rios RN 05/19/2024 1:50 PM Release result to MyChart Immediate CBC WITH AUTO DIFFERENTIAL Blood, Venous Collected By: Jackelin Rios RN 05/19/2024 1:50 PM Release result to MyChart Immediate PROTIME-INR Blood, Venous Collected By: Jackelin Rios RN 05/19/2024 1:50 PM Release result to MyChart Immediate CBC WITH AUTO DIFFERENTIAL Blood, Venous 05/19/2024 7:01 PM Release result to MyChart Immediate BASIC METABOLIC PANEL Blood, Venous 05/19/2024 7:01 PM Release result to MyChart Immediate MAGNESIUM Blood, Venous 05/19/2024 7:01 PM Release result to MyChart Immediate PROTIME-INR Blood, Venous 05/19/2024 7:01 PM Release result to MyChart Immediate Disposition: Monitor tele Monitor access sites for bleeding TTE tomorrow Bed rest Structural team will continue to follow. page structural team for any concerning clinical events. This patient was included at the access TAVR trial. Electronically signed by: Guilherme Hernandez MD, 05/19/2024 7:22 PM Date of the Operation:05/19/24 Pt Name:Jayden Carter Pre Op D. - Severe aortic valve stenosis Post Op D. - Severe aortic valve stenosis Operation/Procedure: 1. - Pre-dilatation aortic Balloon plasty with a 18x45 mm True Balloon. 2. - TAVR: Evolute FX 29mm Surgeon: Leni Rolon Senior Clinical Research Scientist: Cruz Clements Anesthesia Type: Conscious sedation and local 2% lidocaine Complications: None Estimated Blood loss: 150 cc Operative indications: The patient was well diagnosed with severe aortic valve stenosis. The heart team recommended to perform a TAVR. Operative Findings: Per fluoroscopy severe calcification of the aortic valve. Operative procedure: The patient was placed on the surgical table in a supine position. Prepped and draped as usual. 2% lidocaine for all the percutaneous access. TPMW through the LFV. Secondary access: L femoral artery with a 6Fr introducer sheath. Heparin is given for ACT>300s. Primary access on the R femoral artery was prepared with 2 perclose and a 14 Fr introducer sheath. Pigtails are placed in the NCS and the LV [place]. Pre implant hemodynamics are obtained. GW exchange to a Safari preformed wire. A pre-implant balloon-plasty with a 18 mm balloon. The valve previously chosen and prepared is now pushed under fluoroscopy across the aortic arch and then across the valve. Rapid pacing, and the valve is deployed. Delivery system is removed. Post implants hemodynamics are obtained. Post implant surface echo is done showing minimal to no PVL. The procedure is considered successful. The Protamine is given. Perclose are tied down and an Angioseal is applied to the other FA. Pulses are checked. The patient has no new electrical disturbances so the TPMW is pulled out and the patient is transferred for postoperative management. Patient: Jayden ONOFREN: [id number] NPO guidelines met: Yes Physical Exam Airway Mallampati: II Cardiovascular Rhythm: regular Dental Pulmonary Plan ASA 3 Mild documented in this encounter [facility] Work Phone: 05-21-2024 Hospital course Narrative Discharge Diagnosis S/p TAVR Issues Requiring Follow-Up None Hospital Course Patient Vitals for the past 24 hrs: BP Temp Temp src Pulse Resp SpO2 Weight 05/21/24 0802 no documentation 36 C (96.8 F) Temporal no documentation no documentation no documentation no documentation 05/21/24 0800 143/63 no documentation no documentation 77 20 97 % no documentation 05/21/24 0700 129/59 no documentation no documentation 69 12 96 % no documentation 05/21/24 0600 (Abnormal) 123/42 no documentation no documentation 68 13 96 % 74.5 kg (164 lb 3.9 oz) 05/21/24 0500 (Abnormal) 112/48 no documentation no documentation 70 19 94 % no documentation 05/21/24 0400 109/51 36.7 C (98.1 F) Temporal 77 17 97 % no documentation 05/21/24 0300 (Abnormal) 101/49 no documentation no documentation 69 18 95 % no documentation 05/21/24 0200 (Abnormal) 99/43 no documentation no documentation 72 17 94 % no documentation 05/21/24 0100 95/55 no documentation no documentation 71 18 92 % no documentation 05/21/24 0000 100/57 no documentation no documentation 72 10 94 % no documentation 05/20/24 2300 112/55 36.8 C (98.2 F) Temporal 74 12 93 % no documentation 05/20/24 2200 124/59 no documentation no documentation 75 10 94 % no documentation 05/20/24 2100 110/80 no documentation no documentation 73 18 95 % no documentation 05/20/24 2000 no documentation no documentation no documentation 76 19 98 % no documentation 05/20/24 1957 no documentation 36 C (96.8 F) Temporal no documentation no documentation no documentation no documentation 05/20/24 1900 115/86 no documentation no documentation 78 21 94 % no documentation 05/20/24 1800 133/59 no documentation no documentation 87 17 98 % no documentation 05/20/24 1500 139/53 no documentation no documentation 60 12 98 % no documentation 05/20/24 1400 (Abnormal) 146/46 no documentation no documentation 60 19 98 % no documentation 05/20/24 1300 125/52 no documentation no documentation 60 (Abnormal) 29 96 % no documentation 05/20/24 1200 (Abnormal) 151/49 no documentation no documentation 60 16 97 % no documentation 05/20/24 1138 no documentation 36.7 C (98.1 F) Temporal no documentation no documentation no documentation no documentation 05/20/24 1100 132/79 no documentation no documentation 60 21 100 % no documentation 05/20/24 1000 148/54 no documentation no documentation 60 15 99 % no documentation Results for orders placed or performed during the hospital encounter of 05/19/24 (from the past 96 hours) ECG 12 lead daily Result Value Ref Range Ventricular Rate 57 BPM Atrial Rate 57 BPM [place] Interval 280 ms QRS Duration 120 ms QT Interval 466 ms QTC Calculation(Bazett) 453 ms P Meally 74 degrees R Meally -14 degrees T Meally 28 degrees QRS Count 9 beats Q Onset 220 ms T Offset 453 ms QTC Fredericia 458 ms Type And Screen Result Value Ref Range ABO TYPE A Rh TYPE POS ANTIBODY SCREEN NEG Basic metabolic panel Result Value Ref Range Glucose 80 74 - 99 mg/dL Sodium 139 136 - 145 mmol/L Potassium 3.7 3.5 - 5.3 mmol/L Chloride 109 (H) 98 - 107 mmol/L Bicarbonate 24 21 - 32 mmol/L Anion Gap 10 10 - 20 mmol/L Urea Nitrogen 15 6 - 23 mg/dL Creatinine 1.25 0.50 - 1.30 mg/dL eGFR 57 (L) >60 mL/min/1.73m*2 Calcium 7.2 (L) 8.6 - 10.6 mg/dL Magnesium Result Value Ref Range Magnesium 1.61 1.60 - 2.40 mg/dL CBC and Auto Differential Result Value Ref Range WBC 3.9 (L) 4.4 - 11.3 x10*3/uL nRBC 0.0 0.0 - 0.0 /100 WBCs RBC 3.60 (L) 4.50 - 5.90 x10*6/uL Hemoglobin 11.4 (L) 13.5 - 17.5 g/dL Hematocrit 34.3 (L) 41.0 - 52.0 % MCV 95 80 - 100 fL MCH 31.7 26.0 - 34.0 pg MCHC 33.2 32.0 - 36.0 g/dL RDW 12.6 11.5 - 14.5 % Platelets 103 (L) 150 - 450 x10*3/uL Neutrophils % 60.1 40.0 - 80.0 % Immature Granulocytes %, Automated 0.8 0.0 - 0.9 % Lymphocytes % 27.6 13.0 - 44.0 % Monocytes % 8.7 2.0 - 10.0 % Eosinophils % 2.3 0.0 - 6.0 % Basophils % 0.5 0.0 - 2.0 % Neutrophils Absolute 2.36 1.60 - 5.50 x10*3/uL Immature Granulocytes Absolute, Automated 0.03 0.00 - 0.50 x10*3/uL Lymphocytes Absolute 1.08 0.80 - 3.00 x10*3/uL Monocytes Absolute 0.34 0.05 - 0.80 x10*3/uL Eosinophils Absolute 0.09 0.00 - 0.40 x10*3/uL Basophils Absolute 0.02 0.00 - 0.10 x10*3/uL Protime-INR Result Value Ref Range Protime 13.8 (H) 9.8 - 12.8 seconds INR 1.2 (H) 0.9 - 1.1 Transthoracic Echo (TTE) Limited Result Value Ref Range AV pk olinda 3.77 m/s AV mn grad 33 mmHg LVOT diam 2.27 cm LV EF 63 % RVSP 22.4 mmHg Aortic Valve Area by Continuity of VTI 1.01 cm2 Aortic Valve Area by Continuity of Peak Velocity 0.97 cm2 AV pk grad 57 mmHg LV A4C EF 66.2 BSA 1.9 m2 ECG 12 lead Result Value Ref Range Ventricular Rate 70 BPM Atrial Rate 80 BPM QRS Duration 156 ms QT Interval 466 ms QTC Calculation(Bazett) 503 ms R Meally -38 degrees T Meally 22 degrees QRS Count 12 beats Q Onset 200 ms T Offset 433 ms QTC Fredericia 490 ms Renal function panel Result Value Ref Range Glucose 139 (H) 74 - 99 mg/dL Sodium 141 136 - 145 mmol/L Potassium 3.8 3.5 - 5.3 mmol/L Chloride 106 98 - 107 mmol/L Bicarbonate 25 21 - 32 mmol/L Anion Gap 14 10 - 20 mmol/L Urea Nitrogen 15 6 - 23 mg/dL Creatinine 1.33 (H) 0.50 - 1.30 mg/dL eGFR 53 (L) >60 mL/min/1.73m*2 Calcium 8.3 (L) 8.6 - 10.6 mg/dL Phosphorus 2.8 2.5 - 4.9 mg/dL Albumin 3.3 (L) 3.4 - 5.0 g/dL Magnesium Result Value Ref Range Magnesium 1.95 1.60 - 2.40 mg/dL CBC and Auto Differential Result Value Ref Range WBC 6.6 4.4 - 11.3 x10*3/uL nRBC 0.0 0.0 - 0.0 /100 WBCs RBC 4.32 (L) 4.50 - 5.90 x10*6/uL Hemoglobin 13.7 13.5 - 17.5 g/dL Hematocrit 40.9 (L) 41.0 - 52.0 % MCV 95 80 - 100 fL MCH 31.7 26.0 - 34.0 pg MCHC 33.5 32.0 - 36.0 g/dL RDW 12.9 11.5 - 14.5 % Platelets 131 (L) 150 - 450 x10*3/uL Neutrophils % 73.7 40.0 - 80.0 % Immature Granulocytes %, Automated 0.8 0.0 - 0.9 % Lymphocytes % 13.8 13.0 - 44.0 % Monocytes % 10.1 2.0 - 10.0 % Eosinophils % 1.1 0.0 - 6.0 % Basophils % 0.5 0.0 - 2.0 % Neutrophils Absolute 4.88 1.60 - 5.50 x10*3/uL Immature Granulocytes Absolute, Automated 0.05 0.00 - 0.50 x10*3/uL Lymphocytes Absolute 0.91 0.80 - 3.00 x10*3/uL Monocytes Absolute 0.67 0.05 - 0.80 x10*3/uL Eosinophils Absolute 0.07 0.00 - 0.40 x10*3/uL Basophils Absolute 0.03 0.00 - 0.10 x10*3/uL Basic Metabolic Panel Result Value Ref Range Glucose 90 74 - 99 mg/dL Sodium 140 136 - 145 mmol/L Potassium 4.0 3.5 - 5.3 mmol/L Chloride 106 98 - 107 mmol/L Bicarbonate 25 21 - 32 mmol/L Anion Gap 13 10 - 20 mmol/L Urea Nitrogen 15 6 - 23 mg/dL Creatinine 1.33 (H) 0.50 - 1.30 mg/dL eGFR 53 (L) >60 mL/min/1.73m*2 Calcium 8.3 (L) 8.6 - 10.6 mg/dL Magnesium Result Value Ref Range Magnesium 1.96 1.60 - 2.40 mg/dL Protime-INR Result Value Ref Range Protime 10.8 9.8 - 12.8 seconds INR 1.0 0.9 - 1.1 Transthoracic Echo (TTE) Limited Result Value Ref Range AV pk olinda 2.14 m/s AV mn grad 11 mmHg LVOT diam 2.00 cm LA vol index A/L 26.9 ml/m2 Tricuspid annular plane systolic excursion 2.4 cm LV EF 61 % RV free wall pk S' 11.70 cm/s LVIDd 5.50 cm RVSP 24.0 mmHg Aortic Valve Area by Continuity of VTI 1.13 cm2 Aortic Valve Area by Continuity of Peak Velocity 1.09 cm2 AV pk grad 18 mmHg LV A4C EF 59.4 ECG 12 lead daily Result Value Ref Range Ventricular Rate 81 BPM Atrial Rate 81 BPM [place] Interval 174 ms QRS Duration 154 ms QT Interval 436 ms QTC Calculation(Bazett) 506 ms P Meally 69 degrees R Meally -35 degrees T Meally 130 degrees QRS Count 14 beats Q Onset 186 ms P Onset 99 ms P Offset 142 ms T Offset 404 ms QTC Fredericia 481 ms POCT GLUCOSE Result Value Ref Range POCT Glucose 80 74 - 99 mg/dL CBC and Auto Differential Result Value Ref Range WBC 7.1 4.4 - 11.3 x10*3/uL nRBC 0.0 0.0 - 0.0 /100 WBCs RBC 4.35 (L) 4.50 - 5.90 x10*6/uL Hemoglobin 13.4 (L) 13.5 - 17.5 g/dL Hematocrit 38.6 (L) 41.0 - 52.0 % MCV 89 80 - 100 fL MCH 30.8 26.0 - 34.0 pg MCHC 34.7 32.0 - 36.0 g/dL RDW 12.9 11.5 - 14.5 % Platelets 113 (L) 150 - 450 x10*3/uL Neutrophils % 72.7 40.0 - 80.0 % Immature Granulocytes %, Automated 0.3 0.0 - 0.9 % Lymphocytes % 14.9 13.0 - 44.0 % Monocytes % 9.9 2.0 - 10.0 % Eosinophils % 1.8 0.0 - 6.0 % Basophils % 0.4 0.0 - 2.0 % Neutrophils Absolute 5.14 1.60 - 5.50 x10*3/uL Immature Granulocytes Absolute, Automated 0.02 0.00 - 0.50 x10*3/uL Lymphocytes Absolute 1.05 0.80 - 3.00 x10*3/uL Monocytes Absolute 0.70 0.05 - 0.80 x10*3/uL Eosinophils Absolute 0.13 0.00 - 0.40 x10*3/uL Basophils Absolute 0.03 0.00 - 0.10 x10*3/uL Basic Metabolic Panel Result Value Ref Range Glucose 108 (H) 74 - 99 mg/dL Sodium 138 136 - 145 mmol/L Potassium 3.9 3.5 - 5.3 mmol/L Chloride 105 98 - 107 mmol/L Bicarbonate 25 21 - 32 mmol/L Anion Gap 12 10 - 20 mmol/L Urea Nitrogen 16 6 - 23 mg/dL Creatinine 1.26 0.50 - 1.30 mg/dL eGFR 57 (L) >60 mL/min/1.73m*2 Calcium 8.2 (L) 8.6 - 10.6 mg/dL Magnesium Result Value Ref Range Magnesium 1.84 1.60 - 2.40 mg/dL Protime-INR Result Value Ref Range Protime 11.7 9.8 - 12.8 seconds INR 1.0 0.9 - 1.1 ECG 12 lead daily Result Value Ref Range Ventricular Rate 70 BPM Atrial Rate 70 BPM [place] Interval 170 ms QRS Duration 170 ms QT Interval 472 ms QTC Calculation(Bazett) 509 ms P Meally 55 degrees R Meally -34 degrees T Meally 135 degrees QRS Count 12 beats Q Onset 190 ms P Onset 105 ms P Offset 162 ms T Offset 426 ms QTC Fredericia 497 ms Jayden Carter is a 84 y.o. year old male PMH of CAD s/p inferior WA and PCI to RCA and LM-LAD in 2019, CKD, history of lymphoma and colon cancer in 2015 presents for evaluation of severe, symptomatic aortic stenosis. S/p Evolut FX + 29mm via RFP preDil with 20mm TruDil balloon on 05/19 with Malgorzata Clements and Tonja EKG pre shows 1st degree AVB Svetlana 280 QRS 120 EKG post shows 2:1 AVB with LBBB Doing well clinically, euvolemic on exam. Bilat groins with DSD no evidence of bleeding, oozing, hematoma or ecchymosis. S/p PPM for underlying HB site intact with DSD. 2 view CXR reviewed Plan -Ambulate and reassess groins -Echo per protocol -Cefadroxil 500mg BID 7 days -Reduce Losartan to 50mg daily -ASA 81mg as monotherapy -Cont home medications -D/C home -Follow up with PCP in 1-2 weeks -Follow up with Primary cards in 6-10 weeks -Follow up with Structural SOFTWARE QUALITY TEST ENGINEER in virtual clinic at 1 week, 1 month and 1 year with echo at 1 mo and year Post procedure echo requirements per TVT registry -1 month echo to be done 23-75 days post implant -1 year echo to be done 305-425 days post implant - Annually after implant D/w Dr. Clements I personally spent 55 minutes with this patient, of which >50% of time was spent counseling and coordination of care Pertinent Physical Exam At Time of Discharge Physical Exam Constitutional: Well developed, awake/alert/oriented x3, no distress, cooperative Eyes: PERRL, EOMI, clear sclera ENMT: mucous membranes moist, no apparent injury, no lesions seen Head/Neck: Neck supple, no apparent injury, thyroid without mass or tenderness, No JVD, trachea midline, no bruits Respiratory/Thorax: Patent airways, good chest expansion, thorax symmetric, cta Cardiovascular: Regular rate and rhythm, no murmurs, normal S 1and S 2 Gastrointestinal: Nondistended, soft, non-tender, no rebound tenderness or guarding, no masses palpable, no organomegaly, +BS, no bruits Extremities: normal extremities, no cyanosis, bilat groins c/d/i with dsd no s/s of hematoma Neurological: alert and oriented x3, intact senses, motor, response and reflexes, normal strength Psychological: Appropriate mood and behavior Skin: Warm and dry, intact Home Medications Medication List Start taking these medications cefadroxil 500 mg capsule; Commonly known as: Duricef; Take 1 capsule (500 mg) by mouth 2 times a day for 7 days. Change how you take these medications losartan 100 mg tablet; Commonly known as: Cozaar; Take 0.5 tablets (50 mg) by mouth once daily.; What changed: how much to take Continue taking these medications aspirin 81 mg EC tablet atorvastatin 80 mg tablet; Commonly known as: Lipitor; Take 1 tablet (80 mg) by mouth once daily at bedtime. cyanocobalamin 250 mcg tablet; Commonly known as: Vitamin B-12 metoprolol succinate XL 25 mg 24 hr tablet; Commonly known as: Toprol-XL; Take 1 tablet (25 mg) by mouth once daily. Nitrostat 0.4 mg SL tablet; Generic drug: nitroglycerin tamsulosin 0.4 mg 24 hr capsule; Commonly known as: Flomax Outpatient Follow-Up Future Appointments Date Time Provider Department Center 06/19/2024 2:00 PM [facility] [place] [facility] [place]/02/2025 9:00 AM Jignesh Bhatt DO [id number] [place] 05/19/2025 8:15 AM [facility] [place] [facility] [place] ERICH Torres documented in this encounter [facility] Work Phone: 05-20-2024 Note Formatting of this n ote is different from the original. Physician Transition of Care Summary Invasive Cardiovascular Lab Procedure Date: 05/20/2024 Attending: * Luis Bates - Primary Resident/Fellow/Other Clay Caster: Surgeons and Role: * Sallie Boo MD - Fellow Indications: Pre-op Diagnosis * S/P TAVR (transcatheter aortic valve replacement) [Z95.2] Post-procedure diagnosis: Post-op Diagnosis * S/P TAVR (transcatheter aortic valve replacement) [Z95.2] Procedure(s): * PPM IMPLANT DUAL Procedure Findings: Complete heart block Description of the Procedure: Left axillary access x 2 RV lead placed in left bundle area with conduction system capture RA lead placed in RAA Pacemaker pocket closed in 3 layers Dermabond over incision LFV temporary pacemaker removed under fluoroscopy and 6Fr sheath removed as well Complications: none Stents/Implants: Implants Pacemaker Pacemaker, Generator, Dual Assurity Mri - [id number] - Implanted Inventory item: PACEMAKER, GENERATOR, DUAL ASSURITY MRI Model/Cat number: [id number] Serial number: [id number] Clinical Sales Consultant: [employer] Lot number: [id number] Device identifier: [id number] Implant Date: 05/20/2024 GUDID Information Request status Successful Brand name: Assurity MRI Version/Model: [id number] Company name: [employer] MRI safety info as of 05/20/24: MR Conditional Contains dry or latex rubber: No GMDN P.T. name: Dual-chamber implantable pacemaker, rate-responsive As of 05/20/2024 Status: Implanted Lead, Pacemaker, Ultipace 52cm - [id number] - Implanted Inventory item: LEAD, PACEMAKER, ULTIPACE 52CM Model/Cat number: [id number] Serial number: [id number] Clinical Sales Consultant: [employer] Lot number: [id number] Device identifier: [id number] Implant Date: 05/20/2024 GUDID Information Request status Successful Brand name: UltiPace Version/Model: [id number] Company name: [employer] MRI safety info as of 05/20/24: MR Conditional Contains dry or latex rubber: No GMDN P.T. name: Endocardial/interventricular septal pacing lead As of 05/20/2024 Status: Implanted Lead, Pacemaker, Ultipace 65cm - [id number] - Implanted Inventory item: LEAD, PACEMAKER, ULTIPACE 65CM Model/Cat number: [id number] Serial number: [id number] Clinical Sales Consultant: [employer] Lot number: [id number] Device identifier: [id number] Implant Date: 05/20/2024 GUDID Information Request status Successful Brand name: UltiPace Version/Model: [id number] Company name: [employer] MRI safety info as of 05/20/24: MR Conditional Contains dry or latex rubber: No GMDN P.T. name: Endocardial/interventricular septal pacing lead As of 05/20/2024 Status: Implanted Anticoagulation/Antiplatelet Plan: No heparin products x 7 days SCDs for DVT prevention Estimated Blood Loss: 15 mL Anesthesia: Moderate Sedation Anesthesia Staff: No anesthesia staff entered. Any Specimen(s) Removed: No specimens collected during this procedure. Disposition: Back to CICU 3 hours bedrest s/p sheath removal Keflex 500mg TID x 5 days No heparin products x 7 days to prevent pocket hematoma SCDs/ambulation for DVT prevention Electronically signed by: Luis Bates MD, 05/20/2024 6:05 PM [facility] Work Phone: 05-20-2024 Note Formatting of this n ote is different from the original. Physician Transition of Care Summary Invasive Cardiovascular Lab Procedure Date: 05/20/2024 Attending: * Luis Bates - Primary Resident/Fellow/Other Clay Caster: Surgeons and Role: * Sallie Boo MD - Fellow Indications: Pre-op Diagnosis * S/P TAVR (transcatheter aortic valve replacement) [Z95.2] Post-procedure diagnosis: Post-op Diagnosis * Postoperative AV block [I97.89, I44.30] * S/P TAVR (transcatheter aortic valve replacement) [Z95.2] Procedure(s): * PPM IMPLANT DUAL Summary: Successful implantation of a Winn/myAchy left sided Left bundle branch area dual chamber pacemaker Lt groin TVP was removed in the EP lab followed by manual pressure. Recommendations: Tentatively patient can be discharged from EP perspective tomorrow after PA-lateral chest xray and device interrogation are done and provided the recovery parameters are appropriate. A PA-lateral chest X-ray should be performed and telemetry monitoring continued for 24 hours. A 12 lead ECG should be performed prior to discharge from the hospital. Resume rest of home medications Discharge home with PO Abx cefadroxil 500 mg BID for 7 days. Complications: None Stents/Implants: Implants Pacemaker Pacemaker, Generator, Dual Assurity Mri - [id number] - Implanted Inventory item: PACEMAKER, GENERATOR, DUAL ASSURITY MRI Model/Cat number: [id number] Serial number: [id number] Clinical Sales Consultant: [employer] Lot number: [id number] Device identifier: [id number] Implant Date: 05/20/2024 GUDID Information Request status Successful Brand name: Assurity MRI Version/Model: [id number] Company name: [employer] MRI safety info as of 05/20/24: MR Conditional Contains dry or latex rubber: No GMDN P.T. name: Dual-chamber implantable pacemaker, rate-responsive As of 05/20/2024 Status: Implanted Lead, Pacemaker, Ultipace 52cm - [id number] - Implanted Inventory item: LEAD, PACEMAKER, ULTIPACE 52CM Model/Cat number: [id number] Serial number: [id number] Clinical Sales Consultant: [employer] Lot number: [id number] Device identifier: [id number] Implant Date: 05/20/2024 GUDID Information Request status Successful Brand name: UltiPace Version/Model: [id number] Company name: [employer] MRI safety info as of 05/20/24: MR Conditional Contains dry or latex rubber: No GMDN P.T. name: Endocardial/interventricular septal pacing lead As of 05/20/2024 Status: Implanted Lead, Pacemaker, Ultipace 65cm - [id number] - Implanted Inventory item: LEAD, PACEMAKER, ULTIPACE 65CM Model/Cat number: [id number] Serial number: [id number] Clinical Sales Consultant: [employer] Lot number: [id number] Device identifier: [id number] Implant Date: 05/20/2024 GUDID Information Request status Successful Brand name: UltiPace Version/Model: [id number] Company name: [employer] MRI safety info as of 05/20/24: MR Conditional Contains dry or latex rubber: No GMDN P.T. name: Endocardial/interventricular septal pacing lead As of 05/20/2024 Status: Implanted Estimated Blood Loss: 15 mL Anesthesia: Moderate Sedation Anesthesia Staff: No anesthesia staff entered. Any Specimen(s) Removed: No specimens collected during this procedure. Disposition: Back to [facility]. Electronically signed by: Sallie Boo MD, 05/20/2024 6:31 PM [facility] Work Phone: 05-20-2024 History and physical note History Of Present Illness Jayden Carter is a 84 y.o. male with PMH of CAD s/p inferior WA and PCI to RCA and LM-LAD in 2019, severe aortic stenosis, HTN, HLD, CKDIII, history of lymphoma and colon cancer in 2014 presenting to the CICU s/p TAVR c/b CHB on TVP. Pre-TAVR EKG showed RBBB. Currently, paced via TVP with underlying 2:1 AVB and LBBB. Echo: 60% EF , severe aortic stenosis, mild to mod MR, AV gradient 66/35, AV Vmax 4.1, KE 0.7m DI 0.16, mild-moderate MR Past Medical History History reviewed. No pertinent past medical history. Surgical History Past Surgical History: Procedure Laterality Date OTHER SURGICAL HISTORY 04/13/2021 Colon surgery OTHER SURGICAL HISTORY 04/13/2021 Cholecystectomy OTHER SURGICAL HISTORY 04/13/2021 Colonoscopy OTHER SURGICAL HISTORY 04/13/2021 Cardiac catheterization with stent placement Social History He reports that he has never smoked. He has never used smokeless tobacco. He reports that he does not drink alcohol and does not use drugs. Family History Family History Problem Relation Name Age of Onset Other (HARDENING OF THE AORTA) Mother Other (HARDENING OF THE AORTA) Father Allergies Patient has no known allergies. Review of Systems Constitutional: Negative for chills and fever. HENT: Negative for congestion and rhinorrhea. Eyes: Negative for pain and redness. Respiratory: Negative for shortness of breath and wheezing. Cardiovascular: Negative for chest pain and palpitations. Gastrointestinal: Negative for abdominal pain, constipation and diarrhea. Genitourinary: Negative for dysuria and hematuria. Musculoskeletal: Negative for back pain and neck pain. Neurological: Negative for dizziness and headaches. Psychiatric/Behavioral: Negative for agitation and confusion. Physical Exam Gen: awake and alert, AAOx3 HEENT: normocephalic. CV: RRR. No murmurs, gallops, rubs. Left groin: TVP in-place Pulm: clear to auscultation bilaterally. No coarse lung sounds Abd: soft, non-distended. Normal active bowel sounds Ext: warm and well-perfused. No LE edema Psych: appropriate affect Neuro: grossly intact sensation and motor functions. Last Recorded Vitals Blood pressure 125/52, pulse 60, temperature 36.7 C (98.1 F), temperature source Temporal, resp. rate 19, height 1.72 m (5' 7.72 ), weight 75.8 kg (167 lb 1.7 oz), SpO2 98%. Relevant Results Assessment/Plan Assessment & Plan Aortic stenosis 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, postoperative Jayden Carter is an 84 y.o. male with PMH of CAD s/p inferior WA and PCI to RCA and LM-LAD in 2019, severe aortic stenosis, HTN, HLD, CKDIII, history of lymphoma and colon cancer in 2014 presenting to the [facility] s/p TAVR c/b CHB on TVP. Pre-TAVR EKG showed RBBB. Currently, paced via TVP with underlying 2:1 AVB and LBBB (QRS 136 ms). -Plan for PPM today, keep NPO, hold all heparin products. -Ensure left sided IV line. I spent 30 minutes in the professional and overall care of this patient. Sallie Boo MD Cosigned by Luis Bates MD at 05/20/2024 6:18 PM EST [facility] Work Phone: 05-20-2024 History and physical note History Of Present Illness Jayden Carter is a 84 y.o. male with PMH of CAD s/p inferior [place] and PCI to RCA and LM-LAD in 2019, severe aortic stenosis, HTN, HLD, CKDIII, history of lymphoma and colon cancer in 2014 presenting to the [facility] s/p TAVR c/b [facility] on TVP. Pre-TAVR EKG showed RBBB. Currently, paced via TVP with underlying 2:1 AVB and LBBB. Echo: 60% EF , severe aortic stenosis, mild to mod MR, AV gradient 66/35, AV Vmax 4.1, KE 0.7m DI 0.16, mild-moderate MR Past Medical History History reviewed. No pertinent past medical history. Surgical History Past Surgical History: Procedure Laterality Date OTHER SURGICAL HISTORY 04/13/2021 Colon surgery OTHER SURGICAL HISTORY 04/13/2021 Cholecystectomy OTHER SURGICAL HISTORY 04/13/2021 Colonoscopy OTHER SURGICAL HISTORY 04/13/2021 Cardiac catheterization with stent placement Social History He reports that he has never smoked. He has never used smokeless tobacco. He reports that he does not drink alcohol and does not use drugs. Family History Family History Problem Relation Name Age of Onset Other (HARDENING OF THE AORTA) Mother Other (HARDENING OF THE AORTA) Father Allergies Patient has no known allergies. Review of Systems Constitutional: Negative for chills and fever. HENT: Negative for congestion and rhinorrhea. Eyes: Negative for pain and redness. Respiratory: Negative for shortness of breath and wheezing. Cardiovascular: Negative for chest pain and palpitations. Gastrointestinal: Negative for abdominal pain, constipation and diarrhea. Genitourinary: Negative for dysuria and hematuria. Musculoskeletal: Negative for back pain and neck pain. Neurological: Negative for dizziness and headaches. Psychiatric/Behavioral: Negative for agitation and confusion. Physical Exam Gen: awake and alert, AAOx3 HEENT: normocephalic. CV: RRR. No murmurs, gallops, rubs. Left groin: TVP in-place Pulm: clear to auscultation bilaterally. No coarse lung sounds Abd: soft, non-distended. Normal active bowel sounds Ext: warm and well-perfused. No LE edema Psych: appropriate affect Neuro: grossly intact sensation and motor functions. Last Recorded Vitals Blood pressure 125/52, pulse 60, temperature 36.7 C (98.1 F), temperature source Temporal, resp. rate 19, height 1.72 m (5' 7.72 ), weight 75.8 kg (167 lb 1.7 oz), SpO2 98%. Relevant Results Assessment/Plan Assessment & Plan Aortic stenosis 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, postoperative Jayden Carter is an 84 y.o. male with PMH of CAD s/p inferior WA and PCI to RCA and LM-LAD in 2019, severe aortic stenosis, HTN, HLD, CKDIII, history of lymphoma and colon cancer in 2014 presenting to the CICU s/p TAVR c/b CHB on TVP. Pre-TAVR EKG showed RBBB. Currently, paced via TVP with underlying 2:1 AVB and LBBB (QRS 136 ms). -Plan for PPM today, keep NPO, hold all heparin products. -Ensure left sided IV line. I spent 30 minutes in the professional and overall care of this patient. Sallie Boo MD Cosigned by Luis Bates MD at 05/20/2024 6:18 PM EST History Of Present Illness 84 y.o. male with PMH of CAD s/p inferior WA and PCI to RCA and LM-LAD in 2019, CKD, history of lymphoma and colon cancer in 2015 presents for evaluation of severe, symptomatic aortic stenosis. Patient denies fatigue, SOB, INTERIANO. Denies overt orthopnea, PND, exertional CP. He does ednorse occasional dizziness. Denies syncope or presyncope. Denies increased abdominal girth, edema. Full 14 point ROS complete and negative except as noted above. Past Medical History: He has no past medical history on file. Past Surgical History: He has a past surgical history that includes Other surgical history (04/13/2021); Other surgical history (04/13/2021); Other surgical history (04/13/2021); and Other surgical history (04/13/2021). Echo: 60% EF , severe aortic stenosis, AV gradient 66/35, AV Vmax 4.1, KE 0.7m DI 0.16, mild-moderate MR EKG: NSR, 248ms [place], nl axis, 94ms QRS TAVR Workup: - NYHA: II - [facility] 04/02: patent LM and RCA stents. Moderate CAD of LCX and OM for conservative treatment. - CT TAVR: at chart - dental clearance: full denture EFT 06/14 STS Procedure Type: Isolated AVR Perioperative OutcomeEstimate % Operative Mortality 4.29% Past Medical History History reviewed. No pertinent past medical history. Surgical History Past Surgical History: Procedure Laterality Date OTHER SURGICAL HISTORY 04/13/2021 Colon surgery OTHER SURGICAL HISTORY 04/13/2021 Cholecystectomy OTHER SURGICAL HISTORY 04/13/2021 Colonoscopy OTHER SURGICAL HISTORY 04/13/2021 Cardiac catheterization with stent placement Social History He reports that he has never smoked. He has never used smokeless tobacco. He reports that he does not drink alcohol and does not use drugs. Family History Family History Problem Relation Name Age of Onset Other (HARDENING OF THE AORTA) Mother Other (HARDENING OF THE AORTA) Father Allergies Patient has no known allergies. Review of Systems Full 14 point ROS complete and negative except as noted above. Physical Exam AO x 3 CVS- normal s1, s2, aortic systolic murmurs +++/6 Resp -CTAB Abd- Soft, NT, ND Neuro No gross motor. Sensory deficits No LE edema Last Recorded Vitals Blood pressure 164/70, pulse 59, resp. rate 12. Relevant Results Ejection Fractions: EF Date/Time Value Ref Range Status 03/09/2024 09:37 AM 60 % Assessment/Plan Assessment & Plan Aortic stenosis S/P TAVR (transcatheter aortic valve replacement) TAVR procedure today I spent 30 minutes in the professional and overall care of this patient. Guilherme Hernandez MD documented in this encounter [facility] Work Phone: 05-20-2024 Plan of care note The patient's goals for the shift include The clinical goals for the shift include Remain HDS and less requirement of TVP Over the shift, the patient did not make progress toward the following goals. Barriers to progression include completely paced. Recommendations to address these barriers include continue with current plan of care. [facility] Work Phone: 05-19-2024 Note Formatting of this n ote is different from the original. Physician Transition of Care Summary Invasive Cardiovascular Lab Procedure Date: 05/19/2024 Attending: Panel 1: * Kermit Clements - Primary Panel 2: * Jomar Rolon - Primary Resident/Fellow/Other Clay Caster: Surgeons and Role: Panel 1: * Guilherme Hernandez MD - Fellow Indications: Pre-op Diagnosis * Nonrheumatic aortic valve stenosis [I35.0] Post-procedure diagnosis: Post-op Diagnosis * Nonrheumatic aortic valve stenosis [I35.0] Procedure(s): TVP for TAVR TAVR-OR TAVR (Transcatheter AV Replacement) 89748 - [place] REPLACE AORTIC VALVE PERQ FEMORAL ARTRY APPROACH [place] REPLACE AORTIC VALVE PERQ FEMORAL ARTRY APPROACH [57352] Description of the Procedure: Indication: Severe Aortic Stenosis Valve used: 29 mm Evolut FX+ Pre dil: True dilation balloon 20 mm Access Primary: right COACH CLEANER s/p 2 proglide Secondary: left COACH CLEANER 6 pu[place] s/p 1 proglide TVP: right IJ vein, 7 [place], kept in place. Pre LVEDP: 8 mmhg Post LVEDP: 10 mmhg Post gradient TTE: 4 trace PVL No effusion Complications: Complete AV block post procedure Stents/Implants: Implants Heart Valve Repair Loading System, Evolut Fx, 23-29mm - [id number] - Used, Not Implanted Inventory item: LOADING SYSTEM, EVOLUT FX, 23-29MM Model/Cat number: [id number] Clinical Sales Consultant: [employer] Lot number: [id number] Device identifier: [id number] GUDID Information Request status Successful Brand name: Evolut FX Version/Model: [id number] Company name: [employer] MRI safety info as of 05/19/24: Labeling does not contain MRI Safety Information Contains dry or latex rubber: No GMDN P.T. name: Aortic transcatheter heart valve bioprosthesis, stent-like framework As of 05/19/2024 Status: Used, Not Implanted Valve, Aortic, 29mm, Evolut Fx Transcatheter - [id number] - [id number] - Implanted Inventory item: VALVE, AORTIC, 29MM, EVOLUT FX TRANSCATHETER Model/Cat number: [id number] Serial number: [id number] Clinical Sales Consultant: [employer] Lot number: [id number] As of 05/19/2024 Status: Implanted Anticoagulation/Antiplatelet Plan: aspirin Estimated Blood Loss: 40 mL Anesthesia: Moderate Sedation Anesthesia Staff: No anesthesia staff entered. Any Specimen(s) Removed: Order Name Source Comment Collection Info Order Time TYPE AND SCREEN Blood, Venous Collected By: Annmarie Pollard RN 05/19/2024 12:49 PM Release result to MyChart Immediate BASIC METABOLIC PANEL Blood, Venous Collected By: Jackelin Rios RN 05/19/2024 1:50 PM Release result to MyChart Immediate MAGNESIUM Blood, Venous Collected By: Jackelin Rios RN 05/19/2024 1:50 PM Release result to MyChart Immediate CBC WITH AUTO DIFFERENTIAL Blood, Venous Collected By: Jackelin Rios RN 05/19/2024 1:50 PM Release result to MyChart Immediate PROTIME-INR Blood, Venous Collected By: Jackelin Rios RN 05/19/2024 1:50 PM Release result to MyChart Immediate CBC WITH AUTO DIFFERENTIAL Blood, Venous 05/19/2024 7:01 PM Release result to MyChart Immediate BASIC METABOLIC PANEL Blood, Venous 05/19/2024 7:01 PM Release result to MyChart Immediate MAGNESIUM Blood, Venous 05/19/2024 7:01 PM Release result to MyChart Immediate PROTIME-INR Blood, Venous 05/19/2024 7:01 PM Release result to MyChart Immediate Disposition: Monitor tele Monitor access sites for bleeding TTE tomorrow Bed rest Structural team will continue to follow. page structural team for any concerning clinical events. This patient was included at the access TAVR trial. Electronically signed by: Guilherme Hernandez MD, 05/19/2024 7:22 PM [facility] Work Phone: 05-19-2024 Note Formatting of this n ote might be different from the original. Date of the Operation:05/19/24 Pt Name:Jayden Carter Pre Op D. - Severe aortic valve stenosis Post Op D. - Severe aortic valve stenosis Operation/Procedure: 1. - Pre-dilatation aortic Balloon plasty with a 18x45 mm True Balloon. 2. - TAVR: Evolute FX 29mm Surgeon: Leni Rolon Senior Clinical Research Scientist: Cruz Clements Anesthesia Type: Conscious sedation and local 2% lidocaine Complications: None Estimated Blood loss: 150 cc Operative indications: The patient was well diagnosed with severe aortic valve stenosis. The heart team recommended to perform a TAVR. Operative Findings: Per fluoroscopy severe calcification of the aortic valve. Operative procedure: The patient was placed on the surgical table in a supine position. Prepped and draped as usual. 2% lidocaine for all the percutaneous access. TPMW through the LFV. Secondary access: L femoral artery with a 6Fr introducer sheath. Heparin is given for ACT>300s. Primary access on the R femoral artery was prepared with 2 perclose and a 14 Fr introducer sheath. Pigtails are placed in the NCS and the LV [place]. Pre implant hemodynamics are obtained. GW exchange to a Safari preformed wire. A pre-implant balloon-plasty with a 18 mm balloon. The valve previously chosen and prepared is now pushed under fluoroscopy across the aortic arch and then across the valve. Rapid pacing, and the valve is deployed. Delivery system is removed. Post implants hemodynamics are obtained. Post implant surface echo is done showing minimal to no PVL. The procedure is considered successful. The Protamine is given. Perclose are tied down and an Angioseal is applied to the other FA. Pulses are checked. The patient has no new electrical disturbances so the TPMW is pulled out and the patient is transferred for postoperative management. [facility] Work Phone: 05-19-2024 Note Formatting of this n ote is different from the original. Patient: Jayden Carter NPO guidelines met: Yes Physical Exam Airway Mallampati: II Cardiovascular Rhythm: regular Dental Pulmonary Plan ASA 3 Mild [facility] Work Phone: 05-19-2024 History and physical note History Of Present Illness 84 y.o. male with PMH of CAD s/p inferior WA and PCI to RCA and LM-LAD in 2019, CKD, history of lymphoma and colon cancer in 2015 presents for evaluation of severe, symptomatic aortic stenosis. Patient denies fatigue, SOB, INTERIANO. Denies overt orthopnea, PND, exertional CP. He does ednorse occasional dizziness. Denies syncope or presyncope. Denies increased abdominal girth, edema. Full 14 point ROS complete and negative except as noted above. Past Medical History: He has no past medical history on file. Past Surgical History: He has a past surgical history that includes Other surgical history (04/13/2021); Other surgical history (04/13/2021); Other surgical history (04/13/2021); and Other surgical history (04/13/2021). Echo: 60% EF , severe aortic stenosis, AV gradient 66/35, AV Vmax 4.1, KE 0.7m DI 0.16, mild-moderate MR EKG: NSR, 248ms [place], nl axis, 94ms QRS TAVR Workup: - NYHA: II - [facility] 04/02: patent LM and RCA stents. Moderate CAD of LCX and OM for conservative treatment. - CT TAVR: at chart - dental clearance: full denture EFT 06/14 STS Procedure Type: Isolated AVR Perioperative OutcomeEstimate % Operative Mortality 4.29% Past Medical History History reviewed. No pertinent past medical history. Surgical History Past Surgical History: Procedure Laterality Date OTHER SURGICAL HISTORY 04/13/2021 Colon surgery OTHER SURGICAL HISTORY 04/13/2021 Cholecystectomy OTHER SURGICAL HISTORY 04/13/2021 Colonoscopy OTHER SURGICAL HISTORY 04/13/2021 Cardiac catheterization with stent placement Social History He reports that he has never smoked. He has never used smokeless tobacco. He reports that he does not drink alcohol and does not use drugs. Family History Family History Problem Relation Name Age of Onset Other (HARDENING OF THE AORTA) Mother Other (HARDENING OF THE AORTA) Father Allergies Patient has no known allergies. Review of Systems Full 14 point ROS complete and negative except as noted above. Physical Exam AO x 3 CVS- normal s1, s2, aortic systolic murmurs +++/6 Resp -CTAB Abd- Soft, NT, ND Neuro No gross motor. Sensory deficits No LE edema Last Recorded Vitals Blood pressure 164/70, pulse 59, resp. rate 12. Relevant Results Ejection Fractions: EF Date/Time Value Ref Range Status 03/09/2024 09:37 AM 60 % Assessment/Plan Assessment & Plan Aortic stenosis S/P TAVR (transcatheter aortic valve replacement) TAVR procedure today I spent 30 minutes in the professional and overall care of this patient. Guilherme Hernandez MD [facility] Work Phone: 05-18-2024 Hospital Discharge instructions Blaire Chapman Arturo STAFF NUCLEAR WEAPONS OFFICER-BRAND AMBASSADOR - 05/18/2024 7:04 AM EST Medication changes Reduce Losartan to 50mg daily #### POST VALVE PROCEDURE DISCHARGE INSTRUCTIONS #### - Please weigh yourself daily (first thing in the morning) and record reading - Please take and record your blood pressure 2 times a day (at least 60-90 mins AFTER you take your meds) PLEASE HAVE THESE READINGS AVAILABLE DURING YOUR FOLLOW-UP APPOINTMENTS!! - NO DRIVING OR LIFTING/PULLING/PUSHING GREATER THAN 10 POUNDS FOR 1 WEEK FROM YOUR PROCEDURE DATE. - A lab requisition has been provided for you to draw a CBC and BMP. Please take this rec to your local lab to have your labs drawn between 4-7 days post discharge. - You have been given the order requisition for the 1 month ECHO at the time of your discharge. Please call and schedule this ECHO at your LOCAL center (no sooner than 23 days after your procedure date). 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 - Breathing harder than normal or having retractions. - Fever of 100.4 F (38 C) or higher. - Chills - Drinking less than normal. - Urinating less than normal, over 1 day. - Acting very sleepy and difficult to awaken. - Vomiting (throwing up) and not able to eat or drink for 12 hours. - 3 or more loose, watery bowel movements in 24 hours (diarrhea). -Any new concerning symptoms. - If you develop difficulty breathing, rash, hives, severe nausea, vomiting, light-headedness or any signs of infection, immediately contact your doctor and go to the nearest emergency room. ##### MISC. HOME-GOING INFO ##### - DO NOT drink any alcoholic drinks or take any non-prescriptive medications that contain alcohol for the first 24 hours. - DO NOT make any important decisions for the first 24 hours. ACTIVITY: - You are advised to go directly home from the hospital. - DO NOT lift anything heavier than 10 pounds for one week, this allows for proper healing of the groin. - No excessive exercise or treadmill use for one week. You may walk and do stairs, slowly. - No sexual activities for 24 hours after you arrive home. WOUND CARE: - If slight bleeding should occur at site, lie down and have someone apply firm pressure just above the puncture site for 5 minutes. If it continues or is profuse, call 911. Always notify your doctor if bleeding occurs. - Keep site clean and dry. Let air dry or you may use a simple bandaid. - Gently cleanse the puncture site in your groin with soap and water only. - You may experience some tenderness, bruising or minimal inflammation. If you have any concerns, you may contact the Thermal Intelligence Analyst or if any of these symptoms become excessive, contact your can closing machine operator or go to the emergency room. - No tub baths, soaking, or swimming for one week. - May shower the next day after your procedure. DIET: - You may resume your normal diet. However, be mindful of your sodium intake. Ideally you should try to limit your daily intake of sodium to 2-3g a day HEART FAILURE SPECIFIC INSTRUCTIONS: - CALL 911 IF YOU HAVE ANY OF THE SIGNS AND SYMPTOMS OF HEART FAILURE: 1. Chest pain 2. Significant Shortness of breath 3. Fainting. - Notify your physician immediately if you have shortness of breath; weight gain of 3 lbs. or more; fatigue and loss of energy; swelling of lower extremities or abdomen; dizziness or fainting; change of appetite; and frequent coughing. - Daily weight on the same scale, same time after voiding and before eating. - Maintain daily weight log. documented in this encounter [facility] Work Phone: 04-15-2024 History of Present illness Narrative PCP: Farideh Cards: Miller HPI 84 y.o. male with PMH of CAD s/p inferior WA and PCI to RCA and LM-LAD in 2019, CKD, history of lymphoma and colon cancer in 2015 presents for evaluation of severe, symptomatic aortic stenosis. Patient denies fatigue, SOB, INTERIANO. Denies overt orthopnea, PND, exertional CP. He does ednorse occasional dizziness. Denies syncope or presyncope. Denies increased abdominal girth, edema. Full 14 point ROS complete and negative except as noted above. Past Medical History: He has no past medical history on file. Past Surgical History: He has a past surgical history that includes Other surgical history (04/13/2021); Other surgical history (04/13/2021); Other surgical history (04/13/2021); and Other surgical history (04/13/2021). Echo: 60% EF , severe aortic stenosis, AV gradient 66/35, AV Vmax 4.1, KE 0.7m DI 0.16, mild-moderate MR EKG: NSR, 248ms [place], nl axis, 94ms QRS TAVR Workup: - NYHA: II - [facility] 04/02: patent LM and RCA stents. Moderate CAD of LCX and OM for conservative treatment. - CT TAVR: pending today - dental clearance: full denture EFT 06/14 STS Procedure Type: Isolated AVR Perioperative OutcomeEstimate % Operative Mortality4.29% Morbidity & Vqfkzjrmw83.8% Stroke1.15% Renal Failure3.49% Reoperation5.09% Prolonged Ventilation7.33% Deep Sternal Wound Infection0.051% Long Hospital Stay (>14 days)7.33% Short Hospital Stay (<6 days)*23% KCCQ Questionnaire 1 Heart failure affects different people in different ways. Some feel shortness of breath while others feel fatigue. Please indicate how much you are limited by heart failure (shortness of breath or fatigue) in your ability to do the following activities over the past 2 weeks. 1 month [facility] SOFTWARE QUALITY TEST ENGINEER follow-up A.) Showering/bathing 5. Not at All B.) Walking 1 block on level ground 5. Not at All C.) Hurrying or Jogging 3. Moderately 2. Over the past 2 weeks, how many times did you have swelling in your feet, ankles or legs when you woke up in the morning? 5. Never 3. Over the past 2 weeks, on average, how many times has fatigue limited your ability to do what you wanted? 7. Never 4. Over the past 2 weeks, on average, how many times has shortness of breath limited your ability to do what you wanted? 7. Never 5. Over the past 2 weeks, on average, how many times have you been forced to sleep sitting up in a chair or with at least 3 pillows to prop you up because of shortness of breath? Never 6. Over the past 2 weeks, how much has your heart failure limited your enjoyment of life? It has not limited my enjoyment of life 7. If you had to spend the rest of your life with your heart failure the way it is right now, how would you feel about this? 5. Completely satisfied 8. How much does your heart failure affect your lifestyle? Please indicate how your heart failure may have limited yourparticipation in the following activities over the past 2 weeks A.) Hobbies, recreational activities 6. 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 Did not limit at all C.) Visiting family or friends out of your home 5. Did not limit at all 5 meter walk test 13.5 seconds Social History Tobacco Use Smoking status: Never Smokeless tobacco: Never Substance Use Topics Alcohol use: Never Family History Family History Problem Relation Name Age of Onset Other (HARDENING OF THE AORTA) Mother Other (HARDENING OF THE AORTA) Father RX Allergies No Known Allergies Current Outpatient Medications Medication Instructions aspirin 81 mg EC tablet 1 tablet, Daily atorvastatin (LIPITOR) 80 mg, oral, Nightly cyanocobalamin (VITAMIN B-12) 250 mcg, Daily losartan (COZAAR) 100 mg, oral, Daily metoprolol succinate XL (TOPROL-XL) 25 mg, oral, Daily nitroglycerin (NITROSTAT) 0.4 mg, Every 5 min PRN Vitals: 04/15/24 1041 BP: 115/67 Pulse: 64 SpO2: 96% Physical Exam: Constitutional: alert and in no acute distress. Pulmonary: no increased work of breathing or signs of respiratory distress , lungs clear to auscultation. Cardiovascular: RRR, 3/6 SARAI RUSB, no pitting edema, Neurologic: non-focal neurologic examination. Lab Results Component Value CR No results found for requested labs within last 365 days. HGB No results found for requested labs within last 365 days. ALBUMIN No results found for requested labs within last 365 days. BNP No results found for requested labs within last 365 days. PLT No results found for requested labs within last 365 days. Impression: 84 y.o. male with PMH of CAD s/p inferior WA and PCI to RCA and LM-LAD in 2019, CKD, history of lymphoma and colon cancer in 2014 presents for evaluation of severe, symptomatic aortic stenosis. Plan: CT TAVR today Needs to obtain [facility] images and upload to [facility] Possibly a MRI study candidate The overall decision regarding the best treatment for this condition is complex. We discussed options of both surgical aortic valve replacement and transcatheter aortic valve replacement along with risks and benefits involved with both of them in detail. We discussed all the risks associated with the procedure, including but not limited to stroke, WA, pericardial tamponade, vascular complications, infection and were discussed with the patient. The risk of needing a permament pacemaker was also discussed in detail. The patient verbalized understanding and decided to proceed with the procedure. We will discuss this patient's case at our Valve Team meeting with representatives from [facility] and Cardiac Surgery. Our nurse navigators will contact patient with further diagnostic needs and formal plan. Cosigned by Jomar Rolon MD at 04/17/2024 12:52 PM EST documented in this encounter [facility] Work Phone: 04-15-2024 History of Present illness Narrative KCCQ Questionnaire 1 Heart failure affects different people in different ways. Some feel shortness of breath while others feel fatigue. Please indicate how much you are limited by heart failure (shortness of breath or fatigue) in your ability to do the following activities over the past 2 weeks. PRE PROCEDURE A.) Showering/bathing 5. Not at All B.) Walking 1 block on level ground 5. Not at All C.) Hurrying or Jogging 3. Moderately 2. Over the past 2 weeks, how many times did you have swelling in your feet, ankles or legs when you woke up in the morning? 5. Never 3. Over the past 2 weeks, on average, how many times has fatigue limited your ability to do what you wanted? 7. Never 4. Over the past 2 weeks, on average, how many times has shortness of breath limited your ability to do what you wanted? 7. Never 5. Over the past 2 weeks, on average, how many times have you been forced to sleep sitting up in a chair or with at least 3 pillows to prop you up because of shortness of breath? Never 6. Over the past 2 weeks, how much has your heart failure limited your enjoyment of life? It has not limited my enjoyment of life 7. If you had to spend the rest of your life with your heart failure the way it is right now, how would you feel about this? 5. Completely satisfied 8. How much does your heart failure affect your lifestyle? Please indicate how your heart failure may have limited yourparticipation in the following activities over the past 2 weeks A.) Hobbies, recreational activities 6. 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 Did not limit at all C.) Visiting family or friends out of your home 5. Did not limit at all 5 Meter Walk 13.5____seconds documented in this encounter [facility] Work Phone: 04-02-2024 Procedure note [facility] 03-23-2024 History of Present illness Narrative Subjective Jayden Carter is a 83 y.o. male Chief Complaint Follow-up 83-year-old gentleman returns for early follow-up, primarily for reassessment of his aortic stenosis. Patient has known history of coronary artery disease, extensive revascularization of the RCA for acute myocardial infarction in 2019; was noted to have aortic valve murmur last year and we followed up with echocardiogram this past January. Salient conclusions of his most recent echocardiogram: 1. The left ventricular systolic function is normal, with a visually estimated ejection fraction of 60%. 2. Mild LVH. 3. There is normal right ventricular global systolic function. 4. Mildly dilated left atrium. 5. Mild to moderate mitral valve regurgitation. 6. The aortic valve is calcified with appearance of aortic stenosis. Peak gradient measured at 66 mmHg. Mean gradient 35 mmHg. Calculated aortic valve area is 0.7 cm consistent with severe aortic stenosis Patient has no angina, shortness of breath, denies any repeat hospitalizations or nitrate usage, heart failure. 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 On exam he has a very high-pitched aortic valve murmur with very diminished S2. He has an excellent right radial pulse. Risks, benefits, alternatives, informed decision-making process performed with the patient and his daughter this afternoon for well over 30 minutes in regards to consideration for elective TAVR procedure; and the appropriate workup including cardiac catheterization electively, and possible PCI if necessary, prior to referral to structural heart team for consideration of TAVR. Detailed description of aortic valve stenosis and physiology as well as drawings in the room today and description of TAVR procedure described in detail today. Patient and daughter agree with findings as well as with proceeding with appropriate elective workup and with heart catheterization (possible PCI). Review of Systems All other systems reviewed and are negative. Vitals: 03/23/24 1506 BP: 144/68 BP Location: Left arm Patient Position: Sitting Pulse: 64 Weight: 76.7 kg (169 lb) Height: 1.727 m (5' 8 ) Objective Physical Exam Constitutional: Appearance: Normal appearance. HENT: Nose: Nose normal. Neck: Vascular: No carotid bruit. Cardiovascular: Rate and Rhythm: Normal rate. Pulses: Normal pulses. Heart sounds: Normal heart sounds. Pulmonary: Effort: Pulmonary effort is normal. Abdominal: General: Bowel sounds are normal. Palpations: Abdomen is soft. Musculoskeletal: General: Normal range of motion. Cervical back: Normal range of motion. Right lower leg: No edema. Left lower leg: No edema. Skin: General: Skin is warm and dry. Neurological: General: No focal deficit present. Mental Status: He is alert. Psychiatric: Mood and Affect: Mood normal. Behavior: Behavior normal. Thought Content: Thought content normal. Judgment: Judgment normal. Allergies Patient has no known allergies. Current Medications Current Outpatient Medications: aspirin 81 mg EC tablet, Take 1 tablet (81 mg) by mouth once daily., Disp: , Rfl: atorvastatin (Lipitor) 80 mg tablet, Take 1 tablet (80 mg) by mouth once daily at bedtime., Disp: 90 tablet, Rfl: 1 cyanocobalamin (Vitamin B-12) 250 mcg tablet, Take 1 tablet (250 mcg) by mouth once daily., Disp: , Rfl: losartan (Cozaar) 100 mg tablet, Take 1 tablet (100 mg) by mouth once daily., Disp: 90 tablet, Rfl: 3 metoprolol succinate XL (Toprol-XL) 25 mg 24 hr tablet, Take 1 tablet (25 mg) by mouth once daily., Disp: 90 tablet, Rfl: 3 nitroglycerin (Nitrostat) 0.4 mg SL tablet, Place 1 tablet (0.4 mg) under the tongue every 5 minutes if needed., Disp: , Rfl: Assessment/Plan 1. Atherosclerosis of [place] coronary artery of [place] heart without angina pectoris 2. Aortic valve stenosis, etiology of cardiac valve disease unspecified 3. History of WA (myocardial infarction) 4. History of PTCA 5. Primary hypertension 6. Mixed hyperlipidemia 7. BMI 25.0-25.9,adult 8. Never smoked tobacco Scribe Attestation By signing my name below, I, Latricia Hanson RN , Scribe attest that this documentation has been prepared under the direction and in the presence of Jignesh Bhatt DO. Provider Attestation - Scribe documentation All medical record entries made by the Scribe were at my direction and personally dictated by me. I have reviewed the chart and agree that the record accurately reflects my personal performance of the history, physical exam, discussion and plan. documented in this encounter [facility] Work Phone: 03-23-2024 Instructions Latricia Perry RN - 03/23/2024 2:50 PM EDT Please bring all medicines, vitamins, and herbal supplements with you when you come to the office. Prescriptions will not be filled unless you are compliant with your follow up appointments or have a follow up appointment scheduled as per instruction of your physician. Refills should be requested at the time of your visit. BMI was above normal measurement. Current weight: 76.7 kg (169 lb) Weight change since last visit (-) denotes wt loss 2 lbs Weight loss needed to achieve BMI 25: 4.9 Lbs Weight loss needed to achieve BMI 30: -27.9 Lbs Provided instructions on dietary changes Provided instructions on exercise. documented in this encounter [facility] Work Phone: 02-04-2024 Hospital Discharge instructions Patient Education 02/04/2024 13:53:38 Benign Prostatic Hyperplasia Benign Prostatic Hyperplasia Benign prostatic hyperplasia (BPH) is an enlarged prostate gland that is caused by the normal aging process. The prostate may get bigger as a man gets older. The condition is not caused by cancer. The prostate is a walnut-sized gland that is involved in the production of semen. It is located in front of the rectum and below the bladder. The bladder stores urine. The urethra carries stored urine out of the body. An enlarged prostate can press on the urethra. This can make it harder to pass urine. The buildup of urine in the bladder can cause infection. Back pressure and infection may progress to bladder damage and kidney (renal) failure. What are the causes? This condition is part of the normal aging process. However, not all men develop problems from this condition. If the prostate enlarges away from the urethra, urine flow will not be blocked. If it enlarges toward the urethra and compresses it, there will be problems passing urine. What increases the risk? This condition is more likely to develop in men older than 50 years. What are the signs or symptoms? Symptoms of this condition include: Getting up often during the night to urinate. Needing to urinate frequently during the day. Difficulty starting urine flow. Decrease in size and strength of your urine stream. Leaking (dribbling) after urinating. Inability to pass urine. This needs immediate treatment. Inability to completely empty your bladder. Pain when you pass urine. This is more common if there is also an infection. Urinary tract infection (UTI). How is this diagnosed? This condition is diagnosed based on your medical history, a physical exam, and your symptoms. Tests will also be done, such as: A post-void bladder scan. This measures any amount of urine that may remain in your bladder after you finish urinating. A digital rectal exam. In a rectal exam, your health care provider checks your prostate by putting a lubricated, gloved finger into your rectum to feel the back of your prostate gland. This exam detects the size of your gland and any abnormal lumps or growths. An exam of your urine (urinalysis). A prostate specific antigen (PSA) screening. This is a blood test used to screen for prostate cancer. An ultrasound. This test uses sound waves to electronically produce a picture of your prostate gland. Your health care provider may refer you to a specialist in kidney and prostate diseases (urologist). How is this treated? Once symptoms begin, your health care provider will monitor your condition (active surveillance or watchful waiting). Treatment for this condition will depend on the severity of your condition. Treatment may include: Observation and yearly exams. This may be the only treatment needed if your condition and symptoms are mild. Medicines to relieve your symptoms, including: ?Medicines to shrink the prostate. ?Medicines to relax the muscle of the prostate. Surgery in severe cases. Surgery may include: ?Prostatectomy. In this procedure, the prostate tissue is removed completely through an open incision or with a laparoscope or robotics. ?Transurethral resection of the prostate (TURP). In this procedure, a tool is inserted through the opening at the tip of the penis (urethra). It is used to cut away tissue of the inner core of the prostate. The pieces are removed through the same opening of the penis. This removes the blockage. ?Transurethral incision (TUIP). In this procedure, small cuts are made in the prostate. This lessens the prostate's pressure on the urethra. ?Transurethral microwave thermotherapy (TUMT). This procedure uses microwaves to create heat. The heat destroys and removes a small amount of prostate tissue. ?Transurethral needle ablation (TUNA). This procedure uses radio frequencies to destroy and remove a small amount of prostate tissue. ?Interstitial laser coagulation (ILC). This procedure uses a laser to destroy and remove a small amount of prostate tissue. ?Transurethral electrovaporization (TUVP). This procedure uses electrodes to destroy and remove a small amount of prostate tissue. ?Prostatic urethral lift. This procedure inserts an implant to push the lobes of the prostate away from the urethra. Follow these instructions at home: Take [id number] and prescription medicines only as told by your health care provider. Monitor your symptoms for any changes. Contact your health care provider with any changes. Avoid drinking large amounts of liquid before going to bed or out in public. Avoid or reduce how much caffeine or alcohol you drink. Give yourself time when you urinate. Keep all follow-up visits. This is important. Contact a health care provider if: You have unexplained back pain. Your symptoms do not get better with treatment. You develop side effects from the medicine you are taking. Your urine becomes very dark or has a bad smell. Your lower abdomen becomes distended and you have trouble passing urine. Get help right away if: You have a fever or chills. You suddenly cannot urinate. You feel light-headed or very dizzy, or you faint. There are large amounts of blood or clots in your urine. Your urinary problems become hard to manage. You develop moderate to severe low back or flank pain. The flank is the side of your body between the ribs and the hip. These symptoms may be an emergency. Get help right away. Call 911. Do not wait to see if the symptoms will go away. Do not drive yourself to the hospital. Summary Benign prostatic hyperplasia (BPH) is an enlarged prostate that is caused by the normal aging process. It is not caused by cancer. An enlarged prostate can press on the urethra. This can make it hard to pass urine. This condition is more likely to develop in men older than 50 years. Get help right away if you suddenly cannot urinate. This information is not intended to replace advice given to you by your health care provider. Make sure you discuss any questions you have with your health care provider. Document Revised: 12/13/2021 Document Reviewed: 12/13/2021 [employer] Patient Education 2022 [employer]. Follow Up Care 01/22/2023 11:33:05 With:GERALD SHARMAМАРИНА, URL Address: [address] [place] [address] When: Unknown Comments:[facility] Christina 02-04-2024 Note Patient Education Urology Benign Prostatic Hyperplasia Benign prostatic hyperplasia (BPH) is an enlarged prostate gland that is caused by the normal aging process. The prostate may get bigger as a man gets older. The condition is not caused by cancer. The prostate is a walnut-sized gland that is involved in the production of semen. It is located in front of the rectum and below the bladder. The bladder stores urine. The urethra carries stored urine out of the body. An enlarged prostate can press on the urethra. This can make it harder to pass urine. The buildup of urine in the bladder can cause infection. Back pressure and infection may progress to bladder damage and kidney (renal) failure. What are the causes? This condition is part of the normal aging process. However, not all men develop problems from this condition. If the prostate enlarges away from the urethra, urine flow will not be blocked. If it enlarges toward the urethra and compresses it, there will be problems passing urine. What increases the risk? This condition is more likely to develop in men older than 50 years. What are the signs or symptoms? Symptoms of this condition include: ? Getting up often during the night to urinate. ? Needing to urinate frequently during the day. ? Difficulty starting urine flow. ? Decrease in size and strength of your urine stream. ? Leaking (dribbling) after urinating. ? Inability to pass urine. This needs immediate treatment. ? Inability to completely empty your bladder. ? Pain when you pass urine. This is more common if there is also an infection. ? Urinary tract infection (UTI). How is this diagnosed? This condition is diagnosed based on your medical history, a physical exam, and your symptoms. Tests will also be done, such as: ? A post-void bladder scan. This measures any amount of urine that may remain in your bladder after you finish urinating. ? A digital rectal exam. In a rectal exam, your health care provider checks your prostate by putting a lubricated, gloved finger into your rectum to feel the back of your prostate gland. This exam detects the size of your gland and any abnormal lumps or growths. ? An exam of your urine (urinalysis). ? A prostate specific antigen (PSA) screening. This is a blood test used to screen for prostate cancer. ? An ultrasound. This test uses sound waves to electronically produce a picture of your prostate gland. Your health care provider may refer you to a specialist in kidney and prostate diseases (urologist). How is this treated? Once symptoms begin, your health care provider will monitor your condition (active surveillance or watchful waiting). Treatment for this condition will depend on the severity of your condition. Treatment may include: ? Observation and yearly exams. This may be the only treatment needed if your condition and symptoms are mild. ? Medicines to relieve your symptoms, including: ? Medicines to shrink the prostate. ? Medicines to relax the muscle of the prostate. ? Surgery in severe cases. Surgery may include: ? Prostatectomy. In this procedure, the prostate tissue is removed completely through an open incision or with a laparoscope or robotics. ? Transurethral resection of the prostate (TURP). In this procedure, a tool is inserted through the opening at the tip of the penis (urethra). It is used to cut away tissue of the inner core of the prostate. The pieces are removed through the same opening of the penis. This removes the blockage. ? Transurethral incision (TUIP). In this procedure, small cuts are made in the prostate. This lessens the prostate's pressure on the urethra. ? Transurethral microwave thermotherapy (TUMT). This procedure uses microwaves to create heat. The heat destroys and removes a small amount of prostate tissue. ? Transurethral needle ablation (TUNA). This procedure uses radio frequencies to destroy and remove a small amount of prostate tissue. ? Interstitial laser coagulation (ILC). This procedure uses a laser to destroy and remove a small amount of prostate tissue. ? Transurethral electrovaporization (TUVP). This procedure uses electrodes to destroy and remove a small amount of prostate tissue. ? Prostatic urethral lift. This procedure inserts an implant to push the lobes of the prostate away from the urethra. Follow these instructions at home: ? Take pldc-rtw-wkiljtu and prescription medicines only as told by your health care provider. ? Monitor your symptoms for any changes. Contact your health care provider with any changes. ? Avoid drinking large amounts of liquid before going to bed or out in public. ? Avoid or reduce how much caffeine or alcohol you drink. ? Give yourself time when you urinate. ? Keep all follow-up visits. This is important. Contact a health care provider if: ? You have unexplained back pain. ? Your symptoms do not get better with treatment. ? You develop side effec (more content not included)... [facility] 01-29-2024 History of Present illness Narrative Subjective Jayden Carter is a 83 y.o. male Chief Complaint Follow-up 83-year-old active gentleman returns for annual follow-up he is doing well he denies any cardiovascular events, complaints or nitrate usage or hospitalizations. He has a history of ASHD with inferior STEMI 2019 with revascularization of the RCA with 4 drug-eluting stents, he has done well over 5 years. We discontinued his DAPT therapy last year. He has underlying hypertension that is mildly accelerated today at 160/78, hyperlipidemia, last LDL 1 year ago was 56. He also has a 2 or 6 systolic murmur he has not had an echo or valvular assessment for over 5 years. He is on appropriate GDMT we may need to increase his losartan or add therapy if he has persistent hypertension Recommendations: Obtain blood pressure check, echocardiogram to assess aortic valve murmur, lipid panel from his primary care physician, continue active healthy lifestyle, follow-up in 1 year Review of Systems All other systems reviewed and are negative. Vitals: 01/29/24 0842 01/29/24 0928 BP: 148/90 160/78 BP Location: Left arm Right arm Patient Position: Sitting Sitting Pulse: 72 Weight: 75.8 kg (167 lb) Height: 1.727 m (5' 8 ) Objective Physical Exam Constitutional: Appearance: Normal appearance. HENT: Nose: Nose normal. Neck: Vascular: No carotid bruit. Cardiovascular: Rate and Rhythm: Normal rate. Pulses: Normal pulses. Heart sounds: Murmur heard. Systolic murmur is present with a grade of 2/6. Pulmonary: Effort: Pulmonary effort is normal. Abdominal: General: Bowel sounds are normal. Palpations: Abdomen is soft. Musculoskeletal: General: Normal range of motion. Cervical back: Normal range of motion. Right lower leg: No edema. Left lower leg: No edema. Skin: General: Skin is warm and dry. Neurological: General: No focal deficit present. Mental Status: He is alert. Psychiatric: Mood and Affect: Mood normal. Behavior: Behavior normal. Thought Content: Thought content normal. Judgment: Judgment normal. Allergies Patient has no known allergies. Current Medications Current Outpatient Medications: aspirin 81 mg EC tablet, Take 1 tablet (81 mg) by mouth once daily., Disp: , Rfl: atorvastatin (Lipitor) 80 mg tablet, Take 1 tablet (80 mg) by mouth once daily at bedtime., Disp: 90 tablet, Rfl: 1 cyanocobalamin (Vitamin B-12) 250 mcg tablet, Take 1 tablet (250 mcg) by mouth once daily., Disp: , Rfl: losartan (Cozaar) 100 mg tablet, Take 1 tablet (100 mg) by mouth once daily., Disp: , Rfl: metoprolol succinate XL (Toprol-XL) 25 mg 24 hr tablet, Take 1 tablet (25 mg) by mouth once daily., Disp: 90 tablet, Rfl: 3 nitroglycerin (Nitrostat) 0.4 mg SL tablet, Place 1 tablet (0.4 mg) under the tongue every 5 minutes if needed., Disp: , Rfl: Assessment/Plan 1. Atherosclerosis of [place] coronary artery of ekw[place] heart without angina pectoris 2. History of WA (myocardial infarction) 3. History of PTCA 4. Primary hypertension 5. Mixed hyperlipidemia 6. BMI 25.0-25.9,adult Scribe Attestation By signing my name below, I, Devon Boyer LPN attest that this documentation has been prepared under the direction and in the presence of Jignesh Bhatt DO. Provider Attestation - Scribe documentation All medical record entries made by the Scribe were at my direction and personally dictated by me. I have reviewed the chart and agree that the record accurately reflects my personal performance of the history, physical exam, discussion and plan. documented in this encounter [facility] Work Phone: 01-29-2024 Instructions Jia Guardado LPN - 01/29/2024 9:00 AM EDT Please bring all medicines, vitamins, and herbal supplements with you when you come to the office. Prescriptions will not be filled unless you are compliant with your follow up appointments or have a follow up appointment scheduled as per instruction of your physician. Refills should be requested at the time of your visit. BMI was above normal measurement. Current weight: 75.8 kg (167 lb) Weight change since last visit (-) denotes wt loss 1 lbs Weight loss needed to achieve BMI 25: 2.9 Lbs Weight loss needed to achieve BMI 30: -29.9 Lbs Provided instructions on dietary changes. The following attachments cannot be sent through Care Everywhere.Heart Healthy Diet (Senegalese)documented in this encounter [facility] Work Phone: 11-14-2022 Hospital Discharge instructions Patient Education 11/14/2022 10:50:05 Benign Prostatic Hyperplasia Benign Prostatic Hyperplasia Benign prostatic hyperplasia (BPH) is an enlarged prostate gland that is caused by the normal aging process. The prostate may get bigger as a man gets older. The condition is not caused by cancer. The prostate is a walnut-sized gland that is involved in the production of semen. It is located in front of the rectum and below the bladder. The bladder stores urine. The urethra carries stored urine out of the body. An enlarged prostate can press on the urethra. This can make it harder to pass urine. The buildup of urine in the bladder can cause infection. Back pressure and infection may progress to bladder damage and kidney (renal) failure. What are the causes? This condition is part of the normal aging process. However, not all men develop problems from this condition. If the prostate enlarges away from the urethra, urine flow will not be blocked. If it enlarges toward the urethra and compresses it, there will be problems passing urine. What increases the risk? This condition is more likely to develop in men older than 50 years. What are the signs or symptoms? Symptoms of this condition include: Getting up often during the night to urinate. Needing to urinate frequently during the day. Difficulty starting urine flow. Decrease in size and strength of your urine stream. Leaking (dribbling) after urinating. Inability to pass urine. This needs immediate treatment. Inability to completely empty your bladder. Pain when you pass urine. This is more common if there is also an infection. Urinary tract infection (UTI). How is this diagnosed? This condition is diagnosed based on your medical history, a physical exam, and your symptoms. Tests will also be done, such as: A post-void bladder scan. This measures any amount of urine that may remain in your bladder after you finish urinating. A digital rectal exam. In a rectal exam, your health care provider checks your prostate by putting a lubricated, gloved finger into your rectum to feel the back of your prostate gland. This exam detects the size of your gland and any abnormal lumps or growths. An exam of your urine (urinalysis). A prostate specific antigen (PSA) screening. This is a blood test used to screen for prostate cancer. An ultrasound. This test uses sound waves to electronically produce a picture of your prostate gland. Your health care provider may refer you to a specialist in kidney and prostate diseases (urologist). How is this treated? Once symptoms begin, your health care provider will monitor your condition (active surveillance or watchful waiting). Treatment for this condition will depend on the severity of your condition. Treatment may include: Observation and yearly exams. This may be the only treatment needed if your condition and symptoms are mild. Medicines to relieve your symptoms, including: ?Medicines to shrink the prostate. ?Medicines to relax the muscle of the prostate. Surgery in severe cases. Surgery may include: ?Prostatectomy. In this procedure, the prostate tissue is removed completely through an open incision or with a laparoscope or robotics. ?Transurethral resection of the prostate (TURP). In this procedure, a tool is inserted through the opening at the tip of the penis (urethra). It is used to cut away tissue of the inner core of the prostate. The pieces are removed through the same opening of the penis. This removes the blockage. ?Transurethral incision (TUIP). In this procedure, small cuts are made in the prostate. This lessens the prostate's pressure on the urethra. ?Transurethral microwave thermotherapy (TUMT). This procedure uses microwaves to create heat. The heat destroys and removes a small amount of prostate tissue. ?Transurethral needle ablation (TUNA). This procedure uses radio frequencies to destroy and remove a small amount of prostate tissue. ?Interstitial laser coagulation (ILC). This procedure uses a laser to destroy and remove a small amount of prostate tissue. ?Transurethral electrovaporization (TUVP). This procedure uses electrodes to destroy and remove a small amount of prostate tissue. ?Prostatic urethral lift. This procedure inserts an implant to push the lobes of the prostate away from the urethra. Follow these instructions at home: Take ajat-[id number] and prescription medicines only as told by your health care provider. Monitor your symptoms for any changes. Contact your health care provider with any changes. Avoid drinking large amounts of liquid before going to bed or out in public. Avoid or reduce how much caffeine or alcohol you drink. Give yourself time when you urinate. Keep all follow-up visits. This is important. Contact a health care provider if: You have unexplained back pain. Your symptoms do not get better with treatment. You develop side effects from the medicine you are taking. Your urine becomes very dark or has a bad smell. Your lower abdomen becomes distended and you have trouble passing urine. Get help right away if: You have a fever or chills. You suddenly cannot urinate. You feel light-headed or very dizzy, or you faint. There are large amounts of blood or clots in your urine. Your urinary problems become hard to manage. You develop moderate to severe low back or flank pain. The flank is the side of your body between the ribs and the hip. These symptoms may be an emergency. Get help right away. Call 911. Do not wait to see if the symptoms will go away. Do not drive yourself to the hospital. Summary Benign prostatic hyperplasia (BPH) is an enlarged prostate that is caused by the normal aging process. It is not caused by cancer. An enlarged prostate can press on the urethra. This can make it hard to pass urine. This condition is more likely to develop in men older than 50 years. Get help right away if you suddenly cannot urinate. This information is not intended to replace advice given to you by your health care provider. Make sure you discuss any questions you have with your health care provider. Document Revised: 12/13/2021 Document Reviewed: 12/13/2021 [employer] Patient Education 2022 [employer]. Follow Up Care 09/19/2021 11:19:11 With:Tirso MARLEY, Benita M., URL, URO Address: When: Unknown [facility] 10-07-2022 Note PROCEDURE: XR CHEST 2 V DATE: 10/06/2022 2:19 PM CDT COMPARISONS: 10/04/2022 CLINICAL INDICATION: 82 years Male COUGH FINDINGS: The cardiomediastinal silhouette and pulmonary vasculature are within normal limits. The lungs are clear. There is no evidence of pleural effusion or pneumothorax. IMPRESSION: Chest radiograph is within normal limits. Electronically authenticated by: AGUSTO COOK Date: 2022-10-07 06:20 [facility] 04-27-2021 Evaluation note Encounter Date Diagnosis Assessment Notes Apr, Acute pain of right knee (ICD-10 - M25.561) Patient doing well at this time, no longer having issues with knee. Patient instructed to contact office if knee returns [employer] Other Evaluation + Plan note Future Appointments Appointment Date:01/23/2023 10:45:00 AM Scheduled Provider:Benita Chahal MD Location:[facility] Appointment Type:URO Office Visit [facility] evaluation note* Diagnosis Atherosclerosis of e[place] coronary artery of ekw[place] heart without angina pectoris Aortic valve stenosis, etiology of cardiac valve disease unspecified History of WA (myocardial infarction) Old myocardial infarction History of PTCA Postsurgical percutaneous transluminal coronary angioplasty status Primary hypertension Unspecified essential hypertension Mixed hyperlipidemia BMI 25.0-25.9,adult Never smoked tobacco documented in this encounter [facility] Work Phone: Evaluation noteNo assessment information available [facility] Work Phone: Evaluation note* Diagnosis Nonrheumatic aortic valve stenosis documented in this encounter [facility] Work Phone: Evaluation note* Diagnosis Valvular heart disease Endocarditis, valve unspecified, unspecified cause Aortic valve stenosis, etiology of cardiac valve disease unspecified documented in this encounter [facility] Work Phone: Evaluation note* Diagnosis Nonrheumatic aortic valve stenosis- Primary Aortic stenosis- Primary Aortic valve disorders Nonrheumatic aortic valve stenosis Nonrheumatic aortic valve stenosis documented in this encounter [facility] Work Phone: Evaluation note* Diagnosis Research exam documented in this encounter [facility] Work Phone: Evaluation note* Diagnosis Aortic stenosis- Primary Aortic valve disorders Nonrheumatic aortic valve stenosis 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, postoperative Primary hypertension Unspecified essential hypertension S/P placement of cardiac pacemaker 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, postoperative S/P placement of cardiac pacemaker Nonrheumatic aortic valve stenosis Postoperative AV block S/P TAVR (transcatheter aortic valve replacement) documented in this encounter [facility] Work Phone: Evaluation note* Diagnosis Atherosclerosis of e[place] coronary artery of [place] heart without angina pectoris History of WA (myocardial infarction) Old myocardial infarction History of PTCA Postsurgical percutaneous transluminal coronary angioplasty status Primary hypertension Unspecified essential hypertension Mixed hyperlipidemia BMI 25.0-25.9,adult documented in this encounter [facility] Work Phone: Evaluation note* Diagnosis Atherosclerosis of [place] coronary artery of [place] heart without angina pectoris History of WA (myocardial infarction) Old myocardial infarction History of PTCA Postsurgical percutaneous transluminal coronary angioplasty status Primary hypertension Unspecified essential hypertension documented in this encounter [facility] Work Phone: Evaluation note* Diagnosis Aortic stenosis- Primary Aortic valve disorders Nonrheumatic aortic valve stenosis 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, postoperative Primary hypertension Unspecified essential hypertension S/P placement of cardiac pacemaker 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, postoperative S/P placement of cardiac pacemaker Presence of cardiac pacemaker Cardiac pacemaker in situ Atrioventricular block, complete (Multi) Atrioventricular block, complete documented in this encounter [facility] Work Phone: Evaluation note* Diagnosis Aortic stenosis- Primary Aortic valve disorders Nonrheumatic aortic valve stenosis 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, postoperative Primary hypertension Unspecified essential hypertension S/P placement of cardiac pacemaker 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, postoperative S/P placement of cardiac pacemaker S/P TAVR (transcatheter aortic valve replacement)- Primary S/P placement of cardiac pacemaker Atherosclerosis of ekw[place] coronary artery of [place] heart without angina pectoris Mixed hyperlipidemia Primary hypertension Unspecified essential hypertension BMI 25.0-25.9,adult Complete heart block Atrioventricular block, complete documented in this encounter [facility] Work Phone: Evaluation note* Diagnosis Aortic stenosis- Primary Aortic valve disorders Nonrheumatic aortic valve stenosis 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, postoperative Primary hypertension Unspecified essential hypertension S/P placement of cardiac pacemaker 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, postoperative S/P placement of cardiac pacemaker S/P TAVR (transcatheter aortic valve replacement)- Primary S/P placement of cardiac pacemaker Atherosclerosis of ekw[place] coronary artery of e[place] heart without angina pectoris Mixed hyperlipidemia Primary hypertension Unspecified essential hypertension BMI 25.0-25.9,adult Complete heart block Atrioventricular block, 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) documented in this encounter [facility] Work Phone: History general Narrative - Reported* Type Description Date Medical History high cholesterol Medical History maker Medical History lymphoma Medical History hx of colon cancer Surgical History heart stent Surgical History gall bladder Surgical History colon resection Hospitalization History See Above [employer] Other Hospital course Narrative No data available for this section [facility] Hospital Discharge instructions Additional Instructions DISCHARGE INSTRUCTIONS FOR CARDIAC RN REGISTRY PROCEDURE: Heart Cath The following instructions have been prepared to help you care for yourself, or be cared for upon your return home. 1. You were given conscious sedation. Do not operate a vehicle, power tools, make important decisions, or drink alcohol for 24 hours. You might be drowsy or light headed. Return to the Emergency Room if you have trouble breathing, walking or nausea and vomiting. 2. FOR BLEEDING: Apply continuous pressure to the site and call 911. 3. Operative Site Care: Keep the dressing clean and dry. You may change the dressing only if soiled or wet. You may remove the dressing the following morning. You may wash over the puncture site in the shower. If the puncture site is at the wrist no soaking for 3 days. Some bruising or slight swelling may be present. -Signs of infection are redness, warmth, swelling, getting more sore, colored drainage, fever or chills. -Should the arm or leg become cold, numb, blue or white, call the can closing machine operator immediately. 4. ACTIVITY: You are advised to go directly home from the hospital. Restrict your activities for the rest of the day. Resume light or normal activities tomorrow. Do not engage in any activity that will stress the puncture site. Avoid heavy lifting (over 15 lbs.), straining or bending at the catheter site for 48 hours after discharge. If the puncture site is at the wrist do not manipulate wrist for 24 hours and no lifting more than 3 lbs for 3 days. 5. DIET:You may eat your regular diet when you desire. 6. MEDICATIONS: Resume your daily prescription schedule. Prescriptions may be sent with you if needed. Use as directed. When taking pain medications, you may experience dizziness or drowsiness. Do not drink alcohol or drive when taking pain medications. 7. If you should experience episodes of angina e.g. chest discomfort, heaviness, tightness, pressure, burning, with or without radiation to the neck, jaws, arms, or back- Use 1 Nitrostat under your tongue every 5-10 minutes, and up to 3 tablets. If no relief- Call 911 and go to the nearest Emergency Room. -Notify the office for recurrent angina, chest pain or other concerns. You may NOT drive yourself home! Follow the medication instructions provided on your discharge. If the dosages and instructions on this sheet differ from the dosage and instructions on the bottle, follow the instructions on the bottle. [facility] is not responsible for incorrect prescription information provided by the patient during their visit. Do not stop your medications without consulting your health care provider. Please take the list with you to your next doctor's appointment.[facility] Work Phone: Progress note No data available for this section [facility] reason for referral (narrative)* Consultation (Routine) - Authorized Specialty Diagnoses / Procedures Referred By Contac t Referred To Contact Cardiology Diagnoses Aortic valve stenosis, etiology of cardiac valve disease unspecified Jignesh Bhatt, [address] [facility], [address] [address] Referral ID Status Reason Start Date Expiration Date Visits Requested Visits Authorized [id number] Authorized Specialty Services Required 4 03/23/2025 1 1 [facility] Work Phone: reason for visit Narrative* Imaging (Routine) - Authorized Specialty Diagnoses / Procedures Referred By Contac t Referred To Contact Radiology Diagnoses Nonrheumatic aortic valve stenosis Procedures CT TAVR full contrast chest abdomen pelvis Carole Houston, STAFF [employer] OFFICER[employer] [address] [place] [address] Phone: tel: fax: Referral ID Status Reason Start Date Expiration Date Visits Requested Visits Authorized [id number] Authorized Perform Procedure 4 04/01/2025 1 1 [facility] Work Phone: reason for visit Narrative* Consultation (Routine) - Authorized Specialty Diagnoses / Procedures Referred By Dougac t Referred To Contact Cardiology Diagnoses Aortic valve stenosis, etiology of cardiac valve disease unspecified Jignesh Bhatt, [facility] [address], [address] [address] Phone: tel: fax: Referral ID Status Reason Start Date Expiration Date Visits Requested Visits Authorized [id number] Authorized Specialty Services Required 4 03/23/2025 1 1 [facility] Work Phone: reason for visit Narrative* Auth/Cert Specialty Diagnoses / Procedures Referred By Dougac t Referred To Contact Diagnoses Nonrheumatic aortic valve stenosis Procedures NY REPLACE AORTIC VALVE PERQ FEMORAL ARTRY APPROACH NY REPLACE AORTIC VALVE PERQ FEMORAL ARTRY APPROACH TAVR (Transcatheter AV Replacement) TVP for [place]AV[place] [address] [place] [address] Phone: tel: fax: [facility] [address] [address] [address] [facility] [address] [place] [address] Phone: tel: fax: Referral ID Status Reason Start Date Expiration Date Visits Re quested Visits Authorized [id number] 1 1 [facility] Work Phone: Reason for visit Narrative* Imaging (Routine) - Pending Review Specialty Diagnoses / Procedures Referred By Contac t Referred To Contact Cardiology Diagnoses Presence of cardiac pacemaker Atrioventricular block, complete (Multi) Procedures Cardiac device check - Remote Luis Bates MD [address] [place] [address] Phone: tel: fax: Referral ID Status Reason Start Date Expiration Date Visits Requested Visits Authorized [id number] Pending Review Perform Procedure 05/28/2025 1 1 [facility] Work Phone: Reason for visit Narrative* CV Imaging (Routine) - Authorized Specialty Diagnoses / Procedures Referred By Contac t Referred To Contact Cardiology Diagnoses S/P TAVR (transcatheter aortic valve replacement) Procedures Transthoracic Echo Complete [place] ECHO TTHRC R-T 2D W/WOM-MODE COMPL SPEC&COLR D Virgil Carrero, STAFF NUCLE[employer]ONS OFFICER-[employer]AND AMBASSADOR [facility], [facility] [address] [place] [address] Phone: tel: fax: Referral ID Status Reason Start Date Expiration Date Visits Requested Visits Authorized [id number] Authorized Perform Procedure 06/30/2024 06/30/2025 1 1 [facility] Work Phone: Family History No Family History Records FoundUnknown Family Member Name Dates Details Hardening of the aorta (main artery of the heart): Mother, Sister Status:Active Unknown Family Member Name Dates Details Hardening of the aorta (main artery of the heart): Mother, Sister Status:Active Unknown Family Member Name Dates Details Hardening of the aorta (main artery of the heart): Mother, Sister Status:Active Unknown Family Member Name Dates Details Hardening of the aorta (main artery of the heart): Mother, Sister Status:Active Unknown Family Member Name Dates Details Hardening of the aorta (main artery of the heart): Mother, Sister Status:Active Unknown Family Member Name Dates Details Hardening of the aorta (main artery of the heart): Mother, Sister Status:Active Unknown Family Member Name Dates Details Hardening of the aorta (main artery of the heart): Mother, Sister Status:Active Unknown Family Member Name Dates Details Hardening of the aorta (main artery of the heart): Mother, Sister Status:Active Unknown Family Member Name Dates Details Hardening of the aorta (main artery of the heart): Mother, Sister Status:Active Unknown Family Member Name Dates Details Hardening of the aorta (main artery of the heart): Mother, Sister Status:Active Unknown Family Member Name Dates Details Hardening of the aorta (main artery of the heart): Mother, Sister Status:Active Unknown Family Member Name Dates Details Hardening of the aorta (main artery of the heart): Mother, Sister Status:Active Unknown Family Member Name Dates Details Hardening of the aorta (main artery of the heart): Mother, Sister Status:Active Relationship Condition Age at Onset Recorded Date/T randolph sister Peripheral vascular disease Unknown Chief Complaint * JAYDEN CARTER is being seen for a 6 month follow-up of. * 81-year-old gentleman returns to follow-up and is doing well. 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 He remains on DAPT therapy and high-dose statin in addition to his other medicines as reviewed. He is stable, without symptoms, denies angina or hospitalizations * Recommendations we will continue current therapies follow-up again in 1 year * JAYDEN CARTER is being seen for an annual follow-up of. * 82-year-old gentleman returns for follow-up and doing very well. He denies any cardiovascular complaints, angina, nitrate usage or repeat hospitalizations. 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 Unfortunatelyhe lost his earlier this year in her sleep. * He has underlying hypertension, hyperlipidemia, slightly accelerated blood pressure on today's exam, 160/70. He does have a remote colon cancer and lymphoma both treated * Recommendations: Discontinue lisinopril, initiate losartan 50 mg daily for better blood pressure management, lipid panel, he may also discontinue his clopidogrel at this juncture, will follow-up withblood pressure check and otherwise I will see him again in 1yr Summary Purpose Advance Directives No Advanced Directives Records Found Advance Directive Response Recorded Date/ Time Advance Directives No October 30 9:24pm Date Activated Date Inactivated Comments 05/19/2024 1:50 PM Question Answer Comments Plan of Care: Code Status Discussion Completed Decision Maker: Patient Date Activated Date Inactivated Comments 05/19/2024 12:49 PM 05/19/2024 1:50 PM Question Answer Comments Plan of Care: Code Status Discussion Completed Decision Maker: Patient Advance Directive Response Recorded Date/ Time Advance Directives No October 30 8:24pm Chief Complaint and Reason for Visit Chief Complaint Atherosclerosis, Aor tic Valve Stenosis, Hx WA, Hx Chief Complaint Atherosclerosis, Aor tic Valve Stenosis, Hx WA, Hx Atherosclerosis, Aortic Valve Stenosis, Hx WA, Hx Chief Complaint Admit Date Z95.0 I44.2 July 13, 2024 7 :36am Reason for Referral Specialty Diagnoses / Procedures Referred By Faustina barlow Referred To Contact Cardiology Diagnoses Atherosclerosis of [place] coronary artery of [place] heart without angina pectoris History of WA (myocardial infarction) History of PTCA Primary hypertension Procedures Transthoracic Echo Complete [place] ECHO TTHRC R-T 2D W/WOM-MODE COMPL SPEC&COLR D Jignesh Bhatt DO [address] [place] [address], [address] [address] Referral ID Status Reason Start Date Expiration Date Visits Requested Visits Authorized [id number] Pending Review Perform Procedure 01/29/2024 01/28/2025 1 1 Specialty Diagnoses / Procedures Referred By Faustina barlow Referred To Contact Cardiology Diagnoses Primary hypertension Procedures Follow Up In Cardiology Jignesh Bhatt DO [address] [place] [address] 2, [address] [address] Jignesh Bhatt DO [address] [place] [address] 2, [place] [phone] Referral ID Status Reason Start Date Expiration Date V isits Requested Visits Authorized [id number] Authorized 01/29/2024 01/28/2025 1 1 Specialty Diagnoses / Procedures Referred By Contac t Referred To Contact Cardiology Diagnoses Atherosclerosis of [place] coronary artery of [place] heart without angina pectoris Procedures Follow Up In Cardiology Jignesh Bhatt, DO [facility], [place] [phone] Jignesh Bhatt, DO [facility], [place] [phone] Referral ID Status Reason Start Date Expiration Date V isits Requested Visits Authorized [id number] Authorized 01/29/2024 01/28/2025 1 1 Additional Source Comments REASON FOR VISIT (unrecogniz ed section and content) Reason Comments Follow-up Discuss TAVR / cath Reason Comments New Patient Visit Aortic Stenosis Reason Comments Follow-up 1 year Specialty Diagnoses / Procedures Referred By Contac t Referred To Contact Cardiology Diagnoses Atherosclerosis of [place] coronary artery of [place] heart without angina pectoris History of WA (myocardial infarction) History of PTCA Primary hypertension Procedures Transthoracic Echo Complete [place] ECHO TTHRC R-T 2D W/WOM-MODE COMPL SPEC&COLR D Jignesh Bhatt, DO [facility], [place] [phone] Referral ID Status Reason Start Date Expiration Date Visits Requested Visits Authorized [id number] Authorized Perform Procedure 01/29/2024 01/28/2025 1 1 Reason Comments Follow-up hospital discharg e (unrecognized sect ion and content) No Status Records FoundNo Status Records FoundNo Status Records FoundNo Status Records FoundNo Status Records FoundNo Status Records FoundNo Status Records FoundNo Status Records FoundNo Status Records Found INFORMATION SOURCE (unrecogn ized section and content) DATE CREATED AUTHOR 03/11/2022 [facility] DATE CREATED AUTHOR AUTHOR'S ORGANIZ ATION 10/18/2022 [facility] DATE CREATED AUTHOR AUTHOR'S ORGANIZ ATION 01/24/2023 [facility] DATE CREATED AUTHOR AUTHOR'S ORGANIZ ATION 02/06/2024 [facility] DATE CREATED AUTHOR AUTHOR'S ORGANIZ ATION 06/19/2024 [facility] DATE CREATED AUTHOR AUTHOR'S ORGANIZ ATION 06/23/2024 [facility] DATE CREATED AUTHOR AUTHOR'S ORGANIZ ATION 07/25/2024 [facility] DATE CREATED AUTHOR AUTHOR'S ORGANIZ ATION 08/15/2024 [facility] DATE CREATED AUTHOR AUTHOR'S ORGANIZ ATION 08/18/2024 [facility] Patient Care team informatio n (unrecognized section and content) Team Status: Active Member Role Status Dates Anthony Moran MD Primary Care Provider Active Team Status: Active Member Role Status Dates Anthony Moran MD Primary Care Provider Active Start: July 13, 2024 Virgil Carrero APRN Other Provider Active Start : July 13, 2024 Julia Gimenez MD Attending Provider Active Start: July 13, 2024 Team Status: Inactive Member Role Status Dates Scott Bhatt DO Attending Provider Active S tart: March 31, 2024 End: March 31, 2024 Anthony Moran MD Primary Care Provider Active Start: March 31, 2024 End: March 31, 2024 Team Status: Inactive Member Role Status Dates Scott Bhatt DO Attending Provider Active S tart: April 02, 2024 End: April 02, 2024 Anthony Moran MD Primary Care Provider Active Start: April 02, 2024 End: April 02, 2024 Electron Beam Operator Relationship Specialty Start Date End Date Fabiola Gong APRN-BRAND AMBASSADOR [address] [place] [address] PCP - General 05/19/24 Electron Beam Operator Relationship Specialty Start Date End Date Fabiola Gong APRN-BRAND AMBASSADOR [address] [place] [address] PCP - General 05/19/24 Electron Beam Operator Relationship Specialty Start Date End Date Fabiola GongRONAN-DEVAUGHN [address] [place] [phone] PCP - General 05/19/24 Electron Beam Operator Relationship Specialty Start Date End Date Farideh ERICH Tobias [address] [place] [phone] PCP - General 05/19/24 Electron Beam Operator Relationship Specialty Start Date End Date Fabiola GongERICH [address] [place] [address] PCP - General 05/19/24 Goals (unrecognized section and content) Goals may be documented in a n alternate section Scheduled Active and Recently Administ ered Medications (unrecognized section and content) Medication Order 05/19/2024 05/20/2024 05/21/2024 aspirin EC tablet 81 mg 81 mg, oral, Daily, First dose on Sat05/19/24 at 1415, Do not crush, chew, or split. 1415 (Due)2049 (AUG Hold - Provider: Automatic Transfer Provider - Reason: Unreviewed Transfer Orders)2113 (AUG Unhold - Provider: Yulia Murcia MD) 0849 (Given - Provider: Mary Hahn RN) 0827 (Given - Provider: Mary Hahn RN) atorvastatin (Lipitor) tablet 80 mg 80 mg, oral, Nightly, First dose on Sat05/19/24 at 2099 2049 (AUG Hold - Provider: Automatic Transfer Provider - Reason: Unreviewed Transfer Orders)2099 (Not Given - Provider: Maureen Bosch RN - Reason: Other - Comment: duplicated)2113 (AUG Unhold - Provider: Yulia Murcia MD)2147 (Given - Provider: Maureen Bosch RN) 2010 (Given - Provider: Chayo Rapp RN) 2099 (Due) cefadroxil (Duricef) capsule 500 mg 500 mg, oral, Every 12 hours scheduled, First dose on Sat05/20/24 at 2100, For 7 days, Suspected Indication (Select all that apply): Surgical Prophylaxis, Indications: Surgical Prophylaxis 2010 (Given - Provider: Chayo Rapp RN) 826 (Given - Provider: Mary Hahn RN)2099 (Due) docusate sodium (Colace) capsule 100 mg 100 mg, oral, 2 times daily, First dose on Sat05/19/24 at 1415, Bowel Regimen - for prevention of constipation Hold for loose stools 2049 (AUG Hold - Provider: Automatic Transfer Provider - Reason: Unreviewed Transfer Orders)2099 (Not Given - Provider: Maureen Bosch RN - Reason: Other - Comment: duplicated)2113 (AUG Unhold - Provider: Yulia Murcia MD)2147 (Given - Provider: Maureen Bosch RN) 08 (Not Given - Provider: Mary Hahn RN - Reason: Patient/family refused)2010 (Given - Provider: Chayo Rapp RN) 827 (Not Given - Provider: Mary Hahn RN - Reason: Patient/family refused)2099 (Due) pantoprazole (ProtoNix) EC tablet 40 mg(Linked Group 1) 40 mg, oral, Daily before breakfast, First dose on Sat05/20/24 at 0700, Do not crush, chew, or split. 2049 (AUG Hold - Provider: Automatic Transfer Provider - Reason: Unreviewed Transfer Orders)2113 (AUG Unhold - Provider: Yulia Murcia MD) 0849 (Given - Provider: Mary Hahn RN) 0827 (Given - Provider: Mary Hahn RN) pantoprazole (ProtoNix) injection 40 mg(Linked Group 1) 40 mg, intravenous, Administer over 2 Minutes, Daily before breakfast, First dose on Sat05/20/24 at 0700, Give if unable to take by mouth. 2049 (AUG Hold - Provider: Automatic Transfer Provider - Reason: Unreviewed Transfer Orders)2113 (AUG Unhold - Provider: Yulia Murcia MD) 0849 (See Alternative - Provider: Mary Hahn RN) 0827 (See Alternative - Provider: Mary Hahn RN) perflutren lipid microspheres (Definity) injection 0.5-10 mL of dilution 0.5-10 mL of dilution, intravenous, Once in imaging, Starting on Sat05/20/24 at 0748, For 1 dose, Contrast - for use by imaging provider only. Prior to administration, Definity product must be activated. First, bring vial to room temperature. Then, shake vial for 45 seconds. Do not use if the 45 second activation cycle has not been completed. Following activation, the product will appear as a milky white suspension and may be used immediately. If not used within 5 minutes of activation, re-suspend by inverting and shaking the vial for 10 seconds. Discard unused product. Administration: Dilute 1.3 mL of activated DEFINITY with 8.7 mL of normal saline in a 10 mL syringe. Inject 0.5 mL of diluted DEFINITY when notified the images/film are unclear to enhance view of Left Ventricular borders. Repeat 0.5 mL of DEFINITY until clear images are obtained, not to exceed 10 mLs. Once images are obtained or limit of medication is reached, flush line with 10 mL of Normal Saline. 1800 (MAR Hold - Provider: Automatic Transfer Provider - Reason: Unreviewed Transfer Orders)1815 (AUG Unhold - Provider: Tip Matthews MD) potassium chloride CR (Klor-Con M20) ER tablet 20 mEq (COMPLETED) 20 mEq, oral, Once, On Sat05/20/24 at 0130, For 1 dose, Best given with food and plenty of water to minimize gastric irritation. Do not crush or chew. 0208 (Given - Provider: Maureen Bosch RN) sodium chloride 0.9 % bolus 250 mL (COMPLETED) 250 mL, intravenous, at 250 mL/hr, Administer over 1 Hours, Once, On Sat05/20/24 at 1015, For 1 dose 1017 (New Bag - Provider: Mary Hahn RN)1105 (Stopped - Provider: Mary Hahn RN) sodium chloride 0.9 % bolus 250 mL (COMPLETED) 250 mL, intravenous, at 250 mL/hr, Administer over 1 Hours, Once, On [place]lo[place] 05/21/24 at 1000, For 1 dose 1001 (New Bag - Provider: Mary Hahn RN)1031 (Stopped - Provider: Mary Hahn RN) tamsulosin (Flomax) 24 hr capsule 0.4 mg 0.4 mg, oral, Daily, First dose on Sat05/19/24 at 1415, Give 30 minutes after the same mealtime each day. Capsules should be swallowed whole; do not crush, chew, or open. 1415 (Due)2049 (AUG Hold - Provider: Automatic Transfer Provider - Reason: Unreviewed Transfer Orders)2113 (MAR Unhold - Provider: Yulia Murcia MD) 0850 (Given - Provider: Mary Hahn RN) 0827 (Given - Provider: Mary Hahn RN) PRN Medication Order 05/19/2024 05/20/2024 05/21/2024 acetaminophen (Tylenol) oral liquid 650 mg(Linked Group 2) 650 mg, oral, Every 6 hours PRN, pain mild (1-3), first line, Starting on Sat05/19/24 at 1350, Give oral liquid if patient prefers or per feeding tube if present. If inadequate response within 60 minutes, proceed to next-line agent for same PRN reason or contact provider if no further options ordered. 2049 (AUG Hold - Provider: Automatic Transfer Provider - Reason: Unreviewed Transfer Orders)2113 (AUG Unhold - Provider: Yulia Murcia MD) acetaminophen (Tylenol) suppository 650 mg(Linked Group 2) 650 mg, rectal, Every 6 hours PRN, pain mild (1-3), first line, Starting on Sat05/19/24 at 1350, Give rectally if unable to administer by mouth or feeding tube. If inadequate response within 60 minutes, proceed to next-line agent for same PRN reason or contact provider if no further options ordered., If ordered PRN for pain, nurse is permitted to administer this medication for higher pain scores based on patient preference? Yes 2049 (AUG Hold - Provider: Automatic Transfer Provider - Reason: Unreviewed Transfer Orders)2113 (AUG Unhold - Provider: Yulia Murcia MD) acetaminophen (Tylenol) tablet 650 mg(Linked Group 2) 650 mg, oral, Every 6 hours PRN, pain mild (1-3), first line, Starting on Sat05/19/24 at 1350, If inadequate response within 60 minutes, proceed to next-line agent for same PRN reason or contact provider if no further options ordered., If ordered PRN for pain, nurse is permitted to administer this medication for higher pain scores based on patient preference? Yes 2049 (AUG Hold - Provider: Automatic Transfer Provider - Reason: Unreviewed Transfer Orders)2113 (AUG Unhold - Provider: Yulia Murcia MD) aspirin tablet (CANCELED) As needed, Starting on Sat05/19/24 at 1808, Intraprocedure 1808 (Given - Provider: iAyana Esquivel, DEVIN - Comment: Medication given for antiplatelet therapy) benzocaine-menthol (Cepastat Sore Throat) lozenge 1 lozenge 1 lozenge, Mouth/Throat, Every 2 hour PRN, sore throat, Starting on Sat05/19/24 at 1350 2049 (AUG Hold - Provider: Automatic Transfer Provider - Reason: Unreviewed Transfer Orders)2113 (AUG Unhold - Provider: Yulia Murcia MD) bupivacaine PF 0.25 % (Marcaine) 0.25 % (2.5 mg/mL) injection (CANCELED) As needed, Starting on Sat05/20/24 at 1618, Intraprocedure 1618 (Given - Provider: Sallie Boo MD - Comment: left chest) ceFAZolin (Ancef) in dextrose (iso) IV (CANCELED) Administer over 30 Minutes, Continuous PRN, Starting on Sat05/20/24 at 1605, Intraprocedure 1605 (New Bag - Provider: rBie Barrow RN)1718 (Stopped - Provider: Brie Barrow RN) fentaNYL PF (Sublimaze) injection (CANCELED) As needed, Starting on Sat05/19/24 at 1638, Intraprocedure 1638 (Given - Provider: Jackelin Rios RN)1750 (Given - Provider: Aiyana Esquivel, DEVIN - Comment: Medication given for sedation) fentaNYL PF (Sublimaze) injection (CANCELED) As needed, Starting on Sat05/20/24 at 1607, Intraprocedure 1607 (Given - Provider: Chandra Molina RN)1626 (Given - Provider: Chandra Molina RN)1642 (Given - Provider: Chandra Molina RN)1645 (Given - Provider: Chandra Molina RN) heparin 1,000 unit/mL injection (CANCELED) As needed, Starting on Sat05/19/24 at 1719, Intraprocedure 1719 (Given - Provider: Jackelin Rios RN - Comment: Medication given for anticoagulation; verified by DEVIN Bronson) iohexol (OMNIPaque) 350 mg iodine/mL solution (CANCELED) As needed, Starting on Sat05/19/24 at 1805, Intraprocedure 1805 (Given - Provider: Aiyana Esquivel, DEVIN - Comment: Medication given intra arterially for contrast) lidocaine (Xylocaine) 20 mg/mL (2 %) injection (CANCELED) As needed, Starting on Sat05/19/24 at 1639, Intraprocedure 1639 (Given - Provider: Guilherme Hernandez MD - Comment: Right neck)1654 (Given - Provider: Guilherme Hernandez MD - Comment: L groin; medication given for access)1709 (Given - Provider: Guilherme Hernandez MD - Comment: R groin; medication given for access) lidocaine-epinephrine (Xylocaine W/EPI) 2 %-1:100,000 injection 5 mL 5 mL, subcutaneous, Once as needed, Access site bleeding, Starting on Sat05/19/24 at 1350, For 1 dose, Inject at site of bleed 2050 (AUG Hold - Provider: Automatic Transfer Provider - Reason: Unreviewed Transfer Orders)2114 (MAR Unhold - Provider: Yulia Murcia MD) midazolam (Versed) injection (CANCELED) As needed, Starting on Sat05/19/24 at 1638, Intraprocedure 1638 (Given - Provider: Jackelin Rios RN)1734 (Given - Provider: Jackelin Rios RN - Comment: Medication given for sedation)1750 (Given - Provider: Aiyana Esquivel RN - Comment: Medication given for sedation) midazolam (Versed) injection (CANCELED) As needed, Starting on Sat05/20/24 at 1607, Intraprocedure 1607 (Given - Provider: Chandra Molina RN)1626 (Given - Provider: Chandra Molina RN)1642 (Given - Provider: Chandra Molina RN)1656 (Given - Provider: Chandra Molina RN) ondansetron (Zofran) injection 4 mg(Linked Group 3) 4 mg, intravenous, Every 8 hours PRN, nausea/vomiting, second line, Starting on Sat05/19/24 at 1350, 2nd Line. Give IV if patient is unable to take orally. If inadequate response within 60 minutes, proceed to next-line agent for same PRN reason or contact provider if no further options ordered. When administering via IV Push, administer over 3-5 minutes. 2049 (AUG Hold - Provider: Automatic Transfer Provider - Reason: Unreviewed Transfer Orders)2113 ([facility] Unhold - Provider: Yulia Murcia MD) ondansetron (Zofran) tablet 4 mg(Linked Group 3) 4 mg, oral, Every 8 hours PRN, nausea/vomiting, second line, Starting on Sat05/19/24 at 1350, 2nd Line. Use oral route first, if possible. If inadequate response within 60 minutes, proceed to next-line agent for same PRN reason or contact provider if no further options ordered. 2049 (AUG Hold - Provider: Automatic Transfer Provider - Reason: Unreviewed Transfer Orders)2113 ([facility] Unhold - Provider: Yulia Murcia MD) oxygen (O2) therapy inhalation, Continuous PRN - O2/gases, other, Starting on Sat05/19/24 at 1350, Wean oxygen therapy as tolerated., Device: Nasal Cannula, Rate in liters per minute: 2 LPM, Keep O2 Sat Above: 92% protamine injection (COMPLETED) Continuous PRN, Starting on Sat05/19/24 at 1800, Intraprocedure 1800 (New Bag - Provider: Aiyana Esquivel RN - Comment: Medication given for closure) sodium chloride 0.9 % bolus (COMPLETED) Administer over 1 Hours, Continuous PRN, Starting on Sat05/19/24 at 1649, Intraprocedure 1649 (New Bag - Provider: Jackelin Rios RN)1707 (New Bag - Provider: Aiyana Esquivel RN - Comment: Medication given for hydration)1734 (New Bag - Provider: Aiyana Esquivel RN - Comment: Medication given for hydration)1759 (New Bag - Provider: Aiyana Esquivel RN - Comment: Medication given for hydration) vancomycin (Vancocin) in dextrose 5% IV (CANCELED) Administer over 60 Minutes, Continuous PRN, Starting on Sat05/20/24 at 1621, Intraprocedure 1621 (New Bag - Provider: Chandra Molina RN)1718 (Stopped - Provider: Brie Barrow RN) Linked Groups Order Group 1: pantoprazole (ProtoNix) EC tablet 40 mgJump to med 40 mg, oral, Daily before breakfast, First dose on Sat05/20/24 at 0700, Do not crush, chew, or split. Or pantoprazole (ProtoNix) injection 40 mgJump to med 40 mg, intravenous, Administer over 2 Minutes, Daily before breakfast, First dose on Sat05/20/24 at 0700, Give if unable to take by mouth. Group 2: acetaminophen (Tylenol) tablet 650 mgJump to med 650 mg, oral, Every 6 hours PRN, pain mild (1-3), first line, Starting on Sat05/19/24 at 1350, If inadequate response within 60 minutes, proceed to next-line agent for same PRN reason or contact provider if no further options ordered., If ordered PRN for pain, nurse is permitted to administer this medication for higher pain scores based on patient preference? Yes Or acetaminophen (Tylenol) oral liquid 650 mgJump to med 650 mg, oral, Every 6 hours PRN, pain mild (1-3), first line, Starting on Sat05/19/24 at 1350, Give oral liquid if patient prefers or per feeding tube if present. If inadequate response within 60 minutes, proceed to next-line agent for same PRN reason or contact provider if no further options ordered. Or acetaminophen (Tylenol) suppository 650 mgJump to med 650 mg, rectal, Every 6 hours PRN, pain mild (1-3), first line, Starting on Sat05/19/24 at 1350, Give rectally if unable to administer by mouth or feeding tube. If inadequate response within 60 minutes, proceed to next-line agent for same PRN reason or contact provider if no further options ordered., If ordered PRN for pain, nurse is permitted to administer this medication for higher pain scores based on patient preference? Yes Group 3: ondansetron (Zofran) tablet 4 mgJump to med 4 mg, oral, Every 8 hours PRN, nausea/vomiting, second line, Starting on Sat05/19/24 at 1350, 2nd Line. Use oral route first, if possible. If inadequate response within 60 minutes, proceed to next-line agent for same PRN reason or contact provider if no further options ordered. Or ondansetron (Zofran) injection 4 mgJump to med 4 mg, intravenous, Every 8 hours PRN, nausea/vomiting, second line, Starting on Sat05/19/24 at 1350, 2nd Line. Give IV if patient is unable to take orally. If inadequate response within 60 minutes, proceed to next-line agent for same PRN reason or contact provider if no further options ordered. When administering via IV Push, administer over 3-5 minutes. FOR RECORDS PERTAINING TO PATIENTS WHO ARE OR HAVE BEEN ENROLLED IN A CHEMICAL DEPENDENCY/SUBSTANCEABUSE PROGRAM, SOME INFORMATION MAY BE OMITTED. This clinical summary was aggregated from multiple sources. Caution should be exercised in using it in the provision of clinical care. This summary normalizes information from multiple sources, and as a consequence, information in this document may materially change the coding, format and clinical context of patient data. In addition, data may be omitted in some cases. CLINICAL DECISIONS SHOULD BE BASED ON THE PRIMARY CLINICAL RECORDS. [employer] provides no warranty or guarantee of the accuracy or completeness of information in this document.
[2024-08-22 12:11] LABS: Troponin I High Sensitivity 17.3 pg/mL (4.0-76.1)
== END 2024-08-22 12:44 | disposition home or self-care (01) ==
PROVIDERS: Emergency Provider Emergency Medicine; PCP Nurse Practitioner Family
DX: R42 Dizziness and giddiness (principal); R11.2 Nausea with vomiting, unspecified; R53.1 Weakness; Z79.899 Other long term (current) drug therapy; R09.81 Nasal congestion
CPT/HCPCS: 36415; 70450; 80053; 83735; 84484; 85025; 85610; 93005; 96374; 96375; 99285; J2405; J3490

== ENCOUNTER 2024-11-25 10:36 | Outpatient (OUT) | payer MEDICARE, SELFPAY ==
--- OUTSIDE RECORDS SUMMARY | 2024-11-06 07:30 | XMS_ITS ---
Author Organization [facility] in [place] Address [address] [place] [address] Care Team Providers Care Manager Mental Health Name Role Phone Ayse Fabiola Primary Care Provider Allergies No Known Allergies REASON FOR VISIT sinus issues still sick seen on 10/14, symptoms are runny nose, congestion, yellow/ green drainage, no fever, lots of coughing Medications Medication SIG (Take, Route, Frequency, Duration) Notes Start Date End Date Status Atorvastatin Calcium 80 MG 1 tablet Oral ly Once a day Active Fluticasone Propionate 50 MCG/ACT 1 spray in each nostril Nasal Twice a day for 30 days Active Losartan Potassium 100 MG 1 tablet Orall y Once a day Active Metoprolol Succinate ER 25 MG 1 tablet Orally Once a day Active Aspirin Adult Low Dose 81 MG 1 tablet Orally Once a day Active Tamsulosin HCl 0.4 MG 1 capsule Orally O nce a day Active Vitamin B12 1000 MCG 1 tablet Orally Onc e a day Active Amoxicillin-Pot Clavulanate 875-125 MG 1 tablet Orally every 12 hrs for 10 days 11/06/2024 Active Social History Tobacco Use: Social History Observation Description Date Details (start date - stop date) Never Smoker NA - NA Tobacco Use/Smoking Question Answer Notes Patient is a nonsmoker AUDIT-C (Standard) Question Answer Notes Did you have a drink containing alcohol in the p ast year? No Points 0 Interpretation Negative Vital Signs Blood pressure systolic 130 mm Hg 11/07/19 25 Blood pressure diastolic 78 mm Hg 025 Height 68 in 11/06/2024 Weight 159.8 lbs 11/06/2024 BMI 24.29 kg/m2 11/06/2024 Encounters Encounter Location Date Provider Diagnosis [facility] [address] [place] [address] 11/06/2024 Fabiola Ayse Acute sinusitis J01.90 Assessments Encounter Date Diagnosis (ICD Code) Assessment Notes Treatment Notes Treatment Clinical Notes Section Notes 11/06/2024 Acute sinusitis (ICD-10 - J01.90) sx 3-4 weeks not improving fu if not improving Plan Of Treatment Medication Medication Name Sig Start Date Stop Date Notes Amoxicillin-Pot Clavulanate 875-125 MG 1 tablet Orally every 12 hrs for 10 days 11/06/2024 Treatment Notes Assessment Notes Acute sinusitis sx 3-4 weeks not improving fu if not improving Next Appt Details Follow Up: prn, Reason: Progress Notes * EMMA Jayden DDOB: 2 (84 yo M)Acc No.[id number]:11/06/2024 Progress Note Patient: Jayden TRUJILLO Provider: Nikhil Tavera ([facility]), PRODUCTION MACHINE OPERATOR :1940 A ge:84 Y S ex:Male Date:11/06/2024 Address:[address] [place] [address] [id number] Check In:11:17 AM ESTCheck O ut:11:30 AM EST Subjective: * Chief Complaints: * 1 . Sinus issues still sick seen on 10/14. 2. Symptoms are runny nose, congestion, yellow/ green drainage, no fever, lots of coughing. * HPI: G eneral: still coughing sinus congestion. * ROS: G eneral/Constitutional: Fever d enies. H eadache a dmits. W eight loss?denies. O phthalmologic: Discharge d enies. E ye Pain d enies. I tching and redness d enies. E NT: Nasal congestion a dmits. S ore throat d enies. C ardiovascular: Chest tightness/ heavy pressure d enies. R apid heart rate d enies. S welling of extremities d enies. C hest pain d enies. ? R espiratory: Productive cough d enies. C hest pain d enies. C ough a dmits. S hortness of breath d enies. W heezing d enies. G astrointestinal: Abdominal pain d enies. C onstipation d enies. D ecreased appetite d enies. D iarrhea d enies. N ausea d enies. V omiting?denies. G enitourinary: Urinary incontinence d enies. P ainful urination d enies. M usculoskeletal: Back pain d enies. N raul pain d enies. M uscle aches d enies. S kin: Rash d enies. S kin lesion(s) d enies. ? 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, hematopoietic and related tissues Modified On:08/30/2022 Status:confirmed Z95.818 Presence of cardiac device Modified On:08/30/2022 Status:confirmed C18.9 Cancer, colon Modified On:08/30/2022 Status:confirmed N40.0 Benign prostatic hyp erplasia without lower urinary tract symptoms Modified On:10/17/2022 Status:confirmed N40.1 Benign prostatic hyp erplasia with lower urinary tract symptoms Modified On:10/17/2022 Status:confirmed G93.40 Acute encephalopathy Modified On:11/02/2022 Status:confirmed N40.0 Enlarged prostate Modified On:11/02/2022 Status:confirmed I10 Hypertension Modified On:11/02/2022 Status:confirmed I25.10 CAD (coronary artery disease) Modified On:11/02/2022 Status:confirmed N18.31 Chronic kidney disea se, stage 3a Modified On:10/14/2024 Status:confirmed * Medical History: H istory of lymphoma, Presence of other cardiac implants and grafts, Colon cancer, Low back pain, unspecified. * Surgical History: C olon Resection , 4 Cardiac Stents , Pacemaker placement . * Hospitalization/Major Diagno stic Procedure: P rostate Infection , Cancer Treatment , Surgeries . * Family History: F ather: , [place] 84, diagnosed with Unspecified heart disease. M other: , 83.?1 sister(s) . 3 son(s) , 1 daughter(s) - healthy. . * Social History: T obacco Use: T obacco Use/Smoking P atient is a n onsmoker D rug/Alcohol: A REZA-C (Standard) D id you have a drink containing alcohol in the past year? N o P oints 0 I nterpretation N egative * Medications: T aking Aspirin Adult Low Dose(Aspirin) 81 MG Tablet Delayed Release 1 tablet Orally Once a day , Taking Atorvastatin Calcium 80 MG Tablet 1 tablet Orally Once a day , Taking Fluticasone Propionate 50 MCG/ACT Suspension 1 spray in each nostril Nasal Twice a day , Taking Losartan Potassium 100 MG Tablet 1 tablet Orally Once a day , Taking Metoprolol Succinate ER 25 MG Tablet Extended Release 24 Hour 1 tablet Orally Once a day , Taking Tamsulosin HCl 0.4 MG Capsule 1 capsule Orally Once a day , Taking Vitamin B12 1000 MCG Tablet 1 tablet Orally Once a day , Medication List reviewed and reconciled with the patient * Allergies: N .K.D.A. Objective: * Vitals: W t:159.8lbs, Ht: 68 in, BP:130/78mm Hg, BMI:24.29Index, Ht-cm: 172.72 cm, Wt-k.48 kg. * Examination: G eneral Examinations: GENERAL APPEARANCE: a lert and oriented, i n no acute distress. EYES: c onjunctiva normal, sclera non-icteric. NOSE: m ild congestion. LUNGS: c lear to auscultation bilaterally. CARDIO: r egular rate and rhythm, S1, S2 normal. MUSCULOSKELETAL: G ait and station normal. SKIN: w arm and dry. Assessment: * Assessment: 1. A cute sinusitis - J01.90 (Primary) Plan: * Treatment: * Preventive Medicine: Screenings/Counseling: F ALL RISK SCREENING Fall Risk Assessment: N o falls in the past year * Follow Up: p rn * * Electronically signed by Rose Tavera , ASSEMBLY STOCK SUPERVISOR, YOUTH WORKER.PRODUCTION MACHINE OPERATOR.[id number] on 11/09/2024 at 03:28 PM EDT Sign off status: Completed Visit Status: C HK (Check Out) true * Provider: Nikhil Tavera ([facility]), PRODUCTION MACHINE OPERATOR Date: 0 11/06/2024 Generated for Printi ng/Facharisseg/eTransmitting on: 0 11/25/2024 10:43 AM EDT History and Physical Notes * HPI (History of Present Illness) Category Sub-Category Detail Notes Category Not es General still coughing sinus congestion Examination Category Sub-Category Detail Notes Category Not es General Examinations GENERAL APPEARANCE: alert a nd oriented, in no acute distress EYES: conjunctiva normal, sclera non-icteric EARS: NOSE: mild congestion THROAT: CARDIO: regular rate and rhy thm, S1, S2 normal LUNGS: clear to auscultatio n bilaterally ABDOMEN: SKIN: warm and dry BACK: MUSCULOSKELETAL: Gait and station nor mal LYMPH NODES:
--- OUTSIDE RECORDS SUMMARY | 2024-11-25 06:00 | XMS_ITS ---
Author Organization [facility] in [place] Address [address] [place] [address] Care Team Providers Care Creative Services Producer Name Role Phone AyseRose jamesela Primary Care Provider Dean Thomas Unavailable [phone] Allergies No Known Allergies REASON FOR VISIT dark stool, some bright red blood when wiping at times -proir hx of colon cancer--Rose's patient, Has a spot on the right side of face, cheek, has a skin spot he wants looked at- saw [facility]OM[facility] in the past Medications Medication SIG (Take, Route, Frequency, Duration) Notes Start Date End Date Status Losartan Potassium 100 MG 1 tablet Orall y Once a day Active Metoprolol Succinate ER 25 MG 1 tablet Orally Once a day Active Fluticasone Propionate 50 MCG/ACT 1 spray in each nostril Nasal Twice a day for 30 days Active Tamsulosin HCl 0.4 MG 1 capsule Orally O nce a day Active Vitamin B12 1000 MCG 1 tablet Orally Onc e a day Active Aspirin Adult Low Dose 81 MG 1 tablet Orally Once a day Active Protonix 40 MG 1 tablet Orally Once a day for 30 days 11/25/2024 Active Atorvastatin Calcium 80 MG 1 tablet Oral ly Once a day Active Social History Tobacco Use: Social History Observation Description Date Details (start date - stop date) Never Smoker NA - NA Tobacco Use/Smoking Question Answer Notes Patient is a nonsmoker Problems Problem Type SNOMED Code ICD Code Onset Dates Problem Status W/U Status Risk Notes Problem Gastric ulcer (010720968) Gastric ulcer (K25.9) Active confirmed Vital Signs Blood pressure systolic 182 mm Hg 11/26/19 25 Blood pressure diastolic 62 mm Hg 025 Height 68 in 11/25/2024 Weight 161.8 lbs 11/25/2024 BMI 24.6 kg/m2 11/25/2024 Encounters Encounter Location Date Provider Diagnosis [facility] [address] [facility] [place] [address] 11/25/2024 Thomas Moran Gastric ulcer K25.9 Assessments Encounter Date Diagnosis (ICD Code) Assessment Notes Treatment Notes Treatment Clinical Notes Section Notes 11/25/2024 Gastric ulcer (ICD-10 - K25.9) Plan Of Treatment Medication Medication Name Sig Start Date Stop Date Notes Protonix 40 MG 1 tablet Orally Once a day for 30 days 11/08 Pending Test Test Name Order Date HEMOGLOBIN A1C (GLYCO) 11/25/2024 LIPID PANEL (CHOL/TRIG/HDL/LDL) 11/26/19 25 PROTIME 11/25/2024 PTT 11/25/2024 THYROID PANEL (T4/TSH/FREE T3) 5 CMP (COMP MET SIMMONS) w/eGFR CKD-EPI 2024 CBC WITH DIFF 11/25/2024 Progress Notes * Jayden CHAPPELL DDOB: 2 (84 yo M)Acc No.[id number]:11/25/2024 UNLOCKED PROGRESS NOTE Progress Note Patient: Jayden TRUJILLO Tereza Provider: Tereza Moran ([facility])MD :1940 A ge:84 Y S ex:Male Date:11/25/2024 Address:[address] [place], [place] [id number] Pcp:Fabiola Tavera Check In:09:49 AM ESTCheck O ut:10:24 AM EST Subjective: * Chief Complaints: * 1 . dark stool, some bright red blood when wiping at times -proir hx of colon cancer--Rose's patient. 2. Has a spot on the right side of face, cheek, has a skin spot he wants looked at- saw [facility]OM[facility] in the past. * HPI: G eneral: hs luymphoma and colon cancer disucssed doesnt want to - purse colonsocopy - opr if found anything he woudl treat it. * ROS: E ENT: hearing changes d enies. v isual changes d enies.?non-healing mouth sores d enies. s wollen glands or neck lumps d enies. h oarseness d enies. s ore throat d enies. d ifficulty swallowing d enies. n ose bleeds d enies. n aspen congestion d enies. e ar ache d enies. e ar discharge?denies. r inging in ears d enies. l ight sensitivity d enies. e ye pain d enies. b lurring d enies. e ye irritation d enies. d ouble vision d enies.?vision loss d enies. G eneral/Constitutional: Sweats: D enies. F atigue d enies. S leep problems d enies. A norexia d enies. M alaise d enies. W eight loss d enies.?Fatigue or Weakness d enies. F ever or Chills d enies. C ardiovascular: Shortness of Breath w/lying flat d enies. L ightheadedness/dizziness d enies. C hest tightness/ heavy pressure d enies. S welling of legs, ankles, or feet d enies. W aking up with shortness of breath d enies. C hest pain denies. P alpitations d enies. W eight gain d enies. R espiratory: Chronic or frequent cough d enies. C oughing up blood?denies. D ifficulty breathing d enies. P roductive cough d enies. S noring?denies. S hortness of breath that awakens from sleep (PND) d enies. C hest pain d enies. S putum production d enies. W heezing d enies. M usculoskeletal: Joint pain d enies. J oint Fluid d enies. B ack pain d enies. K nee pain d enies. N raul pain d enies. J oint Stiffness d enies. M uscle cramps d enies. W eakness of muscles d enies. A rthritis d enies. M uscle aches d enies. P ain in shoulder(s) d enies. S wollen joints d enies. * Medical History: H istory of lymphoma, Presence of other cardiac implants and grafts, Colon cancer, Low back pain, unspecified. * Surgical History: C olon Resection , 4 Cardiac Stents , Pacemaker placement . * Hospitalization/Major Diagno stic Procedure: P rostate Infection , Cancer Treatment , Surgeries . * Family History: F ather: , [place] 82, diagnosed with Unspecified heart disease. M other: , 83.?1 sister(s) . 3 son(s) , 1 daughter(s) - healthy. . * Social History: T obacco Use: T obacco Use/Smoking P atient is a n onsmoker * Medications: T aking Aspirin Adult Low [...] 1 tablet Orally Once a day , Discontinued Amoxicillin-Pot Clavulanate 875-125 MG Tablet 1 tablet Orally every 12 hrs , Medication List reviewed and reconciled with the patient * Allergies: N .K.D.A. Objective: * Vitals: W t:161.8lbs, Ht: 68 in, BP:182/62mm Hg, BMI:24.6Index, Ht-cm: 172.72 cm, Wt-k.39 kg. * Examination: P hysical Exam: GENERAL: w ell developed, well nourished, in no acute distress. HEAD: n ormocephalic/atraumatic. EYES: p upils equal, round and reactive to light, conjunctivae and sclerae normal. EARS: n o deformity or lesion of external ear, canals and TM appear normal bilaterally, TM's intact, not inflamed with normal light reflex, hearing grossly normal to conversational speech. NOSE: n o deformity, discharge, inflammation, or lesions.? MOUTH: m ucous membranes moist, normal oropharynx and posterior pharynx without lesions or exudates, tongue normal, dentition normal. NECK: n raul supple, no masses or palpable cervical nodes, trachea midline, thyroid without nodules, masses, tenderness, or enlargement. CHEST: n o chest wall deformity, no chest wall tenderness.? LUNGS: n ormal respiratory effort and clear to auscultation, no wheezes, rales, or rhonchi, good air exchange. CARDIO: r egular rate and rhythm, normal S1 and S2, nor murmur, rub, or gallop. PULSES: n ormal capillary refill. ABDOMEN: s oft, non-distended, non-tender, no masses. MUSCULOSKELETAL: n o deformity or scoliosis noted, normal range of motion, joints normal, no erythema, edema, effusion, or ecchymosis. EXTREMITY: n o clubbing, cyanosis, edema, or deformity with normal ROM in both upper and lower bilateral extremities. NEUROLOGIC: g rossly normal. SKIN: n o rashes, ulcerations, or suspicious lesions. LYMPH NODES: n o cervical adenopathy, nodes normal. MENTAL STATUS: a lert and oriented x3, normal mood and affect. Assessment: * Assessment: 1. G astric ulcer - K25.9 (Primary) Plan: * Treatment: * * Electronic signature of Thomas Moran MD, [id number] on 11/25/2024 at 10:43 AM EDT Sign off status: Pending Visit Status: C CHARLI (Check Out) * Provider: Tereza Moran ([facility])MD Date: 11/25/2024 Generated for Printi ng/Faxing/eTransmitting on: 0 11/25/2024 10:43 AM EDT History and Physical Notes * HPI (History of Present Illness) Category Sub-Category Detail Notes Category Not es General hs luymphoma and colon cancer disucssed doesnt want to - purse colonsocopy - opr if found anything he woudl treat it Examination Category Sub-Category Detail Notes Category Not es Physical Exam GENERAL: well developed, well nourished, in no acute distress HEAD: normocephalic/atraum atic EYES: pupils equal, round and reactive to light, conjunctivae and sclerae normal EARS: no deformity or lesi on of external ear, canals and TM appear normal bilaterally, TM's intact, not inflamed with normal light reflex, hearing grossly normal to conversational speech NOSE: no deformity, discha rge, inflammation, or lesions MOUTH: mucous membranes tony st, normal oropharynx and posterior pharynx without lesions or exudates, tongue normal, dentition normal NECK: neck supple, no mass es or palpable cervical nodes, trachea midline, thyroid without nodules, masses, tenderness, or enlargement CHEST: no chest wall deform ity, no chest wall tenderness LUNGS: normal respiratory e ffort and clear to auscultation, no wheezes, rales, or rhonchi, good air exchange CARDIO: regular rate and rhy thm, normal S1 and S2, nor murmur, rub, or gallop PULSES: normal capillary ref ill ABDOMEN: soft, non-distended, non-tender, no masses RECTAL: MUSCULOSKELETAL: no deformity or scol iosis noted, normal range of motion, joints normal, no erythema, edema, effusion, or ecchymosis EXTREMITY: no clubbing, cyanosi s, edema, or deformity with normal ROM in both upper and lower bilateral extremities NEUROLOGIC: grossly normal SKIN: no rashes, ulceratio ns, or suspicious lesions LYMPH NODES: no cervical adenopat hy, nodes normal MENTAL STATUS: alert and oriented x 3, normal mood and affect
--- OUTSIDE RECORDS SUMMARY | 2024-11-25 06:22 | XMS_ITS ---
Author Organization [facility] in [place] Address [address] [place] [address] Care Team Providers Care Calcine Furnace Tender Name Role Phone Fabiola Tavera Primary Care Provider Thomas Moran Unavailable [phone] Reason For Referral Diagnosis 1 Nevus (D22.9) Referral Organization [facility] Referring Provider First Name Thomas Referring Provider Last Name Dean [facility]erred Provider Dermatology [facility] Mayra Referred Provider Specialty Dermatology Referral Priority Routine REASON FOR VISIT Derm Referral Encounters Encounter Location Date Provider Diagnosis [facility] [address] [place] [address] 11/25/2024 Thomas Moran Nevus D22.9 Assessments Encounter Date Diagnosis (ICD Code) Assessment Notes Treatment Notes Treatment Clinical Notes Section Notes 11/25/2024 Nevus (ICD-10 - D22.9) Plan Of Treatment Referrals Referral Date Details 11/25/2024 11/25/2024Mayra Dermatology [facility] Progress Notes * Jayden CARTER DDOB: 2 (84 yo M)Acc No.[id number]:11/25/2024 Patient: Nikhil Jayden ESTRELLA :1940 A ge:84 Y S ex:Male Address:[address] [place] [address], [phone] Subjective: * Chief Complaints: * D erm Referral * Medical History: * Surgical History: * Hospitalization/Major Diagno stic Procedure: * Medications: Objective: * Vitals: * Physical Examination: Assessment: * Assessment: 1. N evus - D22.9 (Primary) Plan: * Treatment: * Procedure Codes: * true * Date: Generated for Aleta gottlieb/Casey/Ben on: 0 11/25/2024 10:43 AM EDT Consultation Request Notes Referral Date Referring Provider Referred Provider Not es 11/25/2024 Thomas Moran [place]
--- OUTSIDE RECORDS SUMMARY | 2024-11-25 10:43 | XMS_ITS | Encounter Summary ---
Author Organization [facility] Address [address] [place] [address] Phone Care Team Providers Care Drill Operator Pneumatic Name Role Phone Fabiola Tavera NETWORK SPECIALIST-AMMONIUM NITRATE CRYSTALLIZER Primary Care Provider Encounter Details Date Type Department Care Team (Late st Contact Info) Description 04/21/2024 Cardiology Conference [facility] [place] [address] [address] [place] [address] [place] [id number] Maria Fernanda Cheatham, DEVIN Social History Tobacco Use Types Packs/Day Years Used Date Smoking Tobacco: Never Smokeless Tobacco: Never Alcohol Use Standard Drinks/Week Comments Never 0 (1 standard drink = 0.6 oz pur e alcohol) Sex and Gender Information Value Date Recorded Sex Assigned at Not on file Legal Sex Male 4:04 PM EST Gender Identity Not on file Sexual Orientation Not on file COVID-19 Exposure Response Date Recorded In the last 10 days, have yo u been in contact with someone who was confirmed or suspected to have Coronavirus/COVID-19? No / Unsure 04/15/2024 9:46 AM EST documented as of this encounter Progress Notes * Maria Fernanda Cheatham RN - 04/21/2024 3:02 PM EST Pt was presented in [facility] Team Meeting TAVR Workup: - NYHA: II - LHC 04/02: patent LM and RCA stents. Moderate CAD of LCX and OM for conservative treatment. - CT TAVR: 04/15/2024 no incidentals for f/u prior - dental clearance: full denture EFT 06/14 STS Procedure Type: Isolated AVR Perioperative OutcomeEstimate % Operative Mortality4.29% KCCQ/Walk done Conclusion/Recommendation Area: 3.87 P: 71 Stj:28.2 SOV: 30,29.30.1 access: Good Valve: 29Evolut Fx Cath reviewed, , some disease noted to Circ and Diag. No revascularization needed Potential MRI Study documented in this encounter Plan of Treatment Upcoming Encounters Date Type Department Care Team (Late st Contact Info) Description 02/02/2025 9:00 AM EDT Office Visit [facility] [address] [facility] [address] [place] [phone] Jignesh Bhatt DO [address] [facility] [address] [place] [address] documented as of this encounter Visit Diagnoses Not on filedocumented in this encounter Additional Health Concerns Assessment Noted Time A fall risk assessment has been complete d for the patient 03/23/2024 3:07 PM EDT documented as of this encounter Care Teams Drill Operator Pneumatic Relationship Specialty Start Date End Date Fabiola Tavera APRN-DEVAUGHN [address] [facility] [place] [address] PCP - General 05/19/24 documented as of this encounter
--- OUTSIDE RECORDS SUMMARY | 2024-11-25 10:43 | XMS_ITS | Patient Health Record ---
Author Organization [facility] in [place] Address [address] [place] [address] Care Team Providers Care Real Estate Instructor Name Role Phone Fabiola Tavera Primary Care Provider Dean Thomas Unavailable [phone] Allergies No Known Allergies Results Component Value Reference Range Notes PROF 14(COMP METB) Reviewed date:08/24/2024 12:58:40 PM Interpretation: Performing Lab: Notes/Report: [facility] , Sodium 142 136-145 mmol/L Potassium 4.4 3.5-5.1 mmol/L Chloride 105 98-107 mmol/L Carbon Dioxide 26.8 21.0-32.0 mmol/L Anion Gap 14.6 Glucose 124 74-106 mg/dL Blood Urea Nitrogen 18.0 7.0-18.0 mg/dL Creatinine 1.56 0.70-1.30 mg/dL Estimated GFR ( Breana 52 >=60 mL/min/1.73m 2 Estimated GFR (Non- Milagro 43 >=60 mL/min/1.73m 2 BUN Creatinine Ratio 11.5 Calcium 9.7 8.5-10.1 mg/dL Bilirubin Total 0.9 0.2-1.0 mg/dL Aspartate Amino Transferase 27 15-37 U/L Alanine Aminotransferase 24 16-63 U/L Alkaline Phosphatase 115 46-116 U/L Total Protein 6.4 6.4-8.2 g/dL Albumin Level 3.3 3.4-5.0 g/dL Globulin 3.1 Albumin Globulin Ratio 1.1 Performing Lab: see note ML - The [facility] LB Troponin I High Sensitivity Reviewed date:08/24/2024 12:58:40 PM Interpretation: Performing Lab: Notes/Report: [facility] , Troponin I High Sensitivity 13.9 4.0-76.1 pg/mL CUT-OFF POINTS HAVE BEEN ESTABLISHED BASED ON THE FOURTH PERCENTILE OF cTnI DISTRIBUTION IN A REFERENCE POPULATION, NOTE: HIGH-SENSITIVITY TROPONIN ASSAY IS NOT INTENDED TO BE 99TH PERCENTILE = 76.2 PG/ML HAS BEEN CONFIRMED THE DECISION THRESHOLD FOR AL UNIVERSAL DEFINITION OF MYOCARDIAL INFARCTION. THE UPPER USED IN ISOLATION BUT SHOULD BE INTERPRETED IN CONJUNCTION DIAGNOSIS. REFERENCE LIMIT (URL) OF TROPONIN, DEFINED THE 99TH WITH OTHER DIAGNOSTIC AND CLINICAL INFORMATION. Performing Lab: see note ML - [facility] LB ECG 12 lead Reviewed date:08/24/2024 12:58:40 PM Interpretation: Performing Lab: Notes/Report: Source Facility: [facility]-[address] [place] [address] [place] [address] Electrocardiograph Report Signed Patient: JAYDEN CARTER MR#: [id number] : 1940 Acct:[id number] Age/Sex: 84 / M ADM Date: 08/22/24 Loc: ER Attending Dr: Ordering Physician: Sarah Brush Date of Service: 08/22/24 Procedure(s): ECG 12 lead Accession Number(s): [id number] cc: [facility] Test Date: 2024-08-22 Pat Name: JAYDEN CARTER Department: Room: - Gender: Male Forms Analysis Manager: : 1940 Requested By: 1854 Order Number: [id number] Reading MD: MARIAELENA TORRES M.D. Measurements Intervals [place] Rate: 60 P: 90 NC: 198 QRS: 199 QRSD: 138 T: 77 QT: 458 QTc: 458 Interpretive Statements 1100 Sinus rhythm 2330 Nonspecific intraventricular conduction block 3534 Lateral myocardial infarction, age undetermined 5120 Possible right ventricular hypertrophy 9150 abnormal ECG Compared to ECG 10/04/2022 16:02:18 Myocardial infarct finding now present First degree AV block no longer present Incomplete right bundle-branch block no longer present Electronically Signed On 08-22-2024 17:21:16 EDT by MARIAELENA TORRES M.D. Dictated By: MARIAELENA TORRES Signed By: 08/22/24 172 DD/ 0954 TD/TT: Strategic Sourcing Consultant: [place] [address] Electrocardiograph Report Signed Patient: JANET CARTER MR#: [id number] : 1940 Acct:[id number] Age/Sex: 84 / M ADM Date: 08/22/24 Loc: ER Attending Dr: Ordering Physician: Sarah Brush Date of Service: 08/22/24 Procedure(s): ECG 12 lead Accession Number(s): [id number] cc: [facility] Test Date: 2024-08-22 Pat Name: JAYDEN GUERRERO CH Department: 67 Room: - Gender: Male Forms Analysis Manager: : 1940 Requ ested By: 1854 Order Number: [id number] Reading MD: MARIAELENA TORRES M.D. Measurements Intervals [place] Rate: 60 P: 90 NC: 198 QRS: 199 QRSD: 138 T: 77 QT: 458 QTc: 458 Interpretive Statements 1100 Sinus rhythm 2330 Nonspecific intraventricular conduction block 3534 Lateral myocard ial infarction, age undetermined 5120 Possible right ventricular hypertrophy 9150 abnormal ECG Compared to ECG 09/09 16:02:18 Myocardial infarct f inding now present First degree AV bloc k no longer present Incomplete right bundle-branch block no longer present Electronically Juanita d On 08-22-2024 17:21:16 EDT by MARIAELENA TORRES M.D. Dictated By: MARIAELENA TORRES Signed By: 08/22/24 172 DD/ 0954 TD/TT: Strategic Sourcing Consultant: MAGNESIUM Reviewed date:08/24/2024 12:58:40 PM Interpretation: Performing Lab: Notes/Report: [facility] , Magnesium 1.9 1.8-2.4 mg/dL Performing Lab: see note ML - The [facility] LB CBC AUTO DIFF Reviewed date:08/24/2024 12:58:40 PM Interpretation: Performing Lab: Notes/Report: [facility] , White Blood Count 4.2 4.0-11.0 10 3/uL Red Blood Count 4.29 4.70-6.10 10 6/uL Hemoglobin 13.4 14.0-18.0 g/dL Hematocrit 40.5 42.0-54.0 % Mean Corpuscular Volume 94.4 80.0-94.0 fL Mean Corpuscular Hemoglobin 31.2 25.9-34.0 pg Mean Corpuscular HGB Conc 33.1 29.9-35.2 g/dL Red Cell Distribution Width 13.0 11.0-15.0 % Platelet Count 120 150-450 10 3/uL Mean Platelet Volume 9.5 9.5-13.5 fL Neutrophils Percent Auto 58.6 43.0-75.0 % Lymphocytes Percent Auto 29.5 20.5-60.0 % Monocytes Percent Auto 8.1 1.7-12.0 % Eosinophils Percent Auto 2.6 0.9-7.0 % Basophils Percent Auto 0.5 0.2-2.0 % Immature Granulocytes Pct Auto 0.7 0.0-0.5 % Neutrophils Absolute Auto 2.5 1.4-6.5 10 3/uL Lymphocytes Absolute Auto 1.2 1.2-3.8 10 3/uL Monocytes Absolute Auto 0.3 0.3-0.8 10 3/uL Eosinophils Absolute Auto 0.1 0.0-0.7 10 3/uL Basophils Absolute Auto 0.0 0.0-0.1 10 3/uL Immature Granulocytes Abs Auto 0.03 0.00-0.03 10 3/uL Performing Lab: see note ML - [facility] Prothrombin Time INR Reviewed date:05/11/2024 12:14:20 PM Interpretation: Performing Lab: Notes/Report: [facility] , Prothrombin Time 10.4 9.0-11.6 sec INR 0.98 2.5-3.5 FOR PROSTHETIC HEART VALVE REPLACEMENT 2.5-3.5 RECURRENT THROMBOSIS DESIRED INR: 2.0-3.0 CONDITIONS NOT LISTED BELOW Performing Lab: see note - The [facility] LB PROF CHEM 8 (BAS METB) Reviewed date:05/11/2024 12:14:20 PM Interpretation: Performing Lab: Notes/Report: [facility] , Sodium 143 136-145 mmol/L Potassium 4.4 3.5-5.1 mmol/L Chloride 109 98-107 mmol/L Carbon Dioxide 27.7 21.0-32.0 mmol/L Anion Gap 10.7 Glucose 97 74-106 mg/dL Blood Urea Nitrogen 13.0 7.0-18.0 mg/dL Creatinine 1.56 0.70-1.30 mg/dL Estimated GFR ( Breana 52 >=60 mL/min/1.73m 2 Estimated GFR (Non- Milagro 43 >=60 mL/min/1.73m 2 BUN Creatinine Ratio 8.3 Calcium 9.0 8.5-10.1 mg/dL Performing Lab: see note ML - The [facility] LB CBC AUTO DIFF Reviewed date:05/11/2024 12:14:20 PM Interpretation: Performing Lab: Notes/Report: [facility] , White Blood Count 3.9 4.0-11.0 10 3/uL Red Blood Count 4.44 4.70-6.10 10 6/uL Hemoglobin 14.1 14.0-18.0 g/dL Hematocrit 42.3 42.0-54.0 % Mean Corpuscular Volume 95.3 80.0-94.0 fL Mean Corpuscular Hemoglobin 31.8 25.9-34.0 pg Mean Corpuscular HGB Conc 33.3 29.9-35.2 g/dL Red Cell Distribution Width 13.0 11.0-15.0 % Platelet Count 125 150-450 10 3/uL Mean Platelet Volume 9.6 9.5-13.5 fL Neutrophils Percent Auto 51.8 43.0-75.0 % Lymphocytes Percent Auto 32.4 20.5-60.0 % Monocytes Percent Auto 10.6 1.7-12.0 % Eosinophils Percent Auto 3.6 0.9-7.0 % Basophils Percent Auto 0.8 0.2-2.0 % Immature Granulocytes Pct Auto 0.8 0.0-0.5 % Neutrophils Absolute Auto 2.0 1.4-6.5 10 3/uL Lymphocytes Absolute Auto 1.3 1.2-3.8 10 3/uL Monocytes Absolute Auto 0.4 0.3-0.8 10 3/uL Eosinophils Absolute Auto 0.1 0.0-0.7 10 3/uL Basophils Absolute Auto 0.0 0.0-0.1 10 3/uL Immature Granulocytes Abs Auto 0.03 0.00-0.03 10 3/uL Performing Lab: see note - The [facility] LB Troponin I High Sensitivity Reviewed date:08/24/2024 12:58:40 PM Interpretation: Performing Lab: Notes/Report: [facility] , Troponin I High Sensitivity 17.3 4.0-76.1 pg/mL HAS BEEN CONFIRMED THE DECISION THRESHOLD FOR AL UNIVERSAL DEFINITION OF MYOCARDIAL INFARCTION. THE UPPER 99TH PERCENTILE = 76.2 PG/ML USED IN ISOLATION BUT SHOULD BE INTERPRETED IN CONJUNCTION PERCENTILE OF cTnI DISTRIBUTION IN A REFERENCE POPULATION, CUT-OFF POINTS HAVE BEEN ESTABLISHED BASED ON THE FOURTH DIAGNOSIS. NOTE: HIGH-SENSITIVITY TROPONIN ASSAY IS NOT INTENDED TO BE REFERENCE LIMIT (URL) OF TROPONIN, DEFINED THE 99TH WITH OTHER DIAGNOSTIC AND CLINICAL INFORMATION. Performing Lab: see note - [facility] Prothrombin Time INR Reviewed date:08/24/2024 12:58:40 PM Interpretation: Performing Lab: Notes/Report: [facility] , Prothrombin Time 10.4 9.0-11.6 sec INR 0.98 DESIRED INR: 2.5-3.5 RECURRENT THROMBOSIS 2.0-3.0 CONDITIONS NOT LISTED BELOW 2.5-3.5 FOR PROSTHETIC HEART VALVE REPLACEMENT Performing Lab: see note - [facility] Reason For Referral Diagnosis 1 Nevus (D22.9) Referral Organization [facility] Referring Provider First Name Thomas Referring Provider Last Name [place] Referring Provider Speciality [facility] stevo Referred Provider Dermatology Mayra Nickerson Referred Provider Specialty Dermatology Referral Priority Routine Medications Medication SIG (Take, Route, Frequency, Duration) Notes Start Date End Date Status Aspirin Adult Low Dose 81 MG 1 tablet Orally Once a day Active Protonix 40 MG 1 tablet Orally Once a day for 30 days 11/25/2024 Active Losartan Potassium 100 MG 1 tablet Orall y Once a day Active Metoprolol Succinate ER 25 MG 1 tablet Orally Once a day Active Atorvastatin Calcium 80 MG 1 tablet Oral ly Once a day Active Fluticasone Propionate 50 MCG/ACT 1 spray in each nostril Nasal Twice a day for 30 days Active Tamsulosin HCl 0.4 MG 1 capsule Orally O nce a day Active Vitamin B12 1000 MCG 1 tablet Orally Onc e a day Active Social History Tobacco Use: Social History Observation Description Date Details (start date - stop date) Never Smoker NA - NA Tobacco Use/Smoking Question Answer Notes Patient is a nonsmoker Alcohol Screen (Audit-C) Question Answer Notes Did you have a drink containing alcohol in the p ast year? No Points 0 Interpretation Negative AUDIT-C (Standard) Question Answer Notes Did you have a drink containing alcohol in the p ast year? 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) Active confirmed Problem Hypertension (91017926) Hypertension (I10) Active confirmed Problem Coronary artery disease (02141108) CAD (coronary artery disease) (I25.10) Active confirmed Problem Malignant neoplasm of colon (587340450) Cancer, colon (C18.9) Active confirmed Problem Gastric ulcer (000593951) Gastric ulcer (K25.9) Active confirmed Problem Malignant tumor of colon (224671456) Colon cancer (C18.9) Active confirmed Problem Enlarged prostate (121388198) Enlarged prostate (N40.0) Active confirmed Problem History of lymphoma (529066829) 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) Active confirmed Problem Disorder of brain (49065722) Acute encephalopathy (G93.40) Active confirmed Problem 593579856 Benign prostatic hyperplasia with lower urinary tract symptoms (N40.1) Active confirmed Problem 509467955 Benign prostatic hyperplasia without lower urinary tract symptoms (N40.0) Active confirmed Problem Identification of presence of implantable cardiac devices (procedure) (822172931) Presence of cardiac device (Z95.818) Active confirmed Problem Chronic kidney disease stage 3A (disorder) (121268883) Chronic kidney disease, stage 3a (N18.31) Active confirmed Problem Low back pain (439898839) Low back pain, unspecified (M54.50) Active confirmed Vital Signs Temperature 99.0 degrees Fahrenheit 10/14/2024 Blood pressure diastolic 62 mm Hg 11/25/2024 Height 68 in 11/25/2024 Blood pressure systolic 182 mm Hg 11/25/2024 Weight 161.8 lbs 11/25/2024 BMI 24.6 kg/m2 11/25/2024 Encounters Encounter Location Date Provider Diagnosis [facility] [address] [place] [address] 09/02/2024 Fabiola Tavera [facility] [address] [place] [place] [address] 09/14/[address] [facility] [address] [place] [address] 11/25/2024 Thomas Hoy Nevus D22.9 [facility] [address] [place] [address] 09/02/20[address] Fabiola [address]aver[address] Vertigo R42 [facility] [address] [place] [address] 10/14/2024 Fabiola Tavera Chronic kidney disease, stage 3a N18.[address] [facility] [address] [place] [address] 11/25/2024 Thomas Enriquezy Gastric ulcer K25.9 [facility] [address] [place] [address] 11/06/2024 Fabiola Tavera Acute sinusitis J01.90 Assessments Encounter Date Diagnosis (ICD Code) Assessment Notes Treatment Notes Treatment Clinical Notes Section Notes 09/02/2024 Vertigo (ICD-10 - R42) fu cardiology fu if continues stay well hydrated, dont skip meals 10/14/2024 Chronic kidney disease, stage 3a (ICD-10 - N18.31) continue monitor sees [facility] 10/14/2024 Cough (ICD-10 - R05.9) 11/06/2024 Acute sinusitis (ICD-10 - J01.90) sx 3-4 weeks not improving fu if not improving 11/25/2024 Gastric ulcer (ICD-10 - K25.9) 11/25/2024 Nevus (ICD-10 - D22.9) Plan Of Treatment Pending Test Test Name Order Date UA (URINALYSIS, COMPLETE) 11/15/2022 HEMOGLOBIN A1C (GLYCO) 11/25/2024 LIPID PANEL (CHOL/TRIG/HDL/LDL) 11/26/19 25 UA (URINALYSIS, MICRO ONLY) 10/18/2022 URINE CULTURE 11/15/2022 URINE CULTURE 10/18/2022 UA (URINALYSIS), COMPLETE (21967) - IN O FFICE 10/18/2022 PROTIME 11/25/2024 PTT 11/25/2024 SNR 05 URINALYSIS 10/18/2022 THYROID PANEL (T4/TSH/FREE T3) CMP (COMP MET SIMMONS) w/eGFR CKD-EPI 2024 CBC WITH DIFF 11/25/2024 Insurance Providers Payer Name Payer Address Payer Phone Subscriber Number Group Number Insured Name Patient Relationship to Insured Coverage Start Date Coverage End Date [employer] MEDICARE ADV PLAN [address] [address] [place] [phone] [id number] Jayden Carter Self - patient is the insured Medical (General) History Medical History History ICD Code History of lymphoma Z85.79 Presence of other cardiac implants and g rafts Z95.818 Colon cancer C18.9 Low back pain, unspecified M54.50 Surgical History Surgery Date(Month/Year) Pacemaker placement 4 Cardiac Stents Colon Resection Hospitalization History Reason Date(Month/Year) Surgeries Cancer Treatment Prostate Infection
--- OUTSIDE RECORDS SUMMARY | 2024-11-25 10:43 | XMS_ITS | Encounter Summary ---
Author Organization [facility] Address [address] [place] [address] Phone Care Team Providers Care Medical Coder Name Role Phone Fabiola Tavera Primary Care Provider Encounter Details Date Type Department Care Team (Late st Contact Info) Description 01/11/2021 Orders Only [facility] [address] [place] [address] Conversion, Onbase Social History Tobacco Use Types Packs/Day Years Used Date Smoking Tobacco: Never Assessed Sex and Gender Information Value Date Recorded Sex Assigned at Not on file Legal Sex Male 4:04 PM EST Gender Identity Not on file Sexual Orientation Not on file documented as of this encounter Plan of Treatment Upcoming Encounters Date Type Department Care Team (Late st Contact Info) Description 02/02/2025 9:00 AM EDT Office Visit [facility] [address] [facility] [address] [place] [address] Jignesh Bhatt, [address] [facility] [address] [place], [place] [phone] Scheduled Orders Name Type Priority Associated Diagnoses Orde r Schedule OUTSIDE LAB SCAN Lab Ordered: 01/11/2021 documented as of this encounter Visit Diagnoses Not on filedocumented in this encounter Care Teams Medical Coder Relationship Specialty Start Date End Date Fabiola Tavera APRN-CNP [address] [place] [address] PCP - General 05/19/24 documented as of this encounter
--- OUTSIDE RECORDS SUMMARY | 2024-11-25 10:43 | XMS_ITS | Encounter Summary ---
Author Organization [facility] Address [address] [place] [address] Phone Care Team Providers Care Plate Worker Name Role Phone Fabiola Tavera OFFAL BALER-RETORT FURNACE HELPER Primary Care Provider Encounter Details Date Type Department Care Team (Late st Contact Info) Description 03/31/2024 Scanned Document [facility] [address] [place] [id number] Scanning, Generic Provider Social History Tobacco Use Types Packs/Day Years [...] suspected to have Coronavirus/COVID-19? No / Unsure 03/23/2024 2:57 PM EDT documented as of this encounter Plan of Treatment Upcoming Encounters Date Type Department Care Team (Late st Contact Info) Description 02/02/2025 9:00 AM EDT Office Visit [facility] [address] [facility] [address] [place] [address] Jignesh Bhatt, [address] [place] [address] documented as of this encounter Visit Diagnoses Not on filedocumented in this encounter Additional Health Concerns Assessment Noted Time A fall risk assessment has been complete d for the patient 03/23/2024 3:07 PM EDT documented as of this encounter Care Teams Plate Worker Relationship Specialty Start Date End Date Fabiola Tavera APRN-DEVAUGHN [address] [place] [address] PCP - General 05/19/24 documented as of this encounter
--- OUTSIDE RECORDS SUMMARY | 2024-11-25 10:43 | XMS_ITS | Encounter Summary ---
Author Organization [facility] Address [address] [place] [address] Phone Care Team Providers Care Administrative Medical Director Name Role Phone Fabiola Tavera Primary Care Provider Encounter Details Date Type Department Care Team (Late st Contact Info) Description 01/31/2023 Orders Only [facility] [address] [place] [address] Conversion, Onbase Social History Tobacco Use Types [...] Description 02/02/2025 9:00 AM EDT Office Visit [facility] [address] [facility] [address] [place] [address] Jignesh Bhatt, [address] [facility] [address] [place], [place] [phone] Scheduled Orders Name Type Priority Associated Diagnoses Orde r Schedule OUTSIDE LAB SCAN Lab Ordered: 01/31/2023 documented as of this encounter Visit Diagnoses Not on filedocumented in this encounter Care Teams Administrative Medical Director Relationship Specialty Start Date End Date Fabiola Tavera APRN-CNP [address] [place] [address] PCP - General 05/19/24 documented as of this encounter
--- OUTSIDE RECORDS SUMMARY | 2024-11-25 10:43 | XMS_ITS | Encounter Summary ---
Author Organization [facility] Address [address] [place] [address] Phone Care Team Providers Care Harbor Pilot Name Role Phone Fabiola Tavera Primary Care Provider Encounter Details Date Type Department Care Team (Late st Contact Info) Description 12/08/2019 Orders Only [facility] [address] [place] [address] Conversion, Onbase Social History Tobacco Use Types [...] Description 02/02/2025 9:00 AM EDT Office Visit [facility] [address] [facility] [address] [place] [address] Jignesh Bhatt, [address] [facility] [address] [place], [place] [phone] Scheduled Orders Name Type Priority Associated Diagnoses Orde r Schedule OUTSIDE LAB SCAN Lab Ordered: 12/08/2019 documented as of this encounter Visit Diagnoses Not on filedocumented in this encounter Care Teams Harbor Pilot Relationship Specialty Start Date End Date Fabiola Tavera APRN-CNP [address] [place] [address] PCP - General 05/19/24 documented as of this encounter
--- OUTSIDE RECORDS SUMMARY | 2024-11-25 10:43 | XMS_ITS | Encounter Summary ---
Author Organization [facility] Address [address] [place] [address] Phone Care Team Providers Care Coding Coordinator Name Role Phone Fabiola Tavera FRUIT VENDOR-DENTAL HYGIENE TEACHER Primary Care Provider Encounter Details Date Type Department Care Team (Late st Contact Info) Description 05/08/2024 Scanned Document [facility] [address] [place] [phone] Scanning, Generic Provider Social History Tobacco Use [...] AM EST documented as of this encounter Plan of Treatment Upcoming Encounters Date Type Department Care Team (Late st Contact Info) Description 02/02/2025 9:00 AM EDT Office Visit [facility] [address] [facility] [address] [place] [address] Jignesh Bhatt, [address] [place] [address] documented as of this encounter Procedures Procedure Name Priority Date/Time Associated Diagnosis Comments OUTSIDE LAB SCAN 05/08/2024 OUTSIDE LAB SCAN 05/08/2024 documented in this encounter Results * OUTSIDE LAB SCAN (05/08/2024) Narrative 05/08/2024 Ordered by an unspecified provider. us Generic Provider Scanning OUTSIDE SCAN Final Result * OUTSIDE LAB SCAN (05/08/2024) Narrative 05/08/2024 Ordered by an unspecified provider. us Generic Provider Scanning OUTSIDE SCAN Final Result documented in this encounter Visit Diagnoses Not on filedocumented in this encounter Additional Health Concerns Assessment Noted Time A fall risk assessment has been complete d for the patient 03/23/2024 3:07 PM EDT documented as of this encounter Care Teams Coding Coordinator Relationship Specialty Start Date End Date Fabiola Tavera, FRUIT VENDOR-DENTAL HYGIENE TEACHER [address] [place] [address] PCP - General 05/19/24 documented as of this encounter
--- OUTSIDE RECORDS SUMMARY | 2024-11-25 10:43 | XMS_ITS | Clinical Summary ---
Author Organization [facility] Address [address] [place] [address] Phone Care Team Providers Care Registration Representative Name Role Phone AyseFabiola Henok FIELD ADJUSTER-SENIOR QA AUTOMATION ENGINEER Primary Care Provider Allergies No known active allergies Medications aspirin 81 mg EC tablet Take 1 tablet (81 mg) by mouth once daily. Active nitroglycerin (Nitrostat) 0.[address] 1 tablet (0.4 mg) under the tongue every 5 minutes if needed. 2 Active cyanocobalamin (Vitamin B-12) 250 mcg tablet Take 1 tablet (250 mcg) by mouth once daily. Active atorvastatin (Lipitor) 80 mg tabletIndications:H yperlipidemia, unspecified hyperlipidemia type,History of CO (myocardial infarction) Take 1 tablet (80 mg) by mouth once daily at bedtime. 90 tablet 3 4 03/30/20 25 Active tamsulosin (Flomax) 0.4 mg 24 hr capsule Take 1 capsule (0.4 mg) by mouth once daily. Active losartan (Cozaar) 50 mg tabletIndications:P rimary hypertension Take 1 tablet (50 mg) by mouth once daily. 90 tablet 3 5 08/14/19 26 Active metoprolol succinate XL (Toprol-XL) 25 mg 24 hr tabletIndications:P rimary hypertension,Histor y of CO (myocardial infarction) Take 1 tablet (25 mg) by mouth once daily. 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 2272 dual-chamber permanent pacemaker Assessment & Plan (05/21/2024 10:43 AM EST): 84 y.o. male with PMH of CAD s/p inferior CO and PCI to RCA and LM-LAD in 2019, severe aortic stenosis, HTN, HLD, CKDIII, history of lymphoma and colon cancer in 2014 [facility] c/b CHB on TVP (V [...] -s/p Evolut valve #CAD #HLD ::s/p inferior CO and PCI to RCA and LM-LAD in 2019 ::[facility] 04/02: patent LM and RCA stents. [...] Full (confirmed on admission) Nok: Daughter Cari [phone] S/P TAVR (transcatheter aortic valve replacement ) 05/18/2024 Assessment & Plan (07/01/2024 1:20 PM EST): May 19, 2024 #29 mm Evolute TAVR Postprocedure TTE normal bioprosthetic function no perivalvular leak Never smoked tobacco 03/23/2024 BMI 25.0-25.9,adult 04/01/2023 Assessment & Plan (07/01/2024 1:21 PM EST): Reviewed the merits of healthy lifestyle choices on overall cardiovascular health. Atherosclerosis of [place] co ronary artery of [place] heart without angina pectoris 03/29/2023 Assessment & Plan (07/01/2024 1:18 PM EST): Remote PCI Most recent ischemic evaluation April 2024 cardiac cath Left main into proximal LAD patent stenting Proximal/mid RCA patent stents Mid circumflex going into OM less than 75% consistent with known history Small Diag1 90% Current daily activity greater than 4 METS without concerning symptoms History of colon cancer 03/29/2023 Bruit of left carotid artery 03/29/2023 History of lymphoma 03/29/2023 History of CO (myocardial infarction) 03/29/2023 History of PTCA 03/29/2023 Hyperlipidemia 03/29/2023 Assessment & Plan (07/01/2024 1:19 PM EST): High intensity statin Hypertension 03/29/2023 Assessment & Plan (07/01/2024 1:19 PM EST): Optimal in office Resolved Problems Problem Noted Date Diagnosed Date Resolved Date AV block, postoperative 05/20/202405/10 Aortic stenosis 03/23/2024 05/21/2024 Encounters Date Type Department Care Team Description 09/11/[address] [facility] [address] [facility] [address] [place] [id number] Марина Harrington LPN Primary hypertension; History of CO (myocardial infarction) from Last 3 Months Immunizations Immunization Administration Dates Next Due Influenza, Unspecified 06/10/2014 Pfizer Mcdonnell Cap SARS-CoV-2 02/06/2022 Pneumococcal polysaccharide vaccine, 23-valent, age 2 years and older (PNEUMOVAX 23) 06/10/2014 Family History Medical History Relation Name Comments [place] Father [place] Mother Relation Name Status Comments Father Mother Social History Tobacco Use Types Packs/Day Years Used Date Smoking Tobacco: Never Smokeless Tobacco: Never Tobacco Cessation:Counseling Given: Not Answered Alcohol Use Standard Drinks/Week Comments Never 0 (1 standard drink = 0.6 oz pur e alcohol) [facility] Utilities Answer Date Recorded In the past 12 months has e [employer], gas, oil, or water [employer] threatened to shut off services in your home? No 05/20/2024 Humiliation, Afraid, Rape, and Kick questionnair e Answer Date Recorded Within the last year, have y ou been afraid of your partner or ex-partner? No 05/20/2024 Within the last year, have y ou been humiliated or emotionally abused in other ways by your partner or ex-partner? No Within the last year, have y ou been kicked, hit, slapped, or otherwise physically hurt by your partner or ex-partner? No 05/20/2024 Within the last year, have y ou been raped or forced to have any kind of sexual activity by your partner or ex-partner? No 05/20/2024 AUDIT-C Answer Date Recorded Q1: How often do you have a drink containing alcohol? Never 05/19/2024 Q2: How many drinks containi ng alcohol do you have on a typical day when you are drinking? Patient does not drink Q3: How often do you have si x or more drinks on one occasion? Never 05/19/2024 Overall Financial Resource Strain (CARDIA) Answe r Date Recorded How hard is it for you to pa y for the very basics like food, housing, medical care, and heating? Not very hard 05/20/2024 PHQ-2 Answer Date Recorded Patient Health Questionnaire-2 Score 0 05/19/2024 [facility] [place] [facility] Occupat ional [facility] - Occupational Stress Questionnaire Answer Date Recorded Do you feel stress - tense, restless, nervous, or anxious, or unable to sleep at night because your mind is troubled all the time - these days? Not at all 05/19/2024 Hunger Vital Sign Answer Date Recorded Within the past 12 months, y ou worried that your food would run out before you got the money to buy more. Never true 05/20/20 24 Within the past 12 months, t he food you bought just didn't last and you didn't have money to get more. Never true 05/20/2024 PRAPARE - Transportation Answer Date Re corded In the past 12 months, has l ack of transportation kept you from medical appointments or from getting medications? No 05/10 In the past 12 months, has l ack of transportation kept you from meetings, work, or from getting things needed for daily living? No 05/20/2024 Housing Stability Vital Sign Answer Xavier e Recorded In the last 12 months, was t here a time when you were not able to pay the mortgage or rent on time? No 05/20/2024 In the past 12 months, how m any times have you moved where you were living? 0 05/20/2024 At any time in the past 12 m [facility], were you homeless or living in a fci (including now)? No 05/20/2024 Sex and Gender Information Value Date Recorded Sex Assigned at Not on file Legal Sex Male 4:04 PM EST Gender Identity Not on file Sexual Orientation Not on file Last Filed Vital Signs Vital Sign Reading Time Taken Comments Blood Pressure 132/60 06/30/2024 3:24 PM EST Pulse 60 06/30/2024 3:24 PM EST Temperature 36.8 C (98.3 F) 06/02/2024 1:23 PM EST Respiratory Rate 26 05/21/2024 11:00 AM EST Oxygen Saturation 99% 05/21/2024 11:02 AM EST Inhaled Oxygen Concentration - - Weight 75.3 kg (166 lb) 06/30/2024 3:24 PM EST Height 172.7 cm (5' 8 ) 06/30/2024 3:24 PM EST Body Mass Index 25.24 06/30/2024 3:24 PM EST Plan of Treatment Upcoming Encounters Date Type Department Care Team (Late st Contact Info) Description 02/02/2025 9:00 AM EDT Office Visit [facility] [address] [facility] [address] [place] [address] Jignesh Bhatt DO [address] [facility] [address] [place] [address] Health Maintenance Due Date Last Done Comments Medicare Annual Wellness Vis it (AWV) 1940 Zoster Vaccines (1 of 2) 1961 DTaP/Tdap/Td Vaccines (1 - Tdap) 1964 Pneumococcal Vaccine (2 of 2 - PCV) 06/10/2015 06/10/2014 RSV High Risk: (Elderly (60+ ) or Population) (1 - 1-dose 75+ series) 2017 COVID-19 Vaccine (2 - Pfizer risk series) 02/27/2022 02/06/2022 Lipid Panel 06/23/2024 06/23/2019 Influenza Vaccine (Season Ended) 2025 06/10/19 15 HIB Vaccines Aged Out No longer eligi ble based on patient's age to complete this topic HPV Vaccines Aged Out No longer eligi ble based on patient's age to complete this topic Hepatitis A Vaccines Aged Out No long er eligible based on patient's age to complete this topic Hepatitis B Vaccines Aged Out No long er eligible based on patient's age to complete this topic IPV Vaccines Aged Out No longer eligi ble based on patient's age to complete this topic Meningococcal Vaccine Aged Out No tashi devi eligible based on patient's age to complete this topic Rotavirus Vaccines Aged Out No longer eligible based on patient's age to complete this topic Medical Devices Implanted Type Area Boomswing Operator Device Identifier Shelf Expiration Date Model / Serial / Lot Pacemaker, Generator, Dual Assurity Mri - [id number] Implanted:Qty: 1 on 05/20/2024 by Chino Brady MD at [facility] Cardiac Pacemaker Left: Chest [employer] [id number] 07/10/2025 [id number] / [id number] / [id number] Lead, Pacemaker, Ultipace 52cm - [id number] Implanted:Qty: 1 on 05/20/2024 by Chino Brady MD at [facility] Cardiac Pacemaker N/A: Heart [employer] [id number] 03/09/2027 [id number] / [id number] / [id number] Lead, Pacemaker, Ultipace 65cm - [id number] Implanted:Qty: 1 on 05/20/2024 by Chino Brady MD at [facility] Cardiac Pacemaker N/A: Heart [employer] [id number] 01/07/2027 [id number] / [id number] / [id number] Valve, Aortic, 29mm, Evolut Fx Transcatheter - [id number] - [id number] Implanted:Qty: 1 on 05/19/2024 by Kermit Clements MD at [facility] Heart Valve Repair N/A: Heart [employer] 11/17/2025 [id number] -[id number] / [id number] / [id number] Procedures Procedure Name Priority Date/Time Associated Diagnosis Comments LIPID PANEL Routine 06/23/2019 10:45 AM EST from Last 3 Months or Most Recently Relevant to Health Maintenance Results * Lipid Panel (06/23/2019 10:45 AM EST) [facility] Signature Cholesterol 99 0 - 199 mg/dL [facility] Comment: . AGE DESIRABLE BORDERLINE HIGH HIGH 0-19 Y 0 - 169 170 - 199 >/= 200 20-24 Y 0 - 189 190 - 224 >/= 225 >24 Y 0 - 199 200 - 239 >/= 240 All ranges are based on fasting samples. Specific therapeutic targets will vary based on patient-specific cardiac risk. . Pediatric guidelines reference:Pediatrics 2011, 128(S5). Adult guidelines reference: NCEP ATPIII Guidelines, FERNANDO 2001, 258:2486-97 . Venipuncture immediately after or during the administration of Metamizole may lead to falsely low results. Testing should be performed immediately prior to Metamizole dosing. HDL 47.0 mg/dL [facility] Comment: . AGE VERY LOW LOW NORMAL HIGH 0-19 Y < 35 < 40 40-45 ---- 20-24 Y ---- < 40 >45 ---- >24 Y ---- < 40 40-60 >60 . Cholesterol/HDL Ratio 2.1 [facility] Comment: REF VALUES DESIRABLE < 3.4 HIGH RISK > 5.0 LDL 37 0 - 99 mg/dL [facility] Comment: . NEAR BORD AGE DESIRABLE OPTIMAL HIGH HIGH VERY HIGH 0-19 Y 0 - 109 --- 110-129 >/= 130 ---- 20-24 Y 0 - 119 --- 120-159 >/= 160 ---- >24 Y 0 - 99 100-129 130-159 160-189 >/=190 . VLDL 15 0 - 40 mg/dL [facility] Triglycerides 76 0 - 149 mg/dL [facility] Comment: . AGE DESIRABLE BORDERLINE HIGH HIGH VERY HIGH 0 D-90 D 19 - 174 ---- ---- ---- 91 D- 9 Y 0 - 74 75 - 99 >/= 100 ---- 10-19 Y 0 - 89 90 - 129 >/= 130 ---- 20-24 Y 0 - 114 115 - 149 >/= 150 ---- >24 Y 0 - 149 150 - 199 200- 499 >/= 500 . Venipuncture immediately after or during the administration of Metamizole may lead to falsely low results. Testing should be performed immediately prior to Metamizole dosing. 06/23/2019 10:4 5 AM EST 06/23/2019 5:57 PM EST Jignesh Bhatt DO LAB BLOOD ORDERABLES Final Result [facility] from Last 3 Months or Most Recently Relevant to Health Maintenance Insurance [employer] GOLD CHOICE [employer] GOLD CHOICE Advance Directives For more information, please contact: [phone] (Available ) * Full Code (Latest Code Status on File) Date Activated Date Inactivated Comments 05/19/2024 1:50 PM Question Answer Comments Plan of Care: Code Status Discussion Completed Decision Maker: Patient * Full Code Date Activated Date Inactivated Comments 05/19/2024 12:49 PM 05/19/2024 1:50 PM Question Answer Comments Plan of Care: Code Status Discussion Completed Decision Maker: Patient Care Teams Registration Representative Relationship Specialty Start Date End Date Fabiola Tavera, FIELD ADJUSTER-SENIOR QA AUTOMATION ENGINEER [address] [place] [address] PCP - General 05/19/24
--- OUTSIDE RECORDS SUMMARY | 2024-11-25 10:43 | XMS_ITS | Encounter Summary ---
Author Organization [facility] Address [address] [place] [address] Phone Care Team Providers Care Coiled Tubing Operator Name Role Phone Fabiola Tavera Primary Care Provider Encounter Details Date Type Department Care Team (Late st Contact Info) Description 10/07/2022 Orders Only [facility] [address] [place] [address] Conversion, Onbase Social History Tobacco Use Types [...] Description 02/02/2025 9:00 AM EDT Office Visit [facility] [address] [facility] [address] [place] [address] Jignesh Bhatt, [address] [facility] [address] [place], [place] [id number] Scheduled Orders Name Type Priority Associated Diagnoses Orde r Schedule OUTSIDE LAB SCAN Lab Ordered: 10/07/2022 documented as of this encounter Visit Diagnoses Not on filedocumented in this encounter Care Teams Coiled Tubing Operator Relationship Specialty Start Date End Date Fabiola Tavera APRN-CNP [address] [place] [address] PCP - General 05/19/24 documented as of this encounter
[2024-11-25 11:21] LABS: Basophils Percent Auto 0.8 % (0.2-2.0); Eosinophils Absolute Auto 0.1 10^3/uL (0.0-0.7); Eosinophils Percent Auto 2.3 % (0.9-7.0); Hematocrit 40.3 % (42.0-54.0); Hemoglobin 13.6 g/dL (14.0-18.0); Immature Granulocytes Abs Auto 0.05 10^3/uL (0.00-0.03); Immature Granulocytes Pct Auto 1.3 % (0.0-0.5); Lymphocytes Absolute Auto 1.1 10^3/uL (1.2-3.8); Mean Corpuscular HGB Conc 33.7 g/dL (29.9-35.2); Mean Corpuscular Hemoglobin 31.6 pg (25.9-34.0); Mean Corpuscular Volume 93.5 fL (80.0-94.0); Mean Platelet Volume 9.6 fL (9.5-13.5); Monocytes Absolute Auto 0.4 10^3/uL (0.3-0.8); Monocytes Percent Auto 9.4 % (1.7-12.0); Neutrophils Absolute Auto 2.3 10^3/uL (1.4-6.5); Neutrophils Percent Auto 59.2 % (43.0-75.0); Platelet Count 129 10^3/uL (150-450); Red Blood Count 4.31 10^6/uL (4.70-6.10); Red Cell Distribution Width 13.2 % (11.0-15.0); White Blood Count 3.9 10^3/uL (4.0-11.0)
[2024-11-25 11:33] LABS: Estimated Average Glucose 117 mg/dL; Glycohemoglobin A1C 5.7 % (4.5-6.2)
[2024-11-25 11:45] LABS: INR 0.97; Partial Thromboplastin Time 26.5 sec (22.3-36.2); Prothrombin Time 10.3 sec (9.0-11.6)
[2024-11-25 12:17] LABS: Alanine Aminotransferase 18 U/L (16-63); Albumin Globulin Ratio 0.9; Alkaline Phosphatase 111 U/L (46-116); Anion Gap 9.5; Aspartate Amino Transferase 17 U/L (15-37); BUN Creatinine Ratio 11.5; Bilirubin Total 0.6 mg/dL (0.2-1.0); Carbon Dioxide 30.7 mmol/L (21.0-32.0); Chloride 106 mmol/L (98-107); Chol HDL Ratio 3.3; Cholesterol 140 mg/dL (<=200); Estimated GFR (African America >60 (>=60 mL/min/1.73m^2); Estimated GFR (Non-African Ame 53 (>=60 mL/min/1.73m^2); Free T3 2.04 pg/mL (2.18-3.98); Globulin 3.2 g/dL; Glucose 93 mg/dL (74-106); HDL Cholesterol 43 mg/dL (40-60); Potassium 4.2 mmol/L (3.5-5.1); Sodium 142 mmol/L (136-145); Thyroid Stimulating Hormone 2.085 uIU/mL (0.358-3.740); Total Protein 6.2 g/dL (6.4-8.2); Triglycerides 194 mg/dL (<=150); VLDL CHOLESTEROL 38.8 mg/dL
== END 2024-11-25 10:37 | disposition home or self-care (01) ==
LOC: LAB 10:40
PROVIDERS: PCP Nurse Practitioner Family; Visit Provider Family Medicine
DX: K25.9 Gastric ulcer, unspecified as acute or chronic, without hemorrhage or perforation (principal); E78.5 Hyperlipidemia, unspecified; R73.09 Other abnormal glucose; E03.9 Hypothyroidism, unspecified; I10 Essential (primary) hypertension; R53.83 Other fatigue
CPT/HCPCS: 36415; 80053; 80061; 83036; 84436; 84443; 84481; 85025; 85610; 85730